=== PATIENT | male | born 1950 | race Caucasian/White ===

== ENCOUNTER → 2020-01-10 12:50 | Outpatient (BNVA) | payer OTHER, SELFPAY | PROVIDERS: PCP Internal Medicine; Referring Provider Internal Medicine; Visit Provider Internal Medicine Cardiovascular Disease | DX: I25.10 Atherosclerotic heart disease of native coronary artery without angina pectoris (principal); I49.3 Ventricular premature depolarization; I10 Essential (primary) hypertension; E78.5 Hyperlipidemia, unspecified; Z79.82 Long term (current) use of aspirin; Z79.899 Other long term (current) drug therapy | CPT/HCPCS: 93005; 99214 ==

== ENCOUNTER 2020-01-24 16:10 | Outpatient (REF) | payer OTHER, SELFPAY | END 2020-01-24 16:11 | disposition home or self-care (01) | LOC: HO.LAB 16:10 | PROVIDERS: Visit Provider Internal Medicine | DX: Z20.828 Contact with and (suspected) exposure to other viral communicable diseases (principal) | CPT/HCPCS: C9803; U0003 ==

== ENCOUNTER 2020-04-18 08:10 | Outpatient (REF) | payer OTHER, SELFPAY ==
[2020-04-18 08:56] LABS: MANUAL DIFF FLAG NO
[2020-04-18 09:07] LABS: Basophils Percent Auto 0.7 % (0-2); Eosinophils Absolute Auto 0.2 X10*3/uL (0.0-0.4); Eosinophils Percent Auto 2.9 % (0-4); Hematocrit 43.5 % (42-52); Hemoglobin 14.9 g/dl (14.0-18.0); Imm Gran Abs Auto 0.01 X10*3/uL (0.00-0.03); Imm Gran Pct Auto 0.2 % (0.0-0.4); Lymphocytes Absolute Auto 1.7 X10*3/uL (1.2-4.9); Lymphocytes Percent Auto 29.7 % (20-40); Mean Corpuscular HGB Conc 34.3 g/dl (31.0-36.0); Mean Corpuscular Hemoglobin 31.2 pg (27.0-33.0); Mean Platelet Volume 11.9 fL (9.4-12.4); Monocytes Absolute Auto 0.5 X10*3/uL (0.1-1.2); Monocytes Percent Auto 8.5 % (2-11); Neutrophils Absolute Auto 3.2 X10*3/uL (2.0-8.3); Platelet Count 153 X10*3/uL (160-400); Red Blood Count 4.78 X10*6/uL (4.60-5.80); Red Cell Distribution Width 12.4 % (11.0-16.0); White Blood Count 5.6 X10*3/uL (4.8-10.8)
[2020-04-18 09:16] LABS: Estimated Average Glucose 117 mg/dL; Hemoglobin A1C 147.2008 umol/L; Hemoglobin A1c % 5.7 %
[2020-04-18 09:27] LABS: Alanine Aminotransferase 26 U/L (0-40); Albumin Level 4.2 g/dL (3.5-5.0); Alkaline Phosphatase 71 U/L (39-117); Anion Gap 14 (12-20); Aspartate Amino Transferase 25 U/L (5-37); Bilirubin Total 0.8 mg/dL (0.0-1.0); Blood Urea Nitrogen 20 mg/dL (9-16); Calcium 9.1 mg/dL (8.4-10.2); Carbon Dioxide 23 mmol/L (22-29); Chloride 109 mmol/L (96-108); Cholesterol 113 mg/dL; Estimated Glomerular Filt Rate > 60; Glucose Fasting 99 mg/dL (60-99); HDL Cholesterol 39 mg/dL; LDL Cholesterol Calculated 53 mg/dl; Potassium 3.9 mmol/L (3.3-5.1); Sodium 142 mmol/L (135-145); Total Protein 6.8 g/dL (6.5-8.0); Triglycerides 108 mg/dL
[2020-04-18 09:50] LABS: Prostate Specific Antigen 2.09 ng/mL (<0.05-4.0); T4 Thyroxine 5.2 ug/dL (4.5-12.0)
[2020-04-18 10:00] LABS: Folate 18.6 ng/mL (> or = 4.0); Vitamin B12 799 pg/mL (200-900)
== END 2020-04-18 08:11 | disposition home or self-care (01) ==
LOC: HO.LAB 08:10
PROVIDERS: PCP Internal Medicine; Visit Provider Internal Medicine
DX: E66.9 Obesity, unspecified (principal); I25.10 Atherosclerotic heart disease of native coronary artery without angina pectoris; I10 Essential (primary) hypertension; F41.9 Anxiety disorder, unspecified; E78.00 Pure hypercholesterolemia, unspecified; N40.0 Benign prostatic hyperplasia without lower urinary tract symptoms; M25.539 Pain in unspecified wrist; Z12.5 Encounter for screening for malignant neoplasm of prostate
CPT/HCPCS: 36415; 80053; 80061; 82607; 82746; 83036; 84153; 84436; 84443; 85025

== ENCOUNTER 2020-11-26 13:28 | Outpatient (REF) | payer OTHER, SELFPAY | END 2020-11-26 13:29 | disposition home or self-care (01) | LOC: HO.HMGCLDS 13:28 | PROVIDERS: PCP Internal Medicine; Visit Provider Urology | DX: Z12.5 Encounter for screening for malignant neoplasm of prostate (principal); N40.1 Benign prostatic hyperplasia with lower urinary tract symptoms | CPT/HCPCS: 36415; 84153 ==

== ENCOUNTER → 2020-12-21 10:05 | Outpatient (BNVA) | payer OTHER, SELFPAY | PROVIDERS: Visit Provider Urology ==

== ENCOUNTER → 2021-01-01 13:43 | Outpatient (BNVA) | payer OTHER, SELFPAY | PROVIDERS: PCP Internal Medicine; Referring Provider Internal Medicine; Visit Provider Surgery | DX: K42.9 Umbilical hernia without obstruction or gangrene (principal) | CPT/HCPCS: 99202 ==

== ENCOUNTER → 2021-01-11 09:43 | Outpatient (BNVA) | payer OTHER, SELFPAY | PROVIDERS: PCP Internal Medicine; Referring Provider Internal Medicine; Visit Provider Internal Medicine Cardiovascular Disease | DX: Z01.810 Encounter for preprocedural cardiovascular examination (principal); I25.10 Atherosclerotic heart disease of native coronary artery without angina pectoris; I49.3 Ventricular premature depolarization; R42 Dizziness and giddiness | CPT/HCPCS: 93005; 99212 ==

== ENCOUNTER 2021-01-23 05:52 | Day surgery (SDC) | payer OTHER, SELFPAY ==
[2021-01-15 15:05] VITALS: BMI 35.1
--- NOTE | 2021-01-22 13:27 | HO.ANESPROP2 ---
Documented by User: Yasmine Law NP 01/22/21 13:29 HPI - Anesthesia Eval Consult details Narrative: 70yo M for Hernia Repair Umbilical with Poss Mesh Cardiac cleared at low to intermed [facility] Active Problems Active Problems: All Active Problems (Updated 01/15/21 @ 15:02 by Priscila Desir RN) Impaired glucose tolerance (Acute) Syncope (Acute) Peripheral neuropathy (Acute) Umbilical hernia (Acute) Erectile dysfunction (Acute) BPH (benign prostatic hyperplasia) (Acute) Anxiety and depression (Acute) GERD (gastroesophageal reflux disease) (Acute) Obesity (BMI 30-39.9) (Acute) CAD (coronary artery disease) (Acute) HTN (hypertension) (Acute) Hyperlipidemia (Acute) Past Medical History Medical History Anxiety and depression Asbestos exposure BPH (benign prostatic hyperplasia) CAD (coronary artery disease) COVID-19 vaccine series completed Diverticular disease GERD (gastroesophageal reflux disease) HTN (hypertension) Hyperlipidemia Impaired glucose tolerance Insomnia Mood swings Obesity (BMI 30-39.9) Peripheral vascular disease Tubular adenoma of colon Family History Family History Father CVD (cardiovascular disease) Melanoma Mother CVD (cardiovascular disease) Pancreatic cancer Hypertension Diabetes Brother No problems noted. Sister No problems noted. Son No problems noted. Daughter No problems noted. Surgical History Surgical History H/O colonoscopy History of right knee surgery History of tumor Hx of blepharoplasty Hx of heart artery stent Hx of thumb surgery Social History Social History Housing: Condominium Are you a primary rental boats caretaker to a significant other at home: No Do you presently have visiting nurse or other home services: No Alcohol intake: current Alcohol intake frequency: a few times a month Patient Tobacco Use Status: Former Tobacco user Quit Date: 1990 Tobacco use type: Cigarette e-Cigarette/Vaping Use: Never Used Second Hand Smoke Exposure: No Use of substances other than those prescribed or required for medical reasons: No Have you been hit, kicked, punched, or otherwise hurt by someone within the past year? If so, by whom?: No Are you DNR?: No Advance Directives Information Provided: Yes (informational brochure mailed) Advance Directives on File: No Recently lost weight without trying: No Eating poorly because of decreased appetite: No Nutrition Risks: No Nutritional Risk Poor oral hygiene: No (upper & lower full dentures-will leave home DOS) Current occupational status: retired Meds Allergies Allergy/AdvReac Type Severity Reaction Status Date / Time propoxyphene [From Darvon] Allergy Severe vomiting/di Verified 01/15/21 14:19 zziness atorvastatin [Lipitor] Allergy Intermediate decreased Verified 01/15/21 15:03 renal function lisinopril [From Zestril] Allergy Intermediate TROUBLE Verified 01/15/21 14:32 BREATHING Home Medications Medication Instructions Recorded Confirmed Last Taken Type aspirin 81 mg tablet,delayed 81 mg PO BID 01/10/20 01/15/21 01/22/21 History release (Adult Low Dose Aspirin) multivitamin 1 tab PO QPM 01/10/20 01/15/21 Unknown History omega-3 fatty acids 1,000 mg 1,000 mg PO QPM 01/10/20 01/15/21 Unknown History capsule (Fish Oil Concentrate) amlodipine 5 mg tablet 5 mg PO QAM 01/15/21 01/15/21 01/23/21 History citalopram 40 mg tablet 40 mg PO QPM 01/15/21 01/15/21 Unknown History metoprolol succinate 25 mg 25 mg PO QAM 01/15/21 01/15/21 01/23/21 History tablet,extended release 24 hr rosuvastatin 10 mg tablet 10 mg PO QAM 01/15/21 01/15/21 Unknown History tamsulosin 0.4 mg capsule 0.4 mg PO QAM 01/15/21 01/15/21 Unknown History Exam Exam Date and Time: January 22, 2021 1327 Height,Weight and Vital Signs: Height 5 ft 8 in Weight 104.78 kg Narrative Narrative: EKG 12/2020 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, unchanged from May EKG at [facility] Assessment and Plan Assessment Anesthesia Assessment: Chart Reviewed Documented by User: Karen Powell MD 01/23/21 08:25 [facility] Active Problems Active Problems: All Active Problems (Updated 01/15/21 @ 15:02 by Priscila Desir RN) Impaired glucose tolerance (Acute) Syncope (Acute) Peripheral neuropathy (Acute) Umbilical hernia (Acute) Erectile dysfunction (Acute) BPH (benign prostatic hyperplasia) (Acute) Anxiety and depression (Acute) GERD (gastroesophageal reflux disease) (Acute) Obesity (BMI 30-39.9) (Acute) CAD (coronary artery disease) (Acute). Denies recent chest pain HTN (hypertension) (Acute) Hyperlipidemia (Acute) Past Medical History Medical History Anxiety and depression Asbestos exposure BPH (benign prostatic hyperplasia) CAD (coronary artery disease) COVID-19 vaccine series completed Diverticular disease GERD (gastroesophageal reflux disease) HTN (hypertension) Hyperlipidemia Impaired glucose tolerance Insomnia Mood swings Obesity (BMI 30-39.9) Peripheral vascular disease Tubular adenoma of colon Family History Family History Father CVD (cardiovascular disease) Melanoma Mother CVD (cardiovascular disease) Pancreatic cancer Hypertension Diabetes Brother No problems noted. Sister No problems noted. Son No problems noted. Daughter No problems noted. Family history of problems with anesthesia: No Surgical History Surgical History H/O colonoscopy History of right knee surgery History of tumor Hx of blepharoplasty Hx of heart artery stent Hx of thumb surgery History of Problems with Anesthesia: No Social History Social History Housing: Condominium Are you a primary rental boats caretaker to a significant other at home: No Do you presently have visiting nurse or other home services: No Alcohol intake: current Alcohol intake frequency: a few times a month Patient Tobacco Use Status: Former Tobacco user Quit Date: 1990 Tobacco use type: Cigarette e-Cigarette/Vaping Use: Never Used Second Hand Smoke Exposure: No Use of substances other than those prescribed or required for medical reasons: No Have you been hit, kicked, punched, or otherwise hurt by someone within the past year? If so, by whom?: No Are you DNR?: No Advance Directives Information Provided: Yes (informational brochure mailed) Advance Directives on File: No Recently lost weight without trying: No Eating poorly because of decreased appetite: No Nutrition Risks: No Nutritional Risk Poor oral hygiene: No (upper & lower full dentures-will leave home DOS) Current occupational status: retired Meds Allergies Allergy/AdvReac Type Severity Reaction Status Date / Time propoxyphene [From Darvon] Allergy Severe vomiting/di Verified 01/15/21 14:19 zziness atorvastatin [Lipitor] Allergy Intermediate decreased Verified 01/15/21 15:03 renal function lisinopril [From Zestril] Allergy Intermediate TROUBLE Verified 01/15/21 14:32 BREATHING Home Medications Medication Instructions Recorded Confirmed Last Taken Type aspirin 81 mg tablet,delayed 81 mg PO BID 01/10/20 01/15/21 01/22/21 History release (Adult Low Dose Aspirin) multivitamin 1 tab PO QPM 01/10/20 01/15/21 Unknown History omega-3 fatty acids 1,000 mg 1,000 mg PO QPM 01/10/20 01/15/21 Unknown History capsule (Fish Oil Concentrate) amlodipine 5 mg tablet 5 mg PO QAM 01/15/21 01/15/21 01/23/21 History citalopram 40 mg tablet 40 mg PO QPM 01/15/21 01/15/21 Unknown History metoprolol succinate 25 mg 25 mg PO QAM 01/15/21 01/15/21 01/23/21 History tablet,extended release 24 hr rosuvastatin 10 mg tablet 10 mg PO QAM 01/15/21 01/15/21 Unknown History tamsulosin 0.4 mg capsule 0.4 mg PO QAM 01/15/21 01/15/21 Unknown History Exam Height,Weight and Vital Signs: Height 5 ft 8 in Weight 104.78 kg Vital Signs Temp Pulse Resp BP Pulse Ox 01/23/21 06:14 98.2 F 70 18 141/93 H 96 Airway Mallampati Class: II TM Dist: >3cm Neck ROM: Full Denture: Upper and Lower Heart: RRR Lungs: CTAB Assessment and Plan Assessment Anesthesia Assessment: Anesthesia Plan Discussed Final Anesthetic Review Family History of Problems with Anesthesia: No History of Problems with Anesthesia: No NPO: Yes ASA Class: III Final Preanesthetic Review: No Changes in Pt Med Stat, Meds/Allgs Chart Reviewed, Consent Obtained/Reviewed and Anes Risks/Benef Reviewed Patient Risk: Intermediate Procedure Risk: Low Assessment/Block/Sedation in SS: Assess/Block/Sedation-SS Anesthetic Plan Anesthetic Plan: GA Disposition: Standard PACU
[2021-01-23] VITALS (7 sets, daily range): BP systolic 121–144; BP diastolic 58–93; PULSE 57–70; RESP 14–18; TEMP 36.2–37.3; O2SAT 94–97
[2021-01-23 06:33] LABS: Hematocrit 45.9 % (42.0-52.0); Hemoglobin 15.4 g/dl (14.0-18.0); Mean Corpuscular HGB Conc 33.6 g/dl (31.0-36.0); Mean Corpuscular Hemoglobin 30.3 pg (27.0-33.0); Mean Corpuscular Volume 90.4 fL (80.0-98.0); Platelet Count 174 X10*3/uL (160-400); Red Blood Count 5.08 X10*6/uL (4.60-5.80); Red Cell Distribution Width 12.4 % (11.0-16.0); White Blood Count 7.2 X10*3/uL (4.8-10.8)
[2021-01-23 06:44] LABS: Anion Gap 10 (12-20); Blood Urea Nitrogen 20 mg/dL (9-16); Calcium 9.3 mg/dL (8.4-10.2); Carbon Dioxide 29 mmol/L (22-29); Chloride 107 mmol/L (96-108); Creatinine Clr Calc Pharmacy 67.5; Estimated Glomerular Filt Rate > 60; Glucose Fasting 105 mg/dL (60-99); Potassium 3.9 mmol/L (3.3-5.1); Sodium 142 mmol/L (135-145)
--- NOTE | 2021-01-23 08:09 | MHC.SHP ---
Pre-Procedural Eval Section A Date of Service: 01/23/21 The patient is an INPATIENT: No Changes since office visit: Yes Patient answered all questions; No Cold of Flu in the past 2 weeks, No New Medical Problems and No Changes in Medication The History & Physical has been completed within 30 days and I have reviewed it.: Yes Section B Chief Complaint: Umbilical Hernia Allergies: Allergies Allergy/AdvReac Type Severity Reaction Status Date / Time propoxyphene [From Darvon] Allergy Severe vomiting/di Verified 01/15/21 14:19 zziness atorvastatin [Lipitor] Allergy Intermediate decreased Verified 01/15/21 15:03 renal function lisinopril [From Zestril] Allergy Intermediate TROUBLE Verified 01/15/21 14:32 BREATHING Plan Diagnosis/Plan: Unchanged I have reviewed the history and physical and performed a pertinent physical examination on my patient. No changes have occurred unless specified.
--- NOTE | 2021-01-23 08:09 | W.PM.OPN ---
Operative Note Operative Note Date of Service: 01/23/21 Narrative: Preoperative diagnosis:Umbilical hernia Postoperative diagnosis:same Procedure: Repair of umbilical hernia with mesh Surgeon: Rigoberto Mercado MD Drafter Automotive Design: Tasha Benoit PA-C Anesthesia: General, LMA Indications for procedure: 70-year-old male patient presenting with a soft tissue mass in the umbilicus which increases in size with lifting and straining and reduces with light pressure. On examination he has an umbilical hernia located at the upper portion of the umbilicus which increases with Valsalva maneuvers. There is no tenderness to palpation. Operative findings: Umbilical hernia containing fat without strangulation or incarceration. Specimen: None Estimated blood loss: 2 mL Complications: None Procedure details: Patient was brought to the OR placed in a supine position. After administering general anesthesia patient's abdomen was prepped with ChloraPrep and draped in a sterile fashion. A surgical time-out was called the consent confirmed. Patient received preoperative antibiotics and Venodyne boots were in place. Local anesthesia consisting of 0.5% Sensorcaine plain was infiltrated around the umbilicus. A curvilinear incision was then made in a transverse fashion above the umbilicus. Incision was carried out through subcutaneous tissue up to the hernia sac. The hernia sac was then dissected circumferentially down to the fascial defect. The hernia sac was then reduced into the abdominal cavity. No bowel was noted within the sac. Fascial edge was then further defined using electrocautery. A preperitoneal space was then created using electrocautery. Hemostasis was assured all times using electrocautery. A medium round Ventralex mesh (6 x 4 cm round) was then obtained placed into the preperitoneal space. This was then secured to the fascia using a 1 Tycron suture in 4 quadrants. Fascia was then closed over the mesh using [id number] 1 Tycron sutures. Wounds were then irrigated with saline solution and suctioned dry. Additional local was infiltrated at this time. Umbilical skin was then reapproximated to the fascia using a 3-0 Polysorb suture. Dermis was then reapproximated using interrupted 3-0 Polysorb sutures. Skin was closed using a running subcuticular 4-0 Polysorb suture. Steri-Strips 2 x 2 gauze and Tegaderm were then applied. The patient tolerated the procedure well. Sponge, instrument, needle counts reported as correct. The patient was transferred to PACU in stable condition.
== END 2021-01-23 09:49 | disposition home or self-care (01) ==
PROVIDERS: Nurse Practitioner; PCP Internal Medicine; Visit Provider Surgery
PROC: (CPT 49585; principal; 2021-01-23 07:30)
DX: K42.9 Umbilical hernia without obstruction or gangrene (principal); F32.9 Major depressive disorder, single episode, unspecified; I25.10 Atherosclerotic heart disease of native coronary artery without angina pectoris; Z98.61 Coronary angioplasty status; I49.3 Ventricular premature depolarization; I10 Essential (primary) hypertension; E78.5 Hyperlipidemia, unspecified; K21.9 Gastro-esophageal reflux disease without esophagitis; G47.00 Insomnia, unspecified; R73.02 Impaired glucose tolerance (oral); Z79.82 Long term (current) use of aspirin; Z79.899 Other long term (current) drug therapy; Z77.090 Contact with and (suspected) exposure to asbestos; Z88.8 Allergy status to other drugs, medicaments and biological substances; Z87.891 Personal history of nicotine dependence
CPT/HCPCS: 49585; 36415; 80048; 85027; C1781; J0690; J2405; J3010

== ENCOUNTER → 2021-01-31 14:32 | Outpatient (BNVA) | payer OTHER, SELFPAY | PROVIDERS: PCP Internal Medicine; Referring Provider Internal Medicine; Visit Provider Surgery | DX: K42.9 Umbilical hernia without obstruction or gangrene (principal); K21.9 Gastro-esophageal reflux disease without esophagitis; D12.6 Benign neoplasm of colon, unspecified; E78.5 Hyperlipidemia, unspecified; R73.02 Impaired glucose tolerance (oral); I73.9 Peripheral vascular disease, unspecified; F41.8 Other specified anxiety disorders; Z87.891 Personal history of nicotine dependence; Z88.6 Allergy status to analgesic agent; Z88.8 Allergy status to other drugs, medicaments and biological substances; Z79.899 Other long term (current) drug therapy | CPT/HCPCS: 99212 ==

== ENCOUNTER 2021-02-19 10:25 | Outpatient (REF) | payer OTHER, SELFPAY ==
[2021-02-19 10:34] LABS: MANUAL DIFF FLAG NO
[2021-02-19 10:51] LABS: Basophils Percent Auto 0.7 % (0-2); Eosinophils Absolute Auto 0.3 X10*3/uL (0.0-0.4); Eosinophils Percent Auto 4.8 % (0-4); Hematocrit 44.5 % (42.0-52.0); Hemoglobin 15.2 g/dl (14.0-18.0); Imm Gran Abs Auto 0.01 X10*3/uL (0.00-0.03); Imm Gran Pct Auto 0.2 % (0.0-0.4); Lymphocytes Absolute Auto 1.6 X10*3/uL (1.2-4.9); Lymphocytes Percent Auto 25.7 % (20-40); Mean Corpuscular HGB Conc 34.2 g/dl (31.0-36.0); Mean Corpuscular Hemoglobin 30.7 pg (27.0-33.0); Mean Corpuscular Volume 89.9 fL (80.0-98.0); Mean Platelet Volume 10.9 fL (9.4-12.4); Monocytes Absolute Auto 0.5 X10*3/uL (0.1-1.2); Monocytes Percent Auto 8.5 % (2-11); Neutrophils Absolute Auto 3.6 x10*3/uL (2.0-8.3); Neutrophils Percent Auto 60.1 % (45-73); Platelet Count 181 X10*3/uL (160-400); Red Blood Count 4.95 X10*6/uL (4.60-5.80)
[2021-02-19 11:08] LABS: Estimated Average Glucose 120 mg/dL; Hemoglobin A1c % 5.8 %
[2021-02-19 11:35] LABS: Alanine Aminotransferase 23 U/L (0-40); Albumin Level 4.1 g/dL (3.5-5.0); Alkaline Phosphatase 70 U/L (39-117); Anion Gap 12 (12-20); Aspartate Amino Transferase 22 U/L (5-37); Bilirubin Total 0.8 mg/dL (0.0-1.0); Blood Urea Nitrogen 19 mg/dL (9-16); Calcium 9.6 mg/dL (8.4-10.2); Carbon Dioxide 23 mmol/L (22-29); Chloride 111 mmol/L (96-108); Estimated Glomerular Filt Rate > 60; Glucose Random 113 mg/dL (60-115); Magnesium 2.1 mg/dL (1.6-2.6); Sodium 142 mmol/L (135-145); Total Protein 6.9 g/dL (6.5-8.0)
[2021-02-19 12:04] LABS: Folate > 20.0 ng/mL (> or = 4.0); Vitamin B12 794 pg/mL (200-900)
== END 2021-02-19 10:26 | disposition home or self-care (01) ==
LOC: HO.LAB 10:25
PROVIDERS: Absent Provider Urology; PCP Internal Medicine; Visit Provider Internal Medicine
DX: G62.9 Polyneuropathy, unspecified (principal)
CPT/HCPCS: 36415; 80053; 82607; 82746; 83036; 83735; 85025

== ENCOUNTER → 2021-03-05 13:43 | Outpatient (BNVA) | payer OTHER, SELFPAY | PROVIDERS: PCP Internal Medicine; Referring Provider Internal Medicine; Visit Provider Surgery | DX: Z48.815 Encounter for surgical aftercare following surgery on the digestive system (principal); Z87.19 Personal history of other diseases of the digestive system | CPT/HCPCS: 99212 ==

== ENCOUNTER 2021-05-13 09:19 | Outpatient (REF) | payer OTHER, SELFPAY ==
[2021-05-13 09:58] LABS: MANUAL DIFF FLAG NO
[2021-05-13 10:26] LABS: Basophils Absolute Auto 0.1 X10*3/uL (0.0-0.2); Basophils Percent Auto 0.9 % (0-2); Eosinophils Absolute Auto 0.2 X10*3/uL (0.0-0.4); Eosinophils Percent Auto 2.8 % (0-4); Hemoglobin 15.3 g/dl (14.0-18.0); Imm Gran Abs Auto 0.02 X10*3/uL (0.00-0.03); Imm Gran Pct Auto 0.4 % (0.0-0.4); Lymphocytes Absolute Auto 1.4 X10*3/uL (1.2-4.9); Lymphocytes Percent Auto 24.8 % (20-40); Mean Corpuscular Hemoglobin 30.4 pg (27.0-33.0); Mean Corpuscular Volume 89.3 fL (80.0-98.0); Mean Platelet Volume 11.8 fL (9.4-12.4); Monocytes Absolute Auto 0.5 X10*3/uL (0.1-1.2); Monocytes Percent Auto 9.3 % (2-11); Neutrophils Absolute Auto 3.5 x10*3/uL (2.0-8.3); Neutrophils Percent Auto 61.8 % (45-73); Platelet Count 132 X10*3/uL (160-400); Red Blood Count 5.04 X10*6/uL (4.60-5.80); Red Cell Distribution Width 12.6 % (11.0-16.0); White Blood Count 5.7 X10*3/uL (4.8-10.8)
[2021-05-13 10:53] LABS: Alanine Aminotransferase 20 U/L (0-40); Albumin Level 4.4 g/dL (3.5-5.0); Alkaline Phosphatase 70 U/L (39-117); Anion Gap 11 (12-20); Aspartate Amino Transferase 24 U/L (5-37); Bilirubin Total 0.9 mg/dL (0.0-1.0); Blood Urea Nitrogen 21 mg/dL (9-16); Calcium 9.7 mg/dL (8.4-10.2); Carbon Dioxide 25 mmol/L (22-29); Chloride 108 mmol/L (96-108); Cholesterol 124 mg/dL; Estimated Glomerular Filt Rate > 60; Glucose Random 109 mg/dL (60-115); HDL Cholesterol 39 mg/dL; LDL Cholesterol Calculated 62 mg/dl; Sodium 140 mmol/L (135-145); Total Protein 7.2 g/dL (6.5-8.0); Triglycerides 119 mg/dL
[2021-05-13 11:12] LABS: Estimated Average Glucose 123 mg/dL; Hemoglobin A1c % 5.9 %
[2021-05-13 11:16] LABS: Free T4 (Free Thyroxine) 0.73 ng/dL (0.71-1.85); Prostate Specific Antigen Scr 2.18 ng/mL (<0.05-4.0); Thyroid Stimulating Hormone 2.18 uIU/mL (0.32-4.0)
[2021-05-13 12:12] LABS: Folate 17.8 ng/mL (> or = 4.0); Vitamin B12 765 pg/mL (200-900)
[2021-05-18 09:12] LABS: Testosterone, Total 288 ng/dL (250-1100)
== END 2021-05-13 09:20 | disposition home or self-care (01) ==
LOC: HO.LAB 09:19
PROVIDERS: PCP Internal Medicine; Visit Provider Internal Medicine
DX: I25.10 Atherosclerotic heart disease of native coronary artery without angina pectoris (principal); R73.02 Impaired glucose tolerance (oral); E78.00 Pure hypercholesterolemia, unspecified; N40.0 Benign prostatic hyperplasia without lower urinary tract symptoms; Z12.5 Encounter for screening for malignant neoplasm of prostate
CPT/HCPCS: 36415; 80053; 80061; 82607; 82746; 83036; 84153; 84403; 84439; 84443; 85025

== ENCOUNTER → 2021-06-11 08:24 | Outpatient (REF) | payer OTHER, SELFPAY ==
--- NOTE | 2021-06-11 08:34 | CA_ITS ---
Transthoracic Echocardiogram Patient (Last, First, Middle): Dani Jenkins R Gender: Male Date of : 1950 Age: 71 Procedure Date: 06/11/2021 Procedure Type: Transthoracic Echocardiogram Location: OP Height: 172.72 cm Weight: 101.61 kg BSA: 2.14 m2 Heart Rate: bpm BP: 132 / 72 mmHg Jewelry Mechanic: JEREMIAH Referring MD: Skip Chen MD Symptoms: I25.10 - Atherosclerotic heart disease of [place] coronary... Study Quality: Fair ECG Rhythm: Sinus Conclusions: - The left ventricular systolic function is normal. The calculated ejection fraction is 62% by biplane method. - There is mildly increased left ventricular wall thickness. - No obvious valvular pathology seen on this study. Findings Left Ventricle Normal left ventricular cavity size. There is mildly increased left ventricular wall thickness. The left ventricular systolic function is normal. The calculated ejection fraction is 62% by biplane method. There is no evidence of regional wall motion abnormalities. Diastolic function is normal for age. Right Ventricle Normal right ventricular cavity size and systolic function. Atria Both atria are normal in size. Aortic Valve There is a normal trileaflet aortic valve. There is no aortic valve stenosis. There is no aortic valve regurgitation. Mitral Valve The mitral valve appears normal. There is no mitral valve regurgitation. There is no mitral valve stenosis. Pulmonic Valve The pulmonic valve was not well visualized. Tricuspid Valve There is trace tricuspid valve regurgitation. The pulmonary artery systolic pressure is normal. Great Vessels The aortic annulus, sinuses of valsalva, and asc aorta are normal in size. Venous The inferior vena cava was not well visualized. Pericardium/Pleural There is no evidence of pericardial effusion. Prior Study Comparison No significant change compared to prior study dated: 08/16/2014. Recommendations, Care & Conclusions No obvious valvular pathology seen on this study. Measurements 2D Linear Measurements IVSd: 1.16 0.6-0.9/0.6-1.0 cm LVIDd: 4.97 3.9-5.3/4.2-5.9 cm LVIDd Index: 2.32 2.4-3.2/2.2-3.1 cm/m2 LVIDs: 3.25 2.0-3.6 cm LVPWd: 1.33 0.7-1.1 cm LA Diam: 4.00 2.7-3.8/3.0-4.0 cm LAIDs Index: 1.87 1.5-2.3 cm/m2 LV Mass: 304.09 67-162/88-224 g LV Mass Index: 142.10 43-95/49-115 g/m2 LVOT Diam: 2.20 3.0+(-)1.3 cm 2D Systolic Function EF 4C: 65.10 >55% EF 2C: 59.20 >55% EF BiP: 61.60 >55% Mitral Valve MV Pk E: 0.90 MV PK A: 0.74 MV Decel Time: 241.00 E/A: 1.20 E'Lateral: 9.25 E'Medial: 8.05 E/E' Med: 11.20 E/E' Lat: 9.80 PHT: 71.00 MVA PHT: 3.10 Decel Tillman: 3.75 Aortic Valve AoV Pk Sawyer: 1.52 AoV Pk Grad: 9.00 LVOT LVOT Pk Sawyer: 1.02 LVOT Mn Sawyer: 0.68 LVOT VTI: 0.24 LVOT Pk Grad: 4.00 LVOT Mn Grad: 2.00 LVOT Diam: 2.20 LVOT Area: 3.80 Diastolic Function MV Pk E: 0.90 MV Pk A: 0.74 E/A: 1.20 E'Medial: 8.05 E/E' Med: 11.20 E' Laterial: 9.25 E/E' Lat: 9.80 Right Ventricle TAPSE (mm): 2.07 TVS' Sawyer: 12.00 Tricuspid Valve TR Pk Sawyer: 2.06 TR Pk Grad: 17.00 RA Press: 3.00 RVSP: 20.00 Great Vessels Aorta Sinus of Valsalva: 3.61 2.0-3.5 cm Ao Asc: 3.60 2.1-3.4 cm Ao Arch: 3.10 Updated in Other Vendor System with Status of Final Yifan Perales MD electronically signed on 06/12/2021 11:56:58 AM with status of Final
== END ==
LOC: HO.CARD 08:24
PROVIDERS: Visit Provider Internal Medicine
DX: I25.10 Atherosclerotic heart disease of native coronary artery without angina pectoris (principal)
CPT/HCPCS: 93306

== ENCOUNTER 2021-12-13 10:55 | Outpatient (REF) | payer OTHER, SELFPAY ==
[2021-12-13 14:53] LABS: Prostate Specific Antigen 1.83 ng/mL (<0.05-4.0)
== END 2021-12-13 10:56 | disposition home or self-care (01) ==
LOC: HO.HMGCLDS 10:55
PROVIDERS: PCP Internal Medicine; Visit Provider Urology
DX: N40.1 Benign prostatic hyperplasia with lower urinary tract symptoms (principal); N13.8 Other obstructive and reflux uropathy; Z12.5 Encounter for screening for malignant neoplasm of prostate
CPT/HCPCS: 36415; 84153

== ENCOUNTER → 2021-12-19 09:14 | Outpatient (BNVA) | payer OTHER, SELFPAY | PROVIDERS: PCP Internal Medicine; Visit Provider Urology | DX: N40.0 Benign prostatic hyperplasia without lower urinary tract symptoms (principal); N52.9 Male erectile dysfunction, unspecified; R73.02 Impaired glucose tolerance (oral) | CPT/HCPCS: 51798; 99212 ==

== ENCOUNTER → 2022-01-17 09:05 | Outpatient (BNVA) | payer OTHER, SELFPAY | PROVIDERS: PCP Internal Medicine; Visit Provider Internal Medicine Cardiovascular Disease | DX: R00.1 Bradycardia, unspecified (principal); R42 Dizziness and giddiness; I44.4 Left anterior fascicular block; I51.7 Cardiomegaly; I25.10 Atherosclerotic heart disease of native coronary artery without angina pectoris; I10 Essential (primary) hypertension; R94.31 Abnormal electrocardiogram [ECG] [EKG] | CPT/HCPCS: 93005; 99212 ==

== ENCOUNTER 2022-03-19 08:50 | Day surgery (SDC) | payer OTHER, SELFPAY ==
--- NOTE | 2022-03-18 14:26 | P.CONAN_ITS ---
Documented by User: Yasmine Law NP 03/18/22 14:33 HPI - Anesthesia Eval Consult details Narrative: 72yo M for Colonoscopy Stable at yearly cardiology appt 01/2022 [facility] Active Problems Active Problems: All Active Problems (Updated 01/17/22 @ 09:31 by Curt Hamlin MD) PVC (premature ventricular contraction) (Acute) Generalized anxiety disorder (Acute) BPPV (benign paroxysmal positional vertigo) (Acute) Night sweats (Acute) Impaired glucose tolerance (Acute) Syncope (Acute) Peripheral neuropathy (Acute) Umbilical hernia (Acute) Erectile dysfunction (Acute) BPH (benign prostatic hyperplasia) (Acute) Anxiety and depression (Acute) GERD (gastroesophageal reflux disease) (Acute) Obesity (BMI 30-39.9) (Acute) CAD (coronary artery disease) (Acute) HTN (hypertension) (Acute) Hyperlipidemia (Acute) Past Medical History Medical History Anxiety and depression Asbestos exposure BPH (benign prostatic hyperplasia) CAD (coronary artery disease) COVID-19 vaccine series completed Diverticular disease GERD (gastroesophageal reflux disease) HTN (hypertension) Hyperlipidemia Impaired glucose tolerance Insomnia Mood swings Obesity (BMI 30-39.9) Peripheral vascular disease Tubular adenoma of colon Family History Family History Father CVD (cardiovascular disease) Melanoma Mother CVD (cardiovascular disease) Pancreatic cancer Hypertension Diabetes Brother No problems noted. Sister No problems noted. Son No problems noted. Daughter No problems noted. Family history of problems with anesthesia: No Surgical History Surgical History H/O colonoscopy H/O umbilical hernia repair History of right knee surgery History of tumor Hx of blepharoplasty Hx of heart artery stent Hx of thumb surgery History of Problems with Anesthesia: No Social History Social History Housing: Condominium Are you a primary home care giver to a significant other at home: No Do you presently have visiting nurse or other home services: No Alcohol intake: current Alcohol intake frequency: a few times a month Patient Tobacco Use Status: Former Tobacco user Quit Date: 40 years ago Tobacco use type: Cigarette e-Cigarette/Vaping Use: Never Used Second Hand Smoke Exposure: No Use of substances other than those prescribed or required for medical reasons: No Are you DNR?: No Advance Directives: No Advance Directives Information Provided: Yes Advance Directives on File: No Current occupational status: retired Cognitive needs: No Hearing needs: No Vision needs: Yes Meds Allergies Allergy/AdvReac Type Severity Reaction Status Date / Time propoxyphene [From Darvon] Allergy Severe vomiting/di Verified 03/03/22 09:14 zziness atorvastatin [Lipitor] Allergy Intermediate decreased Verified 03/03/22 09:14 renal function lisinopril [From Zestril] Allergy Intermediate TROUBLE Verified 03/03/22 09:14 BREATHING Home Medications Medication Instructions Recorded Confirmed Last Taken Type aspirin 81 mg tablet,delayed 81 mg PO BID 01/10/20 03/03/22 03/17/22 History release (Adult Low Dose Aspirin) multivitamin 1 tab PO QPM 01/10/20 03/03/22 Unknown History omega-3 fatty acids 1,000 mg 1,000 mg PO QPM 01/10/20 03/03/22 03/17/22 History capsule (Fish Oil Concentrate) Exam Exam Date and Time: March 18, 2022 1426 Narrative Narrative: EKG 01/2022 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 The ? calculated ejection fraction is 62% by biplane method. ? - There is mildly increased left ventricular wall thickness. ? ? - No obvious valvular pathology seen on this study.? ?? Assessment and Plan Assessment Anesthesia Assessment: Chart Reviewed Final Anesthetic Review Family History of Problems with Anesthesia: No History of Problems with Anesthesia: No Documented by User: Karen Poewll MD 03/19/22 10:36 [facility] Active Problems Active Problems: All Active Problems (Updated 01/17/22 @ 09:31 by Curt Hamlin MD) PVC (premature ventricular contraction) (Acute) Generalized anxiety disorder (Acute) BPPV (benign paroxysmal positional vertigo) (Acute) Night sweats (Acute) Impaired glucose tolerance (Acute) Syncope (Acute)- none recently Peripheral neuropathy (Acute) Umbilical hernia (Acute) Erectile dysfunction (Acute) BPH (benign prostatic hyperplasia) (Acute) Anxiety and depression (Acute) GERD (gastroesophageal reflux disease) (Acute) Obesity (BMI 30-39.9) (Acute) CAD (coronary artery disease) (Acute)- denies recent chest pain HTN (hypertension) (Acute) Hyperlipidemia (Acute) Past Medical History Medical History Anxiety and depression Asbestos exposure BPH (benign prostatic hyperplasia) CAD (coronary artery disease) COVID-19 vaccine series completed Diverticular disease GERD (gastroesophageal reflux disease) HTN (hypertension) Hyperlipidemia Impaired glucose tolerance Insomnia Mood swings Obesity (BMI 30-39.9) Peripheral vascular disease Tubular adenoma of colon Family History Family History Father CVD (cardiovascular disease) Melanoma Mother CVD (cardiovascular disease) Pancreatic cancer Hypertension Diabetes Brother No problems noted. Sister No problems noted. Son No problems noted. Daughter No problems noted. Surgical History Surgical History H/O colonoscopy H/O umbilical hernia repair History of right knee surgery History of tumor Hx of blepharoplasty Hx of heart artery stent Hx of thumb surgery Social History [facility] Are you a primary home care giver to a significant other at home: No Do you presently have visiting nurse or other home services: No Alcohol intake: current Alcohol intake frequency: a few times a month Patient Tobacco Use Status: Former Tobacco user Quit Date: 40 years ago Tobacco use type: Cigarette e-Cigarette/Vaping Use: Never Used Second Hand Smoke Exposure: No Use of substances other than those prescribed or required for medical reasons: No Are you DNR?: No Advance Directives: No Advance Directives Information Provided: Yes Advance Directives on File: No Current occupational status: retired Cognitive needs: No Hearing needs: No Vision needs: Yes Meds Allergies Allergy/AdvReac Type Severity Reaction Status Date / Time propoxyphene [From Darvon] Allergy Severe vomiting/di Verified 03/03/22 09:14 zziness atorvastatin [Lipitor] Allergy Intermediate decreased Verified 03/03/22 09:14 renal function lisinopril [From Zestril] Allergy Intermediate TROUBLE Verified 03/03/22 09:14 BREATHING Home Medications Medication Instructions Recorded Confirmed Last Taken Type aspirin 81 mg tablet,delayed 81 mg PO BID 01/10/20 03/03/22 03/17/22 History release (Adult Low Dose Aspirin) multivitamin 1 tab PO QPM 01/10/20 03/03/22 Unknown History omega-3 fatty acids 1,000 mg 1,000 mg PO QPM 01/10/20 03/03/22 03/17/22 History capsule (Fish Oil Concentrate) Exam Height,Weight and Vital Signs: Height 5 ft 8 in Weight 102.512 kg Vital Signs Temp Pulse Resp BP Pulse Ox O2 Del Method 03/19/22 09:07 98.2 F 76 18 158/85 H 95 Room Air Airway Mallampati Class: II TM Dist: >3cm Neck ROM: Full Denture: Upper and Lower Loose/Missing/Broken Teeth: Yes (Edentulous. Dentures at home) Heart: RRR Lungs: CTAB Assessment and Plan Assessment Anesthesia Assessment: Anesthesia Plan Discussed Final Anesthetic Review NPO: Yes ASA Class: III Final Preanesthetic Review: No Changes in Pt Med Stat, Meds/Allgs Chart Reviewed, Consent Obtained/Reviewed and Anes Risks/Benef Reviewed Patient Risk: Intermediate Procedure Risk: Low Assessment/Block/Sedation in SS: Assess/Block/Sedation-SS Anesthetic Plan Anesthetic Plan: MAC: Disposition: Standard PACU
[2022-03-19 09:07] VITALS: BP 158/85; PULSE 76; RESP 18; TEMP 36.8; O2SAT 95; BMI 34.3
[2022-03-19] MEDS: Lactated Ringers 1,000 ML 100 ML IVCONT (09:31)
[2022-03-19 11:01] VITALS: BP 122/64; PULSE 62; RESP 16; TEMP 36.4; O2SAT 95
--- NOTE | 2022-03-19 11:03 | PM.OP ---
Brief Operative Note Date of Service: 03/19/22 Pre-op diagnosis: Screening Post-op diagnosis: other (Colon polyps) Procedure: Colonoscopy to the cecum and TI with bx/removal of polyp, and hot snare polypcetomy x 1 with placement of 1 Resolution clip Surgeon: Dani Hernandez Anesthesia: MAC Was an Maintenance And Engineering Manager used for this Procedure?: No Estimated blood loss (mL): 2.0 Pathology: other (A. Ascending colon polyps) Condition: stable Disposition: PACU
[2022-03-19 11:16] VITALS: BP 107/68; PULSE 60; RESP 16; O2SAT 93
[2022-03-19 11:30] VITALS: BP 114/65; PULSE 58; RESP 16; TEMP 36.8; O2SAT 95
--- NOTE | 2022-03-19 11:43 | OP_ITS ---
SURGEON: Dani Hernandez MD INDICATIONS: The patient presents for evaluation of colorectal cancer screening and personal history of colon polyps. Full consent has been obtained from him for this, including risks of bleeding and perforation. PREOPERATIVE DIAGNOSIS: Colorectal cancer screening and personal history of colon polyps. POSTOPERATIVE DIAGNOSIS: PROCEDURE PERFORMED: Colonoscopy to the cecum and terminal ileum with hot snare polypectomy, biopsy removal of polyp, and placement of one resolution clip on the hot snare polypectomy site. ESTIMATED BLOOD LOSS: COMPLICATIONS: ANESTHESIA: ASSISTANTS: SPECIMENS: POSTOPERATIVE DIAGNOSES: Colorectal cancer screening and personal history of colon polyps, colon polyps, diverticulosis, and internal hemorrhoids. DESCRIPTION OF PROCEDURE: The patient was placed in the left lateral decubitus position. The digital rectal exam revealed no abnormalities. The Olympus video pediatric colonoscope was entered into the rectum and advanced easily to the cecum. Once in the cecum, I did identify normal-appearing cecal pouch with appendiceal orifice and a normal-appearing ileocecal valve. The terminal ileum was cannulated and appeared normal. Scope was withdrawn back in the colon. The entire cecum and ileocecal valve appeared normal. The scope was slowly withdrawn assessing all mucosal surfaces carefully. Preparation was excellent after his 2 day prep. In the ascending colon was a 2 or 3 mm polyp, which was biopsied and completely removed with a cold biopsy forceps. Also, in the ascending colon was an approximately 10 mm polyp, which was removed by hot snare polypectomy and recovered by suction. The polypectomy site appeared clean, without any sign of residual polyp nor bleeding. A single resolution clip was applied to the polypectomy site with good deployment and good hemostasis. I did not visualize any other polyps, colitis, nor angiodysplasia. There was a moderate amount of sigmoid diverticulosis. In the rectum, scope was retroflexed visualizing internal hemorrhoids, but no other pathology. The rectal mucosa appeared normal. The scope was straightened and withdrawn from the patient. He tolerated the procedure well and was returned to the recovery area in stable condition. IMPRESSION: 1. Colon polyps. 2. Diverticulosis. 3. Internal hemorrhoids. PLAN: The results of the pathology will be checked. Given these findings and his age, I do not think he would need any further screening colonoscopies. He was advised to resume his aspirin in 48 hours. He will otherwise see me on a p.r.n. basis. This has been discussed with his . He was advised not to use any NSAIDs for 1 week. MD JOSE A Crockett/KOKI / [id number]
== END 2022-03-19 12:38 | disposition home or self-care (01) ==
PROVIDERS: PCP Internal Medicine; Visit Provider Internal Medicine
PROC: 0DJD8ZZ Inspection of Lower Intestinal Tract, Via Natural or Artificial Opening Endoscopic (ICD-10-PCS; CPT 45378; principal; 2022-03-19 10:30)
DX: Z12.11 Encounter for screening for malignant neoplasm of colon (principal); Z86.010 Personal history of colon polyps; D12.2 Benign neoplasm of ascending colon; K57.30 Diverticulosis of large intestine without perforation or abscess without bleeding; K64.8 Other hemorrhoids; N40.0 Benign prostatic hyperplasia without lower urinary tract symptoms; I10 Essential (primary) hypertension; E78.5 Hyperlipidemia, unspecified; I25.10 Atherosclerotic heart disease of native coronary artery without angina pectoris; Z98.61 Coronary angioplasty status; Z79.82 Long term (current) use of aspirin; Z79.899 Other long term (current) drug therapy; Z88.8 Allergy status to other drugs, medicaments and biological substances; Z87.891 Personal history of nicotine dependence
CPT/HCPCS: 45385; 45380; 88305

== ENCOUNTER 2022-06-03 09:44 | Outpatient (REF) | payer OTHER, SELFPAY ==
--- NOTE | ~2022-06-03 | XR_ITS ---
EXAMINATION: XR CHEST CLINICAL INFORMATION: Asthma. COMPARISON: May 07, 2018. TECHNIQUE: 2 views of the chest were obtained. FINDINGS: An approximately 1.6 cm nodular density projects over the heart on lateral view, and appears similar compared with 2016. It is not appreciated on frontal view. No infiltrate, effusion, or pneumothorax is appreciated. No significant abnormality is noted involving the heart, mediastinum, bony thorax or soft tissues. XR/XR chest 2V IMPRESSION: No acute finding.
[2022-06-03 10:41] LABS: MANUAL DIFF FLAG NO
[2022-06-03 11:12] LABS: Eosinophils Absolute Auto 0.2 X10*3/uL (0.0-0.4); Eosinophils Percent Auto 4.1 % (0-4); Hematocrit 42.6 % (42.0-52.0); Hemoglobin 14.2 g/dl (14.0-18.0); Imm Gran Abs Auto 0.01 X10*3/uL (0.00-0.03); Imm Gran Pct Auto 0.2 % (0.0-0.4); Lymphocytes Absolute Auto 1.3 X10*3/uL (1.2-4.9); Mean Corpuscular HGB Conc 33.3 g/dl (31.0-36.0); Mean Corpuscular Hemoglobin 30.2 pg (27.0-33.0); Mean Corpuscular Volume 90.6 fL (80.0-98.0); Mean Platelet Volume 11.3 fL (9.4-12.4); Monocytes Absolute Auto 0.5 X10*3/uL (0.1-1.2); Monocytes Percent Auto 10.8 % (2-11); Neutrophils Absolute Auto 2.2 x10*3/uL (2.0-8.3); Neutrophils Percent Auto 53.9 % (45-73); Platelet Count 133 X10*3/uL (160-400); Red Cell Distribution Width 12.7 % (11.0-16.0); White Blood Count 4.2 X10*3/uL (4.8-10.8)
[2022-06-03 11:24] LABS: Estimated Average Glucose 126 mg/dL; Hemoglobin A1C 152.1611 umol/L
[2022-06-03 11:59] LABS: Alanine Aminotransferase 27 U/L (0-40); Alkaline Phosphatase 71 U/L (39-117); Anion Gap 12 (12-20); Aspartate Amino Transferase 26 U/L (5-37); Bilirubin Total 0.6 mg/dL (0.0-1.0); Blood Urea Nitrogen 21 mg/dL (9-16); Calcium 8.6 mg/dL (8.4-10.2); Carbon Dioxide 22 mmol/L (22-29); Chloride 112 mmol/L (96-108); Cholesterol 113 mg/dL; Estimated Glomerular Filt Rate > 60; Glucose Random 107 mg/dL (60-115); HDL Cholesterol 35 mg/dL; LDL Cholesterol Calculated 62 mg/dl; Potassium 4.2 mmol/L (3.3-5.1); Sodium 142 mmol/L (135-145); Total Protein 6.5 g/dL (6.5-8.0); Triglycerides 81 mg/dL
[2022-06-03 12:10] LABS: Folate 14.5 ng/mL (> or = 4.0); Free T4 (Free Thyroxine) 0.77 ng/dL (0.71-1.85); Thyroid Stimulating Hormone 1.39 uIU/mL (0.32-4.0); Vitamin B12 864 pg/mL (200-900)
[2022-06-08 18:28] LABS: Testosterone, Total 228 ng/dL (250-1100)
== END 2022-06-03 09:45 | disposition home or self-care (01) ==
LOC: HO.LAB 09:44
PROVIDERS: PCP Internal Medicine; Visit Provider Internal Medicine
DX: J45.909 Unspecified asthma, uncomplicated (principal); R73.02 Impaired glucose tolerance (oral); I25.10 Atherosclerotic heart disease of native coronary artery without angina pectoris; N52.9 Male erectile dysfunction, unspecified; E78.00 Pure hypercholesterolemia, unspecified
CPT/HCPCS: 36415; 71046; 80053; 80061; 82607; 82746; 83036; 83735; 84403; 84439; 84443; 85025

== ENCOUNTER 2022-12-17 09:37 | Outpatient (AMB) | payer OTHER, SELFPAY ==
--- NOTE | 2022-12-17 09:51 | MHC.PC.OV ---
Vital Signs 12/17/22 09:52 Height 5 ft 8 in Weight 223 lb BMI 33.9 BP 110/64 Blood Pressure Location Lt brachial Position Sitting Pulse 63 Pulse Source Pulse Oximeter Pulse Oximetry (%) 97 Oxygen Delivery Method Room Air Intake Visit Reasons: IGT, CAD, SERVANDO Intake Note: Patient is here to follow up on IGT, CAD, SERVANDO. Golf Course Patroller Required: No Director Broadcast: Not Required per policy Accompanied by: Self / Same As Patient Allergies propoxyphene [From Darvon] Allergy (Severe, Verified 12/17/22 09:51) vomiting/dizziness atorvastatin [Lipitor] Allergy (Intermediate, Verified 12/17/22 09:51) decreased renal function lisinopril [From Zestril] Allergy (Intermediate, Verified 12/17/22 09:51) TROUBLE BREATHING Medication List - Last Reconciled 12/17/22 by Skip Chen MD albuterol sulfate 90 mcg/actuation 2 puffs inhalation Q6H PRN alprazolam 0.25 mg PO DAILY PRN amlodipine 5 mg PO QAM 90 days aspirin (Adult Low Dose Aspirin) 81 mg PO BID citalopram 40 mg PO QPM epinephrine (EpiPen 2-James) 0.3 mg (0.3 mL) IM Q4H PRN famotidine 20 mg PO BID 90 days levetiracetam (Keppra) 500 mg PO BID metoprolol succinate ER 25 mg PO QAM multivitamin 1 tab PO QPM omega-3 fatty acids (Fish Oil Concentrate) 1,000 mg PO QPM rosuvastatin 10 mg PO QAM tamsulosin 0.4 mg PO QAM Tobacco use date assessed: 12/17/22 Fall risk assessment: No Falls in past year Last assessed Fall Risk: 12/17/22 HPI IGT, CAD, SERVANDO HPI Details 72-year-old obese male with coronary artery disease hypertension hypercholesterolemia BPH impaired glucose tolerance and generalized anxiety disorder last seen in August 2022. Patient's colonoscopy is up-to-date March 2022. 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 ER visit for witnessed seizure right facial droop with postictal versus left MCA resolves stroke. Patient has been going back and forth in [place] moving boxes and complained of muscle pains chest trapezius. Review of the notes patient had September 2019 CT angiogram of the chest showing no aortic aneurysm a right middle lobe lung nodule 1.3 cm hamartoma is favored patient was advised to follow-up with PET-CT or CT chest in 3-6 months. - states waking him up in am was seen having tremors. will be seeing [facility] Medical History Anxiety and depression Asbestos exposure BPH (benign prostatic hyperplasia) CAD (coronary artery disease) COVID-19 vaccine series completed Diverticular disease GERD (gastroesophageal reflux disease) HTN (hypertension) Hyperlipidemia Impaired glucose tolerance Insomnia Mood swings Obesity (BMI 30-39.9) Peripheral vascular disease Tubular adenoma of colon Surgical History H/O umbilical hernia repair Hx of blepharoplasty H/O colonoscopy Hx of heart artery stent History of tumor History of right knee surgery Hx of thumb surgery Family History Father CVD (cardiovascular disease) Melanoma Mother CVD (cardiovascular disease) Pancreatic cancer Hypertension Diabetes Brother No problems noted. Sister No problems noted. Son No problems noted. Daughter No problems noted. Social History Housing: Condominium Are you a primary personal care aide to a significant other at home: No Do you presently have visiting nurse or other home services: No Alcohol intake: current Alcohol intake frequency: a few times a month Patient Tobacco Use Status: Former Tobacco user Quit Date: 40 years ago Tobacco use type: Cigarette e-Cigarette/Vaping Use: Never Used Second Hand Smoke Exposure: No service: No Current occupational status: retired Cognitive needs: No Hearing needs: No Vision needs: Yes Questionnaire Thrive Questionnaire Date Thrive assessed: 09/01/22 SERVANDO-7 AMB Questionnaire SERVANDO-7 Date SERVANDO - 7 assessed: 09/01/22 Source: Developed by Drs. Dani Rebolledo, Carol Lainez, Roberto Carlos Alejo and colleagues, with an educational donnell from [employer]. Physical exam (Primary Care) Vital Signs: Last Vital Signs Pulse 63 12/17/22 09:52 BP 110/64 12/17/22 09:52 Pulse Ox 97 12/17/22 09:52 Oxygen Delivery Method Room Air 12/17/22 09:52 BMI result Body Mass Index 33.9 Tobacco/Smoking Status: Tobacco use Status Tobacco use date assessed 12/17/22 12/17/22 10:02 Patient Tobacco Use Status Former Tobacco user 12/17/22 10:02 Tobacco use type Cigarette 12/17/22 10:02 e-Cigarette/Vaping Use Never Used 12/17/22 10:02 Thrive Assessment: Date of Thrive Assessment Date Thrive assessed 09/01/22 12/17/22 10:02 Const General: alert; No acute distress Eyes Conjunctivae: conjunctivae normal Resp Auscultation: clear to auscultation bilaterally Cardio Rate: regular rate Rhythm: regular rhythm GI Inspection: Yes normal to inspection Extrem General: Yes normal to inspection and No edema Office Procedures Flu Questionnaire Does the patient have a severe egg allergy?: No Does the patient have severe life threatening allergies?: No Does the patient have a fever or illness today?: No Has the patient ever had Guillain-[place] Syndrome?: No Has the patient ever had any past reaction to a flu shot?: No Results AMB Hemoglobin A1c AMB Hemoglobin A1c 5.9 % Last Edit by EMELY Hernandez on 12/17/22 10:03 Immunizations flu vacc [id number] 6mos up(PF) 60 mcg(15 mcgx4)/0.5 mL IM syringe Performing Provider: Skip Chen MD [facility] Documented (not given) by: EMELY Hernandez on 12/17/22 10:02 Dose Route Admin Location Dispensed Lot Number Expiration Date NDC Library Media Technician 0.5 mL IM mL VIS Given Date VIS Provided VIS Publication Date Single Vaccine 20 Eligibility Eligibility Date Funding Source Results Reviewed Results Reviewed: Laboratory Last Values Hgb A1c (Clinic) 5.9 % (4.0-6.0) 12/17/22 09:50 Assessment and Plan Assessment & Plan (1) CAD (coronary artery disease): Comment: drug-eluting stent to proximal -mid LAD in January 2011 for ACS, 3 by 15 mm Code(s): I25.10 - Atherosclerotic heart disease of [place] coronary artery without angina pectoris Qualifiers: Coronary Disease-Associated Artery/Lesion type: [place] artery [place] vs. transplanted heart: [place] heart Associated angina: without angina Qualified Code(s): I25.10 - Atherosclerotic heart disease of [place] coronary artery without angina pectoris Plan: Control the cholesterol, weight, blood pressure continue with aspirin 81 mg (2) HTN (hypertension): Code(s): I10 - Essential (primary) hypertension Qualifiers: Hypertension type: essential hypertension Qualified Code(s): I10 - Essential (primary) hypertension Plan: Continue with blood pressure medication. Decrease salt intake and exercise patient on metoprolol 25 mg once a day and amlodipine 5 mg once a day (3) Hyperlipidemia: Code(s): E78.5 - Hyperlipidemia, unspecified Qualifiers: Hyperlipidemia type: pure hypercholesterolemia Qualified Code(s): E78.00 - Pure hypercholesterolemia, unspecified Plan: Avoid fried foods, chicken skin, eggs, butter margarine, pastries and meat. Be it pork or beef they have a lot of cholesterol LDL goal of less than 70 and triglyceride of less than 150 patient is taking rosuvastatin 10 mg once a day (4) Obesity (BMI 30-39.9): Code(s): E66.9 - Obesity, unspecified Plan: Diet and exercise (5) GERD (gastroesophageal reflux disease): Code(s): K21.9 - Gastro-esophageal reflux disease without esophagitis Qualifiers: Esophagitis presence: without esophagitis Qualified Code(s): K21.9 - Gastro-esophageal reflux disease without esophagitis Plan: Avoid the foods that causes that usually spicy foods, tomato products, juices, coffee, soda and foods that your sensitive to. After eating do not lie down, allow 3-4 hours before in lie down. And keep the head of bed above 30 degrees to avoid the acid from going up. (6) BPH (benign prostatic hyperplasia): Code(s): N40.0 - Benign prostatic hyperplasia without lower urinary tract symptoms Plan: Continue with tamsulosin (7) Impaired glucose tolerance: Code(s): R73.02 - Impaired glucose tolerance (oral) Plan: Decrease the amount of carbohydrate intake, pasta, bread, rice and potatoes are all sugar and that is aside from all the sweet stuff, remember that fruits are good but they are Sweet also. (8) Seizures: Code(s): R56.9 - Unspecified convulsions Plan: Patient presently on Keppra, will follow-up on neurology notes (9) Lung nodule: Comment: 09/2022 CT scan RUL Code(s): R91.1 - Solitary pulmonary nodule Plan: Incidental finding of right upper lobe pulmonary nodule ordered for CT scan of the chest Orders: Orders Influenza [id number] Immunization Today Z23 - Encounter for immunization CT chest w IV con Today R91.1 - Solitary pulmonary nodule Creatinine Today R91.1 - Solitary pulmonary nodule AMB Hemoglobin A1c Today R73.02 - Impaired glucose tolerance (oral) Blood Urea Nitrogen Today R91.1 - Solitary pulmonary nodule Medications: New levetiracetam (Keppra) 500 mg PO BID 60 tabs 0RF R56.9 - Unspecified convulsions flu vacc [id number] 6mos up(PF) 0.5 mL IM ONCE 0.5 mL 0RF Z23 - Encounter for immunization Coding Level of Care Code Est Pt Level 4 (41984) Diagnoses Coronary artery disease involving [place] coronary artery of [place] heart without angina pectoris I25.10 Coronary Disease-Associated Artery/Lesion type: [place] artery [place] vs. transplanted heart: [place] heart Associated angina: without angina Essential hypertension I10 Hypertension type: essential hypertension Pure hypercholesterolemia E78.00 Hyperlipidemia type: pure hypercholesterolemia Obesity (BMI 30-39.9) E66.9 Gastroesophageal reflux disease without esophagitis K21.9 Esophagitis presence: without esophagitis BPH (benign prostatic hyperplasia) N40.0 Impaired glucose tolerance R73.02 Seizures R56.9 Lung nodule R91.1
[2022-12-17 09:52] VITALS: BP 110/64; PULSE 63; O2SAT 97; BMI 33.9
== END 2022-12-17 10:35 | disposition home or self-care (01) ==
PROVIDERS: PCP Internal Medicine; Visit Provider Internal Medicine
DX: Z23 Encounter for immunization (principal); I25.10 Atherosclerotic heart disease of native coronary artery without angina pectoris; I10 Essential (primary) hypertension; E78.00 Pure hypercholesterolemia, unspecified; R73.02 Impaired glucose tolerance (oral)
CPT/HCPCS: 83036; 90471; 90686; 99214

== ENCOUNTER 2023-01-29 09:15 | Outpatient (AMB) | payer OTHER, SELFPAY ==
--- NOTE | 2023-01-29 09:17 | A.OFFVIS_ITS ---
Intake Vital Signs 01/29/23 09:18 Height 5 ft 8 in Weight 222 lb 10.67 oz BMI 33.9 BP 126/80 Blood Pressure Location Lt brachial Position Sitting Pulse 57 Intake Visit Reasons: 1 year follow up Intake Note: 1 year follow-up with ekg feeling good Project Manager Process Development Required: No Allergies propoxyphene [From Darvon] Allergy (Severe, Verified 12/17/22 09:51) vomiting/dizziness atorvastatin [Lipitor] Allergy (Intermediate, Verified 12/17/22 09:51) decreased renal function lisinopril [From Zestril] Allergy (Intermediate, Verified 12/17/22 09:51) TROUBLE BREATHING Medication List - Last Reconciled 01/29/23 by Curt Hamlin MD albuterol sulfate 90 mcg/actuation 2 puffs inhalation Q6H PRN alprazolam 0.25 mg PO DAILY PRN amlodipine 5 mg PO QAM 90 days aspirin (Adult Low Dose Aspirin) 81 mg PO BID citalopram 40 mg PO QPM epinephrine (EpiPen 2-James) 0.3 mg (0.3 mL) IM Q4H PRN famotidine 20 mg PO BID 90 days levetiracetam (Keppra) 500 mg PO BID metoprolol succinate ER 25 mg PO QAM multivitamin 1 tab PO QPM omega-3 fatty acids (Fish Oil Concentrate) 1,000 mg PO QPM rosuvastatin 10 mg PO QAM tamsulosin 0.4 mg PO QAM HPI HPI Comments History of Present Illness Details Neil comes for follow-up. Since I last saw him he said he had to hospitalization. While playing golf. A near syncopal episode and was admitted [facility]. Workup done at that time and seems like had an echocardiogram. Do not have a copy of the same. Will obtain the same. And subsequently a month later he had a transient neurologic event very had garbled speech and facial deviation noticed by his and he was brought to [facility]. Workup done at that point time and was diagnosed with seizure disorder and was started on Keppra. Patient has not had any new neurologic symptoms since then. Not on dual antiplatelet therapy. Do not have the copy of workup done at [facility]. Will review the same. Patient denies any exertional chest pain. Denies any progressive shortness of breath, orthopnea, PND. [facility] Medical History Mood swings COVID-19 vaccine series completed Impaired glucose tolerance Diverticular disease GERD (gastroesophageal reflux disease) BPH (benign prostatic hyperplasia) Insomnia Anxiety and depression Asbestos exposure Peripheral vascular disease Obesity (BMI 30-39.9) Tubular adenoma of colon Hyperlipidemia HTN (hypertension) CAD (coronary artery disease) Surgical History H/O umbilical hernia repair Hx of blepharoplasty H/O colonoscopy Hx of heart artery stent History of tumor History of right knee surgery Hx of thumb surgery Family History Father CVD (cardiovascular disease) Melanoma Mother CVD (cardiovascular disease) Pancreatic cancer Hypertension Diabetes Brother No problems noted. Sister No problems noted. Son No problems noted. Daughter No problems noted. Social History Housing: [facility] Are you a primary career counselor to a significant other at home: No Do you presently have visiting nurse or other home services: No Alcohol intake: current Alcohol intake frequency: a few times a month Patient Tobacco Use Status: Former Tobacco user Quit Date: 40 years ago Tobacco use type: Cigarette e-Cigarette/Vaping Use: Never Used Second Hand Smoke Exposure: No service: No Current occupational status: retired Cognitive needs: No Hearing needs: No Vision needs: Yes Review of Systems Const Denies chills, Denies fatigue, Denies fever(s), Denies frequent falls, Denies weakness, Denies weight gain and Denies weight loss ENT Denies dizziness Card Denies chest pain, Denies leg edema, Denies lightheadedness, Denies palpitations, Denies dyspnea, Denies dyspnea on exertion, Denies orthopnea and Denies other (loss of consciousness) Resp Denies cough, Denies dyspnea and Denies dyspnea on exertion GI Denies hematochezia and Denies change in stool character Musc Denies abnormal gait, Denies muscle weakness, Denies numbness, Denies radiating pain into limb and Denies tingling Neuro Denies abnormal gait, Denies dizziness, Denies frequent falls, Denies numbness, Denies tingling and Denies weakness Endo Denies fatigue and Denies palpitations Physical Exam Vital Signs: Last Vital Signs Pulse 57 01/29/23 09:18 BP 126/80 01/29/23 09:18 BMI result Body Mass Index 33.9 Const General: cooperative, healthy appearing, comfortable, no acute distress, well developed, alert and awake Nutritional Appearance: obese Orientation/consciousness: patient oriented x3 HEENT Head: Yes normal to inspection, Yes normocephalic and Yes atraumatic Eyes General: appearance normal, both eyes and all related structures Neck Neck: Yes full ROM, Yes trachea midline, Yes supple and Yes no JVD Carotids: other ( No carotid bruit) Chest Chest palpation & inspection: normal inspection of the chest Resp Effort & Inspection: normal respiratory effort Auscultation: clear to auscultation bilaterally Cardio Jugular venous distension: no JVD Palpation: normal PMI Rate: regular rate Rhythm: regular rhythm Heart sounds: S1 normal heart sound present, S2 normal heart sound present and Other heart sounds present ( soft S4) Peripheral pulses: Peripheral pulses 2+ throughout GI Inspection: Yes normal to inspection Auscultation: normal bowel sounds Skin General skin exam: elasticity normal and turgor normal Neuro General: patient oriented x3 and no focal motor deficits Extrem General: Yes no clubbing, cyanosis or edema Psych Appearance: grossly normal Office Procedures EKG Details: EKG shows normal sinus rhythm with left anterior fascicular block with LVH, unchanged from before [id number], Complete Assessment & Plan Assessment & Plan (1) Syncope: Code(s): R55 - Syncope and collapse Plan: Patient episode of near-syncope while playing golf and hot weather. Most likely dehydration orthostatic hypertension. Advised to maintain adequate hydration. Although structural heart disease given his prior history needs to be ruled out will suggest exercise myocardial perfusion imaging to complete workup. Echocardiogram will be reviewed from [facility]. Otherwise maintain current medical therapy. (2) CAD (coronary artery disease): Comment: drug-eluting stent to proximal -mid LAD in January 2011 for ACS, 3 by 15 mm Code(s): I25.10 - Atherosclerotic heart disease of [place] coronary artery without angina pectoris Qualifiers: Coronary Disease-Associated Artery/Lesion type: [place] artery [place] vs. transplanted heart: [place] heart Associated angina: without angina Qualified Code(s): I25.10 - Atherosclerotic heart disease of [place] coronary artery without angina pectoris Plan: CAD status post drug-eluting stent to LAD. No current obvious symptoms suggestive angina. Maintain good functional capacity. Myocardial perfusion imaging due to remote nature of stenting and recent near-syncope. Continue low- dose aspirin therapy for now. Review [facility] records about possible neurologic event. If he in fact had a new CVA/TIA would require further workup and should consider dual antiplatelet therapy for at least a year. If no obvious cause found should consider implantable loop recorder to evaluate for atrial fibrillation as he has risk factors for the same. Blood pressure is currently w ell optimized advised to monitor blood pressure at home maintain a log. (3) PVC (premature ventricular contraction): Code(s): I49.3 - Ventricular premature depolarization Plan: PVCs which are currently suppressed on current medical therapy. Doing well from that. Continue to use metoprolol therapy. Avoidance of stimulants was discussed Follow up in the clinic in 6 weeks time, sooner p.r.n.. Thank you for allowing me to partake in his care Coding Level of Care Code Est Pt Level 4 (11903) Diagnoses Syncope R55 Coronary artery disease involving [place] coronary artery of [place] heart without angina pectoris I25.10 Coronary Disease-Associated Artery/Lesion type: [place] artery [place] vs. transplanted heart: [place] heart Associated angina: without angina PVC (premature ventricular contraction) I49.3 CPT Codes EKG - CPT: 94675-[id number], Complete ([id number])
[2023-01-29 09:18] VITALS: BP 126/80; PULSE 57; BMI 33.9
== END 2023-01-29 09:42 | disposition home or self-care (01) ==
PROVIDERS: Visit Provider Internal Medicine Cardiovascular Disease
DX: R55 Syncope and collapse (principal); I25.10 Atherosclerotic heart disease of native coronary artery without angina pectoris; I49.3 Ventricular premature depolarization
CPT/HCPCS: 93010; 99214

== ENCOUNTER → 2023-01-29 09:15 | Outpatient (BNVA) | payer OTHER, SELFPAY | PROVIDERS: Visit Provider Internal Medicine Cardiovascular Disease | DX: I25.10 Atherosclerotic heart disease of native coronary artery without angina pectoris (principal); I49.3 Ventricular premature depolarization; R55 Syncope and collapse | CPT/HCPCS: 93005; 99212 ==

== ENCOUNTER 2023-02-18 12:25 | Outpatient (REF) | payer OTHER, SELFPAY ==
[2023-02-18 12:35] VITALS: BMI 34.1
[2023-02-18 12:36] VITALS: BP 141/67; PULSE 54; RESP 16; TEMP 36.1; O2SAT 97
[2023-02-18 13:15] VITALS: BP 129/68; PULSE 55; RESP 16; O2SAT 96
--- NOTE | 2023-02-18 13:47 | P.BOP_ITS ---
Brief Operative Note Date of Service: 02/18/23 Pre-op diagnosis: Syncope Post-op diagnosis: same Procedure: Placement of implantable loop recorder Implants: After obtaining informed consent patient was laid on the supine table in minor surgery suite. Patient is precordial area was then prepped and draped in a sterile fashion. Patient was then given 2% lidocaine with epinephrine intraderm ally and subcutaneously in the 4th intercostal space. A [employer] implantable loop recorder with serial number [id number] was implanted using modified Seldinger technique in the subcutaneous place. Measured R-waves were 0.3 mV. The wound was then closed with a Steri-Strip. Pressure dressing was then applied Surgeon: Curt Hamlin MD Anesthesia: local Was an Transport Company Manager used for this Procedure?: No Estimated blood loss (mL): 2 Pathology: none sent Condition: stable Disposition: same day
== END 2023-02-18 12:26 | disposition home or self-care (01) ==
LOC: HO.MS 12:25
PROVIDERS: PCP Internal Medicine; Visit Provider Internal Medicine Cardiovascular Disease
PROC: (CPT 33285; principal; 2023-02-18 13:00)
DX: R55 Syncope and collapse (principal)
CPT/HCPCS: 33285; C1764

== ENCOUNTER → 2023-02-18 12:25 | Outpatient (BNV) | payer OTHER, SELFPAY | PROVIDERS: PCP Internal Medicine; Visit Provider Internal Medicine Cardiovascular Disease | DX: R55 Syncope and collapse (principal) | CPT/HCPCS: 33285 ==

== ENCOUNTER 2023-02-26 13:43 | Outpatient (AMB) | payer OTHER, SELFPAY ==
--- NOTE | 2023-02-26 13:58 | A.OFFVIS_ITS ---
Intake Vital Signs 02/26/23 14:00 Height 5 ft 8 in Weight 227 lb 1.218 oz BMI 34.5 BP 110/60 Blood Pressure Location Lt brachial Position Sitting Pulse 60 Pulse Source Pulse Oximeter Intake Visit Reasons: f/u wound check after ILR Intake Note: f/up wound check after ILR pt its feeling good Converting Supervisor Required: No Accompanied by: Self / Same As Patient Allergies propoxyphene [From Darvon] Allergy (Severe, Verified 12/17/22 09:51) vomiting/dizziness atorvastatin [Lipitor] Allergy (Intermediate, Verified 12/17/22 09:51) decreased renal function lisinopril [From Zestril] Allergy (Intermediate, Verified 12/17/22 09:51) TROUBLE BREATHING HPI HPI Comments History of Present Illness Details 72-year-old male presents today for a wo und check. He had a Medtronic ILR placed by Dr. Hamlin on 02/18 due to syncope. He was also diagnosed with seizures at this time. He reports he has been doing well with no issues or concerns. He removed the bandage for his ILR yesterday due to it becoming wet. Denies any fever, chills, odor, or drainage. Site is intact, with no erythema, odor. or drainage. He has not had any near syncope or syncopal episodes. [facility] Medical History Mood swings COVID-19 vaccine series completed Impaired glucose tolerance Diverticular disease GERD (gastroesophageal reflux disease) BPH (benign prostatic hyperplasia) Insomnia Anxiety and depression Asbestos exposure Peripheral vascular disease Obesity (BMI 30-39.9) Tubular adenoma of colon Hyperlipidemia HTN (hypertension) CAD (coronary artery disease) Surgical History H/O umbilical hernia repair Hx of blepharoplasty H/O colonoscopy Hx of heart artery stent History of tumor History of right knee surgery Hx of thumb surgery Family History Father CVD (cardiovascular disease) Melanoma Mother CVD (cardiovascular disease) Pancreatic cancer Hypertension Diabetes Brother No problems noted. Sister No problems noted. Son No problems noted. Daughter No problems noted. Social History Housing: [facility] Are you a primary healthcare architect to a significant other at home: No Do you presently have visiting nurse or other home services: No Alcohol intake: current Alcohol intake frequency: a few times a month Patient Tobacco Use Status: Former Tobacco user Quit Date: 40 years ago Tobacco use type: Cigarette e-Cigarette/Vaping Use: Never Used Second Hand Smoke Exposure: No service: No Current occupational status: retired Cognitive needs: No Hearing needs: No Vision needs: Yes Review of Systems Const Denies chills, Denies fatigue, Denies fever(s), Denies frequent falls, Denies weakness, Denies weight gain and Denies weight loss ENT Denies dizziness Card Denies chest pain, Denies leg edema, Denies lightheadedness, Denies palpitations, Denies dyspnea and Denies dyspnea on exertion Resp Denies cough, Denies dyspnea and Denies dyspnea on exertion GI Denies hematochezia Musc Denies abnormal gait, Denies muscle weakness, Denies numbness, Denies radiating pain into limb and Denies tingling Neuro Denies abnormal gait, Denies dizziness, Denies frequent falls, Denies numbness, Denies tingling and Denies weakness Endo Denies fatigue and Denies palpitations Physical Exam Vital Signs: Last Vital Signs Pulse 60 02/26/23 14:00 BP 110/60 02/26/23 14:00 BMI result Body Mass Index 34.5 Const General: healthy appearing and no acute distress Orientation/consciousness: patient oriented x3 HEENT Head: Yes normal to inspection Eyes General: appearance normal, both eyes and all related structures Neck Neck: Yes normal visual inspection Chest Chest palpation & inspection: normal inspection of the chest Resp Effort & Inspection: normal respiratory effort Auscultation: clear to auscultation bilaterally Cardio Other: ILR placed to the left of sternal border. Jugular venous distension: no JVD Palpation: normal PMI Rate: regular rate Rhythm: regular rhythm Heart sounds: S1 normal heart sound present, S2 normal heart sound present, no click, no gallops, no murmurs and no rubs GI Inspection: Yes normal to inspection Palpation (GI): Soft to palpation Skin Other: ILR placed to the left of sternal border. Well approximated without any odor, redness, swelling, tenderness, or drainage. General skin exam: other (Well approximated surgical site left sternal border) Neuro General: patient oriented x3 Extrem General: Yes normal to inspection Psych Appearance: grossly normal Assessment & Plan Assessment & Plan (1) Implantable loop recorder present: Comment: 02/18/[address] Hamlin due to syncope Code(s): Z95.818 - Presence of other cardiac implants and grafts Plan Keep site clean and dry. Report any opening of the wound, redness, drainage, or odor. Follow-up as planned after finishing up testing. If bedside monitor doesn't come in to please call us or Track at . Coding Level of Care Code Est Pt Level 3 (72572) Diagnoses Implantable loop recorder present Z95.818
[2023-02-26 14:00] VITALS: BP 110/60; PULSE 60; BMI 34.5
== END 2023-02-26 14:22 | disposition home or self-care (01) ==
PROVIDERS: PCP Internal Medicine; Visit Provider Nurse Practitioner
DX: Z95.818 Presence of other cardiac implants and grafts (principal)
CPT/HCPCS: 99213

== ENCOUNTER → 2023-02-26 13:43 | Outpatient (BNVA) | payer OTHER, SELFPAY | PROVIDERS: PCP Internal Medicine; Visit Provider Nurse Practitioner | DX: Z95.818 Presence of other cardiac implants and grafts (principal) | CPT/HCPCS: 99212 ==

== ENCOUNTER → 2023-03-03 07:37 | Outpatient (REF) | payer OTHER, SELFPAY ==
--- NOTE | ~2023-03-03 | NM_ITS ---
Myocardial perfusion study Indication: Chest pain to evaluate for myocardial ischemia Technique: The patient was brought in for a Lexiscan perfusion study on 03/03/2023. Patient performed low-level exercise and was injected 0.4 mg of Lexiscan intravenously. Within a minute of injection, 35 mCi of sestamibi was given intravenously. Images were obtained using the SPECT gamma camera interlaced with the gating device. Images were obtained in supine position. Resting perfusion study was performed on 03/05/2023. Patient was administered 35 mCi of sestamibi intravenously at rest. Images were then obtained in supine position. Images obtained with and without CT attenuation. Total DLP 138 mGy-cm. Images were processed with the software and compared side to side in short axis, horizontal long axis and vertical long axis views. Findings: The stress perfusion study showed non attenuated images show mildly reduced uptake in the inferior and inferolateral wall of the LV myocardium. Remainder of the LV myocardium is normally perfused. Attenuation corrected images show mildly reduced uptake in the apex of the LV myocardium.. The gated study shows normal LV systolic function with calculated LVEF of 65%. LV cavity is normal in size. The gated study shows normal systolic wall thickening and contraction of segments. Resting study shows no change in uptake compared to stress perfusion study. Gating at rest reveals normal systolic wall motion with ejection fraction at 70%. The findings are consistent with no reversible defect suggestive of ischemia likely normal myocardial perfusion. NM/NM cardiolite stress test Impression: 1. Myocardial perfusion imaging study shows likely normal myocardial perfusion 2. Gated LVEF is 65% 3. Transient ischemic dilatation not present EKG is nondiagnostic for ischemia
--- NOTE | 2023-03-03 07:51 | CA_ITS ---
Acquisition Time: 2023-03-03 08:09:03 Total Exercise Time: 00:07:23 Test Indications: PVC'S Medications: SEE H Protocol: OBIE Max HR: 114 BPM 78% of Pred: 146 BPM Max BP: 164/056 mmHG Max Work Load: 9.1 METS Exercise stress test exercise 7 min 23 sec of Obie protocol achieving 74% MPHR, with mild to moderate SOB, no chest discomfort, with isolated PVCs, with normotensive response to exercise, stopped due to increase in fatigued and unable to continue. Test changed to pharmacological stress test with Lexiscan once breathing returned to normal. Lexiscan injection while sitting and marching in place, without anginal symptoms, without arrhythmias, with normotensive response to injeciton, with nondiagnoisitic EKGs. Nuclear images pending. Test reviewed with Dr. Hamlin Referred By: Curt Hamlin Overread By: Paola Gar
== END ==
LOC: HO.CARD 07:37
PROVIDERS: PCP Internal Medicine; Visit Provider Internal Medicine Cardiovascular Disease
DX: R07.9 Chest pain, unspecified (principal); R55 Syncope and collapse
CPT/HCPCS: 78452; 93017; A9500; J0280; J2785

== ENCOUNTER → 2023-03-03 07:51 | Outpatient (BNV) | payer OTHER, SELFPAY | PROVIDERS: PCP Internal Medicine; Visit Provider Nurse Practitioner | DX: R07.9 Chest pain, unspecified (principal); R06.02 Shortness of breath | CPT/HCPCS: 78452; 93016; 93018 ==

== ENCOUNTER 2023-03-19 11:04 | Outpatient (AMB) | payer OTHER, SELFPAY ==
--- NOTE | 2023-03-19 11:34 | MHC.OFFVIS ---
Intake Vital Signs 03/19/23 11:35 Height 5 ft 8 in Weight 227 lb 1.218 oz BMI 34.5 BP 118/76 Blood Pressure Location Lt brachial Position Sitting Pulse 60 Intake Visit Reasons: 6 wk fu after stress test Allergies propoxyphene [From Darvon] Allergy (Severe, Verified 12/17/22 09:51) vomiting/dizziness atorvastatin [Lipitor] Allergy (Intermediate, Verified 12/17/22 09:51) decreased renal function lisinopril [From Zestril] Allergy (Intermediate, Verified 12/17/22 09:51) TROUBLE BREATHING Medication List - Last Reconciled 03/19/23 by Curt Hamlin MD albuterol sulfate 90 mcg/actuation 2 puffs inhalation Q6H PRN amlodipine 5 mg PO QAM 90 days aspirin (Adult Low Dose Aspirin) 81 mg PO BID citalopram 40 mg PO QPM epinephrine (EpiPen 2-James) 0.3 mg (0.3 mL) IM Q4H PRN famotidine 20 mg PO BID 90 days levetiracetam (Keppra) 500 mg PO BID metoprolol succinate ER 25 mg PO QAM multivitamin 1 tab PO QPM omega-3 fatty acids (Fish Oil Concentrate) 1,000 mg PO QPM rosuvastatin 10 mg PO QAM tamsulosin 0.4 mg PO QAM HPI HPI Comments History of Present Illness Details Dani comes for follow-up. No recurrent syncopal episodes he underwent implantable loop recorder placement without any issues. Patient denies any recurrent chest pain. Underwent a myocardial perfusion imaging which was within normal limits. Takes all his medications. [facility], [facility] Medical History Mood swings COVID-19 vaccine series completed Impaired glucose tolerance Diverticular disease GERD (gastroesophageal reflux disease) BPH (benign prostatic hyperplasia) Insomnia Anxiety and depression Asbestos exposure Peripheral vascular disease Obesity (BMI 30-39.9) Tubular adenoma of colon Hyperlipidemia HTN (hypertension) CAD (coronary artery disease) Surgical History H/O umbilical hernia repair Hx of blepharoplasty H/O colonoscopy Hx of heart artery stent History of tumor History of right knee surgery Hx of thumb surgery Family History Father CVD (cardiovascular disease) Melanoma Mother CVD (cardiovascular disease) Pancreatic cancer Hypertension Diabetes Brother No problems noted. Sister No problems noted. Son No problems noted. Daughter No problems noted. Social History [facility] Are you a primary care center manager to a significant other at home: No Do you presently have visiting nurse or other home services: No Alcohol intake: current Alcohol intake frequency: a few times a month Patient Tobacco Use Status: Former Tobacco user Quit Date: 40 years ago Tobacco use type: Cigarette e-Cigarette/Vaping Use: Never Used Second Hand Smoke Exposure: No service: No Current occupational status: retired Cognitive needs: No Hearing needs: No Vision needs: Yes Review of Systems Const Denies chills, Denies fatigue, Denies fever(s), Denies frequent falls, Denies weakness, Denies weight gain and Denies weight loss ENT Denies dizziness Card Denies chest pain, Denies leg edema, Denies lightheadedness, Denies palpitations, Denies dyspnea, Denies dyspnea on exertion, Denies orthopnea and Denies other (loss of consciousness) Resp Denies cough, Denies dyspnea and Denies dyspnea on exertion GI Denies hematochezia and Denies change in stool character Musc Denies abnormal gait, Denies muscle weakness, Denies numbness, Denies radiating pain into limb and Denies tingling Neuro Denies abnormal gait, Denies dizziness, Denies frequent falls, Denies numbness, Denies tingling and Denies weakness Endo Denies fatigue and Denies palpitations Physical Exam Vital Signs: Last Vital Signs Pulse 60 03/19/23 11:35 BP 118/76 03/19/23 11:35 BMI result Body Mass Index 34.5 Const General: cooperative, healthy appearing, comfortable, no acute distress, well developed, alert and awake Nutritional Appearance: obese Orientation/consciousness: patient oriented x3 HEENT Head: Yes normal to inspection, Yes normocephalic and Yes atraumatic Eyes General: appearance normal, both eyes and all related structures Neck Neck: Yes full ROM, Yes trachea midline, Yes supple and Yes no JVD Carotids: other ( No carotid bruit) Chest Chest palpation & inspection: normal inspection of the chest Resp Effort & Inspection: normal respiratory effort Auscultation: clear to auscultation bilaterally Cardio Jugular venous distension: no JVD Palpation: normal PMI Rate: regular rate Rhythm: regular rhythm Heart sounds: S1 normal heart sound present, S2 normal heart sound present and Other heart sounds present ( soft S4) Peripheral pulses: Peripheral pulses 2+ throughout GI Inspection: Yes normal to inspection Auscultation: normal bowel sounds Skin General skin exam: elasticity normal and turgor normal Neuro General: patient oriented x3 and no focal motor deficits Extrem General: Yes no clubbing, cyanosis or edema Psych Appearance: grossly normal Assessment & Plan Assessment & Plan (1) CAD (coronary artery disease): Comment: drug-eluting stent to proximal -mid LAD in January 2011 for ACS, 3 by 15 mm Code(s): I25.10 - Atherosclerotic heart disease of [place] coronary artery without angina pectoris Qualifiers: Coronary Disease-Associated Artery/Lesion type: [place] artery [place] vs. transplanted heart: [place] heart Associated angina: without angina Qualified Code(s): I25.10 - Atherosclerotic heart disease of [place] coronary artery without angina pectoris Plan: CAD without any obvious new symptoms with normal myocardial perfusion imaging. Continue aggressive medical therapy. Good prognosis with was discussed. Continue low-dose aspirin therapy for life. Continue high-intensity statin therapy with target goal LDL less than 70 mg/dL. Blood pressure is currently well optimized. (2) Syncope: Code(s): R55 - Syncope and collapse Plan: Syncope of unclear etiology, status post implantable loop recorder placement. Will continue monitor remotely as well as in the clinic. Was not able to study the device due to technical issues with the computer. Will follow up in 6 months time, sooner p.r.n. Coding Level of Care Code Est Pt Level 3 (15794) Diagnoses Coronary artery disease involving [place] coronary artery of [place] heart without angina pectoris I25.10 Coronary Disease-Associated Artery/Lesion type: [place] artery [place] vs. transplanted heart: [place] heart Associated angina: without angina Syncope R55
[2023-03-19 11:35] VITALS: BP 118/76; PULSE 60; BMI 34.5
== END 2023-03-19 13:53 | disposition home or self-care (01) ==
PROVIDERS: PCP Internal Medicine; Referring Provider Internal Medicine; Visit Provider Internal Medicine Cardiovascular Disease
DX: I25.10 Atherosclerotic heart disease of native coronary artery without angina pectoris (principal); R55 Syncope and collapse
CPT/HCPCS: 99213

== ENCOUNTER → 2023-03-19 11:04 | Outpatient (BNVA) | payer OTHER, SELFPAY | PROVIDERS: PCP Internal Medicine; Visit Provider Internal Medicine Cardiovascular Disease | DX: I25.10 Atherosclerotic heart disease of native coronary artery without angina pectoris (principal); R55 Syncope and collapse | CPT/HCPCS: 99212 ==

== ENCOUNTER → 2023-03-29 23:59 | Outpatient (BNV) | payer OTHER, SELFPAY ==
--- NOTE | 2023-03-30 12:11 | A.OFFVIS_ITS ---
Intake Intake Visit Reasons: Remote ILR Check- Medtronic Allergies propoxyphene [From Darvon] Allergy (Severe, Verified 12/17/22 09:51) vomiting/dizziness atorvastatin [Lipitor] Allergy (Intermediate, Verified 12/17/22 09:51) decreased renal function lisinopril [From Zestril] Allergy (Intermediate, Verified 12/17/22 09:51) TROUBLE BREATHING PFSH Medical History Mood swings COVID-19 vaccine series completed Impaired glucose tolerance Diverticular disease GERD (gastroesophageal reflux disease) BPH (benign prostatic hyperplasia) Insomnia Anxiety and depression Asbestos exposure Peripheral vascular disease Obesity (BMI 30-39.9) Tubular adenoma of colon Hyperlipidemia HTN (hypertension) CAD (coronary artery disease) Surgical History H/O umbilical hernia repair Hx of blepharoplasty H/O colonoscopy Hx of heart artery stent History of tumor History of right knee surgery Hx of thumb surgery Family History Father CVD (cardiovascular disease) Melanoma Mother CVD (cardiovascular disease) Pancreatic cancer Hypertension Diabetes Brother No problems noted. Sister No problems noted. Son No problems noted. Daughter No problems noted. [facility] Are you a primary healthcare sales representative to a significant other at home: No Do you presently have visiting nurse or other home services: No Alcohol intake: current Alcohol intake frequency: a few times a month Patient Tobacco Use Status: Former Tobacco user Quit Date: 40 years ago Tobacco use type: Cigarette e-Cigarette/Vaping Use: Never Used Second Hand Smoke Exposure: No service: No Current occupational status: retired Cognitive needs: No Hearing needs: No Vision needs: Yes Office Procedures Cardiac Device Check Cardiac Device Check Details: Remote implantable loop recorder report generated 03/29/2023. Multiple pauses noted, longest lasting for seconds, all of these appearing during sleeping hours. Sleep study being requested [id number] Cardiac Interrogation, subcut cardiac rhythm monitor Procedure code (CPT) selection complete Assessment & Plan Assessment & Plan (1) Implantable loop recorder present: Comment: 02/18/[address] Hamlin due to syncope Code(s): Z95.818 - Presence of other cardiac implants and grafts Plan: See above Coding Level of Care Code Procedure Only Diagnoses Implantable loop recorder present Z95.818 CPT Codes Cardiac Device Check - Cardiac Device 16: [id number] Cardiac Interrogation, subcut cardiac rhythm monitor ([id number])
== END ==
PROVIDERS: PCP Internal Medicine; Visit Provider Internal Medicine Cardiovascular Disease
DX: R55 Syncope and collapse (principal); Z95.818 Presence of other cardiac implants and grafts
CPT/HCPCS: 93298

== ENCOUNTER → 2023-04-28 23:59 | Outpatient (BNV) | payer OTHER, SELFPAY ==
--- NOTE | 2023-04-28 14:27 | MHC.OFFVIS ---
Intake Intake Visit Reasons: Remote ILR Check- Medtronic Allergies propoxyphene [From Darvon] Allergy (Severe, Verified 12/17/22 09:51) vomiting/dizziness atorvastatin [Lipitor] Allergy (Intermediate, Verified 12/17/22 09:51) decreased renal function lisinopril [From Zestril] Allergy (Intermediate, Verified 12/17/22 09:51) TROUBLE BREATHING PFSH Medical History Mood swings COVID-19 vaccine series completed Impaired glucose tolerance Diverticular disease GERD (gastroesophageal reflux disease) BPH (benign prostatic hyperplasia) Insomnia Anxiety and depression Asbestos exposure Peripheral vascular disease Obesity (BMI 30-39.9) Tubular adenoma of colon Hyperlipidemia HTN (hypertension) CAD (coronary artery disease) Surgical History H/O umbilical hernia repair Hx of blepharoplasty H/O colonoscopy Hx of heart artery stent History of tumor History of right knee surgery Hx of thumb surgery Family History Father CVD (cardiovascular disease) Melanoma Mother CVD (cardiovascular disease) Pancreatic cancer Hypertension Diabetes Brother No problems noted. Sister No problems noted. Son No problems noted. Daughter No problems noted. [facility] Are you a primary career development consultant to a significant other at home: No Do you presently have visiting nurse or other home services: No Alcohol intake: current Alcohol intake frequency: a few times a month Patient Tobacco Use Status: Former Tobacco user Quit Date: 40 years ago Tobacco use type: Cigarette e-Cigarette/Vaping Use: Never Used Second Hand Smoke Exposure: No service: No Current occupational status: retired Cognitive needs: No Hearing needs: No Vision needs: Yes Office Procedures Cardiac Device Check Cardiac Device Check Details: Remote implantable loop recorder report generated 04/28/2023. No pauses noted in the last 30 days [id number] Cardiac Interrogation, subcut cardiac rhythm monitor Procedure code (CPT) selection complete Assessment & Plan Assessment & Plan (1) Implantable loop recorder present: Comment: 02/18/[address] Hamlin due to syncope Code(s): Z95.818 - Presence of other cardiac implants and grafts Plan: See above Coding Level of Care Code Procedure Only Diagnoses Implantable loop recorder present Z95.818 CPT Codes Cardiac Device Check - Cardiac Device 16: [id number] Cardiac Interrogation, subcut cardiac rhythm monitor ([id number])
== END ==
PROVIDERS: PCP Internal Medicine; Visit Provider Internal Medicine Cardiovascular Disease
DX: R55 Syncope and collapse (principal); Z95.818 Presence of other cardiac implants and grafts
CPT/HCPCS: 93298

== ENCOUNTER 2023-05-07 08:03 | Outpatient (AMB) | payer OTHER, SELFPAY ==
[2023-05-07 08:33] VITALS: BP 126/80; PULSE 63; O2SAT 97; BMI 34.2
--- NOTE | 2023-05-07 08:33 | A.OFFPC_ITS ---
Vital Signs 05/07/23 08:33 Height 5 ft 8 in Weight 225 lb BMI 34.2 BP 126/80 Blood Pressure Location Lt brachial Position Sitting Pulse 63 Pulse Source Pulse Oximeter Pulse Oximetry (%) 97 Oxygen Delivery Method Room Air Intake Visit Reasons: [facility] ED 04/29 vertigo and possible stroke Intake Note: Patient is here for hospital discharge follow up. Patient was discharged from [facility] was Discharged On 04/29/23. Allergies propoxyphene [From Darvon] Allergy (Severe, Verified 05/07/23 08:35) vomiting/dizziness atorvastatin [Lipitor] Allergy (Intermediate, Verified 05/07/23 08:35) decreased renal function lisinopril [From Zestril] Allergy (Intermediate, Verified 05/07/23 08:35) TROUBLE BREATHING Tobacco use date assessed: 05/07/23 Fall risk assessment: No Falls in past year Last assessed Fall Risk: 05/07/23 HPI [facility] ED 04/29 vertigo and possible stroke HPI Details 73-year-old obese male with coronary art wander disease hypertension hypercholesterolemia GERD BPH impaired glucose tolerance and history of seizures coming in for follow-up last seen in December 2022 had an incidental right upper lobe pulmonary nodule and CT scan was ordered. Patient is here for follow-up. Patient's colonoscopy is up-to-date March 2022. Review of the notes ER visit 04/28/2023 unsteady gait and dizziness with vomiting. Patient has just recently followed up with Cardiology underwent implantable loop recorder without any issues myocardial perfusion imaging within normal limits 03/19/2022. Patient comes her continues to feel pulses on the ear, and feels dizzy - [facility] Medical History Mood swings COVID-19 vaccine series completed Impaired glucose tolerance Diverticular disease GERD (gastroesophageal reflux disease) BPH (benign prostatic hyperplasia) Insomnia Anxiety and depression Asbestos exposure Peripheral vascular disease Obesity (BMI 30-39.9) Tubular adenoma of colon Hyperlipidemia HTN (hypertension) CAD (coronary artery disease) Surgical History H/O umbilical hernia repair Hx of blepharoplasty H/O colonoscopy Hx of heart artery stent History of tumor History of right knee surgery Hx of thumb surgery Family History Father CVD (cardiovascular disease) Melanoma Mother CVD (cardiovascular disease) Pancreatic cancer Hypertension Diabetes Brother No problems noted. Sister No problems noted. Son No problems noted. Daughter No problems noted. Social History Housing: Condominium Are you a primary child care sitter to a significant other at home: No Do you presently have visiting nurse or other home services: No Alcohol intake: current Alcohol intake frequency: a few times a month Patient Tobacco Use Status: Former Tobacco user Quit Date: 40 years ago Tobacco use type: Cigarette e-Cigarette/Vaping Use: Never Used Second Hand Smoke Exposure: No service: No Current occupational status: retired Cognitive needs: No Hearing needs: No Vision needs: Yes Questionnaire Thrive Questionnaire Date Thrive assessed: 09/01/22 AUDIT C Alcohol Use Questionnaire (AUDIT-C) 1. How often do you have a drink containing alcohol?: 2-4 times a month 2. How many drinks containing alcohol do you have on a typical day when you are drinking?: 1 or 2 3. How often do you have six or more drinks on one occasion?: Never Total Score: 2 SERVANDO-7 AMB Questionnaire SERVANDO-7 Date SERVANDO - 7 assessed: 09/01/22 Source: Developed by Drs. Dani Rebolledo, Carol Lainez, Roberto Carlos Alejo and colleagues, with an educational donnell from [employer]. Physical exam (Primary Care) Vital Signs: Last Vital Signs Pulse 63 05/07/23 08:33 BP 126/80 05/07/23 08:33 Pulse Ox 97 05/07/23 08:33 Oxygen Delivery Method Room Air 05/07/23 08:33 BMI result Body Mass Index 34.2 Tobacco/Smoking Status: Tobacco use Status Tobacco use date assessed 05/07/23 05/07/23 08:39 Patient Tobacco Use Status Former Tobacco user 05/07/23 08:39 Tobacco use type Cigarette 05/07/23 08:39 e-Cigarette/Vaping Use Never Used 05/07/23 08:39 Thrive Assessment: Date of Thrive Assessment Date Thrive assessed 09/01/22 05/07/23 08:39 Const General: alert; No acute distress Eyes Conjunctivae: conjunctivae normal Resp Auscultation: clear to auscultation bilaterally Cardio Rate: regular rate Rhythm: regular rhythm GI Inspection: Yes normal to inspection Extrem General: Yes normal to inspection and No edema Assessment and Plan Assessment & Plan (1) Syncope: Code(s): R55 - Syncope and collapse Plan: Patient has had an extensive workup on the heart and presently having the loop recorder which so far has not showed any problem. (2) CAD (coronary artery disease): Comment: drug-eluting stent to proximal -mid LAD in January 2011 for ACS, 3 by 15 mm Code(s): I25.10 - Atherosclerotic heart disease of [place] coronary artery without angina pectoris Qualifiers: Coronary Disease-Associated Artery/Lesion type: [place] artery [place] vs. transplanted heart: [place] heart Associated angina: without angina Qualified Code(s): I25.10 - Atherosclerotic heart disease of [place] coronary artery without angina pectoris Plan: Control the cholesterol, weight, blood pressure continue with present aspirin does (3) HTN (hypertension): Code(s): I10 - Essential (primary) hypertension Qualifiers: Hypertension type: essential hypertension Qualified Code(s): I10 - Essential (primary) hypertension Plan: Continue with blood pressure medication. Decrease salt intake and exercise on amlodipine 5 mg once a day metoprolol 25 mg once a day (4) Hyperlipidemia: Code(s): E78.5 - Hyperlipidemia, unspecified Qualifiers: Hyperlipidemia type: pure hypercholesterolemia Qualified Code(s): E78.00 - Pure hypercholesterolemia, unspecified Plan: Avoid fried foods, chicken skin, eggs, butter margarine, pastries and meat. Be it pork or beef they have a lot of cholesterol LDL goal of less than 70 and triglyceride of less than 150 May 2022 showing 63 (5) Obesity (BMI 30-39.9): Code(s): E66.9 - Obesity, unspecified Plan: Diet and exercise (6) GERD (gastroesophageal reflux disease): Code(s): K21.9 - Gastro-esophageal reflux disease without esophagitis Qualifiers: Esophagitis presence: without esophagitis Qualified Code(s): K21.9 - Gastro-esophageal reflux disease without esophagitis Plan: Avoid the foods that causes that usually spicy foods, tomato products, juices, coffee, soda and foods that your sensitive to. After eating do not lie down, allow 3-4 hours before in lie down. And keep the head of bed above 30 degrees to avoid the acid from going up. (7) BPH (benign prostatic hyperplasia): Code(s): N40.0 - Benign prostatic hyperplasia without lower urinary tract symptoms Plan: Continue with tamsulosin 0.4 mg once a day (8) Generalized anxiety disorder: Code(s): F41.1 - Generalized anxiety disorder Plan: Continue with present medication (9) Vertigo: Code(s): R42 - Dizziness and giddiness Orders: Orders PT Evaluation and Treatment Today R42 - Dizziness and giddiness Medications: New meclizine 25 mg PO TID 30 tabs 0RF R42 - Dizziness and giddiness Coding Level of Care Code Est Pt Level 4 (92103) Diagnoses Syncope R55 Coronary artery disease involving [place] coronary artery of [place] heart without angina pectoris I25.10 Coronary Disease-Associated Artery/Lesion type: [place] artery [place] vs. transplanted heart: [place] heart Associated angina: without angina Essential hypertension I10 Hypertension type: essential hypertension Pure hypercholesterolemia E78.00 Hyperlipidemia type: pure hypercholesterolemia Obesity (BMI 30-39.9) E66.9 Gastroesophageal reflux disease without esophagitis K21.9 Esophagitis presence: without esophagitis BPH (benign prostatic hyperplasia) N40.0 Generalized anxiety disorder F41.1 Vertigo R42
== END 2023-05-07 09:10 | disposition home or self-care (01) ==
PROVIDERS: PCP Internal Medicine; Visit Provider Internal Medicine
DX: R55 Syncope and collapse (principal); I25.10 Atherosclerotic heart disease of native coronary artery without angina pectoris; E66.9 Obesity, unspecified; Z68.34 Body mass index [BMI] 34.0-34.9, adult; I10 Essential (primary) hypertension; E78.00 Pure hypercholesterolemia, unspecified; K21.9 Gastro-esophageal reflux disease without esophagitis; N40.0 Benign prostatic hyperplasia without lower urinary tract symptoms; F41.1 Generalized anxiety disorder; R42 Dizziness and giddiness
CPT/HCPCS: 99214

== ENCOUNTER → 2023-05-28 23:59 | Outpatient (BNV) | payer OTHER, SELFPAY ==
--- NOTE | 2023-05-28 18:29 | A.OFFVIS_ITS ---
Intake Intake Visit Reasons: Remote ILR Check- [employer] Allergies propoxyphene [From Darvon] Allergy (Severe, Verified 05/07/23 08:35) vomiting/dizziness atorvastatin [Lipitor] Allergy (Intermediate, Verified 05/07/23 08:35) decreased renal function lisinopril [From Zestril] Allergy (Intermediate, Verified 05/07/23 08:35) TROUBLE BREATHING PFSH Medical History Mood swings COVID-19 vaccine series completed Impaired glucose tolerance Diverticular disease GERD (gastroesophageal reflux disease) BPH (benign prostatic hyperplasia) Insomnia Anxiety and depression Asbestos exposure Peripheral vascular disease Obesity (BMI 30-39.9) Tubular adenoma of colon Hyperlipidemia HTN (hypertension) CAD (coronary artery disease) Surgical History H/O umbilical hernia repair Hx of blepharoplasty H/O colonoscopy Hx of heart artery stent History of tumor History of right knee surgery Hx of thumb surgery Family History Father CVD (cardiovascular disease) Melanoma Mother CVD (cardiovascular disease) Pancreatic cancer Hypertension Diabetes Brother No problems noted. Sister No problems noted. Son No problems noted. Daughter No problems noted. Social History Housing: [facility] Are you a primary career representative to a significant other at home: No Do you presently have visiting nurse or other home services: No Alcohol intake: current Alcohol intake frequency: a few times a month Patient Tobacco Use Status: Former Tobacco user Quit Date: 40 years ago Tobacco use type: Cigarette e-Cigarette/Vaping Use: Never Used Second Hand Smoke Exposure: No service: No Current occupational status: retired Cognitive needs: No Hearing needs: No Vision needs: Yes Office Procedures Cardiac Device Check Cardiac Device Check Details: Remote implantable loop recorder report generated 05/28/2023. Since last monitored 2 more episodes of pauses noted 1 during sleep hours 1 at 08:00 in the morning. Patient has been seeing clinically after that [id number] Cardiac Interrogation, subcut cardiac rhythm monitor Procedure code (CPT) selection complete Assessment & Plan Assessment & Plan (1) Implantable loop recorder present: Comment: 02/18/[address] Hamlin due to syncope Code(s): Z95.818 - Presence of other cardiac implants and grafts Plan: See above Coding Level of Care Code Procedure Only Diagnoses Implantable loop recorder present Z95.818 CPT Codes Cardiac Device Check - Cardiac Device 16: [id number] Cardiac Interrogation, subcut cardiac rhythm monitor ([id number])
== END ==
PROVIDERS: PCP Internal Medicine; Visit Provider Internal Medicine Cardiovascular Disease
DX: I45.5 Other specified heart block (principal); Z95.818 Presence of other cardiac implants and grafts
CPT/HCPCS: 93298

== ENCOUNTER → 2023-06-27 23:59 | Outpatient (BNV) | payer OTHER, SELFPAY ==
--- NOTE | 2023-07-02 15:54 | MHC.OFFVIS ---
Intake Visit Reasons: Remote ILR check- [employer]tr[employer] Allergies propoxyphene [From Darvon] Allergy (Severe, Verified 06/30/23 09:13) vomiting/dizziness atorvastatin [Lipitor] Allergy (Intermediate, Verified 06/30/23 09:13) decreased renal function lisinopril [From Zestril] Allergy (Intermediate, Verified 06/30/23 09:13) TROUBLE BREATHING PFSH Medical History (Updated 06/30/23 @ 18:39 by Skip Chen MD) CAD (coronary artery disease) Mood swings COVID-19 vaccine series completed Impaired glucose tolerance Diverticular disease GERD (gastroesophageal reflux disease) BPH (benign prostatic hyperplasia) Insomnia Anxiety and depression Asbestos exposure Peripheral vascular disease Obesity (BMI 30-39.9) Tubular adenoma of colon Hyperlipidemia HTN (hypertension) Surgical History H/O umbilical hernia repair Hx of blepharoplasty H/O colonoscopy Hx of heart artery stent History of tumor History of right knee surgery Hx of thumb surgery Family History Father CVD (cardiovascular disease) Melanoma Mother CVD (cardiovascular disease) Pancreatic cancer Hypertension Diabetes Brother No problems noted. Sister No problems noted. Son No problems noted. Daughter No problems noted. [facility] Are you a primary continuum of care manager to a significant other at home: No Do you presently have visiting nurse or other home services: No Alcohol intake: current Alcohol intake frequency: a few times a month Patient Tobacco Use Status: Former Tobacco user Quit Date: 40 years ago Tobacco use type: Cigarette e-Cigarette/Vaping Use: Never Used Second Hand Smoke Exposure: No service: No Current occupational status: retired Cognitive needs: No Hearing needs: No Vision needs: Yes Office Procedures Cardiac Device Check Cardiac Device Check Details: Remote implantable loop recorder report generated 06/29/2023. Five pauses of greater than 3 seconds noted all of them during sleep hours [id number] Cardiac Interrogation, subcut cardiac rhythm monitor Procedure code (CPT) selection complete Assessment & Plan Assessment & Plan (1) Implantable loop recorder present: Comment: 02/18/[address] Hamlin due to syncope Code(s): Z95.818 - Presence of other cardiac implants and grafts Category: Medical Plan: See above
== END ==
PROVIDERS: PCP Internal Medicine; Visit Provider Internal Medicine Cardiovascular Disease
DX: Z45.09 Encounter for adjustment and management of other cardiac device (principal)
CPT/HCPCS: 93298

== ENCOUNTER 2023-06-30 09:07 | Outpatient (AMB) | payer OTHER, SELFPAY ==
--- NOTE | 2023-06-30 09:12 | A.OFFPC_ITS ---
Vital Signs 06/30/23 09:13 Height 5 ft 8 in Weight 221 lb BMI 33.6 BP 124/72 Blood Pressure Location Lt brachial Position Sitting Pulse 59 Pulse Source Pulse Oximeter Pulse Oximetry (%) 97 Oxygen Delivery Method Room Air Intake Visit Reasons: 6 month f/u Allergies propoxyphene [From Darvon] Allergy (Severe, Verified 06/30/23 09:13) vomiting/dizziness atorvastatin [Lipitor] Allergy (Intermediate, Verified 06/30/23 09:13) decreased renal function lisinopril [From Zestril] Allergy (Intermediate, Verified 06/30/23 09:13) TROUBLE BREATHING Tobacco use date assessed: 06/30/23 Fall risk assessment: No Falls in past year Last assessed Fall Risk: 06/30/23 Dental Screening Dental Screen Date: 06/30/23 Did you have a dental visit in the last 12 months?: No Did you have a dental problem in the last 6 months where you did not have access to dental care?: No Was dental information given to patient?: No HPI 6 month f/u HPI Details 73-year-old obese male with coronary art wander disease hypertension hypercholesterolemia GERD BPH generalized anxiety disorder last seen in April 2023. Patient is here for follow-up . Patient's colonoscopy is up-to-date March 2022 having tubular adenoma review of the notes was in the Urgent Center and had blood work done in April no anemia low platelet mildly elevated blood sugar creatinine normal liver function normal A1c 6.1 LDL of 56 HDL of 41 triglyceride 116 total cholesterol of 120 patient has seen Cardiology for just the implantable loop recorder check 2 episodes of pauses 1 during sleep hours. patient has been referred to another place for work up, has been golfing with no problem [facility] Medical History Mood swings COVID-19 vaccine series completed Impaired glucose tolerance Diverticular disease GERD (gastroesophageal reflux disease) BPH (benign prostatic hyperplasia) Insomnia Anxiety and depression Asbestos exposure Peripheral vascular disease Obesity (BMI 30-39.9) Tubular adenoma of colon Hyperlipidemia HTN (hypertension) CAD (coronary artery disease) Surgical History H/O umbilical hernia repair Hx of blepharoplasty H/O colonoscopy Hx of heart artery stent History of tumor History of right knee surgery Hx of thumb surgery Family History Father CVD (cardiovascular disease) Melanoma Mother CVD (cardiovascular disease) Pancreatic cancer Hypertension Diabetes Brother No problems noted. Sister No problems noted. Son No problems noted. Daughter No problems noted. Social History Housing: Condominium Are you a primary intensive care nurse to a significant other at home: No Do you presently have visiting nurse or other home services: No Alcohol intake: current Alcohol intake frequency: a few times a month Patient Tobacco Use Status: Former Tobacco user Quit Date: 40 years ago Tobacco use type: Cigarette e-Cigarette/Vaping Use: Never Used Second Hand Smoke Exposure: No service: No Current occupational status: retired Cognitive needs: No Hearing needs: No Vision needs: Yes Questionnaire PHQ-9 Over the last 2 weeks, how often have you been bothered by any of the following problems? 1. Little interest or pleasure in doing things: not at all 2. Feeling down, depressed, or hopeless: more than half the days 3. Trouble falling or staying asleep, or sleeping too much: not at all 4. Feeling tired or having little energy: not at all 5. Poor appetite or overeating: not at all 6. Feeling bad about yourself - or that you are a failure or have let yourself or your family down: not at all 7. Trouble concentrating on things, such as reading the newspaper or watching television: not at all 8. Moving or speaking so slowly that other people could have noticed. Or the opposite - being so fidgety or restless that you have been moving around a lot more than usual: not at all 9. Thoughts that you would be better off or of hurting yourself in some way: not at all Total score: 2 Depression Screening Interpretation: Negative Depression Screening Done: Yes Source: Developed by Drs. Dani Rebolledo, Carol Lainez, Roberto Carlos Alejo and colleagues, with an educational donnell from [employer]. Thrive Questionnaire Date Thrive assessed: 06/30/23 I am a: Patient What is your living situation today?: I have a steady place to live Within the past 12 months, did the food you bought not last and you didn't have the money to get more?: Never true Within the past 12 months, did you worry whether your food would run out before you got money to buy more?: Never true Do you have trouble paying for medicines?: No Do you have trouble getting transportation to medical appointments?: No Do you have trouble paying your heating and electricity bill?: No Do you have trouble taking care of your child, family member or friend?: No Do you have trouble with day-to-day activities such as bathing, preparing meals, shopping, managing finances, etc.?: No Are you currently unemployed and looking for a job?: No Are you interested in more education?: No Currently or been in a relationship where the following occur: no concerns reported THRIVE Score: 0 AUDIT C Alcohol Use Questionnaire (AUDIT-C) 1. How often do you have a drink containing alcohol?: 2-4 times a month 2. How many drinks containing alcohol do you have on a typical day when you are drinking?: 1 or 2 3. How often do you have six or more drinks on one occasion?: Never Total Score: 2 SERVANDO-7 AMB Questionnaire SERVANDO-7 Date SERVANDO - 7 assessed: 06/30/23 Feeling nervous, anxious, or on edge: 0 = Not at all Not being able to stop or control worryin = Not at all Worrying too much about different things: 0 = Not at all Trouble relaxin = Not at all Being so restless that it is hard to sit still: 0 = Not at all Becoming easily annoyed or irritable: 0 = Not at all Feeling afraid as if something awful might happen: 0 = Not at all Total SERVANDO-7 score (0-4 normal; 5-9 mild; 10-14 moderate; 15-21 severe): 0 Source: Developed by Drs. Dani Rebolledo, Carol Lainez, Roberto Carlos Alejo and colleagues, with an educational donnell from [employer]. Physical exam (Primary Care) Vital Signs: Last Vital Signs Pulse 59 06/30/23 09:13 BP 124/72 06/30/23 09:13 Pulse Ox 97 06/30/23 09:13 Oxygen Delivery Method Room Air 06/30/23 09:13 BMI result Body Mass Index 33.6 Tobacco/Smoking Status: Tobacco use Status Tobacco use date assessed 06/30/23 06/30/23 09:18 Patient Tobacco Use Status Former Tobacco user 06/30/23 09:18 Tobacco use type Cigarette 06/30/23 09:18 e-Cigarette/Vaping Use Never Used 06/30/23 09:18 PHQ-9: PHQ-9 Score PHQ-9: Total score 2 06/30/23 09:18 Depression Screening Interpretation: Negative Thrive Assessment: Date of Thrive Assessment Date Thrive assessed 06/30/23 06/30/23 09:18 Currently or been in a relationship where the following occur: no concerns reported Const General: alert; No acute distress Eyes Conjunctivae: conjunctivae normal Resp Auscultation: clear to auscultation bilaterally Cardio Rate: regular rate Rhythm: regular rhythm GI Inspection: Yes normal to inspection Extrem General: Yes normal to inspection and No edema Assessment and Plan Assessment & Plan (1) HTN (hypertension): Code(s): I10 - Essential (primary) hypertension Qualifiers: Hypertension type: essential hypertension Qualified Code(s): I10 - Essential (primary) hypertension Plan: Continue with blood pressure medication. Decrease salt intake and exercise on amlodipine 5 mg once a day metoprolol 25 mg once a day (2) Hyperlipidemia: Code(s): E78.5 - Hyperlipidemia, unspecified Qualifiers: Hyperlipidemia type: pure hypercholesterolemia Qualified Code(s): E78.00 - Pure hypercholesterolemia, unspecified Plan: Avoid fried foods, chicken skin, eggs, butter margarine, pastries and meat. Be it pork or beef they have a lot of cholesterol on rosuvastatin 10 mg once a day (3) CAD (coronary artery disease): Comment: drug-eluting stent to proximal -mid LAD in January 2011 for ACS, 3 by 15 mm Code(s): I25.10 - Atherosclerotic heart disease of [place] coronary artery without angina pectoris Qualifiers: Coronary Disease-Associated Artery/Lesion type: [place] artery [place] vs. transplanted heart: [place] heart Associated angina: without angina Qualified Code(s): I25.10 - Atherosclerotic heart disease of [place] coronary artery without angina pectoris Plan: Control the cholesterol, weight, blood pressure, continue with aspirin 81 mg once a day (4) Obesity (BMI 30-39.9): Code(s): E66.9 - Obesity, unspecified Plan: Diet and exercise (5) GERD (gastroesophageal reflux disease): Code(s): K21.9 - Gastro-esophageal reflux disease without esophagitis Qualifiers: Esophagitis presence: without esophagitis Qualified Code(s): K21.9 - Gastro-esophageal reflux disease without esophagitis Plan: Avoid the foods that causes that usually spicy foods, tomato products, juices, coffee, soda and foods that your sensitive to. After eating do not lie down, allow 3-4 hours before in lie down. And keep the head of bed above 30 degrees to avoid the acid from going up. (6) BPH (benign prostatic hyperplasia): Code(s): N40.0 - Benign prostatic hyperplasia without lower urinary tract symptoms Plan: stable (7) Impaired glucose tolerance: Code(s): R73.02 - Impaired glucose tolerance (oral) Plan: Decrease the amount of carbohydrate intake, pasta, bread, rice and potatoes are all sugar and that is aside from all the sweet stuff, remember that fruits are g ood but they are Sweet also. (8) Generalized anxiety disorder: Code(s): F41.1 - Generalized anxiety disorder Plan: Continue with present medication (9) Sinus pause: Code(s): I45.5 - Other specified heart block Plan: Has the implantable loop recorder. Orders: Orders Free T4 (Free Thyroxine) 6 Months I25.10 - Atherosclerotic heart disease of [place] coronary artery without angina pectoris Thyroid Stimulating Hormone 6 Months I25.10 - Atherosclerotic heart disease of [place] coronary artery without angina pectoris Vitamin B12 and Folate 6 Months I25.10 - Atherosclerotic heart disease of [place] coronary artery without angina pectoris Complete Blood Count Auto Diff 6 Months I25.10 - Atherosclerotic heart disease of [place] coronary artery without angina pectoris Comprehensive Met. Panel 6 Months I25.10 - Atherosclerotic heart disease of [place] coronary artery without angina pectoris Hemoglobin A1c 6 Months I25.10 - Atherosclerotic heart disease of [place] coronary artery without angina pectoris Lipid Panel 6 Months E78.00 - Pure hypercholesterolemia, unspecified, I25.10 - Atherosclerotic heart disease of [place] coronary artery without angina pectoris Coding Level of Care Code Est Pt Level 4 (02037) Diagnoses Essential hypertension I10 Hypertension type: essential hypertension Pure hypercholesterolemia E78.00 Hyperlipidemia type: pure hypercholesterolemia Coronary artery disease involving [place] coronary artery of [place] heart without angina pectoris I25.10 Coronary Disease-Associated Artery/Lesion type: [place] artery [place] vs. transplanted heart: [place] heart Associated angina: without angina Obesity (BMI 30-39.9) E66.9 Gastroesophageal reflux disease without esophagitis K21.9 Esophagitis presence: without esophagitis BPH (benign prostatic hyperplasia) N40.0 Impaired glucose tolerance R73.02 Generalized anxiety disorder F41.1 Sinus pause I45.5
[2023-06-30 09:13] VITALS: BP 124/72; PULSE 59; O2SAT 97; BMI 33.6
== END 2023-06-30 10:02 | disposition home or self-care (01) ==
PROVIDERS: PCP Internal Medicine; Visit Provider Internal Medicine
DX: I10 Essential (primary) hypertension (principal); E78.00 Pure hypercholesterolemia, unspecified; I25.10 Atherosclerotic heart disease of native coronary artery without angina pectoris; K21.9 Gastro-esophageal reflux disease without esophagitis; N40.0 Benign prostatic hyperplasia without lower urinary tract symptoms; R73.02 Impaired glucose tolerance (oral); F41.1 Generalized anxiety disorder; I45.5 Other specified heart block
CPT/HCPCS: 99214

== ENCOUNTER → 2023-07-30 16:39 | Outpatient (BNV) | payer OTHER, SELFPAY | PROVIDERS: Admitting Provider Internal Medicine; PCP Internal Medicine; Visit Provider Internal Medicine Cardiovascular Disease | DX: I44.4 Left anterior fascicular block (principal) | CPT/HCPCS: 93010 ==

== ENCOUNTER 2023-07-30 16:58 | Inpatient (IN) | payer OTHER, SELFPAY ==
--- NOTE | 2023-07-24 10:12 | HO.ANESPROP2 ---
Documented by User: Yasmine Law NP 07/29/23 10:26 HPI - Anesthesia Eval Consult details Narrative: 73yo M for Pacemaker Insertion, Dual PMFSH Active Problems Active Problems: All Active Problems Chest pain, unspecified (Acute) Sinus pause (Acute) Vertigo (Acute) Implantable loop recorder present (Acute) Lung nodule (Acute) Seizures (Acute) Bilateral knee pain (Acute) Asthmatic bronchitis (Acute) PVC (premature ventricular contraction) (Acute) Generalized anxiety disorder (Acute) BPPV (benign paroxysmal positional vertigo) (Acute) Night sweats (Acute) Impaired glucose tolerance (Acute) Syncope (Acute) Peripheral neuropathy (Acute) Umbilical hernia (Acute) Erectile dysfunction (Acute) BPH (benign prostatic hyperplasia) (Acute) Anxiety and depression (Acute) GERD (gastroesophageal reflux disease) (Acute) Obesity (BMI 30-39.9) (Acute) HTN (hypertension) (Acute) Hyperlipidemia (Acute) Past Medical History Medical History Seizures Mood swings COVID-19 vaccine series completed Impaired glucose tolerance Diverticular disease GERD (gastroesophageal reflux disease) BPH (benign prostatic hyperplasia) Insomnia Anxiety and depression Asbestos exposure Peripheral vascular disease Obesity (BMI 30-39.9) Tubular adenoma of colon Hyperlipidemia HTN (hypertension) CAD (coronary artery disease) Family History Family History Father CVD (cardiovascular disease) Melanoma Mother CVD (cardiovascular disease) Pancreatic cancer Hypertension Diabetes Brother No problems noted. Sister No problems noted. Son No problems noted. Daughter No problems noted. Family history of problems with anesthesia: No Surgical History Surgical History H/O umbilical hernia repair Hx of blepharoplasty H/O colonoscopy Hx of heart artery stent History of tumor History of right knee surgery Hx of thumb surgery History of Problems with Anesthesia: No Social History [facility] Are you a primary summer child caregiver to a significant other at home: No Do you presently have visiting nurse or other home services: No Alcohol intake: current Alcohol intake frequency: holidays/special occasions only Patient Tobacco Use Status: Former Tobacco user Quit Date: 40 years ago Tobacco use type: Cigarette e-Cigarette/Vaping Use: Never Used Second Hand Smoke Exposure: No service: No Current occupational status: retired Cognitive needs: No Hearing needs: No Vision needs: Yes Meds Allergies Allergy/AdvReac Type Severity Reaction Status Date / Time propoxyphene [From Darvon] Allergy Severe vomiting/di Verified 06/30/23 09:13 zziness atorvastatin [Lipitor] Allergy Intermediate decreased Verified 06/30/23 09:13 renal function lisinopril [From Zestril] Allergy Intermediate TROUBLE Verified 06/30/23 09:13 BREATHING Home Medications ?Medication ?Instructions ?Recorded ?Confirmed ?Last Taken ?Type aspirin 81 mg tablet,delayed 81 mg PO BID 01/10/20 03/19/23 07/29/23 History release (Adult Low Dose Aspirin) multivitamin 1 tab PO QPM 01/10/20 03/19/23 07/29/23 History omega-3 fatty acids 1,000 mg 1,000 mg PO QPM 01/10/20 03/19/23 07/29/23 History capsule (Fish Oil Concentrate) Exam Narrative Narrative: Cardiac Device Check 06/2023 Details: Remote implantable loop recorder report generated 06/29/2023. Five pauses of greater than 3 seconds noted all of them during sleep hours ECHO 2021 Conclusions: - The left ventricular systolic function is normal. The calculated ejection fraction is 62% by biplane method. - There is mildly increased left ventricular wall thickness. - No obvious valvular pathology seen on this study. NM cardiolite stress test 02/2023 Impression: 1. Myocardial perfusion imaging study shows likely normal myocardial perfusion 2. Gated LVEF is 65% 3. Transient ischemic dilatation not present EKG is nondiagnostic for ischemia Assessment and Plan Assessment Anesthesia Assessment: Chart Reviewed Final Anesthetic Review Family History of Problems with Anesthesia: No History of Problems with Anesthesia: No Documented by User: Karen Powell MD 07/30/23 14:06 HPI - Anesthesia Eval Consult details Narrative: 73yo M for Dual Pacemaker Insertion Patient was on Keppra for a few months from late last year for ?seizures but patient states had EEG and was told that sulema have seizures and keppra was stopped by his Neurologist [facility] Active Problems Active Problems: All Active Problems Chest pain, unspecified (Acute) Sinus pause (Acute) Vertigo (Acute) Implantable loop recorder present (Acute) Lung nodule (Acute) Seizures (Acute) Bilateral knee pain (Acute) Asthmatic bronchitis (Acute) PVC (premature ventricular contraction) (Acute) Generalized anxiety disorder (Acute) BPPV (benign paroxysmal positional vertigo) (Acute) Night sweats (Acute) Impaired glucose tolerance (Acute) Syncope (Acute) Peripheral neuropathy (Acute) Umbilical hernia (Acute) Erectile dysfunction (Acute) BPH (benign prostatic hyperplasia) (Acute) Anxiety and depression (Acute) GERD (gastroesophageal reflux disease) (Acute) Obesity BMI 42.2 HTN (hypertension) (Acute) Hyperlipidemia (Acute) Denies SHANNA Past Medical History Medical History Seizures Mood swings COVID-19 vaccine series completed Impaired glucose tolerance Diverticular disease GERD (gastroesophageal reflux disease) BPH (benign prostatic hyperplasia) Insomnia Anxiety and depression Asbestos exposure Peripheral vascular disease Obesity (BMI 30-39.9) Tubular adenoma of colon Hyperlipidemia HTN (hypertension) CAD (coronary artery disease) Family History Family History Father CVD (cardiovascular disease) Melanoma Mother CVD (cardiovascular disease) Pancreatic cancer Hypertension Diabetes Brother No problems noted. Sister No problems noted. Son No problems noted. Daughter No problems noted. Family history of problems with anesthesia: No Surgical History Surgical History H/O umbilical hernia repair Hx of blepharoplasty H/O colonoscopy Hx of heart artery stent History of tumor History of right knee surgery Hx of thumb surgery History of Problems with Anesthesia: No Social History Social History Housing: Condominium Are you a primary summer child caregiver to a significant other at home: No Do you presently have visiting nurse or other home services: No Alcohol intake: current Alcohol intake frequency: holidays/special occasions only Patient Tobacco Use Status: Former Tobacco user Quit Date: 40 years ago Tobacco use type: Cigarette e-Cigarette/Vaping Use: Never Used Second Hand Smoke Exposure: No service: No Current occupational status: retired Cognitive needs: No Hearing needs: No Vision needs: Yes Meds Allergies Allergy/AdvReac Type Severity Reaction Status Date / Time propoxyphene [From Darvon] Allergy Severe vomiting/di Verified 06/30/23 09:13 zziness atorvastatin [Lipitor] Allergy Intermediate decreased Verified 06/30/23 09:13 renal function lisinopril [From Zestril] Allergy Intermediate TROUBLE Verified 06/30/23 09:13 BREATHING Home Medications ?Medication ?Instructions ?Recorded ?Confirmed ?Last Taken ?Type aspirin 81 mg tablet,delayed 81 mg PO BID 01/10/20 03/19/23 07/29/23 History release (Adult Low Dose Aspirin) multivitamin 1 tab PO QPM 01/10/20 03/19/23 07/29/23 History omega-3 fatty acids 1,000 mg 1,000 mg PO QPM 01/10/20 03/19/23 07/29/23 History capsule (Fish Oil Concentrate) Exam Height,Weight and Vital Signs: Height 5 ft 8 in Weight 126.008 kg Vital Signs Temp Pulse Resp BP Pulse Ox O2 Del Method 07/30/23 12:01 168/91 H 07/30/23 11:45 98.5 F 53 19 142/113 H 96 Room Air Pertinent Lab Results Pertinent Lab Results: Lab Results 07/30/23 Range/Units 12:01 WBC 5.6 (4.8-10.8) X10*3/uL RBC 5.04 (4.60-5.80) X10*6/uL Hgb 15.9 (14.0-18.0) g/dl Hct 45.3 (42.0-52.0) % MCV 89.9 (80.0-98.0) fL MCH 31.5 (27.0-33.0) pg MCHC 35.1 (31.0-36.0) g/dl RDW 12.4 (11.0-16.0) % Plt Count 154 L (160-400) X10*3/uL MPV 11.1 (9.4-12.4) fL Absolute Nucleated RBC 0.000 (0.0-0.012) X10*3/uL Nucleated RBC % (auto) 0.0 (0.0-0.2) /100WBC Sodium 140 (135-145) mmol/L Potassium 4.0 (3.3-5.1) mmol/L Chloride 110 H (96-108) mmol/L Carbon Dioxide 22 (22-29) mmol/L Anion Gap 12 (12-20) BUN 21 H (9-16) mg/dL Creatinine 0.95 (0.5-1.4) mg/dL Estim Creat Clear Calc 86.8 Estimated GFR > 60 Fasting Glucose 111 H (60-99) mg/dL Calcium 9.3 D (8.4-10.2) mg/dL Airway Mallampati Class: II TM Dist: >3cm Neck ROM: Full Loose/Missing/Broken Teeth: Yes (Edentulous) Heart: RRR Lungs: CTAB Assessment and Plan Assessment Anesthesia Assessment: Anesthesia Plan Discussed and Chart Reviewed Final Anesthetic Review Family History of Problems with Anesthesia: No History of Problems with Anesthesia: No NPO: Yes ASA Class: III Final Preanesthetic Review: No Changes in Pt Med Stat, Meds/Allgs Chart Reviewed, Consent Obtained/Reviewed and Anes Risks/Benef Reviewed Patient Risk: Intermediate Procedure Risk: Intermediate Assessment/Block/Sedation in : Assess/Block/Sedation- Anesthetic Plan Anesthetic Plan: GA and MAC: Disposition: Standard PACU
[2023-07-30] VITALS (9 sets, daily range): BP systolic 142–168; BP diastolic 67–113; PULSE 53–68; RESP 13–20; TEMP 36.6–37; O2SAT 93–97; BMI 42.2
--- NOTE | ~2023-07-30 | XR_ITS ---
EXAMINATION: XR CHEST CLINICAL INFORMATION: Pacemaker COMPARISON: 06/03/2022 TECHNIQUE: 2 views of the chest were obtained. FINDINGS: Lungs are adequately expanded and clear. No pulmonary edema, pleural effusion or pneumothorax. Cardiac silhouette has normal size and contour. Left pectoral region cardiac pacemaker with intact transvenous leads extending to the right atrium and right ventricle. EKG wires overlie the chest. Mild spondylosis of the thoracic spine. No acute osseous abnormality. XR/XR chest 2V IMPRESSION: * Status post placement of dual chamber cardiac pacemaker. * No acute cardiopulmonary disease.
--- NOTE | ~2023-07-30 | FL_ITS ---
EXAMINATION: XR FLUOROSCOPY WITH IMAGES CLINICAL INFORMATION: Pacemaker insertion. COMPARISON: None available. TECHNIQUE: Fluoroscopy Supervised By: Dr. Dez Dale. Fluoroscopy Time: 8.5 minutes. Cumulative Dose: 199 mGy. DAP: 54.3 Gycm2. Images: 3. FINDINGS: Intraoperative fluoroscopy and spot films were performed during a procedure in the OR. Imaging shows the distal ends of the dual lead pacemaker. An additional device, likely a loop recorder, overlies the heart. Please see Dr. Dez Dale's report for complete details. FL/FL guidance in OR IMPRESSION: Intraoperative fluoroscopy and spot films were obtained. Please see Dr. Dez Dale's report for complete details.
--- NOTE | 2023-07-30 12:14 | PC.NURSE ---
pt saying he recalled wrong his last seizure was in january 2023 and stop his medication in march
[2023-07-30 12:22] LABS: Hematocrit 45.3 % (42.0-52.0); Hemoglobin 15.9 g/dl (14.0-18.0); Mean Corpuscular HGB Conc 35.1 g/dl (31.0-36.0); Mean Corpuscular Hemoglobin 31.5 pg (27.0-33.0); Mean Corpuscular Volume 89.9 fL (80.0-98.0); Mean Platelet Volume 11.1 fL (9.4-12.4); Platelet Count 154 X10*3/uL (160-400); Red Blood Count 5.04 X10*6/uL (4.60-5.80); Red Cell Distribution Width 12.4 % (11.0-16.0); White Blood Count 5.6 X10*3/uL (4.8-10.8)
[2023-07-30 12:37] LABS: Anion Gap 12 (12-20); Blood Urea Nitrogen 21 mg/dL (9-16); Calcium 9.3 mg/dL (8.4-10.2); Carbon Dioxide 22 mmol/L (22-29); Chloride 110 mmol/L (96-108); Creatinine Clr Calc Pharmacy 86.8; Estimated Glomerular Filt Rate > 60; Glucose Fasting 111 mg/dL (60-99); Sodium 140 mmol/L (135-145)
--- NOTE | 2023-07-30 13:16 | PC.NURSE ---
pt stated to anesthesia he had a eeg for his seizure like activity with no seizure activity seizure med d/josé manuel by neurologist okay to proceed
--- NOTE | 2023-07-30 16:39 | ECG_ITS ---
Test Reason : syncope Blood Pressure : / mmHG Vent. Rate : 060 BPM Atrial Rate : 060 BPM P-R Int : 228 ms QRS Dur : 120 ms QT Int : 440 ms P-R-T Axes : 010 -55 001 degrees QTc Int : 440 ms Atrial-paced rhythm with prolonged AV conduction Left anterior fascicular block Left ventricular hypertrophy with QRS widening ( R in aVL , Jose Guadalupe product ) Abnormal ECG When compared with ECG of 07-MAY-2018 19:09, Electronic atrial pacemaker has replaced Sinus rhythm Inverted T waves have replaced nonspecific T wave abnormality in Inferior leads Referred By: Dez Dale Electronically Signed By:RICKIE MCGUIRE MD
--- NOTE | 2023-07-30 16:44 | W.PM.OPN ---
Operative Note Operative Note Date of Service: 07/30/23 Narrative: NAME OF PROCEDURE: ? Dual chamber?pacemaker?with [employer] Removal of ILR INDICATION FOR PROCEDURE:??Pauses, Syncope Description of Procedure:?Patient was identified brought to the electrophysiology laboratory in a postabsorptive state.??The left pectoral region was prepped and draped in usual sterile fashion. Incision was made over the left pectoral region and pectoral subcutaneous pocket was made. Afterwards left axillary venous access was obtained using micropuncture needle and fluoroscopic guidance, a 7-[place] sheath was placed.??Right ventricular lead was placed in the right ventricular septum ?with good sensing and pacing thresholds.??The sheath was split and the lead was then anchored to the pectoral fascia with Ethibond suture.?? ? Afterwards left axillary venous access was obtained using micropuncture needle and fluoroscopic guidance, a 7-[place] sheath was placed.??Right atrial pacing lead was advanced and placed in the base of the right atrial appendage with good sensing and pacing thresholds.??The sheath was split and the lead was then anchored to the pectoral fascia with Ethibond suture.?? ? The subcutaneous pocket was made and the wound was irrigated with antibiotic solution.??The??leads were then connected to a?pacemaker?generator and placed in the pocket.??The wound was closed with 3 layers of absorbable sutures.?? Chest area was cleaned and ILR was removed after adequate local anesthetic. It was closed with suture, glue and steristrips Patient tolerated procedure well.??There were no complications. ? IMPRESSION:?? Successful?implantation?of Dual chamber?pacemaker? Removal of ILR ? PLAN: ? 1.?Routine postprocedure monitoring. 2.?CXR today? 3.?Post operative Abx? 4. ???EKG today? 5. ???Interrogation of device Post-op instructions. Do not shower 3 days Keep bandage on 5 days Please do not remove steristrips. Let them fall by themselves. Restriction of left arm for 6 weeks.?
--- NOTE | 2023-07-30 17:07 | PM.IMHP ---
History of Present Illness Date of Service: 07/30/23 Attending physician on admission: Abbie Chan Chief Complaint: bradycardia with pauses 73-year-old male with past medical history CAD, hypertension, hypercholesteremia, GERD, BPH , generalized anxiety disorder came to the hospital because outpatient having symptomatic bradycardia, was seen by train system operator outpatient and found to have pauses on the loop recorder specially during the sleep hours, patient also has dizziness for few months-subsequently patient was scheduled for elective pacemaker placement. Patient had pacemaker placement done this afternoon-and being admitted for overnight tele monitoring and clinical monitoring. Denies any new complaint of chest pain or shortness of breath or abdominal pain or fever or chills or nausea or vomiting Denies any cough Denies any weakness or numbness. Review of Systems Review of Systems: As above. Yes all other systems are reviewed and are negative [facility] Medical History Seizures Mood swings COVID-19 vaccine series completed Impaired glucose tolerance Diverticular disease GERD (gastroesophageal reflux disease) BPH (benign prostatic hyperplasia) Insomnia Anxiety and depression Asbestos exposure Peripheral vascular disease Obesity (BMI 30-39.9) Tubular adenoma of colon Hyperlipidemia HTN (hypertension) CAD (coronary artery disease) Family History Father CVD (cardiovascular disease) Melanoma Mother CVD (cardiovascular disease) Pancreatic cancer Hypertension Diabetes Brother No problems noted. Sister No problems noted. Son No problems noted. Daughter No problems noted. Surgical History H/O umbilical hernia repair Hx of blepharoplasty H/O colonoscopy Hx of heart artery stent History of tumor History of right knee surgery Hx of thumb surgery Social History Household Members: Spouse and Family Housing: Condominium Are you a primary child care worker to a significant other at home: No Do you presently have visiting nurse or other home services: No Alcohol intake: current Alcohol intake frequency: holidays/special occasions only Patient Tobacco Use Status: Former Tobacco user Quit Date: 40 years ago Tobacco use type: Cigarette e-Cigarette/Vaping Use: Never Used Second Hand Smoke Exposure: No Use of substances other than those prescribed or required for medical reasons: No Currently Displaying Signs/Symptoms of Drug Intoxication Withdrawal: No Have you been hit, kicked, punched, or otherwise hurt by someone within the past year? If so, by whom?: No Do you feel safe in your current relationship?: Yes Is there a partner from a previous relationship who is making you feel unsafe now?: No Are you made to feel afraid or neglected: No Are you DNR?: No Advance Directives: No Advance Directives Information Provided: Yes Recently lost weight without trying: No Nutrition Risks: No Nutritional Risk Poor oral hygiene: No service: No Current occupational status: retired Cognitive needs: No Hearing needs: No Vision needs: Yes Meds Allergies Allergy/AdvReac Type Severity Reaction Status Date / Time propoxyphene [From Darvon] Allergy Severe vomiting/di Verified 06/30/23 09:13 zziness atorvastatin [Lipitor] Allergy Intermediate decreased Verified 06/30/23 09:13 renal function lisinopril [From Zestril] Allergy Intermediate TROUBLE Verified 06/30/23 09:13 BREATHING Active Medications: Current Medications Acetaminophen (Acetaminophen 325 Mg Tablet) 650 mg PO ONCE PRN PRN Reason: Pain, Mild (Pain Scale 1-3) Stop: 07/30/23 20:11 Albuterol Sulfate (Albuterol Sulfate (0.083%) 2.5 Mg/3 Ml Vial.Neb) 2.5 mg INHALE ONCE PRN PRN Reason: Shortness of Breath/Wheezing Lactated Ringer's (Lr) 1,000 mls @ 100 mls/hr IVCONT .Q10H [facility] Cefazolin Sodium/Dextrose (Ancef) 2 gm in 50 mls @ 100 mls/hr IV Q8H [facility] Stop: 07/31/23 11:00 Ondansetron HCl (Ondansetron Hcl 4 Mg/2 Ml Vial) 4 mg IVPUSH ONCE PRN PRN Reason: Nausea and Vomiting Stop: 07/30/23 20:09 Sodium Chloride (0.9 % Sodium Chloride Flush 3 Ml Syringe) 3 ml IVFLUSH QSHIFT [facility] Home Medications ?Medication ?Instructions ?Recorded ?Confirmed ?Last Taken ?Type aspirin 81 mg tablet,delayed 81 mg PO BID 01/10/20 07/30/23 07/29/23 History release (Adult Low Dose Aspirin) multivitamin 1 tab PO BEDTIME 01/10/20 07/30/23 07/29/23 History omega-3 fatty acids 1,000 mg 1,000 mg PO BEDTIME 01/10/20 07/30/23 07/29/23 History capsule (Fish Oil Concentrate) amlodipine 5 mg tablet 5 mg PO DAILY 07/30/23 07/30/23 07/30/23 History citalopram 40 mg tablet 40 mg PO DAILY 07/30/23 07/30/23 07/30/23 History ibuprofen 200 mg tablet (Advil) 400 mg PO Q6H PRN Pain 07/30/23 07/30/23 Unknown History metoprolol succinate 25 mg 25 mg PO DAILY 07/30/23 07/30/23 07/30/23 History tablet,extended release 24 hr rosuvastatin 10 mg tablet 10 mg PO DAILY 07/30/23 07/30/23 07/30/23 History tamsulosin 0.4 mg capsule 0.4 mg PO BEDTIME 07/30/23 07/30/23 07/29/23 History Physical Exam Vital Signs and Narrative: Vital Signs: Last Vital Signs Temp 98 F 07/30/23 16:30 Pulse 60 07/30/23 17:00 Resp 13 07/30/23 17:00 BP 165/69 H 07/30/23 17:00 Pulse Ox 95 07/30/23 17:00 O2 Del Method Room Air 07/30/23 17:00 O2 Flow Rate 2 07/30/23 16:30 BMI result Body Mass Index 42.2 Appearance: Alert.? Oriented X3.? Eyes: Pupils equal, round and reactive to light.? Sclera nonicteric.? ENT: Pharynx normal.? Moist mucous membranes. cvs: rrr, [id number] . res: clear to auscultation ,no rhonchii or wheezing abd: no rebound or guarding ,nt, bs present. ext pulses present , no cyanosis . skin : left upper pectoral area mild swelling , soaraness. neuro: axo3 , nonfocal. Results Labs 07/30/23 12:01 07/30/23 12:01 Labs: Laboratory Results - last 24 hr 07/30/23 12:01 MCV 89.9 MCH 31.5 MCHC 35.1 RDW 12.4 Plt Count 154 L MPV 11.1 Absolute Nucleated RBC 0.000 Nucleated RBC % (auto) 0.0 Anion Gap 12 Estim Creat Clear Calc 86.8 Estimated GFR > 60 Fasting Glucose 111 H Calcium 9.3 D Assessment and Plan (1) Sinus pause: Status: Acute Plan 73-year-old male with past medical history CAD, hypertension, hypercholesteremia, GERD, BPH , generalized anxiety disorder came to the hospital because outpatient having symptomatic bradycardia, was seen by train system operator outpatient and found to have pauses on the loop recorder specially during the sleep hours, patient also has dizziness for few months-subsequently patient was scheduled for elective pacemaker placement. Symptomatic bradycardia: Status post pacemaker Monitor on tele We need pacemaker interrogation in the morning, chest x-ray in am. d/w cardiology. med reconcilliation pending. htn : continue home meds once reconcilliation done. cad: continue asa ,statin,bb once medication reconcilliation done. Anxiety and depression:once medication reconcilliation done. hlp: continue statin -once medication reconcilliation done. gerd:continue home meds-once medication reconcilliation done. morbid obesity: encouarged to lose weight /cut down calories. dvt prophylax: scd patient. Patient will benefit from overnight stay for symptomatic bradycardia status post pink pacemaker-need pacemaker interrogation as well as tele monitoring and clinical monitoring, chest imaging in the morning. Quality Stroke Does the patient have a stroke diagnosis?: No VTE Prior VTE?: No VTE Risk Level:: Medical - moderate - high VTE Device Contraindication: N/A - Device Ordered VTE Drug Contraindication: N/A - Med Ordered
[2023-07-30] MEDS: Lactated Ringers 1,000 ML 100 ML IVCONT ×2 (18:24→23:58)
--- NOTE | 2023-07-30 19:14 | PHA.MEDREC ---
Pharmacy Consult ? Medication Reconciliation Pharmacy has completed the medication reconciliation. Spoke with patient and confirmed medications.
[2023-07-30] MEDS: ceFAZolin Sodium/Dextrose,Iso 2 GM/50 ML PIGGYBACK IV (22:00)
[2023-07-30] MEDS: 0.9 % Sodium Chloride Flush 3 ML SYRINGE IVFLUSH (23:58)
[2023-07-31] VITALS: BP 147/75; PULSE 67; RESP 17; TEMP 36.6; O2SAT 96
[2023-07-31 04:00] VITALS: BP 159/81; PULSE 68; RESP 17; TEMP 36.4; O2SAT 95
[2023-07-31] MEDS: ceFAZolin Sodium/Dextrose,Iso 2 GM/50 ML PIGGYBACK IV (05:24)
[2023-07-31] MEDS: Lactated Ringers 1,000 ML 100 ML IVCONT (07:46)
[2023-07-31] MEDS: 0.9 % Sodium Chloride Flush 3 ML SYRINGE IVFLUSH (07:47)
[2023-07-31 08:00] VITALS: BP 160/81; PULSE 63; RESP 20; TEMP 37.1; O2SAT 93
--- NOTE | 2023-07-31 11:34 | P.DS_ITS ---
DS: Providers Provider Date of Service: 07/31/23 Date of admission: 07/30/23 16:58 Date of discharge: 07/31/23 Primary care physician: Skip Chen MD Attending physician on discharge: Abbie Chan Discharging clinician: Abbie Chan DS: Diagnosis Discharge Diagnosis (1) Sinus pause: Status: Acute DS: Summary Hospital Course Hospital Course: 73-year-old male with past medical history CAD, hypertension, hypercholesteremia, GERD, BPH , generalized anxiety disorder came to the hospital because outpatient having symptomatic bradycardia, was seen by gas line servicer outpatient and found to have pauses on the loop recorder specially during the sleep hours, patient also has dizziness for few months-subsequently patient was scheduled for elective pacemaker placement. Patient had pacemaker placement done this afternoon-and being admitted for overnight tele monitoring and clinical monitoring. Denies any new complaint of chest pain or shortness of breath or abdominal pain or fever or chills or nausea or vomiting Denies any cough Denies any weakness or numbness. Hospital course: Patient was admitted for symptomatic bradycardia with pauses- patient was referred out patiently for pacemaker placement-status post pacemaker yesterday, telemetry seems fine, device interrogation was done this morning seems fine as per cardiology. Chest x-ray this morning also seems status post pacemaker placement. , patient feeling much better and asymptomatic. Patient will go home with his home medications, please see pacer instructions below: Post-op instructions. Do not shower 3 days Keep bandage on 5 days Please do not remove steristrips. Let them fall by themselves. Restriction of left arm for 6 weeks.? Please see additional instructions for pacemaker in the discharge instructions section below. Above management discussed with the patient in detail length she understand and in agreement with the above plan, time spent 40 minutes and 50% time spent on counseling. Time Attestation Total time managing care of this patient today: 40 mintues. Discharge Coordination Time (in mins): 40 min Quality: Safe Use of Opioids Does Pt have an Active Cancer Diagnosis on the Problem List?: No Quality: Stroke Does the patient have a stroke diagnosis?: No Physical Exam Vital Signs: Vital Signs: Last Vital Signs Temp 98.8 F 07/31/23 08:00 Pulse 63 07/31/23 08:00 Resp 20 07/31/23 08:00 BP 160/81 H 07/31/23 08:00 Pulse Ox 93 07/31/23 08:00 O2 Del Method Room Air 07/31/23 08:00 O2 Flow Rate 2 07/30/23 16:30 BMI result Body Mass Index 42.2 Appearance: Alert.? Oriented X3.? Eyes: Pupils equal, round and reactive to light.? Sclera nonicteric.? ENT: Pharynx normal.? Moist mucous membranes. cvs: rrr, [id number] . res: clear to auscultation ,no rhonchii or wheezing abd: no rebound or guarding ,nt, bs present. ext pulses present , no cyanosis . skin : left upper pectoral area swelling improving ,clean, no erythema neuro: axo3 , nonfocal. DS: Data Data Completed and Pending Labs on day of discharge: Laboratory Results - last 24 hr 07/30/23 12:01 WBC 5.6 RBC 5.04 Hgb 15.9 Hct 45.3 MCV 89.9 MCH 31.5 MCHC 35.1 RDW 12.4 Plt Count 154 L MPV 11.1 Absolute Nucleated RBC 0.000 Nucleated RBC % (auto) 0.0 Sodium 140 Potassium 4.0 Chloride 110 H Carbon Dioxide 22 Anion Gap 12 BUN 21 H Creatinine 0.95 Estim Creat Clear Calc 86.8 Estimated GFR > 60 Fasting Glucose 111 H Calcium 9.3 D Imaging Chest x-ray: Radiologist's impression: ITS Impressions Chest X-Ray 07/31/23 07:25 IMPRESSION: * Status post placement of dual chamber cardiac pacemaker. * No acute cardiopulmonary disease. Discharge Plan Discharge Anticipated Discharge Date/Time: 07/31/23 11:25 Patient Disposition: Home, Self-Care Discharge Diagnosis: Symptomatic bradycardia with pauses, status post jim pacemaker yesterday Referrals: Po,Skip Altman MD [Primary Care Provider] - 1 Week Discharge Medications: Continued famotidine 20 mg tablet 20 mg PO BID 90 Days Qty: 180 3RF citalopram 40 mg tablet 40 mg PO DAILY amlodipine 5 mg tablet 5 mg PO DAILY tamsulosin 0.4 mg capsule 0.4 mg PO BEDTIME metoprolol succinate 25 mg tablet extended release 24 hr 25 mg PO DAILY rosuvastatin 10 mg tablet 10 mg PO DAILY ibuprofen [Advil] 200 mg Tablet 400 mg PO Q6H PRN (Reason: Pain) epinephrine [EpiPen 2-James] 0.3 mg/0.3 mL auto-injector 0.3 mg IM Q4H PRN (Reason: anaphylaxis) Qty: 2 0RF albuterol sulfate 90 mcg/actuation HFA aerosol inhaler 2 puff inhalation Q6H PRN (Reason: shortness of breath or wheezing) Qty: 6.7 0RF aspirin [Adult Low Dose Aspirin] 81 mg tablet,delayed release (DR/EC) 81 mg PO BID omega-3 fatty acids [Fish Oil Concentrate] 1,000 mg capsule 1,000 mg PO BEDTIME multivitamin Tablet 1 tab PO BEDTIME Discharge Orders: Discharge Order (Routine); Ordered 07/31/23 Ordered By: Abbie Chan Diet: Advance to usual diet Activity on Discharge: As tolerated Print Language: Urugu[place] Care Plan Goals: Patient was admitted for symptomatic bradycardia with pauses- patient was referred out patiently for pacemaker placement-status post pacemaker yesterday, telemetry seems fine, device interrogation was done this morning seems fine as per cardiology. Patient will go home with his home medications, please see pacer instructions below: Post-op instructions. Do not shower 3 days Keep bandage on 5 days Please do not remove steristrips. Let them fall by themselves. Restriction of left arm for 6 weeks.? Follow up with Dr Dale in 1 week. in addition regular instructions: ARM MOVEMENT RESTRICTIONS: No lifting your left arm over your head or behind your back, no pushing/pulling/lifting anything >10lb with your left arm for 6-8 weeks. This ensures the pacemaker wires stay in place and do not get pulled out accidentally. Make sure you are doing gentle range of motion exercises with the left arm (such as pendulum exercise) to make sure your elbow and shoulder do not get frozen up. ARM SLING: You may take the sling off and leave it off. HOWEVER, if you are noticing a difficulty limiting your left arm movement (as outlined above) then wear your sling during the day to make sure you are adhering to the restrictions above. Ask your doctor when you can expect to return to work. You can still exercise. It is good for your body and your heart. Talk with your doctor about an exercise plan. INCISION CARE: You may shower. Do not submerge yourself in water (baths, pools, etc.) for 2 weeks. Monitor the incision for increased redness, swelling, bruising, pain, open area, or drainage. OTHER PRECAUTIONS: Before you receive any treatment, tell all healthcare providers (including your dentist) that you have a pacemaker. You will be given an ID card that contains information about your pacemaker. Always carry this card with you. You can show this card if your pacemaker sets off a metal detector. You should also show it to avoid screening with a hand- held security wand. Keep your cell phone away from your pacemaker. Do not carry the phone in your shirt pocket, even it if is turned off. Avoid strong magnets. Examples are those used in MRI's or in hand-held security wands. Avoid strong electrical ralph. Examples are those made by radio transmitting towers, ham radios, and heavy-duty electrical equipment. Avoid leaning over the open lang of a running car. A running engine creates an electrical field. Most household and yard appliances will not cause any problems. If you use any large power tools, such as an industrial starch mangle tender, talk with your doctor. WHEN TO CALL YOUR DOCTOR: Call your doctor immediately if you have any of the following: Dizziness Chest pain Lack of energy Fainting spells Twitching chest muscles Rapid pule or pounding heartbeat Shortness of breath Pain around your pacemaker Fever above 100.4 F (38 C) or other signs of infection (redness, swelling, drainage, or warmth at the incision site). Hiccups that will not stop FOLLOWUP APPOINTMENTS: Call Dr. Dale's office as soon as you get home to schedule a followup appointment for 2-3 weeks from now. Call your gas line servicer to make an appointment for the next couple weeks. Make regular follow-up appointments with your doctor. He or she will check the pacemaker to make sure it is working properly Health Concerns: As above. Plan of Treatment: As above. Assessment: As above. Patient Instructions: Pacemaker (DC)
--- NOTE | 2023-07-31 11:54 | HO.POSTANES ---
Post Anesthesia Evaluation Post Anesthesia Evaluation Date of Service: 07/31/23 Vital Signs: Vital Signs Temp Pulse Resp BP Pulse Ox O2 Del Method 07/31/23 08:00 98.8 F 63 20 160/81 H 93 Room Air 07/31/23 04:00 97.6 F 68 17 159/81 H 95 Room Air 07/31/23 00:00 97.8 F 67 17 147/75 H 96 Room Air Anesthesia: TIVA Mental Status: Awake Pain Control: Satisfactory Nausea/Vomiting: None Hydration: Adequate Anesthesia-Related Issues: No Anes. Related Issues
--- NOTE | 2023-07-31 11:57 | MHC.CM.PN ---
PT REPORTS HE LIVES AT HOME WITH HIS AND IS INDEPENDENT WITH CARE HE HAS NO DME AND NO SERVICES COPY OF HCP REQUESTED PCP: [facility] DEL[facility] PT WILL DC HOME TODAY WITH NO SERVICES
--- NOTE | 2023-08-13 23:48 | W.PM.OPN ---
Operative Note Operative Note Date of Service: 07/30/23 Narrative: NAME OF PROCEDURE: ? 1.???Dual chamber?pacemaker?with Medtronic 2.???ILR extraction ? Description of Procedure:?Patient was identified brought to the electrophysiology laboratory in a postabsorptive state.??The left pectoral region was prepped and draped in usual sterile fashion. Incision was made over the left pectoral region and pectoral subcutaneous pocket was made. Afterwards left axillary venous access was obtained using micropuncture needle and fluoroscopic guidance, a 7-[place] sheath was placed.??Right ventricular lead was placed in the right ventricular septum ?with good sensing and pacing thresholds.??The sheath was split and the lead was then anchored to the pectoral fascia with Ethibond suture.?? ? Afterwards left axillary venous access was obtained using micropuncture needle and fluoroscopic guidance, a 7-[place] sheath was placed.??Right atrial pacing lead was advanced and placed in the base of the right atrial appendage with good sensing and pacing thresholds.??The sheath was split and the lead was then anchored to the pectoral fascia with Ethibond suture.?? ? The subcutaneous pocket was made and the wound was irrigated with antibiotic solution.??The??leads were then connected to a?pacemaker?generator and placed in the pocket.??The wound was closed with 3 layers of absorbable sutures.?? Prepectoral region was prepped and draped in sterile fashion and ILR was explanted after adequate local anesthetic. Patient tolerated procedure well.??There were no complications. ? ? IMPRESSION:?? Successful?implantation?of Dual chamber?pacemaker? Successful explant of ILR ? ? PLAN: ? 1.?Routine postprocedure monitoring. 2.?CXR today? 3.?Post operative Abx? 4. ???EKG today? 5. ???Interrogation of device Post-op instructions. Do not shower 3 days Keep bandage on 5 days Please do not remove steristrips. Let them fall by themselves. Restriction of left arm for 4-6 weeks.?
== END 2023-07-31 12:05 | disposition home or self-care (01) | DRG 244 ==
LOC: HO.SSS 17:02 → HO.IMC 17:34
PROVIDERS: Internal Medicine Cardiovascular Disease; Nurse Practitioner; Admitting Provider Internal Medicine; PCP Internal Medicine; Visit Provider Internal Medicine
PROC: 0JH606Z Insertion of Pacemaker, Dual Chamber into Chest Subcutaneous Tissue and Fascia, Open Approach (ICD-10-PCS; CPT 33208; principal; 2023-07-30 13:00)
DX: I49.5 Sick sinus syndrome (principal); I25.10 Atherosclerotic heart disease of native coronary artery without angina pectoris; I10 Essential (primary) hypertension; E78.00 Pure hypercholesterolemia, unspecified; F41.1 Generalized anxiety disorder; K21.9 Gastro-esophageal reflux disease without esophagitis; N40.0 Benign prostatic hyperplasia without lower urinary tract symptoms; Z79.82 Long term (current) use of aspirin; Z79.899 Other long term (current) drug therapy
CPT/HCPCS: 33208; 33286; 36415; 71046; 80048; 85027; 93005; A4364; C1785; C1892; C1898; J0690; J2250; J2704; J3010; J3370; J7120

== ENCOUNTER → 2023-07-30 16:58 | Outpatient (BNV) | payer OTHER, SELFPAY | PROVIDERS: Admitting Provider Internal Medicine; PCP Internal Medicine; Visit Provider Internal Medicine | DX: I45.5 Other specified heart block (principal); Z95.0 Presence of cardiac pacemaker | CPT/HCPCS: 99222; 99239 ==

== ENCOUNTER 2023-07-31 19:35 | Emergency (ER) | payer OTHER, SELFPAY ==
--- NOTE | 2023-07-31 | ECG_ITS ---
Test Reason : seizure Blood Pressure : / mmHG Vent. Rate : 073 BPM Atrial Rate : 073 BPM P-R Int : 204 ms QRS Dur : 126 ms QT Int : 402 ms P-R-T Axes : 035 -56 052 degrees QTc Int : 442 ms Normal sinus rhythm Left axis deviation Left ventricular hypertrophy with QRS widening and repolarization abnormality ( R in aVL , Jose Guadalupe product ) Abnormal ECG When compared with ECG of 30-JUL-2023 16:40, Sinus rhythm has replaced Electronic atrial pacemaker T wave inversion no longer evident in Inferior leads Referred By: Juan Spencer Electronically Signed By:RICKIE MCGUIRE MD
[2023-07-31 19:40] VITALS: BP 126/75; PULSE 84; O2SAT 99; BMI 34.1
--- NOTE | 2023-07-31 19:48 | ED_ITS ---
HPI - Seizure General Chief Complaint: Seizure Stated Complaint: witnessed seizure, shaking and eyes rolling back Time Seen by Provider: 07/31/23 19:46 Source: patient Mode of arrival: EMS Limitations: no limitations History of Present Illness HPI Narrative: Patient's history of seizures last year took medication Keppra for only 6 months which was stopped by neurologist had EEG done in 04/08 which was normal yesterday patient is admitted for pacemaker discharge today afternoon was in the recliner relaxing suddenly noticed patient shaking with eyes rolled lasted only for 2 minutes patient felt funny before the episode no tongue bite no injury patient does not remember the whole episode , lethargic with mild confusion post seizure Related Data Home Medications ?Medication ?Instructions ?Recorded ?Confirmed aspirin 81 mg tablet,delayed 81 mg PO BID 01/10/20 07/30/23 release (Adult Low Dose Aspirin) multivitamin 1 tab PO BEDTIME 01/10/20 07/30/23 omega-3 fatty acids 1,000 mg 1,000 mg PO BEDTIME 01/10/20 07/30/23 capsule (Fish Oil Concentrate) amlodipine 5 mg tablet 5 mg PO DAILY 07/30/23 07/30/23 citalopram 40 mg tablet 40 mg PO DAILY 07/30/23 07/30/23 ibuprofen 200 mg tablet (Advil) 400 mg PO Q6H PRN Pain 07/30/23 07/30/23 metoprolol succinate 25 mg 25 mg PO DAILY 07/30/23 07/30/23 tablet,extended release 24 hr rosuvastatin 10 mg tablet 10 mg PO DAILY 07/30/23 07/30/23 tamsulosin 0.4 mg capsule 0.4 mg PO BEDTIME 07/30/23 07/30/23 Previous Rx's ?Medication ?Instructions ?Recorded epinephrine 0.3 mg/0.3 mL 0.3 mg (0.3 mL) IM Q4H PRN 08/26/21 injection, auto-injector (EpiPen anaphylaxis #2 ea 2-James) albuterol sulfate 90 mcg/actuation 2 puff inhalation Q6H PRN 05/05/22 aerosol inhaler shortness of breath or wheezing #6.7 grams famotidine 20 mg tablet 20 mg PO BID 90 days #180 tabs 09/07/22 levetiracetam 500 mg tablet 500 mg PO BID #60 tabs 07/31/23 (Keppra) Allergies Allergy/AdvReac Type Severity Reaction Status Date / Time propoxyphene [From Darvon] Allergy Severe vomiting/di Verified 07/31/23 19:44 zziness atorvastatin [Lipitor] Allergy Intermediate decreased Verified 07/31/23 19:44 renal function lisinopril [From Zestril] Allergy Intermediate TROUBLE Verified 07/31/23 19:44 BREATHING Review of Systems 2 Review of Systems: Yes all other systems are reviewed and are negative [facility] Past Medical History Medical History Seizures Mood swings COVID-19 vaccine series completed Impaired glucose tolerance Diverticular disease GERD (gastroesophageal reflux disease) BPH (benign prostatic hyperplasia) Insomnia Anxiety and depression Asbestos exposure Peripheral vascular disease Obesity (BMI 30-39.9) Tubular adenoma of colon Hyperlipidemia HTN (hypertension) CAD (coronary artery disease) Surgical History H/O umbilical hernia repair Hx of blepharoplasty H/O colonoscopy Hx of heart artery stent History of tumor History of right knee surgery Hx of thumb surgery Family History Family History Father CVD (cardiovascular disease) Melanoma Mother CVD (cardiovascular disease) Pancreatic cancer Hypertension Diabetes Brother No problems noted. Sister No problems noted. Son No problems noted. Daughter No problems noted. Social History Social History Household Members: Spouse and Family [facility] Are you a primary daytime caregiver to a significant other at home: No Do you presently have visiting nurse or other home services: No Alcohol intake: current Alcohol intake frequency: holidays/special occasions only Patient Tobacco Use Status: Former Tobacco user Quit Date: 40 years ago Tobacco use type: Cigarette Smoked in Last 30 Days: No e-Cigarette/Vaping Use: Never Used Second Hand Smoke Exposure: No Advance Directives: No Advance Directives Information Provided: No Do you have a plan to hurt others: No Plan service: Yes Current occupational status: retired Cognitive needs: No Hearing needs: No Vision needs: Yes Physical Exam 2 Vital Signs: Vital Signs: Last Vital Signs Temp 98 F 07/31/23 21:51 Pulse 68 07/31/23 21:51 Resp 18 07/31/23 21:51 BP 132/71 07/31/23 21:51 Pulse Ox 95 07/31/23 21:51 O2 Del Method Room Air 07/31/23 21:51 BMI result Body Mass Index 34.1 Appearance: Alert. Oriented X3. No acute distress. Eyes: PERRLA, No Nystagmus ENT: Pharynx normal. Oral Mucosa moist no tongue Neck: Normal inspection. Neck supple. CVS: Normal heart rate and rhythm. Pulses normal. Respiratory: No respiratory distress. Equal air entry bilateral, no wheezing/rales/rhonchi Abdomen: Soft and nontender. Bowel sounds are present, no mass palpable, no CVA tenderness Skin: Skin warm and dry. Normal skin color. Normal skin turgor. Extremities: No lower extremity edema. No calf tenderness Neuro: Oriented X 3. No motor deficit. No sensory deficit.No cerebellar signs , cranial nerves II-XII intact Medications Administered Discontinued Medications Generic Name Dose Route Start Last Admin Trade Name Freq PRN Reason Stop Dose Admin Levetiracetam 1,000 mg in 100 mls @ 400 mls/hr 07/31/23 20:02 07/31/23 20:51 Keppra IV 07/31/23 20:16 Infused ONCE ONE Infusion Medical Decision Making Medical Decision Making [facility] Narrative: Patient with breakthrough seizure with history of seizure about 6 months ago not taking any medication been followed by neurologist workup is negative for metabolic etiology patient did not sleep last night because he was in-house in the hospital for pacemaker patient was given Keppra 1 g IV advised to continue Keppra 500 mg twice a day and follow with neurologist for further management Lab Data [facility] Lab Attestation statement: I reviewed the patient's lab results. 07/31/23 19:58 07/31/23 20:50 Labs: Lab Results 07/31/23 07/31/23 Range/Units 19:58 20:50 WBC 7.4 (4.8-10.8) X10*3/uL RBC 4.57 L (4.60-5.80) X10*6/uL Hgb 14.5 (14.0-18.0) g/dl Hct 41.3 L (42.0-52.0) % MCV 90.4 (80.0-98.0) fL MCH 31.7 (27.0-33.0) pg MCHC 35.1 (31.0-36.0) g/dl RDW 12.5 (11.0-16.0) % Plt Count 125 L (160-400) X10*3/uL MPV 11.0 (9.4-12.4) fL Immature Gran % (Auto) 0.3 (0.0-0.4) % Neut % (Auto) 70.0 (45-73) % Lymph % (Auto) 17.3 L (20-40) % [place] % (Auto) 10.4 (2-11) % Eos % (Auto) 1.6 (0-4) % Baso % (Auto) 0.4 (0-2) % Lymph # (Auto) 1.3 (1.2-4.9) X10*3/uL [place] # (Auto) 0.8 (0.1-1.2) X10*3/uL Eos # (Auto) 0.1 (0.0-0.4) X10*3/uL Baso # (Auto) 0.0 (0.0-0.2) X10*3/uL Abs Immat Gran (auto) 0.02 (0.00-0.03) X10*3/uL Absolute Neuts (auto) 5.2 (2.0-8.3) x10*3/uL Absolute Nucleated RBC 0.000 (0.0-0.012) X10*3/uL Nucleated RBC % (auto) 0.0 (0.0-0.2) /100WBC PT 12.9 (11.1-13.3) SEC INR 1.1 (0.9-1.1) APTT 30.2 (26.0-36.8) SEC Sodium 143 (135-145) mmol/L Potassium 3.7 (3.3-5.1) mmol/L Chloride 109 H (96-108) mmol/L Carbon Dioxide 22 (22-29) mmol/L Anion Gap 16 (12-20) BUN 19 H (9-16) mg/dL Creatinine 0.96 (0.5-1.4) mg/dL Estim Creat Clear Calc 76.8 Estimated GFR > 60 Random Glucose 120 H (60-115) mg/dL Lactic Acid 1.2 (0.5-2.0) mmol/L Calcium 8.9 (8.4-10.2) mg/dL Total Bilirubin 0.7 (0.0-1.0) mg/dL AST 24 (5-37) U/L ALT 18 (0-40) U/L Alkaline Phosphatase 52 (39-117) U/L Troponin I High Sens 9.3 (<3.5-35.0) ng/L Total Protein 6.6 (6.5-8.0) g/dL Albumin 3.8 (3.5-5.0) g/dL Discharge Plan Discharge Clinical Impression: Epileptic seizure Patient Disposition: Home, Self-Care Instructions: Recurrent Seizures in Adults (ED) Additional Instructions: Start taking Keppra 500 mg twice and follow-up with neurologist Prescriptions: New levetiracetam [Keppra] 500 mg tablet 500 mg PO BID Qty: 60 0RF No Action famotidine 20 mg tablet 20 mg PO BID 90 Days Qty: 180 3RF citalopram 40 mg tablet 40 mg PO DAILY amlodipine 5 mg tablet 5 mg PO DAILY tamsulosin 0.4 mg capsule 0.4 mg PO BEDTIME metoprolol succinate 25 mg tablet extended release 24 hr 25 mg PO DAILY rosuvastatin 10 mg tablet 10 mg PO DAILY ibuprofen [Advil] 200 mg Tablet 400 mg PO Q6H PRN (Reason: Pain) epinephrine [EpiPen 2-James] 0.3 mg/0.3 mL auto-injector 0.3 mg IM Q4H PRN (Reason: anaphylaxis) Qty: 2 0RF albuterol sulfate 90 mcg/actuation HFA aerosol inhaler 2 puff inhalation Q6H PRN (Reason: shortness of breath or wheezing) Qty: 6.7 0RF aspirin [Adult Low Dose Aspirin] 81 mg tablet,delayed release (DR/EC) 81 mg PO BID omega-3 fatty acids [Fish Oil Concentrate] 1,000 mg capsule 1,000 mg PO BEDTIME multivitamin Tablet 1 tab PO BEDTIME Interventions: ED Discharge Assessment Last Done: 07/31/23 21:51 Discharge Date/Time: 07/31/23 21:56 Print Language: Hungarian
[2023-07-31 19:50] VITALS: BP 137/71; PULSE 80; RESP 17; TEMP 36.8; O2SAT 95
[2023-07-31 20:02] LABS: MANUAL DIFF FLAG NO
[2023-07-31 20:08] LABS: Basophils Percent Auto 0.4 % (0-2); Eosinophils Absolute Auto 0.1 X10*3/uL (0.0-0.4); Eosinophils Percent Auto 1.6 % (0-4); Hematocrit 41.3 % (42.0-52.0); Hemoglobin 14.5 g/dl (14.0-18.0); Imm Gran Abs Auto 0.02 X10*3/uL (0.00-0.03); Imm Gran Pct Auto 0.3 % (0.0-0.4); Lymphocytes Absolute Auto 1.3 X10*3/uL (1.2-4.9); Lymphocytes Percent Auto 17.3 % (20-40); Mean Corpuscular HGB Conc 35.1 g/dl (31.0-36.0); Mean Corpuscular Hemoglobin 31.7 pg (27.0-33.0); Mean Corpuscular Volume 90.4 fL (80.0-98.0); Monocytes Absolute Auto 0.8 X10*3/uL (0.1-1.2); Monocytes Percent Auto 10.4 % (2-11); Neutrophils Absolute Auto 5.2 x10*3/uL (2.0-8.3); Platelet Count 125 X10*3/uL (160-400); Red Blood Count 4.57 X10*6/uL (4.60-5.80); Red Cell Distribution Width 12.5 % (11.0-16.0); White Blood Count 7.4 X10*3/uL (4.8-10.8)
[2023-07-31] MEDS: levETIRAcetam in NaCl (iso-os) 1,000 MG/100 ML PIGGYBACK 400 MG IV (20:08)
[2023-07-31 20:15] LABS: INTERNATIONAL NORM RATIO 1.1 (0.9-1.1); Lactic Acid 1.2 mmol/L (0.5-2.0); Prothrombin Time 12.9 SEC (11.1-13.3)
[2023-07-31 20:18] LABS: Partial Thromboplastin Time 30.2 SEC (26.0-36.8)
[2023-07-31 20:27] LABS: Troponin-I High Sensitivity 9.3 ng/L (<3.5-35.0)
[2023-07-31 21:19] LABS: Alanine Aminotransferase 18 U/L (0-40); Albumin Level 3.8 g/dL (3.5-5.0); Alkaline Phosphatase 52 U/L (39-117); Anion Gap 16 (12-20); Aspartate Amino Transferase 24 U/L (5-37); Bilirubin Total 0.7 mg/dL (0.0-1.0); Blood Urea Nitrogen 19 mg/dL (9-16); Calcium 8.9 mg/dL (8.4-10.2); Carbon Dioxide 22 mmol/L (22-29); Chloride 109 mmol/L (96-108); Creatinine Clr Calc Pharmacy 76.8; Estimated Glomerular Filt Rate > 60; Glucose Random 120 mg/dL (60-115); Potassium 3.7 mmol/L (3.3-5.1); Sodium 143 mmol/L (135-145); Total Protein 6.6 g/dL (6.5-8.0)
[2023-07-31 21:38] VITALS: BP 132/71; PULSE 68; RESP 16; TEMP 36.7; O2SAT 94
[2023-07-31 21:51] VITALS: BP 132/71; PULSE 68; RESP 18; TEMP 36.6; O2SAT 95
== END 2023-07-31 21:56 | disposition home or self-care (01) ==
PROVIDERS: Emergency Provider Internal Medicine; PCP Internal Medicine
DX: G40.909 Epilepsy, unspecified, not intractable, without status epilepticus (principal); I10 Essential (primary) hypertension; I25.10 Atherosclerotic heart disease of native coronary artery without angina pectoris; I73.9 Peripheral vascular disease, unspecified; E78.5 Hyperlipidemia, unspecified; Z79.899 Other long term (current) drug therapy; Z95.0 Presence of cardiac pacemaker
CPT/HCPCS: 36415; 80053; 83605; 84484; 85025; 85610; 85730; 93005; 96365; 99284; J1953

== ENCOUNTER → 2023-07-31 19:49 | Outpatient (BNV) | payer OTHER, SELFPAY | PROVIDERS: Emergency Provider Internal Medicine; PCP Internal Medicine; Visit Provider Internal Medicine Cardiovascular Disease | DX: G40.89 Other seizures (principal); R94.31 Abnormal electrocardiogram [ECG] [EKG] | CPT/HCPCS: 93010 ==

== ENCOUNTER 2023-08-05 09:08 | Outpatient (AMB) | payer OTHER, SELFPAY ==
[2023-08-05 09:33] VITALS: BP 120/76; PULSE 74; BMI 33.5
--- NOTE | 2023-08-05 09:33 | A.OFFVIS_ITS ---
Vital Signs 08/05/23 09:33 Height 5 ft 8 in Weight 220 lb 7.396 oz BMI 33.5 BP 120/76 Blood Pressure Location Lt brachial Position Sitting Pulse 74 Intake Visit Reasons: [facility]/ 5-16/Syncope, bradycardia with pauses Intake Note: Follow-up with Medtronic feeling good Home Health Care Respiratory Therapist Required: No Allergies propoxyphene [From Darvon] Allergy (Severe, Verified 07/31/23 19:44) vomiting/dizziness atorvastatin [Lipitor] Allergy (Intermediate, Verified 07/31/23 19:44) decreased renal function lisinopril [From Zestril] Allergy (Intermediate, Verified 07/31/23 19:44) TROUBLE BREATHING HPI Comments Details: Hugh comes for follow-up. He underwent dual-chamber Medtronic pacemaker placed for prior syncope and then noted sinus pauses. Since then he says he feels well. A day following the procedure seizure-like activity at home came to the ED and was then discharged. He says overall he feels well. He has had no lightheaded spells. Comes for pacer pocket evaluation. [facility] Medical History (Updated 08/05/23 @ 10:00 by Curt Hamlin MD) CAD (coronary artery disease) Implantable loop recorder present Cardiac pacemaker in situ Seizures Mood swings COVID-19 vaccine series completed Impaired glucose tolerance Diverticular disease GERD (gastroesophageal reflux disease) BPH (benign prostatic hyperplasia) Insomnia Anxiety and depression Asbestos exposure Peripheral vascular disease Obesity (BMI 30-39.9) Tubular adenoma of colon Hyperlipidemia HTN (hypertension) Surgical History H/O umbilical hernia repair Hx of blepharoplasty H/O colonoscopy Hx of heart artery stent History of tumor History of right knee surgery Hx of thumb surgery Family History Father CVD (cardiovascular disease) Melanoma Mother CVD (cardiovascular disease) Pancreatic cancer Hypertension Diabetes Brother No problems noted. Sister No problems noted. Son No problems noted. Daughter No problems noted. Social History Household Members: Spouse and Family Housing: Condominium Are you a primary care mgr to a significant other at home: No Do you presently have visiting nurse or other home services: No Alcohol intake: current Alcohol intake frequency: holidays/special occasions only Patient Tobacco Use Status: Former Tobacco user Quit Date: 40 years ago Tobacco use type: Cigarette e-Cigarette/Vaping Use: Never Used Second Hand Smoke Exposure: No service: Yes Current occupational status: retired Cognitive needs: No Hearing needs: No Vision needs: Yes Review of Systems Const Denies chills, Denies fatigue, Denies fever(s), Denies frequent falls, Denies weakness, Denies weight gain and Denies weight loss ENT Denies dizziness Card Denies chest pain, Denies leg edema, Denies lightheadedness, Denies palpitations, Denies dyspnea, Denies dyspnea on exertion, Denies orthopnea and Denies other (loss of consciousness) Resp Denies cough, Denies dyspnea and Denies dyspnea on exertion GI Denies hematochezia and Denies change in stool character Musc Denies abnormal gait, Denies muscle weakness, Denies numbness, Denies radiating pain into limb and Denies tingling Neuro Denies abnormal gait, Denies dizziness, Denies frequent falls, Denies numbness, Denies tingling and Denies weakness Endo Denies fatigue and Denies palpitations Physical Exam Vital Signs: Last Vital Signs Pulse 74 08/05/23 09:33 BP 120/76 08/05/23 09:33 BMI result Body Mass Index 33.5 Const General: cooperative, healthy appearing, comfortable, no acute distress, well developed, alert and awake Nutritional Appearance: obese Orientation/consciousness: patient oriented x3 HEENT Head: Yes normal to inspection, Yes normocephalic and Yes atraumatic Eyes General: appearance normal, both eyes and all related structures Neck Neck: Yes full ROM, Yes trachea midline, Yes supple and Yes no JVD Carotids: other ( No carotid bruit) Chest Chest palpation & inspection: other (Pacer pocket is benign with well healing wound with no fluctuation or redne) Resp Effort & Inspection: normal respiratory effort Auscultation: clear to auscultation bilaterally Cardio Jugular venous distension: no JVD Palpation: normal PMI Rate: regular rate Rhythm: regular rhythm Heart sounds: S1 normal heart sound present, S2 normal heart sound present and Other heart sounds present ( soft S4) Peripheral pulses: Peripheral pulses 2+ throughout GI Inspection: Yes normal to inspection Auscultation: normal bowel sounds Skin General skin exam: elasticity normal and turgor normal Neuro General: patient oriented x3 and no focal motor deficits Extrem General: Yes no clubbing, cyanosis or edema Psych Appearance: grossly normal Office Procedures Cardiac Device Check Cardiac Device Check Details: Dual-chamber Medtronic pacemaker in place. Rate response was turned on. Atrial sensing was excellent. Ventricular sensing was on the lower side but better than at implant. Atrial ventricular pacing thresholds excellent. Pacing lead impedance is stable. Battery life is excellent [id number] Cardiac Device Check, pacemaker dual lead Procedure code (CPT) selection complete Assessment & Plan Assessment & Plan (1) Cardiac pacemaker in situ: Comment: Medtronic dual-chamber pacemaker placed, 07/30/2023 for syncope and sinus pauses Code(s): Z95.0 - Presence of cardiac pacemaker Category: Medical Plan: Dual-chamber cardiac pacemaker in-situ with healing wound for syncope and sinus pauses. Doing well since then. Will follow up in the clinic in 5-6 weeks time for chronic thresholds and reprogramming his pacemaker. This was discussed with him. Advised to avoid overhead left arm extension to reduce risk of lead dislodgement (2) CAD (coronary artery disease): Comment: drug-eluting stent to proximal -mid LAD in January 2011 for ACS, 3 by 15 mm Code(s): I25.10 - Atherosclerotic heart disease of [place] coronary artery without angina pectoris Category: Medical Qualifiers: Associated angina: without angina Coronary Disease-Associated Artery/Lesion type: [place] artery [place] vs. transplanted heart: [place] heart Qualified Code(s): I25.10 - Atherosclerotic heart disease of [place] coronary artery without angina pectoris Plan: CAD with prior drug-eluting stent to LAD. No symptoms of angina. Continue aggressive risk factor modification medical therapy. Continue low-dose aspirin therapy for life. Continue amlodipine therapy. Continue high-intensity statin therapy. Target goal LDL less than 70 mg/dL. Advised to monitor blood pressure at home maintain a log. No further workup is indicated at this point time. Will follow up in the clinic in 5 weeks time, sooner p.r.n.. Thank you for allowing me to partake in his care Coding Level of Care Code Est Pt Level 4 (50419) Diagnoses Cardiac pacemaker in situ Z95.0 Coronary artery disease involving [place] coronary artery of [place] heart without angina pectoris I25.10 Associated angina: without angina Coronary Disease-Associated Artery/Lesion type: [place] artery [place] vs. transplanted heart: [place] heart CPT Codes Cardiac Device Check - Cardiac Device 2: [id number] Cardiac Device Check, pacemaker dual lead ([id number])
== END 2023-08-05 09:59 | disposition home or self-care (01) ==
PROVIDERS: PCP Internal Medicine; Visit Provider Internal Medicine Cardiovascular Disease
DX: I25.10 Atherosclerotic heart disease of native coronary artery without angina pectoris (principal); Z95.0 Presence of cardiac pacemaker; Z95.5 Presence of coronary angioplasty implant and graft
CPT/HCPCS: 93280; 99214

== ENCOUNTER → 2023-08-05 09:08 | Outpatient (BNVA) | payer OTHER, SELFPAY | PROVIDERS: PCP Internal Medicine; Visit Provider Internal Medicine Cardiovascular Disease | DX: I25.10 Atherosclerotic heart disease of native coronary artery without angina pectoris (principal); Z95.0 Presence of cardiac pacemaker; Z95.5 Presence of coronary angioplasty implant and graft | CPT/HCPCS: 93280; 99212 ==

== ENCOUNTER → 2023-08-24 23:59 | Outpatient (BNV) | payer OTHER, SELFPAY ==
--- NOTE | 2023-08-25 12:29 | A.OFFVIS_ITS ---
Intake Visit Reasons: Remote device check- Medtronic Allergies propoxyphene [From Darvon] Allergy (Severe, Verified 07/31/23 19:44) vomiting/dizziness atorvastatin [Lipitor] Allergy (Intermediate, Verified 07/31/23 19:44) decreased renal function lisinopril [From Zestril] Allergy (Intermediate, Verified 07/31/23 19:44) TROUBLE BREATHING PFSH Medical History (Updated 08/08/23 @ 00:02 by Cornelio Godwin) CAD (coronary artery disease) Implantable loop recorder present Cardiac pacemaker in situ Seizures Mood swings COVID-19 vaccine series completed Impaired glucose tolerance Diverticular disease GERD (gastroesophageal reflux disease) BPH (benign prostatic hyperplasia) Insomnia Anxiety and depression Asbestos exposure Peripheral vascular disease Obesity (BMI 30-39.9) Tubular adenoma of colon Hyperlipidemia HTN (hypertension) Surgical History H/O umbilical hernia repair Hx of blepharoplasty H/O colonoscopy Hx of heart artery stent History of tumor History of right knee surgery Hx of thumb surgery Family History Father CVD (cardiovascular disease) Melanoma Mother CVD (cardiovascular disease) Pancreatic cancer Hypertension Diabetes Brother No problems noted. Sister No problems noted. Son No problems noted. Daughter No problems noted. Social History Household Members: Sp[facility] and Family [facility] Are you a primary foster care social worker to a significant other at home: No Do you presently have visiting nurse or other home services: No Alcohol intake: current Alcohol intake frequency: holidays/special occasions only Patient Tobacco Use Status: Former Tobacco user Tobacco use type: Cigarette e-Cigarette/Vaping Use: Never Used Second Hand Smoke Exposure: No service: Yes Current occupational status: retired Cognitive needs: No Hearing needs: No Vision needs: Yes Office Procedures Cardiac Device Check Cardiac Device Check Details: Remote pacemaker report generated 08/24/2023. Pacemaker function is adequate. Atrial pacing 53% of time. [id number] Cardiac Device Interrogation, pacemaker Procedure code (CPT) selection complete Assessment & Plan Assessment & Plan (1) Cardiac pacemaker in situ: Comment: Medtronic dual-chamber pacemaker placed, 07/30/2023 for syncope and sinus pauses Code(s): Z95.0 - Presence of cardiac pacemaker Category: Medical Plan: Remote pacemaker report generated 08/24/2023. Pacemaker function is adequate. Atrial pacing 53% of time. Coding Level of Care Code Procedure Only Diagnoses Cardiac pacemaker in situ Z95.0 CPT Codes Cardiac Device Check - Cardiac Device 12: [id number] Cardiac Device Interrogation, pacemaker ([id number])
== END ==
PROVIDERS: PCP Internal Medicine; Visit Provider Internal Medicine Cardiovascular Disease
DX: Z45.018 Encounter for adjustment and management of other part of cardiac pacemaker (principal)
CPT/HCPCS: 93294

== ENCOUNTER → 2023-09-02 13:43 | Outpatient (REF) | payer OTHER, SELFPAY | LOC: HO.SL 13:43 | PROVIDERS: PCP Internal Medicine; Visit Provider Internal Medicine Cardiovascular Disease | DX: R06.83 Snoring (principal); E66.9 Obesity, unspecified | CPT/HCPCS: 95806 ==

== ENCOUNTER 2023-09-16 09:08 | Outpatient (AMB) | payer OTHER, SELFPAY ==
[2023-09-16 09:23] VITALS: BP 130/80; PULSE 80; BMI 34.3
--- NOTE | 2023-09-16 09:23 | MHC.OFFVIS ---
Vital Signs 09/16/23 09:23 Height 5 ft 8 in Weight 225 lb 12.054 oz BMI 34.3 BP 130/80 Blood Pressure Location Lt brachial Position Sitting Pulse 80 Intake Visit Reasons: 6 wk medtronic ck Intake Note: 6 wk f/u. Pt feeling good. Device check Design Studio Consultant Required: No Accompanied by: Self / Same As Patient Allergies propoxyphene [From Darvon] Allergy (Severe, Verified 07/31/23 19:44) vomiting/dizziness atorvastatin [Lipitor] Allergy (Intermediate, Verified 07/31/23 19:44) decreased renal function lisinopril [From Zestril] Allergy (Intermediate, Verified 07/31/23 19:44) TROUBLE BREATHING Medication List - Last Reconciled 09/16/23 by Curt Hamlin MD albuterol sulfate 90 mcg/actuation 2 puffs inhalation Q6H PRN amlodipine 5 mg PO DAILY aspirin (Adult Low Dose Aspirin) 81 mg PO BID citalopram 40 mg PO DAILY epinephrine (EpiPen 2-James) 0.3 mg (0.3 mL) IM Q4H PRN famotidine 20 mg PO BID 90 days ibuprofen (Advil) 400 mg PO Q6H PRN levetiracetam (Keppra) 500 mg PO BID 90 days multivitamin 1 tab PO BEDTIME omega-3 fatty acids (Fish Oil Concentrate) 1,000 mg PO BEDTIME rosuvastatin 10 mg PO DAILY tamsulosin 0.4 mg PO BEDTIME HPI Comments Details: Neil comes for follow-up. He has been doing well. He has had no recurrent syncopal episodes since the pacemaker implantation. Feels energetic. Denies any lightheadedness, syncope. No clear anginal symptoms. No clear palpitations. His metoprolol was withheld prior to the pacemaker placement. Takes all his medications. [facility] Medical History CAD (coronary artery disease) Implantable loop recorder present Cardiac pacemaker in situ Seizures Mood swings COVID-19 vaccine series completed Impaired glucose tolerance Diverticular disease GERD (gastroesophageal reflux disease) BPH (benign prostatic hyperplasia) Insomnia Anxiety and depression Asbestos exposure Peripheral vascular disease Obesity (BMI 30-39.9) Tubular adenoma of colon Hyperlipidemia HTN (hypertension) Surgical History H/O umbilical hernia repair Hx of blepharoplasty H/O colonoscopy Hx of heart artery stent History of tumor History of right knee surgery Hx of thumb surgery Family History Father CVD (cardiovascular disease) Melanoma Mother CVD (cardiovascular disease) Pancreatic cancer Hypertension Diabetes Brother No problems noted. Sister No problems noted. Son No problems noted. Daughter No problems noted. Social History Household Members: Sp[facility] and Family [facility] Are you a primary animal care taker to a significant other at home: No Do you presently have visiting nurse or other home services: No Alcohol intake: current Alcohol intake frequency: holidays/special occasions only Patient Tobacco Use Status: Former Tobacco user Tobacco use type: Cigarette e-Cigarette/Vaping Use: Never Used Second Hand Smoke Exposure: No service: Yes Current occupational status: retired Cognitive needs: No Hearing needs: No Vision needs: Yes Review of Systems Const Denies chills, Denies fatigue, Denies fever(s), Denies weight gain and Denies weight loss Card Denies chest pain, Denies leg edema, Denies lightheadedness, Denies palpitations, Denies dyspnea on exertion and Denies orthopnea Resp Denies cough and Denies dyspnea on exertion GI Reports melena, Denies hematochezia and Denies change in stool character Musc Denies muscle weakness and Denies radiating pain into limb Endo Denies fatigue and Denies palpitations Physical Exam Vital Signs: Last Vital Signs Pulse 80 09/16/23 09:23 BP 130/80 09/16/23 09:23 BMI result Body Mass Index 34.3 Const General: cooperative, healthy appearing, comfortable, no acute distress, well developed, alert and awake Nutritional Appearance: obese Orientation/consciousness: patient oriented x3 HEENT Head: Yes normal to inspection, Yes normocephalic and Yes atraumatic Eyes General: appearance normal, both eyes and all related structures Neck Neck: Yes full ROM, Yes trachea midline, Yes supple and Yes no JVD Carotids: other ( No carotid bruit) Chest Chest palpation & inspection: other (Pacer pocket is benign with well healing wound with no fluctuation or redne) Resp Effort & Inspection: normal respiratory effort Auscultation: clear to auscultation bilaterally Cardio Jugular venous distension: no JVD Palpation: normal PMI Rate: regular rate Rhythm: regular rhythm Heart sounds: S1 normal heart sound present, S2 normal heart sound present and Other heart sounds present ( soft S4) Peripheral pulses: Peripheral pulses 2+ throughout GI Inspection: Yes normal to inspection Auscultation: normal bowel sounds Skin General skin exam: elasticity normal and turgor normal Neuro General: patient oriented x3 and no focal motor deficits Extrem General: Yes no clubbing, cyanosis or edema Psych Appearance: grossly normal Office Procedures Cardiac Device Check Cardiac Device Check Details: Patient has dual-chamber Medtronic pacemaker in place programmed in MVP mode with rate response. Atrial pacing 60% of the time. No clear arrhythmias noted. Atrial sensing is excellent. Ventricular sensing is stable on the lower side. Atrial pacing thresholds excellent and reprogrammed to enhance battery life. Ventricular pacing thresholds are adequate and reprogrammed to provide enhance battery life. Pacing lead impedance is stable. Battery life is at about 15 years [id number] Cardiac Device Check, pacemaker dual lead Procedure code (CPT) selection complete Assessment & Plan Assessment & Plan (1) Cardiac pacemaker in situ: Comment: Medtronic dual-chamber pacemaker placed, 07/30/2023 for syncope and sinus pauses Code(s): Z95.0 - Presence of cardiac pacemaker Category: Medical Plan: Cardiac pacemaker in-situ for syncope and sinus pauses suggestive of sinus node dysfunction. Pacemaker is working well. Will follow remotely in 3 months follow up in the clinic in 6 months time. (2) CAD (coronary artery disease): Comment: drug-eluting stent to proximal -mid LAD in January 2011 for ACS, 3 by 15 mm Code(s): I25.10 - Atherosclerotic heart disease of [place] coronary artery without angina pectoris Category: Medical Qualifiers: Coronary Disease-Associated Artery/Lesion type: [place] artery [place] vs. transplanted heart: [place] heart Associated angina: without angina Qualified Code(s): I25.10 - Atherosclerotic heart disease of [place] coronary artery without angina pectoris Plan: CAD with remote drug-eluting stent to LAD. Doing well currently. Continue aggressive medical therapy. Continue low-dose aspirin therapy for life. Continue aggressive blood pressure control which is currently well optimized see below. Continue rosuvastatin therapy with target goal LDL closer to 60 mg/dL. Advised to maintain activity level as tolerated. Advised to call me with any new exertional symptoms or any symptoms suggestive of angina. He understands and agrees. (3) PVC (premature ventricular contraction): Code(s): I49.3 - Ventricular premature depolarization Category: Medical Plan: Prior history of symptomatic PVCs. Will resume metoprolol therapy as before both as an antihypertensive, antianginal as well as to reduce symptoms related to PVCs. Will follow up in the clinic in 6 months time, sooner p.r.n.. Thank you for allowing me to partake in his care Coding Level of Care Code Est Pt Level 4 (28276) Diagnoses Cardiac pacemaker in situ Z95.0 Coronary artery disease involving [place] coronary artery of [place] heart without angina pectoris I25.10 Coronary Disease-Associated Artery/Lesion type: [place] artery [place] vs. transplanted heart: [place] heart Associated angina: without angina PVC (premature ventricular contraction) I49.3 CPT Codes Cardiac Device Check - Cardiac Device 2: [id number] Cardiac Device Check, pacemaker dual lead ([id number])
== END 2023-09-16 09:38 | disposition home or self-care (01) ==
PROVIDERS: PCP Internal Medicine; Visit Provider Internal Medicine Cardiovascular Disease
DX: I25.10 Atherosclerotic heart disease of native coronary artery without angina pectoris (principal); I49.3 Ventricular premature depolarization; Z95.0 Presence of cardiac pacemaker
CPT/HCPCS: 93280; 99214

== ENCOUNTER → 2023-09-16 09:08 | Outpatient (BNVA) | payer OTHER, SELFPAY | PROVIDERS: PCP Internal Medicine; Visit Provider Internal Medicine Cardiovascular Disease | DX: I25.10 Atherosclerotic heart disease of native coronary artery without angina pectoris (principal); I49.3 Ventricular premature depolarization; Z79.82 Long term (current) use of aspirin; Z79.899 Other long term (current) drug therapy; Z45.018 Encounter for adjustment and management of other part of cardiac pacemaker | CPT/HCPCS: 93280; 99212 ==

== ENCOUNTER → 2023-11-21 23:59 | Outpatient (BNV) | payer OTHER, SELFPAY ==
--- NOTE | 2023-12-03 09:58 | A.OFFVIS_ITS ---
Intake Visit Reasons: Remote device check- Medtronic Allergies propoxyphene [From Darvon] Allergy (Severe, Verified 07/31/23 19:44) vomiting/dizziness atorvastatin [Lipitor] Allergy (Intermediate, Verified 07/31/23 19:44) decreased renal function lisinopril [From Zestril] Allergy (Intermediate, Verified 07/31/23 19:44) TROUBLE BREATHING PFSH Medical History CAD (coronary artery disease) Implantable loop recorder present Cardiac pacemaker in situ Seizures Mood swings COVID-19 vaccine series completed Impaired glucose tolerance Diverticular disease GERD (gastroesophageal reflux disease) BPH (benign prostatic hyperplasia) Insomnia Anxiety and depression Asbestos exposure Peripheral vascular disease Obesity (BMI 30-39.9) Tubular adenoma of colon Hyperlipidemia HTN (hypertension) Surgical History H/O umbilical hernia repair Hx of blepharoplasty H/O colonoscopy Hx of heart artery stent History of tumor History of right knee surgery Hx of thumb surgery Family History Father CVD (cardiovascular disease) Melanoma Mother CVD (cardiovascular disease) Pancreatic cancer Hypertension Diabetes Brother No problems noted. Sister No problems noted. Son No problems noted. Daughter No problems noted. Social History Household Members: [facility] and [facility] Are you a primary healthcare management to a significant other at home: No Do you presently have visiting nurse or other home services: No Alcohol intake: current Alcohol intake frequency: holidays/special occasions only Patient Tobacco Use Status: Former Tobacco user Tobacco use type: Cigarette e-Cigarette/Vaping Use: Never Used Second Hand Smoke Exposure: No service: Yes Current occupational status: retired Cognitive needs: No Hearing needs: No Vision needs: Yes Office Procedures Cardiac Device Check Cardiac Device Check Details: Remote pacemaker report generated 11/21/2023. Pacemaker function is adequate [id number] Cardiac Device Interrogation, pacemaker Procedure code (CPT) selection complete Assessment & Plan Assessment & Plan (1) Cardiac pacemaker in situ: Comment: Medtronic dual-chamber pacemaker placed, 07/30/2023 for syncope and sinus pauses Code(s): Z95.0 - Presence of cardiac pacemaker Category: Medical Plan: See above Coding Level of Care Code Procedure Only Diagnoses Cardiac pacemaker in situ Z95.0 CPT Codes Cardiac Device Check - Cardiac Device 12: [id number] Cardiac Device Interrogation, pacemaker ([id number])
== END ==
PROVIDERS: PCP Internal Medicine; Visit Provider Internal Medicine Cardiovascular Disease
DX: I45.89 Other specified conduction disorders (principal); Z95.0 Presence of cardiac pacemaker
CPT/HCPCS: 93294

== ENCOUNTER → 2023-11-27 20:36 | Outpatient (REF) | payer OTHER, SELFPAY | LOC: HO.SL 20:36 | PROVIDERS: PCP Internal Medicine; Visit Provider Internal Medicine Cardiovascular Disease | DX: R55 Syncope and collapse (principal); R61 Generalized hyperhidrosis; I45.5 Other specified heart block; R07.9 Chest pain, unspecified; R06.83 Snoring | CPT/HCPCS: 95810 ==

== ENCOUNTER → 2023-11-27 23:25 | Outpatient (BNV) | payer OTHER, SELFPAY | PROVIDERS: PCP Internal Medicine; Visit Provider Psychiatry & Neurology Neurology | DX: G47.33 Obstructive sleep apnea (adult) (pediatric) (principal) | CPT/HCPCS: 95810 ==

== ENCOUNTER 2023-12-16 10:10 | Outpatient (REF) | payer OTHER, SELFPAY ==
[2023-12-16 10:38] LABS: MANUAL DIFF FLAG NO
[2023-12-16 11:20] LABS: Basophils Percent Auto 0.7 % (0-2); Eosinophils Absolute Auto 0.2 X10*3/uL (0.0-0.4); Eosinophils Percent Auto 3.4 % (0-4); Hematocrit 45.7 % (42.0-52.0); Hemoglobin 15.7 g/dl (14.0-18.0); Lymphocytes Absolute Auto 1.7 X10*3/uL (1.2-4.9); Lymphocytes Percent Auto 30.9 % (20-40); Mean Corpuscular HGB Conc 34.4 g/dl (31.0-36.0); Mean Corpuscular Hemoglobin 31.2 pg (27.0-33.0); Mean Corpuscular Volume 90.9 fL (80.0-98.0); Mean Platelet Volume 11.5 fL (9.4-12.4); Monocytes Absolute Auto 0.5 X10*3/uL (0.1-1.2); Monocytes Percent Auto 9.8 % (2-11); Neutrophils Absolute Auto 3.1 x10*3/uL (2.0-8.3); Neutrophils Percent Auto 55.2 % (45-73); Platelet Count 132 X10*3/uL (160-400); Red Blood Count 5.03 X10*6/uL (4.60-5.80); Red Cell Distribution Width 12.4 % (11.0-16.0); White Blood Count 5.5 X10*3/uL (4.8-10.8)
[2023-12-16 11:23] LABS: Estimated Average Glucose 120 mg/dL; Hemoglobin A1C 154.2417 umol/L; Hemoglobin A1c % 5.8 % (<6.0); Total Hemoglobin (HGBA1C) 3847.3325 umol/L
[2023-12-16 11:57] LABS: Alanine Aminotransferase 32 U/L (0-40); Albumin Level 4.3 g/dL (3.5-5.0); Alkaline Phosphatase 62 U/L (39-117); Anion Gap 13 (12-20); Aspartate Amino Transferase 25 U/L (5-37); Bilirubin Total 0.5 mg/dL (0.0-1.0); Blood Urea Nitrogen 25 mg/dL (9-16); Calcium 9.4 mg/dL (8.4-10.2); Carbon Dioxide 23 mmol/L (22-29); Chloride 110 mmol/L (96-108); Cholesterol 127 mg/dL (<200); Estimated Glomerular Filt Rate > 60; Glucose Random 120 mg/dL (60-115); HDL Cholesterol 43 mg/dL (>40); LDL Cholesterol Calculated 64 mg/dL (<100); Potassium 4.3 mmol/L (3.3-5.1); Sodium 142 mmol/L (135-145); Total Protein 7.3 g/dL (6.5-8.0); Triglycerides 100 mg/dL (<150)
[2023-12-16 12:05] LABS: Free T4 (Free Thyroxine) 0.75 ng/dL (0.71-1.85); Thyroid Stimulating Hormone 1.19 uIU/mL (0.32-4.0)
[2023-12-16 12:16] LABS: Folate 15.2 ng/mL (> or = 4.0); Vitamin B12 610 pg/mL (200-900)
== END 2023-12-16 10:11 | disposition home or self-care (01) ==
LOC: HO.LAB 10:10
PROVIDERS: Internal Medicine; PCP Internal Medicine; Visit Provider Internal Medicine
DX: R73.02 Impaired glucose tolerance (oral) (principal); I25.10 Atherosclerotic heart disease of native coronary artery without angina pectoris; E78.00 Pure hypercholesterolemia, unspecified
CPT/HCPCS: 36415; 80053; 80061; 82607; 82746; 83036; 84439; 84443; 85025

== ENCOUNTER 2024-01-04 09:18 | Outpatient (AMB) | payer OTHER, SELFPAY ==
--- NOTE | 2024-01-04 09:21 | MHC.PC.OV ---
Vital Signs 01/04/24 09:22 Height 5 ft 8 in Weight 234 lb 2 oz BMI 35.6 BP 110/72 Blood Pressure Location Lt brachial Position Sitting Pulse 87 Pulse Source Pulse Oximeter Pulse Oximetry (%) 95 Oxygen Delivery Method Room Air Intake Visit Reasons: HTN cholesterol PE Intake Note: Patient is here to follow up on HTN, Cholesterol and lab results. Stock Controller Required: No Refrigeration Mechanic: Present Accompanied by: Spouse Allergies propoxyphene [From Darvon] Allergy (Severe, Verified 01/04/24 09:22) vomiting/dizziness atorvastatin [Lipitor] Allergy (Intermediate, Verified 01/04/24 09:22) decreased renal function lisinopril [From Zestril] Allergy (Intermediate, Verified 01/04/24 09:22) TROUBLE BREATHING Tobacco use date assessed: 01/04/24 Fall risk assessment: No Falls in past year Last assessed Fall Risk: 01/04/24 Dental Screening Dental Screen Date: 06/30/23 HPI HTN cholesterol PE HPI Details 73-year-old obese male(9 lb weight gain) with hypertension coronary artery disease hypercholesterolemia GERD BPH impaired glucose tolerance and generalized anxiety disorder last seen in June 2023. Patient's colonoscopy is up-to-date March 2022. Review of the notes had a sleep study in [id number] with results showing very mild degree of sleep apnea with an AHI of 5 per hour frequent periodic limb movement. Patient also has followed up with Cardiology in 09/16/2023 for the device check. 07/31/2023 ER visit has a history of seizures and discontinued medication patient had a seizure at that time where the pacemaker was discharged in also. Patient started back on Keppra 500 mg twice a day. Patient had a pacemaker placed in Jul 30 2023. Patient also had meeting in July 10 2023 from the electrophysiology lab due to the syncope and collapse . family has been concern due to anger issues for the paitnet. Patient on citalopram and asking for additional help. [facility] Medical History CAD (coronary artery disease) Implantable loop recorder present Cardiac pacemaker in situ Seizures Mood swings COVID-19 vaccine series completed Impaired glucose tolerance Diverticular disease GERD (gastroesophageal reflux disease) BPH (benign prostatic hyperplasia) Insomnia Anxiety and depression Asbestos exposure Peripheral vascular disease Obesity (BMI 30-39.9) Tubular adenoma of colon Hyperlipidemia HTN (hypertension) Surgical History H/O umbilical hernia repair Hx of blepharoplasty H/O colonoscopy Hx of heart artery stent History of tumor History of right knee surgery Hx of thumb surgery Family History Father CVD (cardiovascular disease) Melanoma Mother CVD (cardiovascular disease) Pancreatic cancer Hypertension Diabetes Brother No problems noted. Sister No problems noted. Son No problems noted. Daughter No problems noted. Social History Household Members: Spouse and Family Housing: Condominium Are you a primary medicare nurse to a significant other at home: No Do you presently have visiting nurse or other home services: No Alcohol intake: current Alcohol intake frequency: holidays/special occasions only Patient Tobacco Use Status: Former Tobacco user Tobacco use type: Cigarette e-Cigarette/Vaping Use: Never Used Second Hand Smoke Exposure: Yes service: Yes Current occupational status: retired Cognitive needs: No Hearing needs: No Vision needs: Yes Questionnaire Thrive Questionnaire Date Thrive assessed: 07/31/23 Are you currently unemployed and looking for a job?: No AUDIT C Alcohol Use Questionnaire (AUDIT-C) 2. How many drinks containing alcohol do you have on a typical day when you are drinking?: 1 or 2 3. How often do you have six or more drinks on one occasion?: Never Total Score: 0 SERVANDO-7 AMB Questionnaire SERVANDO-7 Date SERVANDO - 7 assessed: 06/30/23 Source: Developed by Drs. Dani Rebolledo, Carol Lainez, Roberto Carlos Alejo and colleagues, with an educational donnell from [employer]. Physical exam (Primary Care) Vital Signs: Last Vital Signs Pulse 87 01/04/24 09:22 BP 110/72 01/04/24 09:22 Pulse Ox 95 01/04/24 09:22 Oxygen Delivery Method Room Air 01/04/24 09:22 BMI result Body Mass Index 35.6 Tobacco/Smoking Status: Tobacco use Status Tobacco use date assessed 01/04/24 01/04/24 09:25 Patient Tobacco Use Status Former Tobacco user 01/04/24 09:25 Tobacco use type Cigarette 01/04/24 09:25 e-Cigarette/Vaping Use Never Used 01/04/24 09:25 Thrive Assessment: Date of Thrive Assessment Date Thrive assessed 07/31/23 01/04/24 09:25 Const General: alert; No acute distress Eyes Conjunctivae: conjunctivae normal Resp Auscultation: clear to auscultation bilaterally Cardio Rate: regular rate Rhythm: regular rhythm GI Inspection: Yes normal to inspection Extrem General: Yes normal to inspection and No edema Coding Level of Care Code Est Pt Level 4 (83308) Complex EM visit Add On G2211 Diagnoses Coronary artery disease involving [place] coronary artery of [place] heart without angina pectoris I25.10 Coronary Disease-Associated Artery/Lesion type: [place] artery [place] vs. transplanted heart: [place] heart Associated angina: without angina Cardiac pacemaker in situ Z95.0 Seizure R56.9 Essential hypertension I10 Hypertension type: essential hypertension Pure hypercholesterolemia E78.00 Hyperlipidemia type: pure hypercholesterolemia Obesity (BMI 30-39.9) E66.9 Gastroesophageal reflux disease without esophagitis K21.9 Esophagitis presence: without esophagitis Impaired glucose tolerance R73.02 Generalized anxiety disorder F41.1 Restless leg syndrome G25.81 Assessment & Plan Assessment & Plan (1) CAD (coronary artery disease): Comment: drug-eluting stent to proximal -mid LAD in January 2011 for ACS, 3 by 15 mm Code(s): I25.10 - Atherosclerotic heart disease of [place] coronary artery without angina pectoris Category: Medical Qualifiers: Coronary Disease-Associated Artery/Lesion type: [place] artery [place] vs. transplanted heart: [place] heart Associated angina: without angina Qualified Code(s): I25.10 - Atherosclerotic heart disease of [place] coronary artery without angina pectoris Plan: Control the cholesterol, weight, blood pressure, diabetes continue with aspirin 81 mg once a day (2) Cardiac pacemaker in situ: Comment: Medtronic dual-chamber pacemaker placed, 07/30/2023 for syncope and sinus pauses Code(s): Z95.0 - Presence of cardiac pacemaker Category: Medical Plan: Patient had sinus pauses and syncope and dual-chamber pacemaker placed July 2023 (3) Seizure: Code(s): R56.9 - Unspecified convulsions Category: Medical Plan: Patient has been started on Keppra. Reminded patient to follow-up with Neurology (4) HTN (hypertension): Code(s): I10 - Essential (primary) hypertension Category: Medical Qualifiers: Hypertension type: essential hypertension Qualified Code(s): I10 - Essential (primary) hypertension Plan: Continue with blood pressure medication. Decrease salt intake and exercise patient is on amlodipine 5 mg once a day metoprolol 25 mg once a day (5) Hyperlipidemia: Code(s): E78.5 - Hyperlipidemia, unspecified Category: Medical Qualifiers: Hyperlipidemia type: pure hypercholesterolemia Qualified Code(s): E78.00 - Pure hypercholesterolemia, unspecified Plan: Avoid fried foods, chicken skin, eggs, butter margarine, pastries and meat. Be it pork or beef they have a lot of cholesterol rosuvastatin 10 mg once a day LDL goal near 60 and triglyceride of less than 150 (6) Obesity (BMI 30-39.9): Code(s): E66.9 - Obesity, unspecified Category: Medical Plan: Diet and exercise (7) GERD (gastroesophageal reflux disease): Code(s): K21.9 - Gastro-esophageal reflux disease without esophagitis Category: Medical Qualifiers: Esophagitis presence: without esophagitis Qualified Code(s): K21.9 - Gastro-esophageal reflux disease without esophagitis Plan: Avoid the foods that causes that usually spicy foods, tomato products, juices, coffee, soda and foods that your sensitive to. After eating do not lie down, allow 3-4 hours before in lie down. And keep the head of bed above 30 degrees to avoid the acid from going up. (8) Impaired glucose tolerance: Code(s): R73.02 - Impaired glucose tolerance (oral) Category: Medical Plan: Decrease the amount of carbohydrate intake, pasta, bread, rice and potatoes are all sugar and that is aside from all the sweet stuff, remember that fruits are good but they are Sweet also. (9) Generalized anxiety disorder: Code(s): F41.1 - Generalized anxiety disorder Category: Medical Plan: Continue with therapy. Will add oxcarbazepine for help with anger issues. (10) Restless leg syndrome: Code(s): G25.81 - Restless legs syndrome Category: Medical Plan: Discussed the results of the sleep apnea test and will add ropinirole to help with restless leg. Orders: Referrals Neurology Referral R56.9 - Unspecified convulsions Medications: New oxcarbazepine 150 mg PO DAILY 30 tabs 2RF F41.1 - Generalized anxiety disorder ropinirole administer 1-3 hours before bedtime 0.25 mg PO BEDTIME 30 tabs 1RF G25.81 - Restless legs syndrome ropinirole administer 1-3 hours before bedtime 0.25 mg PO BEDTIME 30 tabs 1RF G25.81 - Restless legs syndrome
[2024-01-04 09:22] VITALS: BP 110/72; PULSE 87; O2SAT 95; BMI 35.6
== END 2024-01-04 10:03 | disposition home or self-care (01) ==
PROVIDERS: PCP Internal Medicine; Visit Provider Internal Medicine
DX: I25.10 Atherosclerotic heart disease of native coronary artery without angina pectoris (principal); R56.9 Unspecified convulsions; E66.811 Obesity, class 1; Z68.31 Body mass index [BMI] 31.0-31.9, adult; Z95.0 Presence of cardiac pacemaker; I10 Essential (primary) hypertension; E78.00 Pure hypercholesterolemia, unspecified; K21.9 Gastro-esophageal reflux disease without esophagitis; R73.02 Impaired glucose tolerance (oral); F41.1 Generalized anxiety disorder; G25.81 Restless legs syndrome

== ENCOUNTER → 2024-01-04 09:18 | Outpatient (BNVA) | payer OTHER, SELFPAY | PROVIDERS: PCP Internal Medicine; Visit Provider Internal Medicine | DX: I25.10 Atherosclerotic heart disease of native coronary artery without angina pectoris (principal); R56.9 Unspecified convulsions; I10 Essential (primary) hypertension; E78.00 Pure hypercholesterolemia, unspecified; E66.9 Obesity, unspecified; K21.9 Gastro-esophageal reflux disease without esophagitis; R73.02 Impaired glucose tolerance (oral); F41.1 Generalized anxiety disorder; G25.81 Restless legs syndrome; Z79.82 Long term (current) use of aspirin; Z79.899 Other long term (current) drug therapy; Z95.0 Presence of cardiac pacemaker | CPT/HCPCS: 99212 ==

== ENCOUNTER → 2024-02-18 23:59 | Outpatient (BNV) | payer OTHER, SELFPAY ==
--- NOTE | 2024-02-24 15:28 | MHC.OFFVIS ---
Intake Visit Reasons: Remote device check- Medtronic Allergies propoxyphene [From Darvon] Allergy (Severe, Verified 01/04/24 09:22) vomiting/dizziness atorvastatin [Lipitor] Allergy (Intermediate, Verified 01/04/24 09:22) decreased renal function lisinopril [From Zestril] Allergy (Intermediate, Verified 01/04/24 09:22) TROUBLE BREATHING PFSH Medical History CAD (coronary artery disease) Implantable loop recorder present Cardiac pacemaker in situ Seizures Mood swings COVID-19 vaccine series completed Impaired glucose tolerance Diverticular disease GERD (gastroesophageal reflux disease) BPH (benign prostatic hyperplasia) Insomnia Anxiety and depression Asbestos exposure Peripheral vascular disease Obesity (BMI 30-39.9) Tubular adenoma of colon Hyperlipidemia HTN (hypertension) Surgical History H/O umbilical hernia repair Hx of blepharoplasty H/O colonoscopy Hx of heart artery stent History of tumor History of right knee surgery Hx of thumb surgery Family History Father CVD (cardiovascular disease) Melanoma Mother CVD (cardiovascular disease) Pancreatic cancer Hypertension Diabetes Brother No problems noted. Sister No problems noted. Son No problems noted. Daughter No problems noted. Social History Household Members: Spouse and Family [facility] Are you a primary hemodialysis patient care specialist to a significant other at home: No Do you presently have visiting nurse or other home services: No Alcohol intake: current Alcohol intake frequency: holidays/special occasions only Patient Tobacco Use Status: Former Tobacco user Tobacco use type: Cigarette e-Cigarette/Vaping Use: Never Used Second Hand Smoke Exposure: Yes service: Yes Current occupational status: retired Cognitive needs: No Hearing needs: No Vision needs: Yes Office Procedures Cardiac Device Check Cardiac Device Check Details: Remote pacemaker report generated 02/18/2024. Pacemaker function is adequate. Atrial pacing about 92% of the time. No episodes of atrial fibrillation [id number] Cardiac Device Interrogation, pacemaker Procedure code (CPT) selection complete Assessment & Plan Assessment & Plan (1) Cardiac pacemaker in situ: Comment: Medtronic dual-chamber pacemaker placed, 07/30/2023 for syncope and sinus pauses Code(s): Z95.0 - Presence of cardiac pacemaker Category: Medical Plan: See above Coding Level of Care Code Procedure Only Diagnoses Cardiac pacemaker in situ Z95.0 CPT Codes Cardiac Device Check - Cardiac Device 12: [id number] Cardiac Device Interrogation, pacemaker ([id number])
== END ==
PROVIDERS: PCP Internal Medicine; Visit Provider Internal Medicine Cardiovascular Disease
DX: R55 Syncope and collapse (principal); Z95.0 Presence of cardiac pacemaker
CPT/HCPCS: 93294

== ENCOUNTER 2024-03-02 10:08 | Outpatient (REF) | payer OTHER, SELFPAY ==
--- OUTSIDE RECORDS SUMMARY | 2024-03-02 10:17 | XMS_ITS | Continuity of Care Document ---
Author Name [facility] Organization [facility] Care Team Providers Care Oil Separator Name Role Phone [facility] Unavailable Unavailable Allergies, Adverse Reactions, Alerts Combined list of allergies from Department of Defense and Veterans Affairs facilities. It does not include entries that were removed or entered in error. Substance Category Reaction Severity Reaction type Status Date Reported Comments Source No Known Allergies Drug allergy (disorder) active 06/24/2007 [facility] [place] Immunizations Combined list of available immunizations from the Department of Defense and Veterans Affairs facilities. Immunization Series Date Given Administered By Site Reaction Lot Number CVX Code Drug Director Of Instruction Status Comments Source COVID-19 (MODERNA), MRNA, LNP-S, PF, 100 MCG/0.5 ML DOSE 2 2020 207 complet ed MOD; [id number]; 1 [facility] COVID-19 (MODERNA), MRNA, LNP-S, PF, 100 MCG/0.5 ML DOSE 1 2020 207 complet ed MOD; [id number]; 1 [facility] INFLUENZA, INJECTABLE, MDCK, PRESERVATIVE FREE, QUADRIVALENT 2018 171 complet ed Partner: [facility]. Administe red by: [facility] Clinician (NPI=Not Provided) . Partner 1 Lot#: [id number] Mfr: [facility] influenza virus vaccine, split virus (incl. purified surface antigen)-reti red CODE 1 2007 Unknown, Provider [id number] 15 [employer] (SKB) complet ed influenza virus vaccine, split virus (incl. purified surface antigen)- retired CODE DoD typhoid Vi capsular polysaccharid e vaccine 1 2007 Unknown, Provider [id number] Sanofi Pasteur ([facility]) complet ed typhoid Vi capsular polysacch aride vaccine DoD influenza virus vaccine, split virus (incl. purified surface antigen)-reti red CODE 1 2006 Unknown, Provider [id number] 15 [facility] (SKB) complet ed influenza virus vaccine, split virus (incl. purified surface antigen)- retired CODE DoD influenza virus vaccine, split virus (incl. purified surface antigen)-reti red CODE 1 2005 Unknown, Provider [id number] Other (OT) complet ed influenza virus vaccine, split virus (incl. purified surface antigen)- retired CODE DoD typhoid vaccine, parenteral, other than acetone-kille d, dried 1 2005 Unknown, Provider [id number] Sanofi Pasteur ([facility]) complet ed typhoid vaccine, parentera l, other than acetone-k illed, dried DoD influenza virus vaccine, split virus (incl. purified surface antigen)-reti red CODE 1 2004 Unknown, Provider [id number] Sanofi Pasteur ([facility]) complet ed influenza virus vaccine, split virus (incl. purified surface antigen)- retired CODE DoD influenza virus vaccine, whole virus 1 2004 Unknown, Provider [id number] 16 [place]ci ([facility]) complet ed influenza virus vaccine, whole virus DoD typhoid vaccine, parenteral, other than acetone-kille d, dried 1 2003 Unknown, Provider [id number] Sanofi Pasteur ([facility]) complet ed typhoid vaccine, parentera l, other than acetone-k illed, dried DoD influenza virus vaccine, whole virus 1 2002 Unknown, Provider [id number] 16 Sanofi Pasteur ([facility]) complet ed influenza virus vaccine, whole virus DoD tuberculin skin test; purified protein derivative solution, intradermal 1 2002 Unknown, Provider [id number] 96 Sanofi Pasteur ([facility]) complet ed tuberculi n skin test; purified protein derivativ e solution, intraderm al DoD influenza virus vaccine, whole virus 1 2001 Unknown, Provider [id number] 16 Sanofi Pasteur ([facility]) complet ed influenza virus vaccine, whole virus DoD tuberculin skin test; purified protein derivative solution, intradermal 1 2001 Unknown, Provider [id number] 96 Sanofi Pasteur ([facility]) complet ed tuberculi n skin test; purified protein derivativ e solution, intraderm al DoD influenza virus vaccine, whole virus 1 2000 Unknown, Provider [id number] 16 Sanofi Pasteur ([facility]) complet ed influenza virus vaccine, whole virus DoD tuberculin skin test; purified protein derivative solution, intradermal 1 2000 Unknown, Provider [id number] 96 Sanofi Pasteur ([facility]) complet ed tuberculi n skin test; purified protein derivativ e solution, intraderm al DoD tetanus and diphtheria toxoids, adsorbed, preservative free, for adult use (2 Lf of tetanus toxoid and 2 Lf of diphtheria toxoid) 2 2000 Unknown, Provider 09 Transcribed (TRS) complet ed tetanus and diphtheri a toxoids, adsorbed, preservat jese free, for adult use (2 Lf of tetanus toxoid and 2 Lf of diphtheri a toxoid) DoD influenza virus vaccine, whole virus 1 2000 Unknown, Provider [id number] 16 Marci ([facility]) complet ed influenza virus vaccine, whole virus DoD hepatitis A vaccine, adult dosage 2 1999 Unknown, Provider [id number] Merck (MSD) complet ed hepatitis A vaccine, adult dosage DoD tuberculin skin test; purified protein derivative solution, intradermal 1 1999 Unknown, Provider [id number] Sameeradamian (CON) complet ed tuberculi n skin test; purified protein derivativ e solution, intraderm al DoD influenza virus vaccine, whole virus 1 1998 Unknown, Provider [id number] 16 Marci ([facility]) complet ed influenza virus vaccine, whole virus DoD measles, mumps and rubella virus vaccine 2 1997 Unknown, Provider [id number] [place] ([place]) complet ed measles, mumps and rubella virus vaccine DoD influenza virus vaccine, whole virus 2 1997 Unknown, Provider [id number] 16 Mino (CON) complet ed influenza virus vaccine, whole virus DoD typhoid vaccine, live, oral 3 1997 Unknown, Provider [id number] 25 Jazmyne (BP) complet ed typhoid vaccine, live, oral DoD meningococcal polysaccharid e vaccine (MPSV4) 1 1997 Unknown, Provider [id number] Mino (CON) complet ed meningoco ccal polysacch aride vaccine (MPSV4) DoD yellow fever vaccine 2 1997 Unknown, Provider [id number] 37 Mino (CON) complet ed yellow fever vaccine [facility] hepatitis A vaccine, adult dosage 1 1997 Unknown, Provider [id number] [facility] (SKB) complet ed hepatitis A vaccine, adult dosage DoD influenza virus vaccine, whole virus 1 1996 Unknown, Provider 16 () complet ed influenza virus vaccine, whole virus [facility] tuberculin skin test; purified protein derivative solution, intradermal 1 1996 Unknown, Provider [id number] Mino (CON) complet ed tuberculi n skin test; purified protein derivativ e solution, intraderm al DoD tetanus and diphtheria toxoids, adsorbed, preservative free, for adult use (2 Lf of tetanus toxoid and 2 Lf of diphtheria toxoid) 1 1993 Unknown, Provider 09 () complet ed tetanus and diphtheri a toxoids, adsorbed, preservat jese free, for adult use (2 Lf of tetanus toxoid and 2 Lf of diphtheri a toxoid) [facility] typhoid vaccine, parenteral, acetone-kille d, dried ([place] ) 1 1984 Unknown, Provider 53 () complet ed typhoid vaccine, parentera l, acetone-k illed, dried ([place] ) DoD yellow fever vaccine 1 1981 Unknown, Provider 37 () complet yellow fever vaccine [facility] cholera vaccine, unspecified formulation 1 1970 Unknown, Provider 26 () complet ed cholera vaccine, unspecifi ed formulati on DoD trivalent poliovirus vaccine, live, oral 1 1967 Unknown, Provider 02 () complet ed trivalent polioviru s vaccine, live, oral [facility] Procedures Combined list of: 1) Procedures from Department of Veterans Affairs facilities going back up to thelast 18 months, not all VA non-surgical procedures are included; 2) All procedures from the Department of Defense facilities. Procedure Procedure Type Code Date Perfomer Comments Sourc e KNEE ORTHOSIS (KO), ELASTIC OR OTHER ELASTIC TYPE MATERIAL WITH CONDYLAR PAD(S), PREFABRICATED, INCLUDES FITTING AND ADJUSTMENT 01/05/2002 [facility] Social History Combined list of available smoking, tobacco, and other social history from Department of Defense and Veterans Affairs facilities. Social History Type Response Date Comment Sourc e This section is an empty social history section. [facility]
--- OUTSIDE RECORDS SUMMARY | 2024-03-02 10:17 | XMS_ITS | Patient Health Record ---
Author Organization [facility] Address [address] [place] [address] Care Team Providers Care Patch Press Operator Name Role Phone Po Skip PERSON Primary Care Provider Shawn Rivas Unavailable [phone] ALLERGIES Allergen (clinical drug ingredient) Drug/Non Drug Allergy documented on EMR Reaction Allergy Type Onset Date Status lisinopril Zestril Unknown Drug Allergy Active atorvastatin Lipitor Unknown Drug Allergy Acti ve REASON FOR REFERRAL No Information MEDICATIONS Medication SIG (Take, Route, Frequency, Duration) Notes Start Date End Date Status Tamsulosin HCl 0.4 MG 1 capsule Orally O nce a day Active amLODIPine Besylate 5 MG 1 tablet Orally Once a day Active Metoprolol Succinate 25 MG 1 capsule Ora lly Once a day Active Famotidine 20 MG 1 tablet at bedtime as needed Orally Twice a day Active Centrum Adults - as directed Orally Active Rosuvastatin Calcium 10 MG 1 tablet Oral ly Once a day for 30 day(s) Active Citalopram Hydrobromide 40 MG 0.5 tablet Orally Once a day for 30 day(s) Active Multi Vitamin/Minerals Active Aspir-81 81 MG 1 tablet Orally twic e a day Active Fish Oil 1200 MG 1 capsule Orally Onc e a day Active IMMUNIZATIONS Vaccine Route Administration Date Status Comme nts Influenza Unknown 12/14/2017 Administered Influenza Unknown 01/14/2022 Administered SOCIAL HISTORY Sex Assigned At : Social History Observation Description Sex Assigned At Unknown PROBLEMS Problem Type ICD Code Onset Dates Problem Status W/U Status Risk SNOMED Code Notes Problem Encounter for screening for malignant neoplasm of colon (Z12.11) Active confirmed 466322998 Problem Diverticulosis of large intestine without perforation or abscess without bleeding (K57.30) Active confirmed Diverticul ar disease of colon (676274514) Problem Gastroesophageal reflux disease, esophagitis presence not specified (K21.9) Active confirmed 115808199 Problem Long-term use of aspirin therapy (Z79.82) Active confirmed 074677563 Problem Hx of adenomatous colonic polyps (Z86.010) Active confirmed 843314432 Problem Pre-procedural examination (Z01.818) Active confirmed [id number] PLAN OF TREATMENT Pending Test Test Name Order Date Pathology 03/19/2022 Future Test Test Name Order Date COLONOSCOPY 07/31/2011 COLONOSCOPY 07/13/2018 COLONOSCOPY 01/29/2022 Insurance Providers Payer Name Payer Address Payer Phone Subscriber Number Group Number Insured Name Patient Relationship to Insured Coverage Start Date Coverage End Date [employer] [facility] (REFERRA L NEEDED) [address] [place] [phone] [id number] SHAWN ORTIZ Self - patient is the insured MEDICAL (GENERAL) HISTORY Medical History History ICD Code Colonoscopy 03/18/2004 with a tubular adenoma removed; negative colonoscopy in 02/2012 Hypertension CAD with stent placed in 01/2011-no ID-f ine since-followed by Dr. Hamlin Denies ID,DM,CVA,Lung disease,renal dise ase Hyperlipidemia BPH Anxiety/depression Migraines Colonoscopy 07/2018 1 polyp removed but p rep was suboptimal Surgical History Surgery Date(Month/Year) Breast surgery as a teenager-benign Knee surgery Right thumb repair from trauma Trigger finger
== END 2024-03-02 10:09 | disposition home or self-care (01) ==
LOC: HO.HMGCX 10:08
PROVIDERS: PCP Internal Medicine; Visit Provider Urology
DX: N40.0 Benign prostatic hyperplasia without lower urinary tract symptoms (principal); N50.82 Scrotal pain
CPT/HCPCS: 76870

== ENCOUNTER → 2024-03-02 10:32 | Outpatient (BNV) | payer OTHER, SELFPAY | PROVIDERS: PCP Internal Medicine; Visit Provider Radiology Diagnostic Radiology | DX: N50.3 Cyst of epididymis (principal) | CPT/HCPCS: 76870 ==

== ENCOUNTER 2024-03-22 09:27 | Outpatient (AMB) | payer OTHER, SELFPAY ==
--- OUTSIDE RECORDS SUMMARY | 2024-03-22 09:40 | XMS_ITS | Patient Health Record ---
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 Name Role Phone Po Skip PERSON Primary Care Provider Shawn Rivas Unavailable [phone] ALLERGIES Allergen (clinical drug ingredient) Drug/Non Drug [...] malignant neoplasm of colon (Z12.11) Active confirmed 896459952 Problem Diverticulosis of large intestine without perforation or abscess without bleeding (K57.30) Active confirmed Diverticul ar disease of colon (316827172) Problem Gastroesophageal reflux disease, esophagitis presence not specified (K21.9) Active confirmed 336634454 Problem Long-term use of aspirin therapy (Z79.82) Active confirmed 251528148 Problem Hx of adenomatous colonic polyps (Z86.010) Active confirmed 400172766 Problem Pre-procedural examination (Z01.818) Active confirmed [id number] PLAN OF TREATMENT Pending Test Test Name Order Date Pathology 03/19/2022 Future Test Test Name Order Date COLONOSCOPY 07/31/2011 COLONOSCOPY 07/13/2018 COLONOSCOPY 01/29/2022 Insurance Providers Payer Name Payer Address Payer Phone Subscriber Number Group Number Insured Name Patient Relationship to Insured Coverage Start Date Coverage End Date [facility] PL[facility] (REFERRA L NEEDED) [address] [place] [phone] [id number] SHAWN ORTIZ Self - patient is the insured MEDICAL (GENERAL) HISTORY Medical History History ICD Code Colonoscopy 03/18/2004 with a tubular adenoma removed; negative colonoscopy in 02/2012 Hypertension CAD with stent placed in 01/2011-no AK-f ine since-followed by Dr. Hamlin Denies AK,DM,CVA,Lung disease,renal dise ase Hyperlipidemia BPH Anxiety/depression Migraines Colonoscopy 07/2018 1 polyp removed but p rep was suboptimal Surgical History Surgery Date(Month/Year) Breast surgery as a teenager-benign Knee surgery Right thumb repair from trauma Trigger finger
--- OUTSIDE RECORDS SUMMARY | 2024-03-22 09:40 | XMS_ITS | Continuity of Care Document ---
Author Name [facility] Organization [facility] Care Team Providers Care Engineering Documentation Specialist Name Role Phone [facility] Unavailable Unavailable Allergies, Adverse Reactions, Alerts Combined list of allergies from Department of Defense and Veterans Affairs facilities. It does not include entries that were removed or entered in error. Substance Category Reaction Severity Reaction type Status Date Reported Comments Source No Known Allergies Drug allergy (disorder) active 06/24/2007 [facility] Immunizations Combined list of available immunizations from the Department of Defense and Veterans Affairs facilities. Immunization Series Date Given Administered By Site Reaction Lot Number CVX Code Drug Nursing Coordinator Status Comments Source COVID-19 (MODERNA), MRNA, LNP-S, PF, 100 MCG/0.5 ML DOSE 2 2020 207 complet ed MOD; [id number]; 1 [facility] COVID-19 (MODERNA), MRNA, LNP-S, PF, 100 MCG/0.5 ML DOSE 1 2020 207 complet ed MOD; [id number]; 1 [facility] INFLUENZA, INJECTABLE, MDCK, PRESERVATIVE FREE, QUADRIVALENT 2018 171 complet ed Partner: [facility]. Administe red by: [facility] Clinician (NPI=Not Provided) . Partner 1 Lot#: [id number] Mfr: [facility] influenza virus vaccine, split virus (incl. purified surface antigen)-reti red CODE 1 2007 Unknown, Provider [id number] 15 [employer] (SKB) complet ed influenza virus vaccine, split virus (incl. purified surface antigen)- retired CODE DoD typhoid Vi capsular polysaccharid e vaccine 1 2007 Unknown, Provider [id number] Sanofi Pasteur ([facility]) complet ed typhoid Vi capsular polysacch aride vaccine DoD influenza virus vaccine, split virus (incl. purified surface antigen)-reti red CODE 1 2006 Unknown, Provider [id number] 15 [facility] (SKB) complet ed influenza virus vaccine, split virus (incl. purified surface antigen)- retired CODE DoD influenza virus vaccine, split virus (incl. purified surface antigen)-reti red CODE 1 2005 Unknown, Provider [id number] Other (OT) complet ed influenza virus vaccine, split virus (incl. purified surface antigen)- retired CODE DoD typhoid vaccine, parenteral, other than acetone-kille d, dried 1 2005 Unknown, Provider [id number] Sanofi Pasteur ([facility]) complet ed typhoid vaccine, parentera l, other than acetone-k illed, dried DoD influenza virus vaccine, split virus (incl. purified surface antigen)-reti red CODE 1 2004 Unknown, Provider [id number] 15 Sanofi Pasteur ([facility]) complet ed influenza virus vaccine, split virus (incl. purified surface antigen)- retired CODE DoD influenza virus vaccine, whole virus 1 2004 Unknown, Provider [id number] Marci ([facility]) complet ed influenza virus vaccine, whole virus DoD typhoid vaccine, parenteral, other than acetone-kille d, dried 1 2003 Unknown, Provider [id number] Sanofi Pasteur ([facility]) complet ed typhoid vaccine, parentera l, other than acetone-k illed, dried DoD influenza virus vaccine, whole virus 1 2002 Unknown, Provider [id number] 16 Sanofi Pasteur ([facility]) complet ed influenza virus vaccine, whole virus DoD tuberculin skin test; purified protein derivative solution, intradermal 1 2002 Unknown, Provider [id number] 96 Sanofi Pasteur ([facility]) complet ed tuberculi n skin test; purified protein derivativ e solution, intraderm al DoD influenza virus vaccine, whole virus 1 2001 Unknown, Provider [id number] 16 Sanofi Pasteur ([facility]) complet ed influenza virus vaccine, whole virus DoD tuberculin skin test; purified protein derivative solution, intradermal 1 2001 Unknown, Provider [id number] 96 Sanofi Pasteur ([facility]) complet ed tuberculi n skin test; purified protein derivativ e solution, intraderm al DoD influenza virus vaccine, whole virus 1 2000 Unknown, Provider [id number] 16 Sanofi Pasteur ([facility]) complet ed influenza virus vaccine, whole virus DoD tuberculin skin test; purified protein derivative solution, intradermal 1 2000 Unknown, Provider [id number] 96 Sanofi Pasteur ([facility]) complet ed tuberculi n skin test; purified [...] vaccine, whole virus 1 2000 Unknown, Provider [id number] 16 Marci ([facility]) complet ed influenza virus vaccine, whole virus DoD hepatitis A vaccine, adult dosage 2 1999 Unknown, Provider [id number] Merck (MSD) complet ed hepatitis A vaccine, adult dosage DoD tuberculin skin test; purified protein derivative solution, intradermal 1 1999 Unknown, Provider [id number] Sameeradamian (CON) complet ed tuberculi n skin test; purified protein derivativ e solution, intraderm al DoD influenza virus vaccine, whole virus 1 1998 Unknown, Provider [id number] 16 Marci ([facility]) complet ed influenza virus vaccine, whole virus DoD measles, mumps and rubella virus vaccine 2 1997 Unknown, Provider [id number] [place] ([place]) complet ed measles, mumps and rubella virus vaccine DoD influenza virus vaccine, whole virus 2 1997 Unknown, Provider [id number] 16 Mino (CON) complet ed influenza virus vaccine, whole virus DoD typhoid vaccine, live, oral 3 1997 Unknown, Provider [id number] 25 Jazmyne (BP) complet ed typhoid vaccine, live, oral DoD meningococcal polysaccharid e vaccine (MPSV4) 1 1997 Unknown, Provider [id number] Mino (CON) complet ed meningoco ccal polysacch aride vaccine (MPSV4) DoD yellow fever vaccine 2 1997 Unknown, Provider [id number] 37 Mino (CON) complet ed yellow fever vaccine [facility] hepatitis A vaccine, adult dosage 1 1997 Unknown, Provider [id number] [facility] (SKB) complet ed hepatitis A vaccine, adult dosage DoD influenza virus vaccine, whole virus 1 1996 Unknown, Provider 16 () complet ed influenza virus vaccine, whole virus [facility] tuberculin skin test; purified protein derivative solution, [...] and 2 Lf of diphtheri a toxoid) [facility] typhoid vaccine, parenteral, acetone-kille d, dried ([place] ) 1 1984 Unknown, Provider 53 () complet ed typhoid vaccine, parentera l, acetone-k illed, dried ([place] ) DoD yellow fever vaccine 1 1981 Unknown, Provider 37 () complet yellow fever vaccine [facility] cholera vaccine, unspecified formulation 1 1970 Unknown, Provider 26 () complet ed cholera vaccine, unspecifi ed formulati on DoD trivalent poliovirus vaccine, live, oral 1 1967 Unknown, Provider 02 () complet ed trivalent polioviru s vaccine, live, oral [facility] Procedures Combined list of: 1) Procedures from Department of Veterans Affairs facilities going back up to thelast 18 months, not all VA non-surgical procedures are included; 2) All procedures from the Department of Defense facilities. Procedure Procedure Type Code Date Perfomer Comments Sourc e KNEE ORTHOSIS (KO), ELASTIC OR OTHER ELASTIC TYPE MATERIAL WITH CONDYLAR PAD(S), PREFABRICATED, INCLUDES FITTING AND ADJUSTMENT 01/05/2002 [facility] Social History Combined list of available smoking, tobacco, and other social history from Department of Defense and Veterans Affairs facilities. Social History Type Response Date Comment Sourc e This section is an empty social history section. [facility]
--- NOTE | 2024-03-22 09:56 | MHC.OFFVIS ---
Vital Signs 03/22/24 09:57 Height 5 ft 8 in Weight 235 lb 14.314 oz BMI 35.9 BP 116/70 Blood Pressure Location Lt brachial Position Sitting Pulse 85 Intake Visit Reasons: 6 mth f/up w/ medtronic ck Intake Note: 6 month follow-up with Medtronic check feeling good Geoscience Laboratory Technician Required: No Allergies propoxyphene [From Darvon] Allergy (Severe, Verified 01/04/24 09:22) vomiting/dizziness atorvastatin [Lipitor] Allergy (Intermediate, Verified 01/04/24 09:22) decreased renal function lisinopril [From Zestril] Allergy (Intermediate, Verified 01/04/24 09:22) TROUBLE BREATHING Medication List - Last Reconciled 03/22/24 by Curt Hamlin MD albuterol sulfate 90 mcg/actuation 2 puffs inhalation Q6H PRN amlodipine 5 mg PO DAILY aspirin (Adult Low Dose Aspirin) 81 mg PO BID citalopram 40 mg PO DAILY epinephrine (EpiPen 2-James) 0.3 mg (0.3 mL) IM Q4H PRN famotidine 20 mg PO BID 90 days ibuprofen (Advil) 400 mg PO Q6H PRN levetiracetam (Keppra) 500 mg PO BID 90 days metoprolol succinate ER (Toprol XL) 25 mg PO DAILY multivitamin 1 tab PO BEDTIME omega-3 fatty acids (Fish Oil Concentrate) 1,000 mg PO BEDTIME oxcarbazepine 150 mg PO DAILY 90 days ropinirole 0.25 mg PO BEDTIME 90 days rosuvastatin 10 mg PO DAILY tamsulosin 0.4 mg PO BEDTIME HPI Comments Details: Dani comes for follow-up. He has been doing well from cardiac perspective. He said after the pacemaker placement and fall when he went for golf he was feeling a little fatigued with exercise and could only play for holes. Otherwise he has not had any symptoms of chest pain. He is walking 2-3 miles with his dog every day. Denies any heart failure symptoms. Denies any prolonged palpitation irregular heartbeat. No lightheadedness, syncope. [facility] Medical History CAD (coronary artery disease) Implantable loop recorder present Cardiac pacemaker in situ Seizures Mood swings COVID-19 vaccine series completed Impaired glucose tolerance Diverticular disease GERD (gastroesophageal reflux disease) BPH (benign prostatic hyperplasia) Insomnia Anxiety and depression Asbestos exposure Peripheral vascular disease Obesity (BMI 30-39.9) Tubular adenoma of colon Hyperlipidemia HTN (hypertension) Surgical History H/O umbilical hernia repair Hx of blepharoplasty H/O colonoscopy Hx of heart artery stent History of tumor History of right knee surgery Hx of thumb surgery Family History Father CVD (cardiovascular disease) Melanoma Mother CVD (cardiovascular disease) Pancreatic cancer Hypertension Diabetes Brother No problems noted. Sister No problems noted. Son No problems noted. Daughter No problems noted. Social History Household Members: Spouse and Family [facility] Are you a primary auto care center manager to a significant other at home: No Do you presently have visiting nurse or other home services: No Alcohol intake: current Alcohol intake frequency: holidays/special occasions only Patient Tobacco Use Status: Former Tobacco user Tobacco use type: Cigarette e-Cigarette/Vaping Use: Never Used Second Hand Smoke Exposure: Yes service: Yes Current occupational status: retired Cognitive needs: No Hearing needs: No Vision needs: Yes Review of Systems Const Denies chills, Denies fatigue, Denies fever(s), Denies frequent falls, Denies weakness, Denies weight gain and Denies weight loss ENT Denies dizziness Card Denies chest pain, Denies leg edema, Denies lightheadedness, Denies palpitations, Denies dyspnea, Denies dyspnea on exertion, Denies orthopnea and Denies other (loss of consciousness) Resp Denies cough, Denies dyspnea and Denies dyspnea on exertion GI Denies hematochezia and Denies change in stool character Musc Denies abnormal gait, Denies muscle weakness, Denies numbness, Denies radiating pain into limb and Denies tingling Neuro Denies abnormal gait, Denies dizziness, Denies frequent falls, Denies numbness, Denies tingling and Denies weakness Endo Denies fatigue and Denies palpitations Physical Exam Vital Signs: Last Vital Signs Pulse 85 03/22/24 09:57 BP 116/70 03/22/24 09:57 BMI result Body Mass Index 35.9 Const General: cooperative, healthy appearing, comfortable, no acute distress, well developed, alert and awake Nutritional Appearance: obese Orientation/consciousness: patient oriented x3 HEENT Head: Yes normal to inspection, Yes normocephalic and Yes atraumatic Eyes General: appearance normal, both eyes and all related structures Neck Neck: Yes full ROM, Yes trachea midline, Yes supple and Yes no JVD Carotids: other ( No carotid bruit) Chest Chest palpation & inspection: other (Pacer pocket is benign with well healing wound with no fluctuation or redne) Resp Effort & Inspection: normal respiratory effort Auscultation: clear to auscultation bilaterally Cardio Jugular venous distension: no JVD Palpation: normal PMI Rate: regular rate Rhythm: regular rhythm Heart sounds: S1 normal heart sound present, S2 normal heart sound present and Other heart sounds present ( soft S4) Peripheral pulses: Peripheral pulses 2+ throughout GI Inspection: Yes normal to inspection Auscultation: normal bowel sounds Skin General skin exam: elasticity normal and turgor normal Neuro General: patient oriented x3 and no focal motor deficits Extrem General: Yes no clubbing, cyanosis or edema Psych Appearance: grossly normal Office Procedures Cardiac Device Check Cardiac Device Check Details: Dual-chamber Medtronic pacemaker in place. Atrial pacing 91% of time. Programmed in MVP mode with rate response at 60 beats per minute. Lower rate was reprogrammed to 50 beats per minute. Rate response threshold was made more aggressive. Atrial pacing thresholds adequate and reprogrammed to enhance battery life. Ventricular pacing thresholds excellent and reprogrammed to enhance battery life. Atrial sensing was adequate and sensitivity was increased due to far field ventricular sensing noted. Ventricular sensing was also reprogrammed. No arrhythmias noted. Pacing lead impedance is stable. Battery life is at 13.2 years [id number] Cardiac Device Check, pacemaker dual lead Procedure code (CPT) selection complete Assessment & Plan Assessment & Plan (1) Cardiac pacemaker in situ: Comment: Medtronic dual-chamber pacemaker placed, 07/30/2023 for syncope and sinus pauses Code(s): Z95.0 - Presence of cardiac pacemaker Category: Medical Plan: Cardiac pacemaker in-situ for syncope as well as pauses and suggestive of sick sinus syndrome. Pacemaker is working well. Reprogrammed for adequate functioning to provide him adequate support as well as to improve his chronotropic competence. Follow-up remotely. Follow up in the clinic in 6 months time. (2) CAD (coronary artery disease): Comment: drug-eluting stent to proximal -mid LAD in January 2011 for ACS, 3 by 15 mm Code(s): I25.10 - Atherosclerotic heart disease of [place] coronary artery without angina pectoris Category: Medical Qualifiers: Coronary Disease-Associated Artery/Lesion type: [place] artery [place] vs. transplanted heart: [place] heart Associated angina: without angina Qualified Code(s): I25.10 - Atherosclerotic heart disease of [place] coronary artery without angina pectoris Plan: CAD with remote stenting to the LAD for acute coronary syndrome. Currently doing well without any symptoms of angina. Continue low-dose aspirin therapy. Continue current therapy with metoprolol and amlodipine. Continue statin therapy. Target goal LDL closer to 55 mg/dL. Advised lipid panel in 6 months. (3) PVC (premature ventricular contraction): Code(s): I49.3 - Ventricular premature depolarization Category: Medical Plan: PVCs which has suppressed on metoprolol therapy. Currently without any symptoms. Continue the same. Avoidance of stimulants was discussed. Will follow up in the clinic in 6 months time, sooner p.r.n.. Thank you for allowing me to partake in his care Coding Level of Care Code Est Pt Level 4 (51649) Complex EM visit Add On G2211 Diagnoses Cardiac pacemaker in situ Z95.0 Coronary artery disease involving [place] coronary artery of [place] heart without angina pectoris I25.10 Coronary Disease-Associated Artery/Lesion type: [place] artery [place] vs. transplanted heart: [place] heart Associated angina: without angina PVC (premature ventricular contraction) I49.3 CPT Codes Cardiac Device Check - Cardiac Device 2: 10294-ED Cardiac Device Check, pacemaker dual lead ([id number])
[2024-03-22 09:57] VITALS: BP 116/70; PULSE 85; BMI 35.9
== END 2024-03-22 10:55 | disposition home or self-care (01) ==
PROVIDERS: PCP Internal Medicine; Visit Provider Internal Medicine Cardiovascular Disease
DX: I25.10 Atherosclerotic heart disease of native coronary artery without angina pectoris (principal); I49.3 Ventricular premature depolarization; Z95.0 Presence of cardiac pacemaker
CPT/HCPCS: 93280; 99214

== ENCOUNTER → 2024-03-22 09:27 | Outpatient (BNVA) | payer OTHER, SELFPAY | PROVIDERS: PCP Internal Medicine; Visit Provider Internal Medicine Cardiovascular Disease | DX: Z45.018 Encounter for adjustment and management of other part of cardiac pacemaker (principal); I25.10 Atherosclerotic heart disease of native coronary artery without angina pectoris; I49.3 Ventricular premature depolarization | CPT/HCPCS: 93280; 99212 ==

== ENCOUNTER 2024-04-06 08:33 | Outpatient (AMB) | payer OTHER, SELFPAY ==
--- NOTE | 2024-04-06 08:44 | A.OFFVIS_ITS ---
Intake Visit Reasons: Scrotum Ultrasound(set) Intake Note: Patient is present for SCROTUM ULTRASOUND Urology Medication:TAMSULOSIN Antibiotic Allergy:ATORVASTATIN Blood Thinner:ASPIRIN [employer] Required: No Allergies propoxyphene [From Darvon] Allergy (Severe, Verified 04/06/24 08:45) vomiting/dizziness atorvastatin [Lipitor] Allergy (Intermediate, Verified 04/06/24 08:45) decreased renal function lisinopril [From Zestril] Allergy (Intermediate, Verified 04/06/24 08:45) TROUBLE BREATHING HPI Comments Details: Dani Xiong is a very pleasant male. He is a patient of Dr. Chen. He is seen in the office today for the following urologic conditions. 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 Current visit is for?further evaluation of, lower urinary tract symptoms, predominate obstructive symptoms ?- discussed PSA result. ?- effective urination with minimal issues on Flomax ?- continue with generic Viagra.? Current treatment includes?medication, alpha sravanthi, tamsulosin.? Prostate Symptom Score?Mild (0-8), Bother 2.? Symptoms include?incomplete emptying, weak stream, nocturia (>2), and are stable.? Prior Prostate Score?unknown.? PSA?Followed with PCP ?12/02 2.3 ?12/03 1.9, 12/04 2.5, 05/07 2.2 T 288 ? Prostate volume?30-50gm.? Associated conditions? CAD ?No ? CVA ?No ? diabetes ?No ? elevated PSA ?No ? erectile dysfunction ?Yes Response to low-dose medication ? hematuria ?No ? renal insufficiency ?No ? urge incontinence ?No ? urinary retention ?No ? urinary tract infection ?No ? psychiatric diagnosis ?No ? Testing at next visit will include?Prostate Symptom Score, bladder scan, uroflow.? Treatment plan?continue with current medications.? PFSH Medical History CAD (coronary artery disease) Implantable loop recorder present Cardiac pacemaker in situ Seizures Mood swings COVID-19 vaccine series completed Impaired glucose tolerance Diverticular disease GERD (gastroesophageal reflux disease) BPH (benign prostatic hyperplasia) Insomnia Anxiety and depression Asbestos exposure Peripheral vascular disease Obesity (BMI 30-39.9) Tubular adenoma of colon Hyperlipidemia HTN (hypertension) Surgical History H/O umbilical hernia repair Hx of blepharoplasty H/O colonoscopy Hx of heart artery stent History of tumor History of right knee surgery Hx of thumb surgery Family History Father CVD (cardiovascular disease) Melanoma Mother CVD (cardiovascular disease) Pancreatic cancer Hypertension Diabetes Brother No problems noted. Sister No problems noted. Son No problems noted. Daughter No problems noted. Social History Household Members: Spouse and Family Housing: [facility] Are you a primary congregational care pastor to a significant other at home: No Do you presently have visiting nurse or other home services: No Alcohol intake: current Alcohol intake frequency: holidays/special occasions only Patient Tobacco Use Status: Former Tobacco user Tobacco use type: Cigarette e-Cigarette/Vaping Use: Never Used Second Hand Smoke Exposure: Yes service: Yes Current occupational status: retired Cognitive needs: No Hearing needs: No Vision needs: Yes Review of Systems Const Denies chills and Denies fever(s) Card Reports no additional complaints and Denies syncope Resp Denies cough GI Denies abdominal pain and Denies heartburn Reports as per HPI and Denies change in libido Neuro Denies syncope Psych Denies change in libido Endo Denies change in libido Physical Exam Const General: cooperative, healthy appearing, comfortable and no acute distress Orientation/consciousness: patient oriented x3 HEENT Face and sinus: Yes normal facial exam Mouth: moist mucous membranes Neck Neck: Yes normal visual inspection, Yes full ROM and Yes trachea midline Chest Chest palpation & inspection: normal inspection of the chest Resp Effort & Inspection: normal respiratory effort, able to speak in complete sentences and no respiratory distress GI Inspection: Yes normal to inspection Back/Spine/Pelvis Cervical Spine: normal cervical lordosis Thoracic/Lumbar Spine: thoracic and lumbar spine normal to inspection Skin General skin exam: no rashes or lesions noted Neuro General: patient oriented x3, gait normal, tone normal and moves all extremities Extrem General: Yes normal to inspection and Yes capillary refill normal Assessment & Plan Assessment & Plan Patient Instructions: Imaging studies, laboratory and physical exam results were discussed and reviewed in detail. No major barriers to patient understanding were identified. An opportunity to ask questions regarding the treatment plan was provided. All questions were answered. The patient expressed understanding and agreement with the above treatment plan. The patient is aware they should contact our office by phone for worsening of their current condition or the appearance of new urologic symptoms. Compliance is encouraged with any medications and followup testing that is ordered. It is a privilege to participate in the urologic care of your patient. If you have any questions or concerns regarding treatment for the above conditions, or other urologic issues, please do not hesitate to contact me. The office telephone contact is [phone]. This note is constructed using voice recognition software. While every effort has been made to ensure accuracy table attendant errors may have been included. Yours sincerely, Dr Timoteo Marc MD, [facility] - Urology Providers of Expert, Compassionate Care for the Genitourinary System Coding
== END 2024-04-06 09:30 | disposition home or self-care (01) ==
PROVIDERS: PCP Internal Medicine; Visit Provider Urology
DX: Z13.9 Encounter for screening, unspecified (principal)

== ENCOUNTER → 2024-04-06 08:33 | Outpatient (BNVA) | payer OTHER, SELFPAY | PROVIDERS: PCP Internal Medicine; Visit Provider Urology | DX: N52.9 Male erectile dysfunction, unspecified (principal); N40.0 Benign prostatic hyperplasia without lower urinary tract symptoms; N50.3 Cyst of epididymis | CPT/HCPCS: 81003; 99212 ==

== ENCOUNTER 2024-04-18 10:21 | Outpatient (AMB) | payer OTHER, SELFPAY ==
[2024-04-18 10:39] VITALS: BP 114/68; PULSE 92; O2SAT 95; BMI 36.2
--- NOTE | 2024-04-18 10:39 | A.OFFPC_ITS ---
Vital Signs 04/18/24 10:39 Height 5 ft 8 in Weight 238 lb BMI 36.2 BP 114/68 Blood Pressure Location Lt brachial Position Sitting Pulse 92 Pulse Source Pulse Oximeter Pulse Oximetry (%) 95 Oxygen Delivery Method Room Air Intake Visit Reasons: SERVANDO, CAD Allergies propoxyphene [From Darvon] Allergy (Severe, Verified 04/18/24 10:39) vomiting/dizziness atorvastatin [Lipitor] Allergy (Intermediate, Verified 04/18/24 10:39) decreased renal function lisinopril [From Zestril] Allergy (Intermediate, Verified 04/18/24 10:39) TROUBLE BREATHING Tobacco use date assessed: 04/18/24 Fall risk assessment: No Falls in past year Last assessed Fall Risk: 04/18/24 Dental Screening Dental Screen Date: 04/18/24 Did you have a dental visit in the last 12 months?: Yes Did you have a dental problem in the last 6 months where you did not have access to dental care?: No Was dental information given to patient?: Patient has dentist HPI VANESSA AL HPI Details The patient is a 74-year-old male presenting for a primary care and wellness check-up. The patient reports being in generally good health but is concerned about weight gain and borderline hyperglycemia. Last blood work conducted in December showed elevated sugar levels, necessitating ongoing monitoring. The patient has been advised to reduce sugar intake, particularly from iced teas and sodas. Despite regular physical activity, increased weight remains a concern, currently documented at 238 pounds. The patient walks three miles daily with his dog and acknowledges the need for greater water intake but reports a preference for iced tea and tea with creamer. The patient has a history of post-vasectomy pain, which has been attributed to the procedure done in 1974. While the pain persists when touched, no active treatment is reported. Cardiovascular monitoring includes a cardiac pacemaker, with no recent arrhythmias since device checks show normal function. The patient also has been actively monitoring respiratory health, with no current symptoms of infection or exacerbation of known respiratory conditions. Preventative care includes vaccination for pneumonia, shingles, and tetanus, and recent RSV vaccination compliance. The patient has seasonal advice regarding influenza and norovirus prevention. There is a noted need for vigilant hand hygiene and symptom avoidance given the current flu season and norovirus risk. The patient's ocular health is regularly monitored and no new visual complaints are indicated. PFSH Medical History CAD (coronary artery disease) Implantable loop recorder present Cardiac pacemaker in situ Seizures Mood swings COVID-19 vaccine series completed Impaired glucose tolerance Diverticular disease GERD (gastroesophageal reflux disease) BPH (benign prostatic hyperplasia) Insomnia Anxiety and depression Asbestos exposure Peripheral vascular disease Obesity (BMI 30-39.9) Tubular adenoma of colon Hyperlipidemia HTN (hypertension) Surgical History H/O umbilical hernia repair Hx of blepharoplasty H/O colonoscopy Hx of heart artery stent History of tumor History of right knee surgery Hx of thumb surgery Family History Father CVD (cardiovascular disease) Melanoma Mother CVD (cardiovascular disease) Pancreatic cancer Hypertension Diabetes Brother No problems noted. Sister No problems noted. Son No problems noted. Daughter No problems noted. Social History Household Members: Sp[facility] and Family [facility] Are you a primary child day care provider to a significant other at home: No Do you presently have visiting nurse or other home services: No Alcohol intake: current Alcohol intake frequency: holidays/special occasions only Patient Tobacco Use Status: Former Tobacco user Tobacco use type: Cigarette e-Cigarette/Vaping Use: Never Used Second Hand Smoke Exposure: Yes service: Yes Current occupational status: retired Cognitive needs: No Hearing needs: No Vision needs: Yes Questionnaire PHQ-9 Over the last 2 weeks, how often have you been bothered by any of the following problems? 1. Little interest or pleasure in doing things: not at all 2. Feeling down, depressed, or hopeless: more than half the days 3. Trouble falling or staying asleep, or sleeping too much: not at all 4. Feeling tired or having little energy: not at all 5. Poor appetite or overeating: not at all 6. Feeling bad about yourself - or that you are a failure or have let yourself or your family down: not at all 7. Trouble concentrating on things, such as reading the newspaper or watching television: not at all 8. Moving or speaking so slowly that other people could have noticed. Or the opposite - being so fidgety or restless that you have been moving around a lot more than usual: not at all 9. Thoughts that you would be better off or of hurting yourself in some way: not at all Total score: 2 Depression Screening Interpretation: Negative Depression Screening Done: Yes Source: Developed by Drs. Dani Rebolledo, Carol Lainez, Roberto Carlos Alejo and colleagues, with an educational donnell from [employer] Thrive Questionnaire Date Thrive assessed: 04/18/24 I am a: Patient What is your living situation today?: I have a steady place to live Within the past 12 months, did the food you bought not last and you didn't have the money to get more?: Never true Within the past 12 months, did you worry whether your food would run out before you got money to buy more?: Never true Do you have trouble paying for medicines?: No Do you have trouble getting transportation to medical appointments?: No Do you have trouble paying your heating and electricity bill?: No Do you have trouble taking care of your child, family member or friend?: No Do you have trouble with day-to-day activities such as bathing, preparing meals, shopping, managing finances, etc.?: No Are you currently unemployed and looking for a job?: No Are you interested in more education?: No Currently or been in a relationship where the following occur: No concerns reported THRIVE Score: 0 AUDIT C Alcohol Use Questionnaire (AUDIT-C) 2. How many drinks containing alcohol do you have on a typical day when you are drinking?: 1 or 2 3. How often do you have six or more drinks on one occasion?: Never Total Score: 0 SERVANDO-7 AMB Questionnaire SERVANDO-7 Date SERVANDO - 7 assessed: 04/18/24 Feeling nervous, anxious, or on edge: 0 = Not at all Not being able to stop or control worryin = Not at all Worrying too much about different things: 0 = Not at all Trouble relaxin = Not at all Being so restless that it is hard to sit still: 0 = Not at all Becoming easily annoyed or irritable: 0 = Not at all Feeling afraid as if something awful might happen: 0 = Not at all Total SERVANDO-7 score (0-4 normal; 5-9 mild; 10-14 moderate; 15-21 severe): 0 Source: Developed by Drs. Dani Rebolledo, Carol Lainez, Roberto Carlos Alejo and colleagues, with an educational donnell from [employer] Physical exam (Primary Care) Vital Signs: Last Vital Signs Pulse 92 04/18/24 10:39 BP 114/68 04/18/24 10:39 Pulse Ox 95 04/18/24 10:39 Oxygen Delivery Method Room Air 04/18/24 10:39 BMI result Body Mass Index 36.2 Tobacco/Smoking Status: Tobacco use Status Tobacco use date assessed 04/18/24 04/18/24 10:44 Patient Tobacco Use Status Former Tobacco user 04/18/24 10:44 Tobacco use type Cigarette 04/18/24 10:44 e-Cigarette/Vaping Use Never Used 04/18/24 10:44 PHQ-9: PHQ-9 Score PHQ-9: Total score 2 04/18/24 11:04 Depression Screening Interpretation: Negative Thrive Assessment: Date of Thrive Assessment Date Thrive assessed 04/18/24 04/18/24 10:44 Currently or been in a relationship where the following occur: No concerns reported Const General: alert; No acute distress Eyes Conjunctivae: conjunctivae normal Resp Auscultation: clear to auscultation bilaterally Cardio Rate: regular rate Rhythm: regular rhythm GI Inspection: Yes normal to inspection Extrem General: Yes normal to inspection and No edema Coding Level of Care Code Est Pt Level 4 (88325) Complex EM visit Add On G2211 Diagnoses Essential hypertension I10 Hypertension type: essential hypertension Pure hypercholesterolemia E78.00 Hyperlipidemia type: pure hypercholesterolemia Obesity (BMI 30-39.9) E66.9 Gastroesophageal reflux disease without esophagitis K21.9 Esophagitis presence: without esophagitis BPH (benign prostatic hyperplasia) N40.0 Impaired glucose tolerance R73.02 Coronary artery disease involving [place] coronary artery of [place] heart without angina pectoris I25.10 Associated angina: without angina Coronary Disease-Associated Artery/Lesion type: upper [place] artery [place] vs. transplanted heart: upper [place] heart Sick sinus syndrome I49.5 Assessment & Plan Assessment & Plan (1) HTN (hypertension): Code(s): I10 - Essential (primary) hypertension Category: Medical Qualifiers: Hypertension type: essential hypertension Qualified Code(s): I10 - Essential (primary) hypertension (2) Hyperlipidemia: Code(s): E78.5 - Hyperlipidemia, unspecified Category: Medical Qualifiers: Hyperlipidemia type: pure hypercholesterolemia Qualified Code(s): E78.00 - Pure hypercholesterolemia, unspecified (3) Obesity (BMI 30-39.9): Code(s): E66.9 - Obesity, unspecified Category: Medical (4) GERD (gastroesophageal reflux disease): Code(s): K21.9 - Gastro-esophageal reflux disease without esophagitis Category: Medical Qualifiers: Esophagitis presence: without esophagitis Qualified Code(s): K21.9 - Gastro-esophageal reflux disease without esophagitis (5) BPH (benign prostatic hyperplasia): Code(s): N40.0 - Benign prostatic hyperplasia without lower urinary tract symptoms Category: Medical (6) Impaired glucose tolerance: Code(s): R73.02 - Impaired glucose tolerance (oral) Category: Medical (7) CAD (coronary artery disease): Comment: drug-eluting stent to proximal -mid LAD in January 2011 for ACS, 3 by 15 mm Code(s): I25.10 - Atherosclerotic heart disease of [place] coronary artery without angina pectoris Category: Medical Qualifiers: Associated angina: without angina Coronary Disease-Associated Artery/Lesion type: [place] artery [place] vs. transplanted heart: [place] heart Qualified Code(s): I25.10 - Atherosclerotic heart disease of [place] coronary artery without angina pectoris (8) Sick sinus syndrome: Comment: pacemaker placed Code(s): I49.5 - Sick sinus syndrome Category: Medical Plan - Continue dietary modifications focusing on reducing sugar intake, with emphasis on eliminating sugary iced tea and soda. - Reinforce the importance of adequate hydration with water rather than alternative sugary beverages. - Schedule follow-up blood work in three months to monitor glucose levels. - Encourage ongoing regular physical activity, consider increasing level if feasible. - Monitor weight closely with a goal to reduce body mass index, aiming for sub- 200 pounds if possible. - Reinforce importance of preventative hygiene practices during flu and norovirus season. - No current intervention required for post-vasectomy pain, reassessment if symptoms exacerbate. - Continue monitoring cardiac pacemaker functioning with cardiology as scheduled. - Maintain up-to-date vaccination status with ongoing health maintenance visits.
== END 2024-04-18 11:19 | disposition home or self-care (01) ==
PROVIDERS: PCP Internal Medicine; Visit Provider Internal Medicine
DX: I10 Essential (primary) hypertension (principal); I49.5 Sick sinus syndrome; E66.9 Obesity, unspecified; Z68.36 Body mass index [BMI] 36.0-36.9, adult; E78.00 Pure hypercholesterolemia, unspecified; K21.9 Gastro-esophageal reflux disease without esophagitis; N40.0 Benign prostatic hyperplasia without lower urinary tract symptoms; R73.02 Impaired glucose tolerance (oral); I25.10 Atherosclerotic heart disease of native coronary artery without angina pectoris

== ENCOUNTER → 2024-04-18 10:21 | Outpatient (BNVA) | payer OTHER, SELFPAY | PROVIDERS: PCP Internal Medicine; Visit Provider Internal Medicine | DX: I10 Essential (primary) hypertension (principal); E78.00 Pure hypercholesterolemia, unspecified; E66.9 Obesity, unspecified; K21.9 Gastro-esophageal reflux disease without esophagitis; N40.0 Benign prostatic hyperplasia without lower urinary tract symptoms; R73.02 Impaired glucose tolerance (oral); I25.10 Atherosclerotic heart disease of native coronary artery without angina pectoris; I49.5 Sick sinus syndrome | CPT/HCPCS: 99212 ==

== ENCOUNTER → 2024-05-17 23:59 | Outpatient (BNV) | payer OTHER, SELFPAY ==
--- NOTE | 2024-05-18 17:46 | MHC.OFFVIS ---
Intake Visit Reasons: Remote device check- Medtronic Allergies propoxyphene [From Darvon] Allergy (Severe, Verified 04/18/24 10:39) vomiting/dizziness atorvastatin [Lipitor] Allergy (Intermediate, Verified 04/18/24 10:39) decreased renal function lisinopril [From Zestril] Allergy (Intermediate, Verified 04/18/24 10:39) TROUBLE BREATHING PFSH Medical History CAD (coronary artery disease) Implantable loop recorder present Cardiac pacemaker in situ Seizures Mood swings COVID-19 vaccine series completed Impaired glucose tolerance Diverticular disease GERD (gastroesophageal reflux disease) BPH (benign prostatic hyperplasia) Insomnia Anxiety and depression Asbestos exposure Peripheral vascular disease Obesity (BMI 30-39.9) Tubular adenoma of colon Hyperlipidemia HTN (hypertension) Surgical History H/O umbilical hernia repair Hx of blepharoplasty H/O colonoscopy Hx of heart artery stent History of tumor History of right knee surgery Hx of thumb surgery Family History Father CVD (cardiovascular disease) Melanoma Mother CVD (cardiovascular disease) Pancreatic cancer Hypertension Diabetes Brother No problems noted. Sister No problems noted. Son No problems noted. Daughter No problems noted. Social History Household Members: [facility] and [facility] Are you a primary acute care registered nurse to a significant other at home: No Do you presently have visiting nurse or other home services: No Alcohol intake: current Alcohol intake frequency: holidays/special occasions only Patient Tobacco Use Status: Former Tobacco user Tobacco use type: Cigarette e-Cigarette/Vaping Use: Never Used Second Hand Smoke Exposure: Yes service: Yes Current occupational status: retired Cognitive needs: No Hearing needs: No Vision needs: Yes Office Procedures Cardiac Device Check Cardiac Device Check Details: Remote pacemaker report generated 05/17/2024. Pacemaker function is adequate [id number] Cardiac Device Interrogation, pacemaker Procedure code (CPT) selection complete Assessment & Plan Assessment & Plan (1) Cardiac pacemaker in situ: Comment: Medtronic dual-chamber pacemaker placed, 07/30/2023 for syncope and sinus pauses Code(s): Z95.0 - Presence of cardiac pacemaker Category: Medical Plan: See above Coding Level of Care Code Procedure Only Diagnoses Cardiac pacemaker in situ Z95.0 CPT Codes Cardiac Device Check - Cardiac Device 12: [id number] Cardiac Device Interrogation, pacemaker ([id number])
== END ==
PROVIDERS: PCP Internal Medicine; Visit Provider Internal Medicine Cardiovascular Disease
DX: R55 Syncope and collapse (principal); Z95.0 Presence of cardiac pacemaker
CPT/HCPCS: 93294

== ENCOUNTER 2024-06-29 09:22 | Outpatient (REF) | payer OTHER, SELFPAY ==
[2024-06-29 09:56] LABS: MANUAL DIFF FLAG NO
[2024-06-29 10:43] LABS: Estimated Average Glucose 120 mg/dL; Hemoglobin A1c % 5.8 % (<6.0); Total Hemoglobin (HGBA1C) 4113.7734 umol/L
[2024-06-29 10:50] LABS: Basophils Percent Auto 0.9 % (0-2); Eosinophils Absolute Auto 0.2 X10*3/uL (0.0-0.4); Eosinophils Percent Auto 3.3 % (0-4); Hematocrit 45.1 % (42.0-52.0); Hemoglobin 15.7 g/dl (14.0-18.0); Imm Gran Abs Auto 0.01 X10*3/uL (0.00-0.03); Imm Gran Pct Auto 0.2 % (0.0-0.4); Lymphocytes Absolute Auto 1.4 X10*3/uL (1.2-4.9); Lymphocytes Percent Auto 31.3 % (20-40); Mean Corpuscular HGB Conc 34.8 g/dl (31.0-36.0); Mean Corpuscular Hemoglobin 31.6 pg (27.0-33.0); Mean Corpuscular Volume 90.7 fL (80.0-98.0); Mean Platelet Volume 11.5 fL (9.4-12.4); Monocytes Absolute Auto 0.4 X10*3/uL (0.1-1.2); Monocytes Percent Auto 8.5 % (2-11); Neutrophils Absolute Auto 2.6 x10*3/uL (2.0-8.3); Neutrophils Percent Auto 55.8 % (45-73); Platelet Count 120 X10*3/uL (160-400); Red Blood Count 4.97 X10*6/uL (4.60-5.80); White Blood Count 4.6 X10*3/uL (4.8-10.8)
[2024-06-29 11:25] LABS: Alanine Aminotransferase 41 U/L (0-40); Albumin Level 4.2 g/dL (3.5-5.0); Alkaline Phosphatase 54 U/L (39-117); Anion Gap 11 (12-20); Aspartate Amino Transferase 37 U/L (5-37); Bilirubin Total 0.9 mg/dL (0.0-1.0); Blood Urea Nitrogen 27 mg/dL (9-16); Calcium 9.3 mg/dL (8.4-10.2); Carbon Dioxide 24 mmol/L (22-29); Chloride 111 mmol/L (96-108); Cholesterol 125 mg/dL (<200); Estimated Glomerular Filt Rate > 60; Glucose Random 113 mg/dL (60-115); HDL Cholesterol 39 mg/dL (>40); LDL Cholesterol Calculated 59 mg/dL (<100); Potassium 4.1 mmol/L (3.3-5.1); Sodium 142 mmol/L (135-145); Total Protein 6.9 g/dL (6.5-8.0); Triglycerides 137 mg/dL (<150)
[2024-06-29 11:29] LABS: Free T4 (Free Thyroxine) 0.79 ng/dL (0.71-1.85); Thyroid Stimulating Hormone 1.19 uIU/mL (0.32-4.0)
[2024-06-29 11:39] LABS: Folate 14.3 ng/mL (> or = 4.0); Vitamin B12 572 pg/mL (200-900)
== END 2024-06-29 09:23 | disposition home or self-care (01) ==
LOC: HO.LAB 09:22
PROVIDERS: PCP Internal Medicine; Visit Provider Internal Medicine
DX: I25.10 Atherosclerotic heart disease of native coronary artery without angina pectoris (principal); R73.02 Impaired glucose tolerance (oral); E78.00 Pure hypercholesterolemia, unspecified
CPT/HCPCS: 36415; 80053; 80061; 82607; 82746; 83036; 84439; 84443; 85025

== ENCOUNTER 2024-07-18 12:57 | Outpatient (REF) | payer OTHER, SELFPAY ==
[2024-07-18 14:59] LABS: Alanine Aminotransferase 39 U/L (0-40); Albumin Level 4.2 g/dL (3.5-5.0); Alkaline Phosphatase 56 U/L (39-117); Aspartate Amino Transferase 37 U/L (5-37); Bilirubin Direct 0.2 mg/dL (0.0-0.5); Bilirubin Total 0.7 mg/dL (0.0-1.0); Blood Urea Nitrogen 22 mg/dL (9-16); Estimated Glomerular Filt Rate > 60
--- OUTSIDE RECORDS SUMMARY | 2024-07-18 15:50 | XMS_ITS | Continuity of Care Document ---
Author Name [facility] Organization [facility] Care Team Providers Care Software Technician Name Role Phone [facility] Unavailable Unavailable Allergies, Adverse Reactions, Alerts Combined list of allergies from Department of Defense and Veterans Affairs facilities. It does not include entries that were removed or entered in error. Substance Category Reaction Severity Reaction type Status Date Reported Comments Source No Known Allergies Drug allergy (disorder) active 06/24/2007 [facility] Immunizations Combined list of available immunizations from the Department of Defense and Veterans Affairs facilities. Immunization Series Date Given Administered By Site Reaction Lot Number CVX Code Drug Feeder Operator Status Comments Source COVID-19 (MODERNA), MRNA, LNP-S, PF, 100 MCG/0.5 ML DOSE 2 2020 207 complet ed MOD; [id number]; 1 [facility] COVID-19 (MODERNA), MRNA, LNP-S, PF, 100 MCG/0.5 ML DOSE 1 2020 207 complet ed MOD; [id number]; 1 [facility] INFLUENZA, INJECTABLE, MDCK, PRESERVATIVE FREE, QUADRIVALENT 2018 171 complet ed 02, Partner: [facility]. Administe red by: [facility] Clinician (NPI=Not Provided) . Partner 1 Lot#: [id number] Mfr: SEQIRUS [facility] influenza virus vaccine, split virus (incl. purified surface antigen)-reti red CODE 1 2007 Unknown, Provider [id number] 15 [employer] (SKB) complet ed influenza virus vaccine, split virus (incl. purified surface antigen)- retired CODE DoD typhoid Vi capsular polysaccharid e vaccine 1 2007 Unknown, Provider [id number] Sanofi Pasteur (PMC) complet ed typhoid Vi capsular polysacch aride vaccine DoD influenza virus vaccine, split virus (incl. purified surface antigen)-reti red CODE 1 2006 Unknown, Provider [id number] 15 [facility] (SKB) complet ed influenza virus vaccine, split virus (incl. purified surface antigen)- retired CODE DoD influenza virus vaccine, split virus (incl. purified surface antigen)-reti red CODE 1 2005 Unknown, Provider [id number] Other (OT) complet ed influenza virus vaccine, split virus (incl. purified surface antigen)- retired CODE DoD typhoid vaccine, parenteral, other than acetone-kille d, dried 1 2005 Unknown, Provider [id number] Sanofi Pasteur ([facility]) complet ed typhoid vaccine, parentera l, other than acetone-k illed, dried DoD influenza virus vaccine, split virus (incl. purified surface antigen)-reti red CODE 1 2004 Unknown, Provider [id number] 15 Sanofi Pasteur ([facility]) complet ed influenza virus vaccine, split virus (incl. purified surface antigen)- retired CODE DoD influenza virus vaccine, whole virus 1 2004 Unknown, Provider [id number] 16 Marci ([facility]) complet ed influenza virus vaccine, whole virus DoD typhoid vaccine, parenteral, other than acetone-kille d, dried 1 2003 Unknown, Provider [id number] 41 Sanofi Pasteur ([facility]) complet ed typhoid vaccine, parentera l, other than acetone-k illed, dried DoD influenza virus vaccine, whole virus 1 2002 Unknown, Provider [id number] 16 Sanofi Pasteur ([facility]) complet ed influenza virus vaccine, whole virus DoD tuberculin skin test; purified protein derivative solution, intradermal 1 2002 Unknown, Provider [id number] 96 Sanofi Pasteur ([facility]) complet ed tuberculi n skin test; purified protein derivativ e solution, intraderm al DoD influenza virus vaccine, whole virus 1 2001 Unknown, Provider [id number] 16 Sanofi Pasteur ([facility]) complet ed influenza virus vaccine, whole virus DoD tuberculin skin test; purified protein derivative solution, intradermal 1 2001 Unknown, Provider [id number] 96 Sanofi Pasteur ([facility]) complet ed tuberculi n skin test; purified protein derivativ e solution, intraderm al DoD influenza virus vaccine, whole virus 1 2000 Unknown, Provider [id number] 16 Sanofi Pasteur ([facility]) complet ed influenza virus vaccine, whole virus DoD tuberculin skin test; purified protein derivative solution, intradermal 1 2000 Unknown, Provider [id number] 96 Sanofi Pasteur ([facility]) complet ed tuberculi n skin test; [...] vaccine, whole virus 1 2000 Unknown, Provider [id number] 16 [place] ([facility]) complet ed influenza virus vaccine, whole virus DoD hepatitis A vaccine, adult dosage 2 1999 Unknown, Provider [id number] Merck (MSD) complet ed hepatitis A vaccine, adult dosage DoD tuberculin skin test; purified protein derivative solution, intradermal 1 1999 Unknown, Provider [id number] Sameeradamian (CON) complet ed tuberculi n skin test; purified protein derivativ e solution, intraderm al DoD influenza virus vaccine, whole virus 1 1998 Unknown, Provider [id number] 16 [place] ([facility]) complet ed influenza virus vaccine, whole virus DoD measles, mumps and rubella virus vaccine 2 1997 Unknown, Provider [id number] [place] ([place]) complet ed measles, mumps and rubella virus vaccine DoD influenza virus vaccine, whole virus 2 1997 Unknown, Provider [id number] 16 Mino (CON) complet ed influenza virus vaccine, whole virus DoD typhoid vaccine, live, oral 3 1997 Unknown, Provider [id number] 25 Jazmyne (BP) complet ed typhoid vaccine, live, oral DoD meningococcal polysaccharid e vaccine (MPSV4) 1 1997 Unknown, Provider [id number] Mino (CON) complet ed meningoco ccal polysacch aride vaccine (MPSV4) DoD yellow fever vaccine 2 1997 Unknown, Provider [id number] 37 Mino (CON) complet ed yellow fever vaccine [facility] hepatitis A vaccine, adult dosage 1 1997 Unknown, Provider [id number] [address] [place] [address] (SKB) complet ed hepatitis A vaccine, adult [...] and 2 Lf of diphtheri a toxoid) [facility] typhoid vaccine, parenteral, acetone-kille d, dried ([place] ) 1 1984 Unknown, Provider 53 () complet typhoid vaccine, parentera l, acetone-k illed, dried ([place]S. ) DoD yellow fever vaccine 1 1981 Unknown, Provider 37 () complet yellow fever vaccine [facility] cholera vaccine, unspecified formulation 1 1970 Unknown, Provider 26 () complet ed cholera vaccine, unspecifi ed formulati on DoD trivalent poliovirus vaccine, live, oral 1 1967 Unknown, Provider 02 () complet ed trivalent polioviru s vaccine, live, oral [facility] Procedures Combined list of: 1) Procedures from Department of Veterans Affairs facilities going back up to thelast 18 months, not all VA non-surgical procedures are included; 2) All procedures from the Department of Defense facilities. Procedure Procedure Type Code Date Perfomer Comments Kostas e KNEE ORTHOSIS (KO), ELASTIC OR OTHER ELASTIC TYPE MATERIAL WITH CONDYLAR PAD(S), PREFABRICATED, INCLUDES FITTING AND ADJUSTMENT 01/05/2002 [facility] Social History Combined list of available smoking, tobacco, and other social history from Department of Defense and Veterans Affairs facilities. Social History Type Response Date Comment Kostas quach This section is an empty social history section. DoD
[2024-07-19 04:03] LABS: HBS Num1 0.08 mIU/mL (0-7.99); HBc Num1 0.12 S/CO (0.00-0.79); HBsAGNum1 0.29 S/CO (0.00-0.99); Hepatitis B Core Antibody Nonreactive (Nonreactive); Hepatitis B Surface Antigen Negative (Negative); ~Hepatitis B Surface Antibody NONREACTIVE (Nonreactive); ~Hepatitis C Antibody Nonreactive (Nonreactive)
== END 2024-07-18 12:58 | disposition home or self-care (01) ==
LOC: HO.LAB 12:57
PROVIDERS: PCP Internal Medicine; Visit Provider Internal Medicine
DX: I25.10 Atherosclerotic heart disease of native coronary artery without angina pectoris (principal); R79.89 Other specified abnormal findings of blood chemistry; I10 Essential (primary) hypertension; E78.00 Pure hypercholesterolemia, unspecified; E66.9 Obesity, unspecified; K21.9 Gastro-esophageal reflux disease without esophagitis; R73.02 Impaired glucose tolerance (oral); N40.0 Benign prostatic hyperplasia without lower urinary tract symptoms; Z79.899 Other long term (current) drug therapy; R91.1 Solitary pulmonary nodule
CPT/HCPCS: 36415; 80076; 82565; 84520; 86704; 86706; 86803; 87340; 99212

== ENCOUNTER 2024-07-18 12:57 | Outpatient (AMB) | payer OTHER, SELFPAY ==
[2024-07-18 13:19] VITALS: BP 134/70; PULSE 80; O2SAT 96; BMI 36.5
--- NOTE | 2024-07-18 13:19 | A.OFFPC_ITS ---
Vital Signs 07/18/24 13:19 Height 5 ft 8 in Weight 240 lb BMI 36.5 BP 134/70 Blood Pressure Location Lt brachial Position Sitting Pulse 80 Pulse Source Pulse Oximeter Pulse Oximetry (%) 96 Oxygen Delivery Method Room Air Intake Visit Reasons: IGT, CAD Allergies propoxyphene [From Darvon] Allergy (Severe, Verified 07/18/24 13:19) vomiting/dizziness atorvastatin [Lipitor] Allergy (Intermediate, Verified 07/18/24 13:19) decreased renal function lisinopril [From Zestril] Allergy (Intermediate, Verified 07/18/24 13:19) TROUBLE BREATHING Medication List - Last Reconciled 07/18/24 by Skip Chen MD albuterol sulfate 90 mcg/actuation 2 puffs inhalation Q6H PRN amlodipine 5 mg PO DAILY aspirin (Adult Low Dose Aspirin) 81 mg PO BID citalopram 40 mg PO DAILY epinephrine (EpiPen 2-James) 0.3 mg (0.3 mL) IM Q4H PRN famotidine 20 mg PO BID 90 days ibuprofen (Advil) 400 mg PO Q6H PRN levetiracetam (Keppra) 500 mg PO BID 90 days metoprolol succinate ER 25 mg PO DAILY multivitamin 1 tab PO BEDTIME omega-3 fatty acids (Fish Oil Concentrate) 1,000 mg PO BEDTIME oxcarbazepine 150 mg PO DAILY 90 days ropinirole 0.25 mg PO BEDTIME 90 days rosuvastatin 10 mg PO DAILY tamsulosin 0.4 mg PO BEDTIME Tobacco use date assessed: 04/18/24 Fall risk assessment: No Falls in past year Last assessed Fall Risk: 07/18/24 Dental Screening Dental Screen Date: 04/18/24 [facility] Medical History (Updated 07/18/24 @ 13:41 by Skip Chen MD) Anxiety and depression CAD (coronary artery disease) Implantable loop recorder present Cardiac pacemaker in situ Seizures Mood swings COVID-19 vaccine series completed Impaired glucose tolerance Diverticular disease GERD (gastroesophageal reflux disease) BPH (benign prostatic hyperplasia) Insomnia Asbestos exposure Peripheral vascular disease Obesity (BMI 30-39.9) Tubular adenoma of colon Hyperlipidemia HTN (hypertension) Surgical History H/O umbilical hernia repair Hx of blepharoplasty H/O colonoscopy Hx of heart artery stent History of tumor History of right knee surgery Hx of thumb surgery Family History Father CVD (cardiovascular disease) Melanoma Mother CVD (cardiovascular disease) Pancreatic cancer Hypertension Diabetes Brother No problems noted. Sister No problems noted. Son No problems noted. Daughter No problems noted. Social History Household Members: Spouse and Family [facility] Are you a primary livestock caretaker to a significant other at home: No Do you presently have visiting nurse or other home services: No Alcohol intake: current Alcohol intake frequency: holidays/special occasions only Patient Tobacco Use Status: Former Tobacco user Tobacco use type: Cigarette e-Cigarette/Vaping Use: Never Used Second Hand Smoke Exposure: Yes service: Yes Current occupational status: retired Cognitive needs: No Hearing needs: No Vision needs: Yes Questionnaire PHQ-9 Over the last 2 weeks, how often have you been bothered by any of the following problems? 1. Little interest or pleasure in doing things: not at all 2. Feeling down, depressed, or hopeless: not at all 3. Trouble falling or staying asleep, or sleeping too much: not at all 4. Feeling tired or having little energy: not at all 5. Poor appetite or overeating: not at all 6. Feeling bad about yourself - or that you are a failure or have let yourself or your family down: not at all 7. Trouble concentrating on things, such as reading the newspaper or watching television: not at all 8. Moving or speaking so slowly that other people could have noticed. Or the opposite - being so fidgety or restless that you have been moving around a lot more than usual: not at all 9. Thoughts that you would be better off or of hurting yourself in some way: not at all Total score: 0 Depression Screening Interpretation: Negative Depression Screening Done: Yes Source: Developed by Drs. Dani Rebolledo, Carol Lainez, RobertoC arlos Alejo and colleagues, with an educational donnell from [employer]. Thrive Questionnaire Date Thrive assessed: 04/18/24 I am a: Patient What is your living situation today?: I have a steady place to live Within the past 12 months, did the food you bought not last and you didn't have the money to get more?: Never true Within the past 12 months, did you worry whether your food would run out before you got money to buy more?: Never true Do you have trouble paying for medicines?: Yes Do you have trouble getting transportation to medical appointments?: No Do you have trouble paying your heating and electricity bill?: No Do you have trouble taking care of your child, family member or friend?: No Do you have trouble with day-to-day activities such as bathing, preparing meals, shopping, managing finances, etc.?: No Are you currently unemployed and looking for a job?: No Are you interested in more education?: No Please select the resources that you would like help with: None Currently or been in a relationship where the following occur: No concerns reported THRIVE Score: 0 AUDIT C Alcohol Use Questionnaire (AUDIT-C) 1. How often do you have a drink containing alcohol?: 2-4 times a month 2. How many drinks containing alcohol do you have on a typical day when you are drinking?: 1 or 2 3. How often do you have six or more drinks on one occasion?: Never Total Score: 2 SERVANDO-7 AMB Questionnaire SERVANDO-7 Date SERVANDO - 7 assessed: 04/18/24 Feeling nervous, anxious, or on edge: 0 = Not at all Not being able to stop or control worryin = Not at all Worrying too much about different things: 0 = Not at all Trouble relaxin = Not at all Being so restless that it is hard to sit still: 0 = Not at all Becoming easily annoyed or irritable: 0 = Not at all Feeling afraid as if something awful might happen: 0 = Not at all Total SERVANDO-7 score (0-4 normal; 5-9 mild; 10-14 moderate; 15-21 severe): 0 Source: Developed by Drs. Dani Rebolledo, Carlo Lainez, Roberto Carlos Alejo and colleagues, with an educational donnell from [employer]. Physical exam (Primary Care) Vital Signs: Last Vital Signs Pulse 80 07/18/24 13:19 BP 134/70 07/18/24 13:19 Pulse Ox 96 07/18/24 13:19 Oxygen Delivery Method Room Air 05/05/25 13:19 BMI result Body Mass Index 36.5 Tobacco/Smoking Status: Tobacco use Status Tobacco use date assessed 04/18/24 07/18/24 13:20 Patient Tobacco Use Status Former Tobacco user 07/18/24 13:20 Tobacco use type Cigarette 07/18/24 13:20 e-Cigarette/Vaping Use Never Used 07/18/24 13:20 PHQ-9: PHQ-9 Score PHQ-9: Total score 0 07/18/24 13:56 Depression Screening Interpretation: Negative Thrive Assessment: Date of Thrive Assessment Date Thrive assessed 04/18/24 07/18/24 13:20 Currently or been in a relationship where the following occur: No concerns reported Const General: alert; No acute distress Eyes Conjunctivae: conjunctivae normal Resp Auscultation: clear to auscultation bilaterally Cardio Rate: regular rate Rhythm: regular rhythm GI Inspection: Yes normal to inspection Extrem General: Yes normal to inspection and No edema Coding Level of Care Code Est Pt Level 4 (12391) Complex EM visit Add On G2211 Diagnoses Coronary artery disease involving [place] coronary artery of [place] heart without angina pectoris I25.10 Associated angina: without angina Coronary Disease-Associated Artery/Lesion type: [place] artery [place] vs. transplanted heart: [place] heart LFT elevation R79.89 Essential hypertension I10 Hypertension type: essential hypertension Pure hypercholesterolemia E78.00 Hyperlipidemia type: pure hypercholesterolemia Obesity (BMI 30-39.9) E66.9 Gastroesophageal reflux disease without esophagitis K21.9 Esophagitis presence: without esophagitis Impaired glucose tolerance R73.02 BPH (benign prostatic hyperplasia) N40.0 Assessment & Plan Assessment & Plan (1) CAD (coronary artery disease): Comment: drug-eluting stent to proximal -mid LAD in January 2011 for ACS, 3 by 15 mm Code(s): I25.10 - Atherosclerotic heart disease of [place] coronary artery without angina pectoris Category: Medical Qualifiers: Associated angina: without angina Coronary Disease-Associated Artery/Lesion type: [place] artery [place] vs. transplanted heart: [place] heart Qualified Code(s): I25.10 - Atherosclerotic heart disease of [place] coronary artery without angina pectoris Plan: Control the cholesterol, weight, blood pressure, diabetes (2) LFT elevation: Code(s): R79.89 - Other specified abnormal findings of blood chemistry Category: Medical Plan: Discussed with the elevated LFT to do an ultrasound of the abdomen as well as repeat LFT and check for hepatitis profile (3) HTN (hypertension): Code(s): I10 - Essential (primary) hypertension Category: Medical Qualifiers: Hypertension type: essential hypertension Qualified Code(s): I10 - Essential (primary) hypertension Plan: Continue with blood pressure medication. Decrease salt intake and exercise on amlodipine 5 mg once a day metoprolol 25 mg once a day (4) Hyperlipidemia: Code(s): E78.5 - Hyperlipidemia, unspecified Category: Medical Qualifiers: Hyperlipidemia type: pure hypercholesterolemia Qualified Code(s): E78.00 - Pure hypercholesterolemia, unspecified Plan: Avoid fried foods, chicken skin, eggs, butter margarine, pastries and meat. Be it pork or beef they have a lot of cholesterol on rosuvastatin 10 mg once a day (5) Obesity (BMI 30-39.9): Code(s): E66.9 - Obesity, unspecified Category: Medical Plan: Diet and exercise (6) GERD (gastroesophageal reflux disease): Code(s): K21.9 - Gastro-esophageal reflux disease without esophagitis Category: Medical Qualifiers: Esophagitis presence: without esophagitis Qualified Code(s): K21.9 - Gastro-esophageal reflux disease without esophagitis Plan: Avoid the foods that causes that usually spicy foods, tomato products, juices, coffee, soda and foods that your sensitive to. After eating do not lie down, allow 3-4 hours before in lie down. And keep the head of bed above 30 degrees to avoid the acid from going up. (7) Impaired glucose tolerance: Code(s): R73.02 - Impaired glucose tolerance (oral) Category: Medical Plan: Decrease the amount of carbohydrate intake, pasta, bread, rice and potatoes are all sugar and that is aside from all the sweet stuff, remember that fruits are good but they are Sweet also. (8) BPH (benign prostatic hyperplasia): Code(s): N40.0 - Benign prostatic hyperplasia without lower urinary tract symptoms Category: Medical Plan: Continue with tamsulosin Plan History of Present Illness The patient is a 74-year-old male presenting for a follow-up visit due to an elevated liver function test and impaired glucose tolerance. He has a significant medical history of essential hypertension, hypercholesterolemia, GERD, major depressive disorder, anxiety disorder, benign prostatic hyperplasia, and impaired glucose tolerance. Furthermore, his health is compounded by a history of seizures, coronary artery disease, and sick sinus syndrome managed by a pacemaker. The recent lab work revealed thrombocytopenia and mild glucopenia alongside a liver enzyme elevation necessitating an ultrasound and hepatitis profile check. The lifestyle discussions revealed a pattern of high intake of animal protein and processed foods, which may contribute to his liver and glucose issues. Health Maintenance - Managing essential hypertension with amlodipine 5 mg daily and metoprolol 25 mg daily. - Cholesterol management with rosuvastatin 10 mg daily, diet, and physical activity. - Monitoring impaired glucose tolerance through dietary adjustments and regular follow-ups. - A preventive approach to fatty liver progression through diet modifications. - Cardiovascular health support with low LDL levels and controlled triglycerides through medication adherence. - Routine cardiology assessments for pacemaker functionality. - Regular follow-ups and adjustments required for anxiety and depressive disorder management. Social History - The patient is active, engaging in three miles of walking daily and golfing weekly. - Dietary habits include high consumption of animal proteins and processed foods, with recent increases in water intake. - The patient recently returned from a cruise, reporting dietary indulgence during the trip. - Lifestyle consists of substantial physical activities and a desire to manage weight effectively. Review of Systems - Cardiovascular: Reports elevated LDL management effectiveness. - Endocrine: Reports impaired glucose tolerance. - Gastrointestinal: Reports elevated liver enzyme; denies significant alcohol consumption. - Hematologic: Reports thrombocytopenia. Physical Exam - Vitals- Blood pressure 134/70 mmHg - General- Patient appeared well, active, and participating in conversation. Results - Labs: Normal blood count with thrombocytopenia and mild glucopenia; fasting blood sugar at 113 mg/dL, hemoglobin A1c at 5.8%; elevated liver enzyme at 41 U/L. - Cholesterol: LDL 59 mg/dL, Triglycerides 137 mg/dL. Plan Ultrasound of the abdomen and checking hepatitis profile will evaluate the cause of elevated liver enzymes, potentially managing a non-alcoholic fatty liver disease through diet and lifestyle changes. Continue rosuvastatin to manage cholesterol levels effectively, coupled with dietary and exercise recommendations. Regular monitoring of blood pressure levels on amlodipine and metoprolol. Address impaired glucose tolerance with dietary modifications and physical activity enhancements. Regular cardiology follow-ups for pacemaker management are crucial. Mental health interventions for depression and anxiety will continue with a holistic approach. Patient was informed and verbally consented to the use of an ambient scribe for clinic note documentation during this visit. Discussion Notes During the visit, I discussed with the patient the concern about elevated liver enzyme levels, planning to perform an ultrasound and hepatitis profile. I highlighted the primary causes as possibly related to dietary factors and stressed the importance of changes in dietary habits and exercise to reduce potential risks like fatty liver. We reviewed the blood pressure and cholesterol levels, emphasizing adherence to rosuvastatin and blood pressure medications. I addressed the diagnosis of impaired glucose tolerance, focusing on recommended lifestyle changes. The patient was informed of the need to continue current cardiology monitoring for his pacemaker. We also discussed ways to manage his anxiety and depression through ongoing treatment and lifestyle adaptations. Consistent follow-up and adjustment are crucial for successful management. Patient Instructions - Schedule an abdominal ultrasound and hepatitis profile as directed. - Continue taking all prescribed medications as discussed. - Focus on a balanced diet with reduced animal protein and increased plant-based foods. - Maintain regular physical activity, such as walking and golfing. - Monitor blood pressure and blood sugar regularly as advised. - Follow up with cardiology for routine pacemaker checks. - Stay hydrated and avoid prolonged exposure to heat. - Replace sugary snacks and drinks with healthier options wherever possible. - Schedule the next medical follow-up within three months to reassess condition.
--- OUTSIDE RECORDS SUMMARY | 2024-07-18 14:20 | XMS_ITS | Continuity of Care Document ---
Author Name [facility] Organization [facility] Care Team Providers Care Sports Lawyer Name Role Phone [facility] Unavailable Unavailable Allergies, Adverse Reactions, Alerts Combined list of allergies from Department of Defense and Veterans Affairs facilities. It does not include entries that were removed or entered in error. Substance Category Reaction Severity Reaction type Status Date Reported Comments Source No Known Allergies Drug allergy (disorder) active 06/24/2007 [facility] [place] Immunizations Combined list of available immunizations from the Department of Defense and Veterans Affairs facilities. Immunization Series Date Given Administered By Site Reaction Lot Number CVX Code Drug Dirt Bike Mechanic Status Comments Source influenza virus vaccine, split virus (incl. purified surface antigen)-reti red CODE 1 2007 Unknown, Provider [id number] 15 [facility] ([facility]) complet ed influenza virus vaccine, split virus (incl. purified surface antigen)- retired CODE DoD typhoid Vi capsular polysaccharid e vaccine 1 2007 Unknown, Provider [id number] San[employer]i Pasteur ([facility]) complet ed typhoid Vi capsular polysacch aride vaccine DoD influenza virus vaccine, split virus (incl. purified surface antigen)-reti red CODE 1 2006 Unknown, Provider [id number] 15 [employer] [place] [employer] ([facility]) complet ed influenza virus vaccine, split virus (incl. purified surface antigen)- retired CODE DoD influenza virus vaccine, split virus (incl. purified surface antigen)-reti red CODE 1 2005 Unknown, Provider [id number] Other ([facility]) complet ed influenza virus vaccine, split virus (incl. purified surface antigen)- retired CODE DoD typhoid vaccine, parenteral, other than acetone-kille d, dried 1 2005 Unknown, Provider [id number] 41 San[employer]i Pasteur ([facility]) complet ed typhoid vaccine, parentera l, other than acetone-k illed, dried DoD influenza virus vaccine, split virus (incl. purified surface antigen)-reti red CODE 1 2004 Unknown, Provider [id number] 15 [employer]i Pasteur ([facility]) complet ed influenza virus vaccine, split virus (incl. purified surface antigen)- retired CODE [facility] influenza virus vaccine, whole virus 1 2004 Unknown, Provider [id number] 16 [place] ([facility]) complet ed influenza virus vaccine, whole virus DoD typhoid vaccine, parenteral, other than acetone-kille d, dried 1 2003 Unknown, Provider [id number] [facility] ([facility]) complet ed typhoid vaccine, parentera l, other than acetone-k illed, dried DoD influenza virus vaccine, whole virus 1 2002 Unknown, Provider [id number] 16 [facility] P[facility]ur ([facility]) complet ed influenza virus vaccine, whole virus DoD tuberculin skin test; purified protein derivative solution, intradermal 1 2002 Unknown, Provider [id number] 96 [facility] ([facility]) complet ed tuberculi n skin test; purified protein derivativ e solution, intraderm al DoD influenza virus vaccine, whole virus 1 2001 Unknown, Provider [id number] 16 [facility] ([facility]) complet ed influenza virus vaccine, whole virus DoD tuberculin skin test; purified protein derivative solution, intradermal 1 2001 Unknown, Provider [id number] 96 [facility] ([facility]) complet ed tuberculi n skin test; purified protein derivativ e solution, intraderm al DoD influenza virus vaccine, whole virus 1 2000 Unknown, Provider [id number] 16 [facility] ([facility]) complet ed influenza virus vaccine, whole virus DoD tuberculin skin test; purified protein derivative solution, intradermal 1 2000 Unknown, Provider [id number] 96 [facility] ([facility]) complet ed tuberculi n skin test; purified protein derivativ e solution, intraderm al DoD tetanus and diphtheria toxoids, adsorbed, preservative free, for adult use (2 Lf of tetanus toxoid and 2 Lf of diphtheria toxoid) 2 2000 Unknown, Provider 09 Transcribed ([facility]) complet ed tetanus and diphtheri a toxoids, adsorbed, preservat jese free, for adult use (2 Lf of tetanus toxoid and 2 Lf of diphtheri a toxoid) DoD influenza virus vaccine, whole virus 1 2000 Unknown, Provider [id number] 16 [place] (EDI) complet ed influenza virus vaccine, whole virus [facility] hepatitis A vaccine, adult dosage 2 1999 Unknown, Provider [id number] [employer] (MSD) complet ed hepatitis A vaccine, adult dosage DoD tuberculin skin test; purified protein derivative solution, intradermal 1 1999 Unknown, Provider [id number] 96 [place] (CON) complet ed tuberculi n skin test; purified protein derivativ e solution, intraderm al DoD influenza virus vaccine, whole virus 1 1998 Unknown, Provider [id number] 16 [place] ([place]) complet ed influenza virus vaccine, whole virus DoD measles, mumps and rubella virus vaccine 2 1997 Unknown, Provider [id number] [place] ([place]) complet ed measles, mumps and rubella virus vaccine DoD influenza virus vaccine, whole virus 2 1997 Unknown, Provider [id number] 16 [place] (CON) complet ed influenza virus vaccine, whole virus DoD typhoid vaccine, live, oral 3 1997 Unknown, Provider [id number] [employer] ([place]) complet ed typhoid vaccine, live, oral DoD meningococcal polysaccharid e vaccine (MPSV4) 1 1997 Unknown, Provider [id number] 32 [place] (CON) complet ed meningoco ccal polysacch aride vaccine (MPSV4) DoD yellow fever vaccine 2 1997 Unknown, Provider [id number] 37 [place] (CON) complet ed yellow fever vaccine DoD hepatitis A vaccine, adult dosage 1 1997 Unknown, Provider [id number] [place] [address] ([facility]) complet ed hepatitis A vaccine, adult [...] 2 Lf of diphtheri a toxoid) DoD typhoid vaccine, parenteral, acetone-kille d, dried ([place] ) 1 1984 Unknown, Provider 53 () complet ed typhoid vaccine, parentera l, acetone-k illed, dried ([place] ) DoD yellow fever vaccine 1 1981 Unknown, Provider 37 () complet ed yellow fever vaccine DoD cholera vaccine, unspecified formulation 1 1970 Unknown, Provider 26 () complet ed cholera vaccine, unspecifi ed formulati on DoD trivalent poliovirus vaccine, live, oral 1 1967 Unknown, Provider 02 () complet ed trivalent polioviru s vaccine, live, oral [facility] Procedures Combined list of: 1) Procedures from Department of Veterans Affairs facilities going back up to thelast 18 months, not all [place] non-surgical procedures are included; 2) All procedures from the Department of Defense facilities. Procedure Procedure Type Code Date Perfomer Comments Kostas quach KNEE ORTHOSIS (KO), ELASTIC OR OTHER ELASTIC TYPE MATERIAL WITH CONDYLAR PAD(S), PREFABRICATED, INCLUDES FITTING AND ADJUSTMENT 01/05/2002 [facility] Social History Combined list of available smoking, tobacco, and other social history from Department of Defense and Veterans Affairs facilities. Social History Type Response Date Comment Kostas quach This section is an empty social history section. [facility]
== END 2024-07-18 14:04 | disposition home or self-care (01) ==
LOC: HO.HMCH 12:58
PROVIDERS: PCP Internal Medicine; Visit Provider Internal Medicine
DX: I25.10 Atherosclerotic heart disease of native coronary artery without angina pectoris (principal); E66.9 Obesity, unspecified; Z68.36 Body mass index [BMI] 36.0-36.9, adult; R79.89 Other specified abnormal findings of blood chemistry; I10 Essential (primary) hypertension; E78.00 Pure hypercholesterolemia, unspecified; K21.9 Gastro-esophageal reflux disease without esophagitis; R73.02 Impaired glucose tolerance (oral); N40.0 Benign prostatic hyperplasia without lower urinary tract symptoms

== ENCOUNTER → 2024-08-14 23:59 | Outpatient (BNV) | payer OTHER, SELFPAY ==
--- NOTE | 2024-09-12 12:11 | MHC.OFFVIS ---
Intake Visit Reasons: Remote device check- Medtronic Allergies propoxyphene (From Darvon) Allergy (Severe, Verified 07/18/24 13:19) vomiting/dizziness atorvastatin (Lipitor) Allergy (Intermediate, Verified 07/18/24 13:19) decreased renal function lisinopril (From Zestril) Allergy (Intermediate, Verified 07/18/24 13:19) TROUBLE BREATHING PFSH Medical History (Updated 09/02/24 @ 18:25 by Skip Chen MD) Chest pain, unspecified Anxiety and depression CAD (coronary artery disease) Implantable loop recorder present Cardiac pacemaker in situ Seizures Mood swings COVID-19 vaccine series completed Impaired glucose tolerance Diverticular disease GERD (gastroesophageal reflux disease) BPH (benign prostatic hyperplasia) Insomnia Asbestos exposure Peripheral vascular disease Obesity (BMI 30-39.9) Tubular adenoma of colon Hyperlipidemia HTN (hypertension) Surgical History H/O umbilical hernia repair Hx of blepharoplasty H/O colonoscopy Hx of heart artery stent History of tumor History of right knee surgery Hx of thumb surgery Family History Father CVD (cardiovascular disease) Melanoma Mother CVD (cardiovascular disease) Pancreatic cancer Hypertension Diabetes Brother No problems noted. Sister No problems noted. Son No problems noted. Daughter No problems noted. Social History Household Members: Spouse and Family Housing: Condominium Are you a primary professional healthcare representative to a significant other at home: No Do you presently have visiting nurse or other home services: No Alcohol intake: current Alcohol intake frequency: holidays/special occasions only Patient Tobacco Use Status: Former Tobacco user Tobacco use type: Cigarette e-Cigarette/Vaping Use: Never Used Second Hand Smoke Exposure: Yes service: Yes Current occupational status: retired Cognitive needs: No Hearing needs: No Vision needs: Yes Office Procedures Cardiac Device Check Cardiac Device Check Details: Remote pacemaker report generated 08/14/2024. Pacemaker function is adequate. I was requested to read this report today [id number] Cardiac Device Interrogation, pacemaker Procedure code (CPT) selection complete Assessment & Plan Assessment & Plan (1) Cardiac pacemaker in situ: Comment: Medtronic dual-chamber pacemaker placed, 07/30/2023 for syncope and sinus pauses Code(s): Z95.0 - Presence of cardiac pacemaker Category: Medical Plan: See above Coding Level of Care Code Procedure Only Diagnoses Cardiac pacemaker in situ Z95.0 CPT Codes Cardiac Device Check - Cardiac Device 12: [id number] Cardiac Device Interrogation, pacemaker ([id number])
== END ==
PROVIDERS: PCP Internal Medicine; Visit Provider Internal Medicine Cardiovascular Disease
DX: I49.9 Cardiac arrhythmia, unspecified (principal); R55 Syncope and collapse; Z95.0 Presence of cardiac pacemaker
CPT/HCPCS: 93294

== ENCOUNTER 2024-09-02 08:37 | Outpatient (REF) | payer OTHER, SELFPAY ==
--- NOTE | ~2024-09-02 | US_ITS ---
EXAMINATION: US ABDOMEN COMPLETE CLINICAL INFORMATION: Abnormal LFTs. COMPARISON: None available. TECHNIQUE: Real-time ultrasound of the abdomen using grayscale technique. FINDINGS: PANCREAS: No peripancreatic fluid collections. ABDOMINAL AORTA: The proximal, mid, and distal segments are normal in caliber. INFERIOR VENA CAVA: Visualized portions are normal. LIVER: Liver measures 16 cm. Increased echotexture. No nodular surface. No gross solid or cystic lesion detected by the technologist. No intrahepatic biliary ductal dilatation. GALLBLADDER: Fluid-filled. No pericholecystic fluid collection or gallbladder wall thickening. COMMON BILE DUCT: 3 mm. RIGHT KIDNEY: 10 cm. Normal echotexture. Normal renal cortical thickness. No hydronephrosis. No solid or cystic lesion detected. LEFT KIDNEY: 10 cm. Normal echotexture. Normal renal cortical thickness. No hydronephrosis. No solid or cystic lesion detected. . SPLEEN: 10 cm. No solid or cystic lesion identified by the technologist.. FREE FLUID: None. US/US abdomen complete IMPRESSION: Hepatomegaly, mild and likely steatosis. Hepatocellular dysfunction cannot be excluded. No cholelithiasis. No hydronephrosis. No ascites. Electronically signed by: Johan Ramirez MD 09/02/2024 09:29 AM EDT
--- OUTSIDE RECORDS SUMMARY | 2024-09-02 08:37 | XMS_ITS | Continuity of Care Document ---
Author Name [facility] Organization [facility] Care Team Providers Care Puff Iron Operator Name Role Phone [facility] Unavailable Unavailable Allergies, Adverse Reactions, Alerts Combined list of allergies from Department of Defense and Veterans Affairs facilities. It does not include entries that were removed or entered in error. Substance Category Reaction Severity Reaction type Status Date Reported Comments Source No Known Allergies Drug allergy (disorder) active 06/24/2007 [facility] Immunizations Combined list of available immunizations from the Department of Defense and Veterans Affairs facilities. Immunization Series Date Given Administered By Site Reaction Lot Number CVX Code Drug Private Detective Status Comments Source COVID-19 (MODERNA), MRNA, LNP-S, PF, 100 MCG/0.5 ML DOSE 2 2020 207 complet ed MOD; [id number]; 1 [facility] COVID-19 (MODERNA), MRNA, LNP-S, PF, 100 MCG/0.5 ML DOSE 1 2020 207 complet ed MOD; [id number]; 1 [facility] INFLUENZA, INJECTABLE, MDCK, PRESERVATIVE FREE, QUADRIVALENT 2018 171 complet ed 02, Partner: [facility]. Administe red by: [facility] Clinician (NPI=Not Provided) . Partner 1 Lot#: [id number] Mfr: SEQIRUS [facility] influenza virus vaccine, split virus (incl. purified surface antigen)-reti red CODE 1 2007 Unknown, Provider [id number] 15 [employer] (SKB) complet ed influenza virus vaccine, split virus (incl. purified surface antigen)- retired CODE DoD typhoid Vi capsular polysaccharid e vaccine 1 2007 Unknown, Provider [id number] Sanofi Pasteur ([facility]) complet ed typhoid Vi capsular polysacch aride vaccine DoD influenza virus vaccine, split virus (incl. purified surface antigen)-reti red CODE 1 2006 Unknown, Provider [id number] 15 [facility] (SKB) complet ed influenza virus vaccine, split virus (incl. purified surface antigen)- retired CODE DoD influenza virus vaccine, split virus (incl. purified surface antigen)-reti red CODE 1 2005 Unknown, Provider [id number] 15 Other (OT) complet ed influenza virus vaccine, split virus (incl. purified surface antigen)- retired CODE DoD typhoid vaccine, parenteral, other than acetone-kille d, dried 1 2005 Unknown, Provider [id number] Sanofi Pasteur ([facility]) complet ed typhoid vaccine, parentera l, other than acetone-k illed, dried DoD influenza virus vaccine, split virus (incl. purified surface antigen)-reti red CODE 1 2004 Unknown, Provider [id number] 15 Sanofi Pasteur ([facility]) complet ed influenza virus vaccine, split virus (incl. purified surface antigen)- retired CODE DoD influenza virus vaccine, whole virus 1 2004 Unknown, Provider [id number] 16 Marci ([facility]) complet ed influenza virus vaccine, whole virus DoD typhoid vaccine, parenteral, other than acetone-kille d, dried 1 2003 Unknown, Provider [id number] Sanofi Pasteur ([facility]) complet ed typhoid vaccine, parentera l, other than acetone-k illed, dried DoD influenza virus vaccine, whole virus 1 2002 Unknown, Provider [id number] 16 Sanofi Pasteur ([facility]) complet ed influenza virus vaccine, whole virus DoD tuberculin skin test; purified protein derivative solution, intradermal 1 2002 Unknown, Provider [id number] 96 Sanofi Pasteur ([facility]) complet ed tuberculi n skin test; purified protein derivativ e solution, intraderm al DoD influenza virus vaccine, whole virus 1 2001 Unknown, Provider [id number] 16 Sanofi Pasteur ([facility]) complet ed influenza virus vaccine, whole virus DoD tuberculin skin test; purified protein derivative solution, intradermal 1 2001 Unknown, Provider [id number] 96 Sanofi Pasteur ([facility]) complet ed tuberculi n skin test; purified protein derivativ e solution, intraderm al DoD influenza virus vaccine, whole virus 1 2000 Unknown, Provider [id number] 16 Sanofi Pasteur ([facility]) complet ed influenza virus vaccine, whole virus DoD tuberculin skin test; purified protein derivative solution, intradermal 1 2000 Unknown, Provider [id number] 96 Sanofi Pasteur ([facility]) complet ed tuberculi n skin test; [...] vaccine, whole virus 1 2000 Unknown, Provider [id number] 16 [place] ([facility]) complet ed influenza virus vaccine, whole virus DoD hepatitis A vaccine, adult dosage 2 1999 Unknown, Provider [id number] Merck (MSD) complet ed hepatitis A vaccine, adult dosage DoD tuberculin skin test; purified protein derivative solution, intradermal 1 1999 Unknown, Provider [id number] 96 Sameeradamian (CON) complet ed tuberculi n skin test; purified protein derivativ e solution, intraderm al DoD influenza virus vaccine, whole virus 1 1998 Unknown, Provider [id number] 16 [place] ([facility]) complet ed influenza virus vaccine, whole virus DoD measles, mumps and rubella virus vaccine 2 1997 Unknown, Provider [id number] [place] ([place]) complet ed measles, mumps and rubella virus vaccine DoD influenza virus vaccine, whole virus 2 1997 Unknown, Provider [id number] 16 Mino (CON) complet ed influenza virus vaccine, whole virus DoD typhoid vaccine, live, oral 3 1997 Unknown, Provider [id number] 25 Jazmyne (BP) complet ed typhoid vaccine, live, oral DoD meningococcal polysaccharid e vaccine (MPSV4) 1 1997 Unknown, Provider [id number] Mino (CON) complet ed meningoco ccal polysacch aride vaccine (MPSV4) DoD yellow fever vaccine 2 1997 Unknown, Provider [id number] Mino (CON) complet ed yellow fever vaccine [facility] hepatitis A vaccine, adult dosage 1 1997 Unknown, Provider [id number] [address] [place] [address] (SKB) complet ed hepatitis A vaccine, adult [...] and 2 Lf of diphtheri a toxoid) [facility] typhoid vaccine, parenteral, acetone-kille d, dried ([place].S. ) 1 1984 Unknown, Provider 53 () complet typhoid vaccine, parentera l, acetone-k illed, dried ([place]. ) DoD yellow fever vaccine 1 1981 Unknown, Provider 37 () complet yellow fever vaccine [facility] cholera vaccine, unspecified formulation 1 1970 Unknown, Provider 26 () complet ed cholera vaccine, unspecifi ed formulati on DoD trivalent poliovirus vaccine, live, oral 1 1967 Unknown, Provider 02 () complet ed trivalent polioviru s vaccine, live, oral [facility] Procedures Combined list of: 1) [...] PAD(S), PREFABRICATED, INCLUDES FITTING AND ADJUSTMENT 01/05/2002 [facility] Social History Combined list of available smoking, tobacco, and other social history from Department of Defense and Veterans Affairs facilities. Social History Type Response Date Comment Kostas quach This section is an empty social history section. DoD
== END 2024-09-02 08:38 | disposition home or self-care (01) ==
LOC: HO.US 08:37
PROVIDERS: PCP Internal Medicine; Visit Provider Internal Medicine
DX: R79.89 Other specified abnormal findings of blood chemistry (principal)
CPT/HCPCS: 76700

== ENCOUNTER → 2024-09-02 08:39 | Outpatient (BNV) | payer OTHER, SELFPAY | PROVIDERS: PCP Internal Medicine; Visit Provider Radiology Diagnostic Radiology | DX: R16.0 Hepatomegaly, not elsewhere classified (principal) | CPT/HCPCS: 76700 ==

== ENCOUNTER 2024-09-14 09:36 | Outpatient (AMB) | payer OTHER, SELFPAY ==
--- OUTSIDE RECORDS SUMMARY | 2020-06-23 09:00 | XMS_ITS | Continuity of Care Document ---
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 Administe red by: [facility] (NPI=Not Provided) . Partner 1 Lot#: [id number] Mfr: [facility]
--- NOTE | 2024-09-14 09:45 | A.OFFVIS_ITS ---
Intake Visit Reasons: 6 mo Allergies propoxyphene (From Darvon) Allergy (Severe, Verified 07/18/24 13:19) vomiting/dizziness atorvastatin (Lipitor) Allergy (Intermediate, Verified 07/18/24 13:19) decreased renal function lisinopril (From Zestril) Allergy (Intermediate, Verified 07/18/24 13:19) TROUBLE BREATHING HPI Comments Details: 73 yo RH man with HTN, a cardiac pacemaker, and depression was here for passing out. He started having these spells around 2020. The first one occured when he was walking outside. He was taken to [facility] ER and was told that he might have been dehydrated. A year later, another episode happened when he was at home and another similar one a year ago. All were similar and he had no recollection of these events. He did not remember any warning or symptoms before it. It started instantly. After the episodes, he felt very dizzy like having vertigo. He also felt confused, not knowing where he was. He said that he was feeling better after the pacemaker was done in June of 2023. His investigations revealed a polysomnogram done in [facility] in 2023 with total sleep time apnea-hypopnea index of 5 and PLMS arousal index of for. An EEG in 2023 was within normal limits. CTA of brain, CTA of brain and neck, an MRI of brain at [facility] in 2023 revealed minimal microvascular disease but otherwise no significant issue. He has been taking to levetiracetam a day and so far it has been working out with no further symptoms. There was no side effect. [facility] Medical History (Updated 09/14/24 @ 09:50 by Laureen Chicas MD) Periodic limb movement disorder Restless leg syndrome Depression Chest pain, unspecified Anxiety and depression CAD (coronary artery disease) Implantable loop recorder present Cardiac pacemaker in situ Seizures Mood swings COVID-19 vaccine series completed Impaired glucose tolerance Diverticular disease GERD (gastroesophageal reflux disease) BPH (benign prostatic hyperplasia) Insomnia Asbestos exposure Peripheral vascular disease Obesity (BMI 30-39.9) Tubular adenoma of colon Hyperlipidemia HTN (hypertension) Surgical History H/O umbilical hernia repair Hx of blepharoplasty H/O colonoscopy Hx of heart artery stent History of tumor History of right knee surgery Hx of thumb surgery Family History Father CVD (cardiovascular disease) Melanoma Mother CVD (cardiovascular disease) Pancreatic cancer Hypertension Diabetes Brother No problems noted. Sister No problems noted. Son No problems noted. Daughter No problems noted. Social History Household Members: Spouse and Family [facility] Are you a primary pet caregiver to a significant other at home: No Do you presently have visiting nurse or other home services: No Alcohol intake: current Alcohol intake frequency: holidays/special occasions only Patient Tobacco Use Status: Former Tobacco user Tobacco use type: Cigarette e-Cigarette/Vaping Use: Never Used Second Hand Smoke Exposure: Yes service: Yes Current occupational status: retired Cognitive needs: No Hearing needs: No Vision needs: Yes Physical Exam Neuro Other: Mental Status: Alert with normal orientation and attention. Normal spontaneous speech, fluency, and comprehension. No obvious issues with mood and memory. Affect is appropriate. Cranial Nerves: CN II: Visual ralph full to confrontation, visual acuity intact. CN III, IV, : Pupils equal, round, reactive to light and accommodation. Extraocular movements are normal. CN V: Facial sensation is normal. CN VII: Facial movements symmetrical. CN VIII: Hearing intact to bedside conversation is normal. Motor: Bulk and tone normal in all extremities. No significant muscle weakness in arms and legs. No drift. Gait and Station: No obvious gait abnormality. No ataxia or instability. Sensory: Intact to light touch, pinprick, and vibration. Romberg is negative. Extrapyramidal: Full facial expressions and blinking. No rigidity. Movements are appropriate with no tremor or abnormality. Speech: Normal; no dysarthria or tremor. Assessment & Plan Assessment & Plan (1) Seizure disorder: Code(s): G40.909 - Epilepsy, unspecified, not intractable, without status epilepticus Category: Medical (2) Periodic limb movement disorder: Code(s): G47.61 - Periodic limb movement disorder Category: Medical Plan 1.: Seizure disorder, controlled with levetiracetam 500 mg twice a day 2. Periodic limb movement disorder, at this point not that active. Coding Level of Care Code Est Pt Level 4 (88707) Diagnoses Seizure disorder G40.909 Periodic limb movement disorder G47.61
== END 2024-09-14 09:54 | disposition home or self-care (01) ==
LOC: HO.HSM 09:37
PROVIDERS: PCP Internal Medicine; Visit Provider Psychiatry & Neurology Neurology
DX: G40.909 Epilepsy, unspecified, not intractable, without status epilepticus (principal); G47.61 Periodic limb movement disorder
CPT/HCPCS: 99214

== ENCOUNTER → 2024-09-14 09:36 | Outpatient (BNVA) | payer OTHER, SELFPAY | PROVIDERS: PCP Internal Medicine; Visit Provider Psychiatry & Neurology Neurology | DX: G47.61 Periodic limb movement disorder (principal); G40.909 Epilepsy, unspecified, not intractable, without status epilepticus; I10 Essential (primary) hypertension; Z95.0 Presence of cardiac pacemaker | CPT/HCPCS: 99212 ==

== ENCOUNTER 2024-09-29 09:38 | Outpatient (AMB) | payer OTHER, SELFPAY ==
--- NOTE | 2024-09-29 09:48 | A.OFFVIS_ITS ---
Vital Signs 09/29/24 09:50 Height 5 ft 8 in Weight 229 lb 4.492 oz BMI 34.9 BP 120/78 Blood Pressure Location Lt brachial Position Sitting Pulse 61 Intake Visit Reasons: 6m follow up w device ck Intake Note: 6 month follow-up with ekg and Medtronic check c/o dizziness, excessive sweating and urinating Portfolio Consultant Required: No Allergies propoxyphene (From Darvon) Allergy (Severe, Verified 07/18/24 13:19) vomiting/dizziness atorvastatin (Lipitor) Allergy (Intermediate, Verified 07/18/24 13:19) decreased renal function lisinopril (From Zestril) Allergy (Intermediate, Verified 07/18/24 13:19) TROUBLE BREATHING Medication List - Last Reconciled 09/29/24 by Curt Hamlin MD albuterol sulfate 90 mcg/actuation 2 puffs inhalation Q6H PRN amlodipine 5 mg PO DAILY aspirin (Adult Low Dose Aspirin) 81 mg PO BID citalopram 40 mg PO DAILY epinephrine (EpiPen 2-James) 0.3 mg (0.3 mL) IM Q4H PRN famotidine 20 mg PO BID 90 days ibuprofen (Advil) 400 mg PO Q6H PRN levetiracetam (Keppra) 500 mg PO BID 90 days metoprolol succinate ER 25 mg PO DAILY multivitamin 1 tab PO BEDTIME omega-3 fatty acids (Fish Oil Concentrate) 1,000 mg PO BEDTIME oxcarbazepine 150 mg PO DAILY 90 days ropinirole 0.25 mg PO BEDTIME 90 days rosuvastatin 10 mg PO DAILY tamsulosin 0.4 mg PO BEDTIME HPI Comments Details: Neil comes for follow-up. He complains of getting exertional shortness of breath after walking for holes. This is 1 of the new symptoms in the last year or so. He denies any associated chest pain. Denies any orthopnea, PND. No leg edema. He also complains of profuse sweating recently since his pacemaker placement. Denies any syncopal episodes. Taking all his medications. [facility] Medical History Periodic limb movement disorder Restless leg syndrome Depression Chest pain, unspecified Anxiety and depression CAD (coronary artery disease) Implantable loop recorder present Cardiac pacemaker in situ Seizures Mood swings COVID-19 vaccine series completed Impaired glucose tolerance Diverticular disease GERD (gastroesophageal reflux disease) BPH (benign prostatic hyperplasia) Insomnia Asbestos exposure Peripheral vascular disease Obesity (BMI 30-39.9) Tubular adenoma of colon Hyperlipidemia HTN (hypertension) Surgical History H/O umbilical hernia repair Hx of blepharoplasty H/O colonoscopy Hx of heart artery stent History of tumor History of right knee surgery Hx of thumb surgery Family History Father CVD (cardiovascular disease) Melanoma Mother CVD (cardiovascular disease) Pancreatic cancer Hypertension Diabetes Brother No problems noted. Sister No problems noted. Son No problems noted. Daughter No problems noted. Social History Household Members: Spouse and Family Housing: [facility] Are you a primary career advisor to a significant other at home: No Do you presently have visiting nurse or other home services: No Alcohol intake: current Alcohol intake frequency: holidays/special occasions only Patient Tobacco Use Status: Former Tobacco user Tobacco use type: Cigarette e-Cigarette/Vaping Use: Never Used Second Hand Smoke Exposure: Yes service: Yes Current occupational status: retired Cognitive needs: No Hearing needs: No Vision needs: Yes Review of Systems Const Denies chills, Denies fatigue, Denies fever(s), Denies frequent falls, Denies weakness, Denies weight gain and Denies weight loss ENT Denies dizziness Card Denies chest pain, Denies leg edema, Denies lightheadedness, Denies palpitations, Denies dyspnea, Denies dyspnea on exertion, Denies orthopnea and Denies other (loss of consciousness) Resp Denies cough, Denies dyspnea and Denies dyspnea on exertion GI Denies hematochezia and Denies change in stool character Musc Denies abnormal gait, Denies muscle weakness, Denies numbness, Denies radiating pain into limb and Denies tingling Neuro Denies abnormal gait, Denies dizziness, Denies frequent falls, Denies numbness, Denies tingling and Denies weakness Endo Denies fatigue and Denies palpitations Physical Exam Vital Signs: Last Vital Signs Pulse 61 09/29/24 09:50 BP 120/78 09/29/24 09:50 BMI result Body Mass Index 34.9 Const General: cooperative, healthy appearing, comfortable, no acute distress, well developed, alert and awake Nutritional Appearance: obese Orientation/consciousness: patient oriented x3 HEENT Head: Yes normal to inspection, Yes normocephalic and Yes atraumatic Eyes General: appearance normal, both eyes and all related structures Neck Neck: Yes full ROM, Yes trachea midline, Yes supple and Yes no JVD Carotids: other ( No carotid bruit) Chest Chest palpation & inspection: other (Pacer pocket is benign with well healing wound with no fluctuation or redne) Resp Effort & Inspection: normal respiratory effort Auscultation: clear to auscultation bilaterally Cardio Jugular venous distension: no JVD Palpation: normal PMI Rate: regular rate Rhythm: regular rhythm Heart sounds: S1 normal heart sound present, S2 normal heart sound present and Other heart sounds present ( soft S4) Peripheral pulses: Peripheral pulses 2+ throughout GI Inspection: Yes normal to inspection Auscultation: normal bowel sounds Skin General skin exam: elasticity normal and turgor normal Neuro General: patient oriented x3 and no focal motor deficits Extrem General: Yes no clubbing, cyanosis or edema Psych Appearance: grossly normal Office Procedures Cardiac Device Check Cardiac Device Check Details: Dual-chamber Medtronic pacemaker in place was programmed in MVP mode with rate response at 50 beats per minute. Reprogrammed to 60 beats per minute. Atrial pacing 55% of the time. No arrhythmias noted. Atrial ventricular pacing thresholds excellent and reprogrammed to enhance battery life. Pacing lead impedance is stable. Atrial ventricular sensing is adequate. Battery life is excellent 22804-KW Cardiac Device Check, pacemaker dual lead Procedure code (CPT) selection complete EKG Details: EKG shows atrially paced rhythm with ventricularly sensed rhythm with moderate LVH with left axis deviation [id number]-[id number], Complete Assessment & Plan Assessment & Plan (1) CAD (coronary artery disease): Comment: drug-eluting stent to proximal -mid LAD in January 2011 for ACS, 3 by 15 mm Code(s): I25.10 - Atherosclerotic heart disease of [place] coronary artery without angina pectoris Category: Medical Qualifiers: Coronary Disease-Associated Artery/Lesion type: [place] artery [place] vs. transplanted heart: [place] heart Associated angina: without angina Qualified Code(s): I25.10 - Atherosclerotic heart disease of [place] coronary artery without angina pectoris Plan: CAD with prior drug-eluting stent to LAD with recent symptoms of exertional shortness of breath with limited exercise activity playing his routine activity of golf. Need to rule out myocardial ischemia will suggest a exercise myocardial perfusion imaging to assess for the same. Also suggest an echocardiogram to evaluate LV systolic and diastolic function and to evaluate for any valvular abnormalities as well as pulmonary hypertension. Otherwise continue aspirin lifelong. Continue statin therapy with target goal LDL less than 60 mg/dL. Advised lipid panel on annual basis. Continue aggressive blood pressure control. See below. (2) Cardiac pacemaker in situ: Comment: Medtronic dual-chamber pacemaker placed, 07/30/2023 for syncope and sinus pauses Code(s): Z95.0 - Presence of cardiac pacemaker Category: Medical Plan: Cardiac pacemaker in-situ for syncope as well as sinus pauses. Pacemaker is working well. Reprogrammed to improve chronotropic competence. Follow up remotely every 3 months. (3) HTN (hypertension): Code(s): I10 - Essential (primary) hypertension Category: Medical Qualifiers: Hypertension type: essential hypertension Qualified Code(s): I10 - Essential (primary) hypertension Plan: Hypertension which is currently well optimized advised to monitor blood pressure at home maintain a log. Goal blood pressure less than 130/84. Low-salt diet was discussed. Will follow up in the clinic in 6 months time, sooner p.r.n.. Thank you for allowing me to partake in his care Orders: Orders NM cardiolite stress test 2 Weeks R07.9 - Chest pain, unspecified CA echo transthoracic complete Today R06.02 - Shortness of breath CA stress test Today I25.10 - Atherosclerotic heart disease of [place] coronary artery without angina pectoris, R06.02 - Shortness of breath Coding Level of Care Code Est Pt Level 4 (20742) Complex EM visit Add On G2211 Diagnoses Coronary artery disease involving [place] coronary artery of [place] heart without angina pectoris I25.10 Coronary Disease-Associated Artery/Lesion type: [place] artery [place] vs. transplanted heart: [place] heart Associated angina: without angina Cardiac pacemaker in situ Z95.0 Essential hypertension I10 Hypertension type: essential hypertension CPT Codes Cardiac Device Check - Cardiac Device 2: 40935-OT Cardiac Device Check, pacemaker dual lead ([id number]) EKG - CPT: 28067-[id number], Complete ([id number])
[2024-09-29 09:50] VITALS: BP 120/78; PULSE 61; BMI 34.9
--- OUTSIDE RECORDS SUMMARY | 2024-09-29 09:54 | XMS_ITS | Continuity of Care Document ---
Author Name [facility] Organization [facility] Care Team Providers Care Eyewear Consultant Name Role Phone [facility] Unavailable Unavailable Allergies, Adverse Reactions, Alerts Combined list of allergies from Department of Defense and Veterans Affairs facilities. It does not include entries that were removed or entered in error. Substance Category Reaction Severity Reaction type Status Date Reported Comments Source No Known Allergies Drug allergy (disorder) active [place] [facility] [place] Combined list of available immunizations from the Department of Defense and Veterans Affairs facilities. Immunization Series Date Given Administered By Site Reaction Lot Number CVX Code Drug Day Habilitation Specialist Status Comments Source COVID-19 (MODERNA), MRNA, LNP-S, PF, 100 MCG/0.5 ML DOSE 2 2020 207 complet ed MOD; [id number]; 1 [facility] COVID-19 (MODERNA), MRNA, LNP-S, PF, 100 MCG/0.5 ML DOSE 1 2020 207 complet ed MOD; [id number]; 1 [facility] INFLUENZA, INJECTABLE, MDCK, PRESERVATIVE FREE, QUADRIVALENT 2018 171 complet ed 02, Partner: [facility]. Administe red by: [facility] Clinician (NPI=Not Provided) . Partner 1 Lot#: [id number] Mfr: SEQIRUS [facility] influenza virus vaccine, split virus (incl. purified surface antigen)-reti red CODE 1 2007 Unknown, Provider [id number] 15 [employer] (SKB) complet ed influenza virus vaccine, split virus (incl. purified surface antigen)- retired CODE DoD typhoid Vi capsular polysaccharid e vaccine 1 2007 Unknown, Provider [id number] Sanofi Pasteur ([facility]) complet ed typhoid Vi capsular polysacch aride vaccine DoD influenza virus vaccine, split virus (incl. purified surface antigen)-reti red CODE 1 2006 Unknown, Provider [id number] 15 [facility] (SK[facility]) complet ed influenza virus vaccine, split virus (incl. purified surface antigen)- retired CODE DoD influenza virus vaccine, split virus (incl. purified surface antigen)-reti red CODE 1 2005 Unknown, Provider [id number] Other (OT) complet ed influenza virus [...] antigen)-reti red CODE 1 2004 Unknown, Provider [id number] 15 Sanofi Pasteur ([facility]) complet ed influenza virus vaccine, split virus (incl. purified surface antigen)- retired CODE DoD influenza virus vaccine, whole virus 1 2004 Unknown, Provider [id number] 16 Marci ([facility]) complet ed influenza virus vaccine, whole virus DoD typhoid vaccine, parenteral, other than acetone-kille d, dried 1 2003 Unknown, Provider [id number] Sanofi Pasteur ([facility]) complet ed typhoid vaccine, parentera l, other than acetone-k illed, dried DoD influenza virus vaccine, whole virus 1 2002 Unknown, Provider [id number] 16 Sanofi Pasteur ([facility]) complet ed influenza virus vaccine, whole virus DoD tuberculin skin test; purified protein derivative solution, intradermal 1 2002 Unknown, Provider [id number] 96 Sanofi Pasteur ([facility]) complet ed tuberculi n skin test; purified protein derivativ e solution, intraderm al DoD influenza virus vaccine, whole virus 1 2001 Unknown, Provider [id number] 16 Sanofi Pasteur ([facility]) complet ed influenza virus vaccine, whole virus DoD tuberculin skin test; purified protein derivative solution, intradermal 1 2001 Unknown, Provider [id number] 96 Sanofi Pasteur ([facility]) complet ed tuberculi n skin test; purified protein derivativ e solution, intraderm al DoD influenza virus vaccine, whole virus 1 2000 Unknown, Provider [id number] 16 Sanofi Pasteur ([facility]) complet ed influenza virus vaccine, whole virus DoD tuberculin skin test; purified protein derivative solution, intradermal 1 2000 Unknown, Provider [id number] 96 Sanofi Pasteur ([facility]) [...] vaccine, whole virus 1 2000 Unknown, Provider [id number] 16 Marci ([facility]) complet ed influenza virus vaccine, whole virus DoD hepatitis A vaccine, adult dosage 2 1999 Unknown, Provider [id number] Merck (MSD) complet ed hepatitis A vaccine, adult dosage DoD tuberculin skin test; purified protein derivative solution, intradermal 1 1999 Unknown, Provider [id number] 96 Sameeradamian (CON) complet ed tuberculi n skin test; purified protein derivativ e solution, intraderm al DoD influenza virus vaccine, whole virus 1 1998 Unknown, Provider [id number] 16 Marci ([facility]) complet ed influenza virus vaccine, whole virus DoD measles, mumps and rubella virus vaccine 2 1997 Unknown, Provider [id number] [place] ([place]) complet ed measles, mumps and rubella virus vaccine DoD influenza virus vaccine, whole virus 2 1997 Unknown, Provider [id number] 16 Mnio (CON) complet ed influenza virus vaccine, whole virus DoD typhoid vaccine, live, oral 3 1997 Unknown, Provider [id number] 25 Jazmyne (BP) complet ed typhoid vaccine, live, oral DoD meningococcal polysaccharid e vaccine (MPSV4) 1 1997 Unknown, Provider [id number] 32 Mino (CON) complet ed meningoco ccal polysacch aride vaccine (MPSV4) DoD yellow fever vaccine 2 1997 Unknown, Provider [id number] Mino (CON) complet ed yellow fever vaccine [facility] hepatitis A vaccine, adult dosage 1 1997 Unknown, Provider [id number] [address] [place] [address] (SKB) complet ed hepatitis A vaccine, adult [...] and 2 Lf of diphtheri a toxoid) [facility] typhoid vaccine, parenteral, acetone-kille d, dried ([place] ) 1 1984 Unknown, Provider 53 () complet typhoid vaccine, parentera l, acetone-k illed, dried ([place] ) DoD yellow fever vaccine 1 1981 Unknown, Provider 37 () complet yellow fever vaccine [facility] cholera vaccine, unspecified formulation 1 1970 Unknown, Provider 26 () complet ed cholera vaccine, unspecifi ed formulati on DoD trivalent poliovirus vaccine, live, oral 1 1967 Unknown, Provider 02 () complet ed trivalent polioviru s vaccine, live, oral [facility] Procedures Combined list of: 1) Procedures from Department of Veterans Affairs facilities going back up to thelast 18 months, not all VA non-surgical procedures are included; 2) All procedures from the Department of Defense facilities. Procedure Procedure Type Code Date Perfomer Comments Kostas e KNEE ORTHOSIS (KO), ELASTIC OR OTHER ELASTIC TYPE MATERIAL WITH CONDYLAR PAD(S), PREFABRICATED, INCLUDES FITTING AND ADJUSTMENT 01/05/2002 [facility] Social History Combined list of available smoking, tobacco, and other social history from Department of Defense and Veterans Affairs facilities. Social History Type Response Date Comment Kostas quach This section is an empty social history section. DoD
== END 2024-09-29 10:18 | disposition home or self-care (01) ==
LOC: HO.HCS 09:39
PROVIDERS: PCP Internal Medicine; Visit Provider Internal Medicine Cardiovascular Disease
DX: I25.10 Atherosclerotic heart disease of native coronary artery without angina pectoris (principal); Z95.0 Presence of cardiac pacemaker; I10 Essential (primary) hypertension
CPT/HCPCS: 93010; 93280; 99214

== ENCOUNTER → 2024-09-29 09:38 | Outpatient (BNVA) | payer OTHER, SELFPAY | PROVIDERS: PCP Internal Medicine; Visit Provider Internal Medicine Cardiovascular Disease | DX: Z45.010 Encounter for checking and testing of cardiac pacemaker pulse generator [battery] (principal); R06.02 Shortness of breath; I25.10 Atherosclerotic heart disease of native coronary artery without angina pectoris; I10 Essential (primary) hypertension | CPT/HCPCS: 93005; 93280; 99212 ==

== ENCOUNTER 2024-10-26 09:29 | Inpatient (IN) | payer OTHER, SELFPAY ==
--- NOTE | 2024-10-26 | ECG_ITS ---
Test Reason : CP Blood Pressure : */* mmHG Vent. Rate : 65 BPM Atrial Rate : 65 BPM P-R Int : 206 ms QRS Dur : 110 ms QT Int : 398 ms P-R-T Axes : 97 -54 -6 degrees QTcB Int : 413 ms Normal sinus rhythm Pulmonary disease pattern Incomplete right bundle branch block Left anterior fascicular block Minimal voltage criteria for LVH, may be normal variant ( R in aVL ) Abnormal ECG When compared with ECG of 31-Jul-2023 19:49, ST now depressed in Inferior leads T wave inversion now evident in Inferior leads Referred By: Generic ED Physician Electronically Signed By: Sandip Sumner
--- NOTE | ~2024-10-26 | XR_ITS ---
EXAMINATION: XR CHEST 1 VIEW HISTORY: CP COMPARISON: Comparison is made with the prior examination dated 07/31/2023. FINDINGS: A single AP portable view of the chest performed at 9:58 AM is submitted. A left-sided dual-chamber pacemaker is unchanged in position. The lungs are expanded and clear. There is no pleural effusion, pneumothorax, or pulmonary vascular congestion. The heart is normal in size. There is degenerative disc disease of the spine. XR/XR chest 1V IMPRESSION: No acute cardiopulmonary abnormality. Electronically signed by: Dani Yanes MD 10/26/2024 10:13 AM EDT
--- NOTE | 2024-10-26 09:43 | ED.CHESTPAIN ---
HPI - Chest Pain General Chief Complaint: Chest Pain Stated Complaint: CP Time Seen by Provider: 10/26/24 09:39 Source: patient and RN notes reviewed Mode of arrival: ambulatory Limitations: no limitations History of Present Illness ED Provider: Felicity Simmons PA-C HPI narrative: This is a 74-year-old male, with a past medical history of hypertension, CAD with pacemaker placed in July 2023 and stent placement of the left descending artery on January 2011, seizure disorder on , who presents emergency department with concerns of chest pain which started 20 minutes prior to arrival. Patient states that he was sitting in his car when suddenly he felt this sensation. He reports that he has also had some palpitations. He denies any shortness of breath. Chest pain has been constant, describing it as a pressure-like sensation, left-sided. No recent illness, no recent travel, surgery, hospitalizations or surgeries. He was in his usual state of health this morning as well as several days prior. He takes a baby aspirin every day, he is not on anticoagulation. Of note, he did see his vp product marketing, Dr. Hamlin, as he has had increasing issues with shortness for breath, states that he is only able to walk several holes while playing golf, which is atypical of him. He is scheduled to have outpatient cardiac workup next week. No other complaints or concerns at this time. MD complaint: chest pain and chest heaviness Pertinent past history: coronary artery disease Onset (ago): minute(s) Timing of current episode: constant Prior episodes: No Onset: during rest Pain location: substernal Pain radiation: none Quality: aching Risk Factors Coronary artery disease risk factors: hyperlipidemia and hypertension Related Data Home Medications ?Medication ?Instructions ?Recorded ?Confirmed aspirin 81 mg tablet,delayed 81 mg PO BID 01/10/20 10/26/24 release (Adult Low Dose Aspirin) ibuprofen 125 mg-acetaminophen 250 1 tab PO BID 10/26/24 10/26/24 mg tablet (Advil Dual Action) Held on 10/26/24. Instructions: Resume on 11/01/24. fzhkcmdptoei-azxgfkae-vlmuov tablet 1 tab PO BEDTIME 10/26/24 10/26/24 omega 7-wfu-oim-fish oil 1,200 mg 1 cap PO DAILY 10/26/24 10/26/24 (144 mg-216 mg) capsule (Fish Oil) Previous Rx's ?Medication ?Instructions ?Recorded famotidine 20 mg tablet 20 mg PO BID 90 days #180 tabs 11/09/23 levetiracetam 500 mg tablet 500 mg PO BID 90 days #180 tabs 01/16/24 (Keppra) metoprolol succinate 25 mg 25 mg PO DAILY #90 tabs 04/06/24 tablet,extended release 24 hr citalopram 40 mg tablet 40 mg PO DAILY #90 tabs 09/02/24 amlodipine 5 mg tablet 5 mg PO DAILY #90 tabs 10/08/24 rosuvastatin 10 mg tablet 10 mg PO DAILY #90 tabs 10/08/24 tamsulosin 0.4 mg capsule 0.4 mg PO BEDTIME #90 caps 10/08/24 heparin (porcine) 25,000 unit/250 25,000 unit (250 mL) continuous IV 10/26/24 mL in 0.45 % sodium chloride IV infusion .Q0M #1 mL soln nitroglycerin 0.4 mg sublingual 0.4 mg sublingual [id number] PRN Chest 10/26/24 tablet (Nitrostat) Pain #1 tab Allergies Allergy/AdvReac Type Severity Reaction Status Date / Time propoxyphene (From Darvon) Allergy Severe vomiting/di Verified 10/26/24 09:48 zziness atorvastatin (Lipitor) Allergy Intermediate decreased Verified 10/26/24 09:48 renal function lisinopril (From Zestril) Allergy Intermediate TROUBLE Verified 10/26/24 09:48 BREATHING Review of Systems Review of Systems: Yes all other systems are reviewed and are negative Constitutional: Constitutional: Reports as per HPI [facility] Past Medical History Medical History Periodic limb movement disorder Restless leg syndrome Depression Chest pain, unspecified Anxiety and depression CAD (coronary artery disease) Implantable loop recorder present Cardiac pacemaker in situ Seizures Mood swings COVID-19 vaccine series completed Impaired glucose tolerance Diverticular disease GERD (gastroesophageal reflux disease) BPH (benign prostatic hyperplasia) Insomnia Asbestos exposure Peripheral vascular disease Obesity (BMI 30-39.9) Tubular adenoma of colon Hyperlipidemia HTN (hypertension) Surgical History H/O umbilical hernia repair Hx of blepharoplasty H/O colonoscopy Hx of heart artery stent History of tumor History of right knee surgery Hx of thumb surgery Family History Family History Father CVD (cardiovascular disease) Melanoma Mother CVD (cardiovascular disease) Pancreatic cancer Hypertension Diabetes Brother No problems noted. Sister No problems noted. Son No problems noted. Daughter No problems noted. Social History Social History Household Members: Spouse and Family [facility]: [facility] Are you a primary personal care service provider to a significant other at home: No Do you presently have visiting nurse or other home services: No Alcohol intake: current Alcohol intake frequency: holidays/special occasions only Patient Tobacco Use Status: Former Tobacco user Tobacco use type: Cigarette e-Cigarette/Vaping Use: Never Used Second Hand Smoke Exposure: Yes service: Yes Current occupational status: retired Cognitive needs: No Hearing needs: No Vision needs: Yes Physical Exam Vital Signs: Vital Signs: Last Vital Signs Temp 97.8 F 10/26/24 18:01 Pulse 60 10/26/24 18:01 Resp 18 10/26/24 18:01 BP 136/79 10/26/24 18:01 Pulse Ox 94 10/26/24 18:01 O2 Del Method Room Air 10/26/24 18:01 BMI result Body Mass Index 34.5 Const: Other: Appears to be uncomfortable secondary to pain and chest, holding chest General: cooperative and in distress Orientation/consciousness: patient oriented x3 Limitations: no limitations HEENT: Head: Yes normal to inspection, Yes normocephalic and Yes atraumatic Ears: hearing grossly normal bilaterally General nose exam: Normal external nose present Face and sinus: Yes normal facial exam Mouth: Normal oral and palatal mucosa present, oropharynx normal and moist mucous membranes Throat: Yes posterior oropharynx normal Eyes: General: appearance normal, both eyes and all related structures Eyelids: Yes eyelids normal Conjunctivae: conjunctivae normal Sclerae: sclerae normal Pupils: Equal, round and reactive pupils present EOM: EOMs intact bilaterally Neck: Neck: Yes normal visual inspection, Yes full ROM and Yes no lymphadenopathy Lymphatic: no lymphadenopathy noted Chest: Chest palpation & inspection: normal inspection of the chest Resp: Effort & Inspection: normal respiratory effort and able to speak in complete sentences Auscultation: clear to auscultation bilaterally, no crackles, no rales, no rhonchi and no wheezes Cardio: Rate: regular rate Rhythm: regular rhythm Heart sounds: S1 normal heart sound present and S2 normal heart sound present GI: Other: Abdomen is soft, nontender, nondistended Inspection: Yes normal to inspection Skin: General skin exam: no rashes or lesions noted Trauma: no lacerations or abrasions Wounds: no wounds Neuro: General: patient oriented x3 and moves all extremities Cranial nerves: Yes Equal, round and reactive pupils present Extrem: Other: No calf tenderness, no pedal edema General: Yes normal to inspection Right upper extremity: normal to inspection Left upper extremity: normal to inspection Right lower extremity: normal to inspection Left lower extremity: normal to inspection Medications Administered Generic Name Dose Route Start Last Admin Trade Name Freq PRN Reason Stop Dose Admin Heparin Sodium/Sodium Chloride 25,000 unit in 250 mls @ 0 mls/hr 10/26/24 14:00 10/26/24 14:26 Heparin Sodium,Porcine/1/2ns IVCONT 9.75 units/kg/hr .Q0M TIFFANIE 10 mls/hr Protocol Administration Per Protocol Nitroglycerin 0.4 mg 10/26/24 09:48 10/26/24 09:54 Nitroglycerin 0.4 Mg Tab.Subl SUBLINGUAL 0.4 mg Q5MX3 PRN Administration Chest Pain Discontinued Medications Generic Name Dose Route Start Last Admin Trade Name Freq PRN Reason Stop Dose Admin Heparin Sodium (Porcine) 4,000 unit 10/26/24 13:41 10/26/24 14:23 Heparin Sodium,Porcine 5,000 Unit/Ml Vial IVPUSH 10/26/24 13:42 4,000 unit ONCE ONE Administration Medical Decision Making Medical Decision Making [facility] Narrative: This is a 74-year-old male, with a past medical history of hypertension, CAD with pacemaker placed in July 2023 and stent placement of the left descending artery on January 2011, seizure disorder on , who presents emergency department with concerns of chest pain which started 20 minutes prior to arrival. On arrival, blood pressure 147/94, all other vital signs within normal limits. He is speaking full sentences. Patient does appear to be uncomfortable secondary to chest pain. EKG with no STEMI noted. We will repeat EKG. Differential diagnoses ACS, NSTEMI, STEMI, unstable angina, CHF. 1113 - pt re-evaluated, reports the nitroglycerin helped his pain significantly. reporting 03/25 CP. 1333 - 2nd troponin negative. Patient is chest pain-free. Discussed case with Dr. Sumner who will assess patient at bedside. 1344 - Dr. Sumner came and assessed patient. Given concerning story, Dr. Sumner recommends treating as unstable angina and starting heparin drip. 1419 - Dr. Sumner had reached out to [facility], unclear when he will have a bed at [facility] therefore he is recommending hospital admission. Discussed case with Dr. Chan, transfer of care initiated. Differential Diagnosis Differential Diagnoses: The differential diagnosis associated with the presentation includes See MDM, course Consult Healthcare Provider Management of the patient was discussed with: Hospitalist and Relationship Banker Dr. Sumner, cardiology Lab Data MDM Lab Attestation statement: I reviewed the patient's lab results. No leukocytosis, stable H&H, chemistry revealing no evidence of ELISE, slight hyperglycemic at 138. 10/26/24 09:41 10/26/24 09:41 Labs: Lab Results 10/26/24 10/26/24 Range/Units 09:41 12:03 WBC 8.8 (4.8-10.8) X10*3/uL RBC 4.97 (4.60-5.80) X10*6/uL Hgb 15.8 (14.0-18.0) g/dl Hct 44.5 (42.0-52.0) % MCV 89.5 (80.0-98.0) fL MCH 31.8 (27.0-33.0) pg MCHC 35.5 (31.0-36.0) g/dl RDW 11.9 (11.0-16.0) % Plt Count 144 L (160-400) X10*3/uL MPV 11.3 (9.4-12.4) fL Immature Gran % (Auto) 0.1 (0.0-0.4) % Neut % (Auto) 73.7 H (45-73) % Lymph % (Auto) 16.8 L (20-40) % [place] % (Auto) 7.2 (2-11) % Eos % (Auto) 1.7 (0-4) % Baso % (Auto) 0.5 (0-2) % Lymph # (Auto) 1.5 (1.2-4.9) X10*3/uL [place] # (Auto) 0.6 (0.1-1.2) X10*3/uL Eos # (Auto) 0.2 (0.0-0.4) X10*3/uL Baso # (Auto) 0.0 (0.0-0.2) X10*3/uL Abs Immat Gran (auto) 0.01 (0.00-0.03) X10*3/uL Absolute Neuts (auto) 6.5 (2.0-8.3) x10*3/uL Absolute Nucleated RBC 0.000 (0.0-0.012) X10*3/uL Nucleated RBC % (auto) 0.0 (0.0-0.2) /100WBC PT 11.1 (10.9-12.4) SEC INR 1.0 (0.9-1.1) aPTT Heparin Protocol 32.8 L (53-77.9) SEC Hold Blue Top SEE NOTE Sodium 142 (135-145) mmol/L Potassium 4.3 (3.3-5.1) mmol/L Chloride 110 H (96-108) mmol/L Carbon Dioxide 22 (22-29) mmol/L Anion Gap 14 (12-20) BUN 27 H (9-16) mg/dL Creatinine 1.02 (0.5-1.4) mg/dL Estim Creat Clear Calc 71.4 Estimated GFR > 60 Random Glucose 138 H (60-115) mg/dL Calcium 9.6 (8.4-10.2) mg/dL Total Bilirubin 0.7 (0.0-1.0) mg/dL AST 29 (5-37) U/L ALT 34 (0-40) U/L Alkaline Phosphatase 60 (39-117) U/L Troponin I High Sens < 2.7 D < 2.7 (<3.5-35.0) ng/L B-Natriuretic Peptide 22 (<100) pg/mL Total Protein 7.3 (6.5-8.0) g/dL Albumin 4.5 (3.5-5.0) g/dL Independent Interpretation I performed an independent interpretation of an: EKG Interpretation: EKG 09:29AM - NSR at a ventricular rate of 65bpm, KS interval 206, QRS 110, QT QTC 398/413, no STEMI Repeat EKG 9:30AM - normal sinus rhythm at a ventricular rate of 64 beats per minute, KS interval 200, QRS 112, QT QTC 396/408, no STEMI. Repeat EKG - 1016 - sinus rhythm, no STEMI. Radiology Impression Discussion of test interpretation with radiology: I have reviewed the radiologist's reading. Radiologist Impression: EXAMINATION: XR CHEST 1 VIEW HISTORY: CP COMPARISON: Comparison is made with the prior examination dated 07/31/2023. FINDINGS: A single AP portable view of the chest performed at 9:58 AM is submitted. A left-sided dual-chamber pacemaker is unchanged in position. The lungs are expanded and clear. There is no pleural effusion, pneumothorax, or pulmonary vascular congestion. The heart is normal in size. There is degenerative disc disease of the spine. XR/XR chest 1V IMPRESSION: No acute cardiopulmonary abnormality. Electronically signed by: Dani Yanes MD 10/26/2024 10:13 AM EDT Dictated By: Dani Yanes MD Scores Heart Score History: -2- highly suspicious ECG: -0- normal Age: -2- > or = 65 Risk factory: -2- 3 or more risk factors or treated atherosclerosis Troponin: -0- < or = normal limit Score: 6 Risk: 16.6% Critical Care Time Critical Care Time Critical Care Time: Yes Total Critical Care Time: 63 Attestation: I have personally provided critical care time exclusive of time spent on separately billable procedures. Time includes review of lab data, radiology results, discussion with consultants, and monitoring for potential decompensation. Intervention performed as documented. Discharge Plan Discharge Clinical Impression: Unstable angina Patient Disposition: Admitted As Inpatient Interventions: Acute Care Transfer Worksheet (ED) Last Done: 10/26/24 18:01 Print Language: Estonian
[2024-10-26 09:46] VITALS: BP 147/94; PULSE 72; RESP 18; TEMP 36.4; O2SAT 97; BMI 34.4
[2024-10-26 09:48] LABS: MANUAL DIFF FLAG NO
[2024-10-26 09:50] LABS: Hematocrit 44.5 % (42.0-52.0); Hemoglobin 15.8 g/dl (14.0-18.0); Imm Gran Abs Auto 0.01 X10*3/uL (0.00-0.03); Imm Gran Pct Auto 0.1 % (0.0-0.4); Lymphocytes Absolute Auto 1.5 X10*3/uL (1.2-4.9); Mean Corpuscular HGB Conc 35.5 g/dl (31.0-36.0); Mean Corpuscular Hemoglobin 31.8 pg (27.0-33.0); Mean Corpuscular Volume 89.5 fL (80.0-98.0); NRBC Abs Auto 0.000 X10*3/uL (0.0-0.012); NRBC Pct Auto 0.0 /100WBC (0.0-0.2); Platelet Count 144 X10*3/uL (160-400); Red Blood Count 4.97 X10*6/uL (4.60-5.80); White Blood Count 8.8 X10*3/uL (4.8-10.8)
--- NOTE | 2024-10-26 10:05 | ECG_ITS ---
Test Reason : REPEAT EKG Blood Pressure : */* mmHG Vent. Rate : 61 BPM Atrial Rate : 61 BPM P-R Int : 196 ms QRS Dur : 114 ms QT Int : 412 ms P-R-T Axes : 76 -54 -7 degrees QTcB Int : 414 ms Sinus rhythm with occasional atrial-paced complexes Left axis deviation Incomplete right bundle branch block Moderate voltage criteria for LVH, may be normal variant ( R in aVL , [place] product ) Abnormal ECG When compared with ECG of 26-Oct-2024 09:29, Electronic atrial pacemaker has replaced Sinus rhythm Referred By: Felicity Simmons Electronically Signed By: Sandip Sumner
[2024-10-26 10:06] LABS: Alanine Aminotransferase 34 U/L (0-40); Albumin Level 4.5 g/dL (3.5-5.0); Alkaline Phosphatase 60 U/L (39-117); Anion Gap 14 (12-20); Aspartate Amino Transferase 29 U/L (5-37); Blood Urea Nitrogen 27 mg/dL (9-16); Calcium 9.6 mg/dL (8.4-10.2); Carbon Dioxide 22 mmol/L (22-29); Chloride 110 mmol/L (96-108); Creatinine Clr Calc Pharmacy 71.4; Estimated Glomerular Filt Rate > 60; Potassium 4.3 mmol/L (3.3-5.1); Sodium 142 mmol/L (135-145); Total Protein 7.3 g/dL (6.5-8.0)
--- NOTE | 2024-10-26 10:08 | PC.NURSE ---
pt brought back from triage office reporting 06/23 chest pain/pressure. is short of breath and uncomfortable. he states he has a pacemaker and has not had this sensation in his chest before. he took all his regular morning medications at home. Nitro given as ordered for pain 06/23. Paced rhythm on tele.
[2024-10-26 10:16] LABS: Troponin-I High Sensitivity < 2.7 ng/L (<3.5-35.0)
--- OUTSIDE RECORDS SUMMARY | 2024-10-26 10:45 | XMS_ITS | Clinical Summary ---
Author Organization [facility] Address [address] [place] [address] Phone Care Team Providers Care Bindery Operator Name Role Phone Skip Chen MD Primary Care Provider [phone] Allergies Active Allergy Reactions Criticality Noted Date Comments Atorvastatin 07/10/2023 Lisinopril 07/10/2023 Other Reaction(s): heavy cough Meperidine 07/10/2023 Other Reaction(s): headache and vomiting Medications metoprolol succinate (TOPROL-XL) 25 MG 24 hr tablet 06/07/2023 Act jese rosuvastatin (CRESTOR) 10 MG tablet 06/08/2023 Active tamsulosin (FLOMAX) 0.4 mg Cap 06/08/2023 Active meclizine (ANTIVERT) 25 mg tablet Take 25 mg by mouth 3 (three) times a day. 05/07/2023 Active famotidine (PEPCID) 20 MG tablet 06/07/2023 Active citalopram (CELEXA) 40 MG tablet 06/07/2023 Active amLODIPine (NORVASC) 5 MG tablet 06/07/2023 Active aspirin 81 MG EC tablet Take 81 mg by mouth 2 (two) times a day. Active multivitamin-min erals-lutein (CENTRUM SILVER) Tab Take 1 tablet by mouth daily. Active omega-3 fatty acids-fish oil 340-1,000 mg Cap Take by mouth daily. Active Active Problems Problem Noted Date Diagnosed Date Syncope and collapse 07/10/2023 Assessment & Plan (07/10/2023 9:03 AM EDT): Patient has unexplained syncope. We had a detailed discussion with the patient with regards to pacemaker. Risk and benefits of the procedure were discussed in detail. Patient at this point opted proceed with pacemaker. Will remove implantable loop monitor at the same time Essential hypertension 07/10/2023 Assessment & Plan (07/10/2023 9:04 AM EDT): Will asked the patient to stop metoprolol. Continue with other medications Social History Tobacco Use Types Packs/Day Years Used Date Smoking Tobacco: Never Assessed Education Answer Date Recorded Are you interested in more education? Not on alisson e 05/19/2023 Are you concerned about learning? Not on file 05/19/2023 No 05/19/2023 No 05/19/2023 Digital Access Answer Date Recorded No 05/19/2023 No 05/19/2023 Reliable internet access at home? Not on file 05/19/2023 Device with a working camera? Not on file Sex and Gender Information Value Date Recorded Sex Assigned at Not on file Legal Sex Male 11:57 AM EST Gender Identity Not on file Sexual Orientation Not on file Last Filed Vital Signs Vital Sign Reading Time Taken Comments Blood Pressure 118/70 07/10/2023 8:34 AM EDT Pulse 65 07/10/2023 8:34 AM EDT Temperature - - Respiratory Rate - - Oxygen Saturation 97% 07/10/2023 8:34 AM EDT Inhaled Oxygen Concentration - - Weight 101.6 kg (224 lb) 07/10/2023 8:34 AM EDT Height 172.7 cm (5' 8 ) 07/10/2023 8:34 AM EDT Body Mass Index 34.06 07/10/2023 8:34 AM EDT Plan of Treatment Health Maintenance Due Date Last Done Comments Adult Td,Tdap Booster 1948 LIPID PANEL 1948 DEPRESSION SCREENING 1960 SMOKING Hx and SMOKELESS TOB ACCO SCREENING 1961 HEPATITIS C SCREENING 1966 PNEUMOCOCCAL VACCINES (50+ y ears) (1 of 1 - PCV) 1998 ZOSTER VACCINES (1 of 2) 1998 RSV VACCINE (1 - 1-dose 75+ series) 2023 COVID-19 VACCINE ( - 2023-2 5 season) 2023 BLOOD PRESSURE 01/09/2024 07/10/2023 HEPATITIS A VACCINES Aged Out No long er eligible based on patient's age to complete this topic HIB VACCINES Aged Out No longer eligi ble based on patient's age to complete this topic MENINGOCOCCAL VACCINES (ACWY) Aged Out No longer eligible based on patient's age to complete this topic MENINGOCOCCAL VACCINES (B) Aged Out N o longer eligible based on patient's age to complete this topic Medical Devices Not on file Insurance PLAN PLAN PLAN [facility] PLAN [facility] Care Teams Bindery Operator Relationship Specialty Start Date End Date Skip Chen MD [address] [place] [id number] PCP - General 05/13/23 Additional Source Comments The information contained in this document represents components of the legal health record. It is not the complete legal health record.[facility]
[2024-10-26 11:13] VITALS: BP 111/69; PULSE 60; RESP 18; O2SAT 96
--- NOTE | 2024-10-26 11:20 | PC.NURSE ---
after nitro pt reported very minimal chest pain. He states it is about a 1/10. he appears much less anxious and is no longer SOB. plan for repeat troponin
[2024-10-26 11:40] LABS: B Type Natriuretic Peptide 22 pg/mL (<100)
[2024-10-26 12:34] LABS: Troponin-I High Sensitivity < 2.7 ng/L (<3.5-35.0)
--- NOTE | 2024-10-26 13:55 | PM.CNCAR ---
History of Present Illness History of Present Illness Date of Service: 10/26/24 Requesting physician: Bell Au Chief complaint: CP Narrative: [age] year gentleman with known history of coronary artery disease with previous LAD PCI in 2010, permanent pacemaker placement, hypertension and previous asbestos exposure presenting with chest discomfort. He said he was driving the car with his and he had central chest heaviness along with shortness of breath. This lasted approximately 30 minutes and was relieved after nitroglycerin was given to him. His biomarkers on active. He did not have any EKG changes. He is saying he has not experienced any chest discomfort since 2010 when he presented with ACS. Chest discomfort is similar to his presentation in 2011. He was getting some dyspnea with activities and was due to get a stress test and echocardiography as outpatient. No bleeding issues. Taking medications regularly. He is taking aspirin twice a day for some eye disorder. [facility] Past Medical History Medical History Periodic limb movement disorder Restless leg syndrome Depression Chest pain, unspecified Anxiety and depression CAD (coronary artery disease) Implantable loop recorder present Cardiac pacemaker in situ Seizures Mood swings COVID-19 vaccine series completed Impaired glucose tolerance Diverticular disease GERD (gastroesophageal reflux disease) BPH (benign prostatic hyperplasia) Insomnia Asbestos exposure Peripheral vascular disease Obesity (BMI 30-39.9) Tubular adenoma of colon Hyperlipidemia HTN (hypertension) Family History Family History Father CVD (cardiovascular disease) Melanoma Mother CVD (cardiovascular disease) Pancreatic cancer Hypertension Diabetes Brother No problems noted. Sister No problems noted. Son No problems noted. Daughter No problems noted. Surgical History Surgical History H/O umbilical hernia repair Hx of blepharoplasty H/O colonoscopy Hx of heart artery stent History of tumor History of right knee surgery Hx of thumb surgery Social History Social History Household Members: Spouse and Family Housing: Condominium Are you a primary home care aide to a significant other at home: No Do you presently have visiting nurse or other home services: No Alcohol intake: current Alcohol intake frequency: holidays/special occasions only Patient Tobacco Use Status: Former Tobacco user Tobacco use type: Cigarette Smoked in Last 30 Days: No e-Cigarette/Vaping Use: Never Used Second Hand Smoke Exposure: Yes Use of substances other than those prescribed or required for medical reasons: No Advance Directives: No Advance Directives Information Provided: Yes service: Yes Current occupational status: retired Cognitive needs: No Hearing needs: No Vision needs: Yes Meds Allergies Allergy/AdvReac Type Severity Reaction Status Date / Time propoxyphene (From Darvon) Allergy Severe vomiting/di Verified 10/26/24 09:48 zziness atorvastatin (Lipitor) Allergy Intermediate decreased Verified 10/26/24 09:48 renal function lisinopril (From Zestril) Allergy Intermediate TROUBLE Verified 10/26/24 09:48 BREATHING Active Medications: Current Medications Heparin Sodium (Porcine) (Heparin Sodium,Porcine 5,000 Unit/Ml Vial) 4,100 unit 40 unit/kg (4100 unit) IVPUSH PROTOCOL BOLUS PRN; Protocol PRN Reason: 40 unit/kg - Heparin Protocol Heparin Sodium (Porcine) (Heparin Sodium,Porcine 5,000 Unit/Ml Vial) 8,200 unit 80 unit/kg (8200 unit) IVPUSH PROTOCOL BOLUS PRN; Protocol PRN Reason: 80 unit/kg - Heparin Protocol Heparin Sodium/Sodium Chloride (Heparin Sodium,Porcine/1/2ns) 25,000 unit in 250 mls @ 0 mls/hr IVCONT .Q0M TIFFANIE; Protocol Nitroglycerin (Nitroglycerin 0.4 Mg Tab.Subl) 0.4 mg SUBLINGUAL Q5MX3 PRN PRN Reason: Chest Pain Last Admin: 10/26/24 09:54 Dose: 0.4 mg Home Medications ?Medication ?Instructions ?Recorded ?Confirmed ?Last Taken ?Type aspirin 81 mg tablet,delayed 81 mg PO BID 01/10/20 09/29/24 07/29/23 History release (Adult Low Dose Aspirin) multivitamin 1 tab PO BEDTIME 01/10/20 09/29/24 07/29/23 History omega-3 fatty acids 1,000 mg 1,000 mg PO BEDTIME 01/10/20 09/29/24 07/29/23 History capsule (Fish Oil Concentrate) ibuprofen 200 mg tablet (Advil) 400 mg PO Q6H PRN Pain 07/30/23 09/29/24 Unknown History Physical Exam Vital Signs: Vital Signs: Last Vital Signs Temp 97.5 F 10/26/24 09:46 Pulse 60 10/26/24 11:13 Resp 18 10/26/24 11:13 BP 111/69 10/26/24 11:13 Pulse Ox 96 10/26/24 11:13 O2 Del Method Room Air 10/26/24 11:13 BMI result Body Mass Index 34.4 GENERAL APPEARANCE: in no acute distress, pleasant. NECK: no carotid bruit, no jugular venous distention. SKIN: no suspicious lesions, warm and dry. HEART: no murmurs, regular rate and rhythm. LUNGS: clear to auscultation bilaterally. ABDOMEN: soft, nontender. EXTREMITIES: no edema. PERIPHERAL PULSES: equal. NEUROLOGIC: No gross deficits, AAO X 3 Objective Labs and Meds 10/26/24 09:41 10/26/24 09:41 Lab results: Laboratory Results - last 24 hr 10/26/24 10/26/24 09:41 12:03 WBC 8.8 RBC 4.97 Hgb 15.8 Hct 44.5 MCV 89.5 MCH 31.8 MCHC 35.5 RDW 11.9 Plt Count 144 L MPV 11.3 Immature Gran % (Auto) 0.1 Neut % (Auto) 73.7 H Lymph % (Auto) 16.8 L [place] % (Auto) 7.2 Eos % (Auto) 1.7 Baso % (Auto) 0.5 Lymph # (Auto) 1.5 [place] # (Auto) 0.6 Eos # (Auto) 0.2 Baso # (Auto) 0.0 Abs Immat Gran (auto) 0.01 Absolute Neuts (auto) 6.5 Absolute Nucleated RBC 0.000 Nucleated RBC % (auto) 0.0 Hold Blue Top SEE NOTE Sodium 142 Potassium 4.3 Chloride 110 H Carbon Dioxide 22 Anion Gap 14 BUN 27 H Creatinine 1.02 Estim Creat Clear Calc 71.4 Estimated GFR > 60 Random Glucose 138 H Calcium 9.6 Total Bilirubin 0.7 AST 29 ALT 34 Alkaline Phosphatase 60 Troponin I High Sens < 2.7 D < 2.7 B-Natriuretic Peptide 22 Total Protein 7.3 Albumin 4.5 Imaging Radiologist's impression: Impressions Chest X-Ray 10/26/24 08:58 IMPRESSION: No acute cardiopulmonary abnormality. Electronically signed by: Dani Yanes MD 10/26/2024 10:13 AM EDT RP Assessment and Plan (1) Unstable angina: Status: Acute Plan Pleasant 74 year gentleman presenting with sudden onset chest discomfort at rest lasting for approximately 30 minutes. Clinical story is concerning for unstable angina. He has known history of coronary disease with previous LAD PCI in 2010. Currently pain-free. Start heparin drip. Continue aspirin as before. Blood pressure well controlled currently and his home medications can be continued. We will transfer him to [facility] for cardiac catheterization. I have reached out to [facility] and they may have a bed tonight versus tomorrow. I think we admit him to hospitalist service for now. Thank you for allowing me to participate in the care of your patient. Please feel free to contact me if you have any questions. Procedures Date of Service Date of Service: 10/26/24
[2024-10-26 14:04] LABS: INTERNATIONAL NORM RATIO 1.0 (0.9-1.1); Prothrombin Time 11.1 SEC (10.9-12.4)
[2024-10-26 14:07] LABS: PTT Heparin Drip 32.8 SEC (53-77.9)
[2024-10-26 14:09] VITALS: PULSE 64; RESP 18; O2SAT 98; BMI 34.5
--- NOTE | 2024-10-26 14:15 | CA_ITS ---
Transthoracic Echocardiogram Patient (Last, First, Middle): Dani Jenkins R Gender: Male Date of : 1950 Age: 74 Procedure Date: 10/26/2024 Procedure Type: Transthoracic Echocardiogram Location: ER Height: 172.72 cm Weight: 102.51 kg BSA: 2.15 m2 Heart Rate: 82 bpm BP: 141 / 68 mmHg Hand Polisher: SB Referring MD: Sandip Sumner MD Symptoms: unstable angina Study Quality: Adequate w contrast ECG Rhythm: Sinus Conclusions: - Normal left ventricular size and systolic function. There is mildly increased left ventricular wall thickness. The visually estimated ejection fraction is between 60-65%. - There is no evidence of regional wall motion abnormalities. - E/E prime ratio is between 8 and 15 consistent with indeterminate filling pressures. - Normal right ventricular cavity size. There is mildly decreased right ventricular systolic function. Findings Procedure Information Contrast agent, definity, is being given per protocol without apparent complications. The quality of the study was technically difficult. The study quality is limited by patients body habitus and lung artifact. Left Ventricle Normal left ventricular size and systolic function. There is mildly increased left ventricular wall thickness. The visually estimated ejection fraction is between 60-65%. There is no evidence of regional wall motion abnormalities. Abnormal diastolic function is noted. Spectral Doppler is indicative of a pseudonormal filling pattern. E/E prime ratio is between 8 and 15 consistent with indeterminate filling pressures. Right Ventricle Normal right ventricular cavity size. There is mildly decreased right ventricular systolic function. Atria The left atrium is normal in size. The right atrium was not well visualized. Aortic Valve There is mild calcification of the aortic valve. There is no aortic valve stenosis. There is no aortic valve regurgitation. Mitral Valve The mitral valve appears normal. There is no mitral valve regurgitation. There is no mitral valve stenosis. Pulmonic Valve The pulmonic valve is likely normal. Tricuspid Valve Normal tricuspid valve structure. There is trace tricuspid valve regurgitation. Tricuspid regurgitation envelope is inadequate for calculation of right ventricular systolic pressure. Normal right atrial pressure. Great Vessels All visible segments of the aorta are normal in size. Venous The inferior vena cava is normal in size and collapses greater than 50% with inspiration. Pericardium/Pleural There is no evidence of pericardial effusion. Prior Study Comparison Changes noted compared to prior study dated: 06/11/2021. RV function mildly reduced. Measurements 2D Linear Measurements IVSd: 1.27 0.6-0.9/0.6-1.0 cm LVIDd: 4.11 3.9-5.3/4.2-5.9 cm LVIDd Index: 1.91 2.4-3.2/2.2-3.1 cm/m2 LVIDs: 3.26 2.0-3.6 cm LVPWd: 1.18 0.7-1.1 cm LA Diam: 4.10 2.7-3.8/3.0-4.0 cm LAIDs Index: 1.91 1.5-2.3 cm/m2 LV Mass: 221.39 67-162/88-224 g LV Mass Index: 102.97 43-95/49-115 g/m2 LVOT Diam: 2.30 3.0+(-)1.3 cm 2D Systolic Function EF 4C: 69.80 >55% EF 2C: 68.20 >55% EF BiP: 68.10 >55% Mitral Valve MV Pk E: 0.77 MV PK A: 0.78 MV Decel Time: 256.00 E/A: 1.00 E'Lateral: 5.44 E'Medial: 7.40 E/E' Med: 10.40 E/E' Lat: 14.10 PHT: 75.00 MVA PHT: 2.93 Decel [place]: 2.99 Aortic Valve AoV Pk [place]yer: 1.55 AoV Mn Sawyer: 1.02 AoV VTI: 0.31 AoV Pk Grad: 10.00 Aov Mn Grad: 5.00 BRYN Cont.VTI: 2.55 LVOT LVOT Pk [place]: 0.90 LVOT Mn [place]yer: 0.58 LVOT VTI: 0.19 LVOT Pk Grad: 3.00 LVOT Mn Grad: 2.00 LVOT Diam: 2.30 LVOT Area: 4.15 Diastolic Function MV Pk E: 0.77 MV Pk A: 0.78 E/A: 1.00 E'Medial: 7.40 E/E' Med: 10.40 E' Laterial: 5.44 E/E' Lat: 14.10 Right Ventricle TAPSE (mm): 11.20 TVS' Sawyer: 9.68 Great Vessels Aorta Sinus of Valsalva: 3.50 2.0-3.5 cm Ao Asc: 3.40 2.1-3.4 cm Ao Arch: 3.10 Pulmonary Veins Pulm Vein S/D 1.20 Pulmonary Valve PV Pk Sawyer: 0.93 Peak PV Grad: 3.00 Updated in Other Vendor System with Status of Final Sandip Sumner MD electronically signed on 10/26/2024 3:34:43 PM with status of Final
[2024-10-26] MEDS: Heparin Sodium,Porcine/1/2NS 25,000 UNIT/250 ML IV.SOLN 10 UNIT IVCONT (14:26)
--- NOTE | 2024-10-26 15:20 | PM.IMHP ---
History of Present Illness Date of Service: 10/26/24 Chief Complaint: Unstable angina 74-year-old male with a past medical history of CAD, BPH, depression, asbestos exposure, hypertension, hyperlipidemia, GERD, and seizure disorder, status postLAD PCI in 2010, Pacemaker 2023 arrived to the ED via private car due to sudden onset of chest pain and shortness of breath. He reports that he was starting the car and developed sharp heavy pain in his chest that radiated to his shoulder. Patient reports that he also experienced some diaphoresis and lightheadedness at the time. In the ED he received 1 dose of nitro with relief of his chest pain. Initial workup in the ED revealed no leukocytosis, no anemia. Patient has thrombocytosis withplatelet count of 144. Creatinine 1.02, random glucose 138. Troponins negative x2, BNP 22. Chest x-ray with no acute cardiopulmonary abnormality. EKG demonstrates sinus rhythm with a incomplete right bundle branch block, occasional atrial paced complexes, no change from previous. Patient was started on a heparin drip, plan is to transfer him to [facility] for cardiac catheterization, bed available tonight or tomorrow. He is admitted to telemetry floor pending transfer. On exam he is awake and alert, currently pain free. Denies any shortness of breath, headache, visual changes, reporting mild dizziness currently, blood pressure stable 144/80. No tachycardia. Echo pending. Review of Systems Review of Systems: Denies any shortness of breath, chest pain, dizziness, lightheadedness, abdominal pain or discomfort, nausea vomiting or diarrhea PMF Medical History Periodic limb movement disorder Restless leg syndrome Depression Chest pain, unspecified Anxiety and depression CAD (coronary artery disease) Implantable loop recorder present Cardiac pacemaker in situ Seizures Mood swings COVID-19 vaccine series completed Impaired glucose tolerance Diverticular disease GERD (gastroesophageal reflux disease) BPH (benign prostatic hyperplasia) Insomnia Asbestos exposure Peripheral vascular disease Obesity (BMI 30-39.9) Tubular adenoma of colon Hyperlipidemia HTN (hypertension) Family History Father CVD (cardiovascular disease) Melanoma Mother CVD (cardiovascular disease) Pancreatic cancer Hypertension Diabetes Brother No problems noted. Sister No problems noted. Son No problems noted. Daughter No problems noted. Surgical History H/O umbilical hernia repair Hx of blepharoplasty H/O colonoscopy Hx of heart artery stent History of tumor History of right knee surgery Hx of thumb surgery Social History Household Members: Spouse and Family Housing: Condominium Are you a primary care coordination manager to a significant other at home: No Do you presently have visiting nurse or other home services: No Alcohol intake: current Alcohol intake frequency: holidays/special occasions only Patient Tobacco Use Status: Former Tobacco user Tobacco use type: Cigarette Smoked in Last 30 Days: No e-Cigarette/Vaping Use: Never Used Second Hand Smoke Exposure: Yes Use of substances other than those prescribed or required for medical reasons: No Advance Directives: No Advance Directives Information Provided: Yes service: Yes Current occupational status: retired Cognitive needs: No Hearing needs: No Vision needs: Yes Meds Allergies Allergy/AdvReac Type Severity Reaction Status Date / Time propoxyphene (From Darvon) Allergy Severe vomiting/di Verified 10/26/24 09:48 zziness atorvastatin (Lipitor) Allergy Intermediate decreased Verified 10/26/24 09:48 renal function lisinopril (From Zestril) Allergy Intermediate TROUBLE Verified 10/26/24 09:48 BREATHING Active Medications: Current Medications Heparin Sodium (Porcine) (Heparin Sodium,Porcine 5,000 Unit/Ml Vial) 4,100 unit 40 unit/kg (4100 unit) IVPUSH PROTOCOL BOLUS PRN; Protocol PRN Reason: 40 unit/kg - Heparin Protocol Heparin Sodium (Porcine) (Heparin Sodium,Porcine 5,000 Unit/Ml Vial) 8,200 unit 80 unit/kg (8200 unit) IVPUSH PROTOCOL BOLUS PRN; Protocol PRN Reason: 80 unit/kg - Heparin Protocol Heparin Sodium/Sodium Chloride (Heparin Sodium,Porcine/1/2ns) 25,000 unit in 250 mls @ 0 mls/hr IVCONT .Q0M TIFFANIE; Protocol Last Admin: 10/26/24 14:26 Dose: 9.75 units/kg/hr, 10 mls/hr Nitroglycerin (Nitroglycerin 0.4 Mg Tab.Subl) 0.4 mg SUBLINGUAL Q5MX3 PRN PRN Reason: Chest Pain Last Admin: 10/26/24 09:54 Dose: 0.4 mg Home Medications ?Medication ?Instructions ?Recorded ?Confirmed ?Last Taken ?Type aspirin 81 mg tablet,delayed 81 mg PO BID 01/10/20 10/26/24 10/26/24 History release (Adult Low Dose Aspirin) ibuprofen 125 mg-acetaminophen 250 1 tab PO BID 10/26/24 10/26/24 10/26/24 History mg tablet (Advil Dual Action) Held on 10/26/24. Instructions: Resume on 11/01/24. lskafgyinuxg-tzwyixpc-fvlysk tablet 1 tab PO BEDTIME 10/26/24 10/26/24 10/26/24 History omega 9-mnz-mue-fish oil 1,200 mg 1 cap PO DAILY 10/26/24 10/26/24 10/26/24 History (144 mg-216 mg) capsule (Fish Oil) Physical Exam Vital Signs and Narrative: Vital Signs: Last Vital Signs Temp 97.5 F 10/26/24 09:46 Pulse 64 10/26/24 14:09 Resp 18 10/26/24 14:09 BP 111/69 10/26/24 11:13 Pulse Ox 98 10/26/24 14:09 O2 Del Method Room Air 10/26/24 14:09 BMI result Body Mass Index 34.5 CONST: Alert and oriented, in NAD. Well nourished HEENT: Normocephalic, atraumatic, MMM, Eyes clear, Neck supple RESP: Lungs clear, RRR even and regular HEART:,RRR, S1, S2. No murmur, no edema GI:Abdomen Soft NT, ND. + BS times four. :Deferred SKIN: Warm dry and intact, no visible lesions or rashes NEURO:CN II-XII Intact bilaterally, Sensation intact. Speech clear PSYCH: Normal affect Results Labs 10/26/24 09:41 10/26/24 09:41 Labs: Laboratory Results - last 24 hr 10/26/24 09:41 MCV 89.5 MCH 31.8 MCHC 35.5 RDW 11.9 Plt Count 144 L MPV 11.3 Immature Gran % (Auto) 0.1 Neut % (Auto) 73.7 H Lymph % (Auto) 16.8 L [place] % (Auto) 7.2 Eos % (Auto) 1.7 Baso % (Auto) 0.5 Lymph # (Auto) 1.5 [place] # (Auto) 0.6 Eos # (Auto) 0.2 Baso # (Auto) 0.0 Abs Immat Gran (auto) 0.01 Absolute Neuts (auto) 6.5 Absolute Nucleated RBC 0.000 Nucleated RBC % (auto) 0.0 PT 11.1 INR 1.0 aPTT Heparin Protocol 32.8 L Hold Blue Top SEE NOTE Anion Gap 14 Estim Creat Clear Calc 71.4 Estimated GFR > 60 Random Glucose 138 H Calcium 9.6 Total Bilirubin 0.7 AST 29 ALT 34 Alkaline Phosphatase 60 B-Natriuretic Peptide 22 Total Protein 7.3 Albumin 4.5 Imaging Radiologist's Impressions: Impressions Chest X-Ray 10/26/24 08:58 IMPRESSION: No acute cardiopulmonary abnormality. Electronically signed by: Dani Yanes MD 10/26/2024 10:13 AM EDT RP Assessment and Plan (1) Unstable angina: Status: Acute Plan 74-year-old male with a past medical history of coronary artery disease, hypertension, hyperlipidemia, status post LAD PCI in 2010, status post pacemaker placement in 2023 presented to ED after experienced severe sudden midsternal chest pain. Patient with unstable angina will transfer to [facility] when bed available. Patient is admitted for unstable angina, currently on heparin drip. Medication reconciliation not completed at time of dictation. Unstable angina Patient with no ischemic changes in EKG, EKGs consistent with baseline. Chest pain relieved with nitroglycerin x1 dose, currently patient is pain-free. No hypoxia, no tachycardia. Troponins negative, otherwise lab work essentially negative. Plan to transfer to [facility] for cardiac catheterization-awaiting bed CAD/pacemaker/HTN/HLD Status post LAD PCI in 2010 Pacemaker inserted 2023. Continue home medications. Metoprolol succinate 25, Crestor 10 mg, fish oil, aspirin 81 mg b.i.d. amlodipine 5 mg BPH Continue Flomax Depression and anxiety Continue citalopram Seizure disorder Continue Keppra GERD Continue famotidine Code status full code DVT prophylaxis heparin drip Quality Stroke Does the patient have a stroke diagnosis?: No VTE Prior VTE?: No VTE Risk Level:: Medical - moderate - high VTE Device Contraindication: Treatment Not Indicated VTE Drug Contraindication: N/A - Med Ordered
[2024-10-26 15:38] VITALS: BP 136/79; PULSE 60; RESP 18; TEMP 36.6; O2SAT 94
--- NOTE | 2024-10-26 15:39 | PC.NURSE ---
pt denies chest pain, resting quietly, heparin drip infusing as ordered. next PTT HD order placed for 2024 perez
--- NOTE | 2024-10-26 16:47 | PHA.MEDREC ---
Addendum entered by Hector Corona PharmD 10/26/24 16:52: reviewed Original Note: Pharmacy Consult ? Medication Reconciliation Pharmacy has completed the medication reconciliation. Spoke to patient to confirm med list. Patient had a list of medications with him. Patient is o longer taking Oxycarbazepine 150 mg and Ropinirole 0.25 mg . Patient last had his medications today.
--- NOTE | 2024-10-26 17:00 | P.EN_ITS ---
Event Note Date of Service: 10/26/24 Event Note: Date of service and discharge :10/26/2024 Discharge summary: Patient was admitted for unstable angina: Please see HPI for detail information. Hospital course: Patient was admitted for unstable angina started on IV heparin drip, EKG seems fine troponin negative, seen by Cardiology plan is to transfer to [facility] for further cardiac workup and management(possible cardiac catheterization). Patient will go with IV heparin monitor PT PTT for protocol. Please see H&P for further details. Discharge diagnosis: Unstable angina. Time Spent With Patient Time: Total time managing care of this patient today ____ minutes.
[2024-10-26 18:01] VITALS: BP 136/79; PULSE 60; RESP 18; TEMP 36.6; O2SAT 94
--- OUTSIDE RECORDS SUMMARY | 2024-10-28 12:11 | XMS_ITS | Continuity of Care Document ---
Author Name [facility] Organization [facility] Care Team Providers Care Performance Tester Name Role Phone [facility] Unavailable Unavailable Allergies, Adverse Reactions, Alerts Combined list of allergies from Department of Defense and Veterans Affairs facilities. It does not include entries that were removed or entered in error. Substance Category Reaction Severity Reaction type Status Date Reported Comments Source No Known Allergies Drug allergy (disorder) active 06/24/2007 [facility] [place] Immunizations Combined list of available immunizations from the Department of Defense and Veterans Affairs facilities. Immunization Series Date Given Administered By Site Reaction Lot Number CVX Code Drug Lard Mixer Status Comments Source COVID-19 (MODERNA), MRNA, LNP-S, PF, 100 MCG/0.5 ML DOSE 2 2020 207 complet ed MOD; [id number]; 1 [facility] COVID-19 (MODERNA), MRNA, LNP-S, PF, 100 MCG/0.5 ML DOSE 1 2020 207 complet ed MOD; [id number]; 1 [facility] INFLUENZA, INJECTABLE, MDCK, PRESERVATIVE FREE, QUADRIVALENT 2018 171 complet ed 02, Partner: [facility]. Administe red by: [facility] Clinician (NPI=Not Provided) . Partner 1 Lot#: [id number] Mfr: SEQIRUS [facility] influenza virus vaccine, split virus (incl. purified surface antigen)-reti red CODE 1 2007 Unknown, Provider [id number] 15 [employer] (SKB) complet ed influenza virus vaccine, split virus (incl. purified surface antigen)- retired CODE DoD typhoid Vi capsular polysaccharid e vaccine 1 2007 Unknown, Provider [id number] Sanofi Pasteur ([facility]) complet ed typhoid Vi capsular polysacch aride vaccine DoD influenza virus vaccine, split virus (incl. purified surface antigen)-reti red CODE 1 2006 Unknown, Provider [id number] 15 [facility] (SKB) complet ed influenza virus vaccine, split virus (incl. purified surface antigen)- retired CODE DoD influenza virus vaccine, split virus (incl. purified surface antigen)-reti red CODE 1 2005 Unknown, Provider [id number] Other (OT) complet ed influenza virus [...] antigen)-reti red CODE 1 2004 Unknown, Provider [id number] 15 Sanofi Pasteur ([facility]) complet ed influenza virus vaccine, split virus (incl. purified surface antigen)- retired CODE DoD influenza virus vaccine, whole virus 1 2004 Unknown, Provider [id number] 16 Marci ([facility]) complet ed influenza virus vaccine, whole virus DoD typhoid vaccine, parenteral, other than acetone-kille d, dried 1 2003 Unknown, Provider [id number] Sanofi Pasteur ([facility]) complet ed typhoid vaccine, parentera l, other than acetone-k illed, dried DoD influenza virus vaccine, whole virus 1 2002 Unknown, Provider [id number] 16 Sanofi Pasteur ([facility]) complet ed influenza virus vaccine, whole virus DoD tuberculin skin test; purified protein derivative solution, intradermal 1 2002 Unknown, Provider [id number] 96 Sanofi Pasteur ([facility]) complet ed tuberculi n skin test; purified protein derivativ e solution, intraderm al DoD influenza virus vaccine, whole virus 1 2001 Unknown, Provider [id number] 16 Sanofi Pasteur ([facility]) complet ed influenza virus vaccine, whole virus DoD tuberculin skin test; purified protein derivative solution, intradermal 1 2001 Unknown, Provider [id number] 96 Sanofi Pasteur ([facility]) complet ed tuberculi n skin test; purified protein derivativ e solution, intraderm al DoD influenza virus vaccine, whole virus 1 2000 Unknown, Provider [id number] 16 Sanofi Pasteur ([facility]) complet ed influenza virus vaccine, whole virus DoD tuberculin skin test; purified protein derivative solution, intradermal 1 2000 Unknown, Provider [id number] 96 Sanofi Pasteur ([facility]) [...] vaccine, whole virus 1 2000 Unknown, Provider [id number] 16 Marci ([facility]) complet ed influenza virus vaccine, whole virus DoD hepatitis A vaccine, adult dosage 2 1999 Unknown, Provider [id number] Merck (MSD) complet ed hepatitis A vaccine, adult dosage DoD tuberculin skin test; purified protein derivative solution, intradermal 1 1999 Unknown, Provider [id number] 96 Sameeradamian (CON) complet ed tuberculi n skin test; purified protein derivativ e solution, intraderm al DoD influenza virus vaccine, whole virus 1 1998 Unknown, Provider [id number] 16 Marci ([facility]) complet ed influenza virus vaccine, whole virus DoD measles, mumps and rubella virus vaccine 2 1997 Unknown, Provider [id number] [place] ([place]) complet ed measles, mumps and rubella virus vaccine DoD influenza virus vaccine, whole virus 2 1997 Unknown, Provider [id number] 16 Mino (CON) complet ed influenza virus vaccine, whole virus DoD typhoid vaccine, live, oral 3 1997 Unknown, Provider [id number] Jazmyne (BP) complet ed typhoid vaccine, live, oral DoD meningococcal polysaccharid e vaccine (MPSV4) 1 1997 Unknown, Provider [id number] 32 Mino (CON) complet ed meningoco ccal polysacch aride vaccine (MPSV4) DoD yellow fever vaccine 2 1997 Unknown, Provider [id number] 37 Mino (CON) complet ed yellow fever vaccine [facility] hepatitis A vaccine, adult dosage 1 1997 Unknown, Provider [id number] [address] [place] [address] (SKB) complet ed hepatitis A vaccine, adult [...]
--- OUTSIDE RECORDS SUMMARY | 2024-10-28 12:12 | XMS_ITS | Clinical Summary ---
Author Organization [facility] Address [address] [facility] [address] [place] [address] Phone Care Team Providers Care Felt Carbonizer Name Role Phone Skip Chen MD Primary Care Provider [phone] Allergies Active Allergy Reactions Criticality Noted Date Comments Atorvastatin 07/10/2023 Lisinopril 07/10/2023 Other Reaction(s): heavy cough Meperidine 07/10/2023 Other Reaction(s): headache and vomiting Medications metoprolol succinate (TOPROL-XL) 25 MG 24 hr tablet 06/07/2023 Act ejse rosuvastatin (CRESTOR) 10 MG tablet 06/08/2023 Active [...] Not on file Insurance PLAN PLAN PLAN [facility] PLAN [facility] Care Teams Felt Carbonizer Relationship Specialty Start Date End Date Skip Chen MD [address] [place] [address] PCP - General 05/13/23 Additional Source Comments The information contained in this document represents components of the legal health record. It is not the complete legal health record.[facility]
--- NOTE | 2024-11-06 15:52 | PC.NURSE ---
heparin drip started at 14:26 on 10/26/24 at 10mls/hr. Pt left this facility and transferred to [facility] at 18:01. 35ml of heparin infused at time of transfer.
--- OUTSIDE RECORDS SUMMARY | 2024-11-18 15:41 | XMS_ITS | Clinical Summary ---
Author Organization [facility] Address [address] [place] [address] Phone Care Team Providers Care Meat Cutting Block Repairer Name Role Phone Skip Chen MD Primary Care Provider [phone] Allergies Active Allergy Reactions Criticality Noted Date [...] Not on file Insurance PLAN PLAN PLAN [facility] PLAN [facility] Care Teams Meat Cutting Block Repairer Relationship Specialty Start Date End Date Skip Chen MD [address] [place] [id number] PCP - General 05/13/23 Additional Source Comments The information contained in this document represents components of the legal health record. It is not the complete legal health record.[facility]
== END 2024-10-26 18:02 | disposition short-term general hospital (02) | DRG 303 ==
LOC: HO.ED 14:19 → HO.EDOVER 15:07 → HO.ED 18:01 → HO.EDOVER 11-18 15:39
PROVIDERS: Physician Assistant Medical; Admitting Provider Nurse Practitioner Family; Emergency Provider Emergency Medicine; PCP Internal Medicine; Visit Provider Nurse Practitioner Family
DX: I25.110 Atherosclerotic heart disease of native coronary artery with unstable angina pectoris (principal); N40.0 Benign prostatic hyperplasia without lower urinary tract symptoms; F32.A Depression, unspecified; F41.9 Anxiety disorder, unspecified; G40.909 Epilepsy, unspecified, not intractable, without status epilepticus; Z87.891 Personal history of nicotine dependence; Z77.090 Contact with and (suspected) exposure to asbestos; Z95.0 Presence of cardiac pacemaker; Z95.5 Presence of coronary angioplasty implant and graft; Z79.82 Long term (current) use of aspirin; Z79.899 Other long term (current) drug therapy
CPT/HCPCS: 36415; 71045; 80053; 83880; 84484; 85025; 85610; 85730; 93005; 93306; 99285; J1644; Q9957

== ENCOUNTER → 2024-10-26 09:49 | Outpatient (BNV) | payer OTHER, SELFPAY | PROVIDERS: Emergency Provider Emergency Medicine; PCP Internal Medicine; Visit Provider Radiology Diagnostic Radiology | DX: R07.9 Chest pain, unspecified (principal) | CPT/HCPCS: 71045 ==

== ENCOUNTER → 2024-10-26 10:02 | Outpatient (BNV) | payer OTHER, SELFPAY | PROVIDERS: Emergency Provider Emergency Medicine; PCP Internal Medicine; Visit Provider Internal Medicine Cardiovascular Disease | DX: I20.0 Unstable angina (principal) | CPT/HCPCS: 93010; 93306; 99223 ==

== ENCOUNTER → 2024-10-26 14:22 | Outpatient (BNV) | payer OTHER, SELFPAY | PROVIDERS: Admitting Provider Nurse Practitioner Family; Emergency Provider Emergency Medicine; PCP Internal Medicine; Visit Provider Internal Medicine | DX: I20.0 Unstable angina (principal) | CPT/HCPCS: 99223; 99499 ==

== ENCOUNTER → 2024-10-27 23:59 | Outpatient (BNV) | payer OTHER, SELFPAY | PROVIDERS: PCP Internal Medicine; Visit Provider Internal Medicine Cardiovascular Disease | DX: I20.0 Unstable angina (principal) | CPT/HCPCS: 92928; 92978; 92979; 93458; 99152 ==

== ENCOUNTER 2024-11-01 | Outpatient (REF) | payer OTHER, SELFPAY ==
--- OUTSIDE RECORDS SUMMARY | 2024-11-21 11:35 | XMS_ITS | Clinical Summary ---
Author Organization [facility] Address [address] [place] [address] Phone Care Team Providers Care Software Engineering Project Manager Name Role Phone Skip Chen MD Primary Care Provider [phone] Allergies Active Allergy Reactions Criticality Noted Date [...] VACCINE (1 - 1-dose 75+ series) 2023 BLOOD PRESSURE 01/09/2024 07/10/2023 INFLUENZA VACCINE (#1) 2024 COVID-19 VACCINE ( 2023-2 5 season) 2024 HEPATITIS A VACCINES Aged Out No long [...] topic Medical Devices Not on file [place] [place] [address] PLAN HEALTH PLAN Care Teams Software Engineering Project Manager Relationship Specialty Start Date End Date Skip Chen MD [address] [place] [address] PCP - General 05/13/23 Additional Source Comments The information contained in this document represents components of the legal health record. It is not the complete legal health record.[facility]
== END 2024-11-01 00:01 | disposition home or self-care (01) ==
LOC: CF
PROVIDERS: PCP Internal Medicine; Visit Provider Internal Medicine
DX: I25.10 Atherosclerotic heart disease of native coronary artery without angina pectoris (principal); I10 Essential (primary) hypertension; E78.00 Pure hypercholesterolemia, unspecified; R73.02 Impaired glucose tolerance (oral); E66.9 Obesity, unspecified; Z68.34 Body mass index [BMI] 34.0-34.9, adult; K21.9 Gastro-esophageal reflux disease without esophagitis; K76.0 Fatty (change of) liver, not elsewhere classified; G25.81 Restless legs syndrome; Z79.82 Long term (current) use of aspirin; Z79.899 Other long term (current) drug therapy; Z95.0 Presence of cardiac pacemaker; Z13.31 Encounter for screening for depression
CPT/HCPCS: 99212

== ENCOUNTER 2024-11-01 13:46 | Outpatient (AMB) | payer OTHER, SELFPAY ==
--- NOTE | 2024-11-01 13:50 | A.OFFPC_ITS ---
Vital Signs 11/01/24 13:51 Height 5 ft 8 in Weight 225 lb BMI 34.2 BP 134/72 Blood Pressure Location Lt brachial Position Sitting Pulse 72 Pulse Source Pulse Oximeter Pulse Oximetry (%) 98 Oxygen Delivery Method Room Air Intake Visit Reasons: obesity, HTN, cholesterol Allergies propoxyphene (From Darvon) Allergy (Severe, Verified 11/01/24 13:51) vomiting/dizziness atorvastatin (Lipitor) Allergy (Intermediate, Verified 11/01/24 13:51) decreased renal function lisinopril (From Zestril) Allergy (Intermediate, Verified 11/01/24 13:51) TROUBLE BREATHING Medication List - Last Reconciled 11/01/24 by Skip Chen MD amlodipine 5 mg PO DAILY aspirin (Adult Low Dose Aspirin) 81 mg PO BID citalopram 40 mg PO DAILY famotidine 20 mg PO BID 90 days heparin(porcine) in 0.45% NaCl 25,000 unit/250 mL 25,000 units (250 mL) continuous IV infusion .Q0M levetiracetam (Keppra) 500 mg PO BID 90 days metoprolol succinate ER 25 mg PO DAILY ltnqaxeyjwup-hytqwqfh-jicjaf 1 tab PO BEDTIME nitroglycerin (Nitrostat) 0.4 mg sublingual Q5MX3 PRN omega 6-rqo-kvp-fish oil 1,200 (144-216) mg (Fish Oil) 1 cap PO DAILY rosuvastatin 10 mg PO DAILY tamsulosin 0.4 mg PO BEDTIME ticagrelor 90 mg PO BID Tobacco use date assessed: 04/18/24 Fall risk assessment: No Falls in past year Last assessed Fall Risk: 11/01/24 Dental Screening Dental Screen Date: 04/18/24 [facility] Medical History (Updated 11/01/24 @ 14:31 by Skip Chen MD) Periodic limb movement disorder Restless leg syndrome Depression Chest pain, unspecified Anxiety and depression CAD (coronary artery disease) Implantable loop recorder present Cardiac pacemaker in situ Seizures Mood swings COVID-19 vaccine series completed Impaired glucose tolerance Diverticular disease GERD (gastroesophageal reflux disease) BPH (benign prostatic hyperplasia) Insomnia Asbestos exposure Peripheral vascular disease Obesity (BMI 30-39.9) Tubular adenoma of colon Hyperlipidemia HTN (hypertension) Surgical History H/O umbilical hernia repair Hx of blepharoplasty H/O colonoscopy Hx of heart artery stent History of tumor History of right knee surgery Hx of thumb surgery Family History Father CVD (cardiovascular disease) Melanoma Mother CVD (cardiovascular disease) Pancreatic cancer Hypertension Diabetes Brother No problems noted. Sister No problems noted. Son No problems noted. Daughter No problems noted. Social History Household Members: Spouse and Family [facility] Are you a primary school childcare attendant to a significant other at home: No Do you presently have visiting nurse or other home services: No Alcohol intake: current Alcohol intake frequency: holidays/special occasions only Patient Tobacco Use Status: Former Tobacco user Tobacco use type: Cigarette e-Cigarette/Vaping Use: Never Used Second Hand Smoke Exposure: Yes service: Yes Current occupational status: retired Cognitive needs: No Hearing needs: No Vision needs: Yes Questionnaire PHQ-9 Over the last 2 weeks, how often have you been bothered by any of the following problems? 1. Little interest or pleasure in doing things: not at all 2. Feeling down, depressed, or hopeless: not at all 3. Trouble falling or staying asleep, or sleeping too much: not at all 4. Feeling tired or having little energy: not at all 5. Poor appetite or overeating: not at all 6. Feeling bad about yourself - or that you are a failure or have let yourself or your family down: not at all 7. Trouble concentrating on things, such as reading the newspaper or watching television: not at all 8. Moving or speaking so slowly that other people could have noticed. Or the opposite - being so fidgety or restless that you have been moving around a lot more than usual: not at all 9. Thoughts that you would be better off or of hurting yourself in some way: not at all Total score: 0 Depression Screening Interpretation: Negative Depression Screening Done: Yes Source: Developed by Drs. Dani Rebolledo, Carol Lainez, Roberto Carlos Alejo and colleagues, with an educational donnell from [employer]. Thrive Questionnaire Date Thrive assessed: 07/18/24 I am a: Patient What is your living situation today?: I have a steady place to live Within the past 12 months, did the food you bought not last and you didn't have the money to get more?: Never true Within the past 12 months, did you worry whether your food would run out before you got money to buy more?: Never true Do you have trouble paying for medicines?: Yes Do you have trouble getting transportation to medical appointments?: No Do you have trouble paying your heating and electricity bill?: No Do you have trouble taking care of your child, family member or friend?: No Do you have trouble with day-to-day activities such as bathing, preparing meals, shopping, managing finances, etc.?: No Are you currently unemployed and looking for a job?: No Are you interested in more education?: No Please select the resources that you would like help with: None Currently or been in a relationship where the following occur: No concerns reported THRIVE Score: 0 AUDIT C Alcohol Use Questionnaire (AUDIT-C) 1. How often do you have a drink containing alcohol?: 2-4 times a month 2. How many drinks containing alcohol do you have on a typical day when you are drinking?: 1 or 2 3. How often do you have six or more drinks on one occasion?: Never Total Score: 2 SERVANDO-7 AMB Questionnaire SERVANDO-7 Date SERVANDO - 7 assessed: 04/18/24 Source: Developed by Drs. Dani Rebolledo, Carol Lainez, Roberto Carlos Alejo and colleagues, with an educational donnell from [employer]. Physical exam (Primary Care) Vital Signs: Last Vital Signs Pulse 72 11/01/24 13:51 BP 134/72 11/01/24 13:51 Pulse Ox 98 11/01/24 13:51 Oxygen Delivery Method Room Air 11/01/24 13:51 BMI result Body Mass Index 34.2 Tobacco/Smoking Status: Tobacco use Status Tobacco use date assessed 04/18/24 11/01/24 13:56 Patient Tobacco Use Status Former Tobacco user 11/01/24 13:56 Tobacco use type Cigarette 11/01/24 13:56 e-Cigarette/Vaping Use Never Used 11/01/24 13:56 PHQ-9: PHQ-9 Score PHQ-9: Total score 0 11/01/24 14:32 Depression Screening Interpretation: Negative Thrive Assessment: Date of Thrive Assessment Date Thrive assessed 07/18/24 11/01/24 13:56 Currently or been in a relationship where the following occur: No concerns reported Const General: alert; No acute distress Eyes Conjunctivae: conjunctivae normal Resp Auscultation: clear to auscultation bilaterally Cardio Rate: regular rate Rhythm: regular rhythm GI Inspection: Yes normal to inspection Extrem General: Yes normal to inspection and No edema Coding Level of Care Code Est Pt Level 4 (96569) Complex EM visit Add On G2211 Diagnoses Coronary artery disease involving [place] coronary artery of [place] heart without angina pectoris I25.10 Associated angina: without angina Coronary Disease-Associated Artery/Lesion type: [place] artery [place] vs. transplanted heart: [place] heart Essential hypertension I10 Hypertension type: essential hypertension Cardiac pacemaker in situ Z95.0 Pure hypercholesterolemia E78.00 Hyperlipidemia type: pure hypercholesterolemia Impaired glucose tolerance R73.02 Obesity (BMI 30-39.9) E66.9 Gastroesophageal reflux disease without esophagitis K21.9 Esophagitis presence: without esophagitis Hepatic steatosis K76.0 Restless leg syndrome G25.81 Assessment & Plan Assessment & Plan (1) CAD (coronary artery disease): Comment: drug-eluting stent to proximal -mid LAD in January 2011 for ACS, 3 by 15 mm 10/2024 PCI to LAD Brilinta Code(s): I25.10 - Atherosclerotic heart disease of [place] coronary artery without angina pectoris Category: Medical Qualifiers: Associated angina: without angina Coronary Disease-Associated Artery/Lesion type: [place] artery [place] vs. transplanted heart: [place] heart Qualified Code(s): I25.10 - Atherosclerotic heart disease of [place] coronary artery without angina pectoris Plan: Control the cholesterol, weight, blood pressure, continue with aspirin. Patient just had a PCI October 2024 started on Brilinta 90 mg twice a day for 1 year (2) HTN (hypertension): Code(s): I10 - Essential (primary) hypertension Category: Medical Qualifiers: Hypertension type: essential hypertension Qualified Code(s): I10 - Essential (primary) hypertension Plan: Continue with blood pressure medication. Decrease salt intake and exercise continue with amlodipine metoprolol (3) Cardiac pacemaker in situ: Comment: Medtronic dual-chamber pacemaker placed, 07/30/2023 for syncope and sinus pauses Code(s): Z95.0 - Presence of cardiac pacemaker Category: Medical Plan: Continue to follow up with Cardiology with device checks (4) Hyperlipidemia: Code(s): E78.5 - Hyperlipidemia, unspecified Category: Medical Qualifiers: Hyperlipidemia type: pure hypercholesterolemia Qualified Code(s): E78.00 - Pure hypercholesterolemia, unspecified Plan: Avoid fried foods, chicken skin, eggs, butter margarine, pastries and meat. Be it pork or beef they have a lot of cholesterol LDL goal of less than 60 on rosuvastatin 10 mg once a day (5) Impaired glucose tolerance: Code(s): R73.02 - Impaired glucose tolerance (oral) Category: Medical Plan: Decrease the amount of carbohydrate intake, pasta, bread, rice and potatoes are all sugar and that is aside from all the sweet stuff, remember that fruits are good but they are Sweet also. (6) Obesity (BMI 30-39.9): Code(s): E66.9 - Obesity, unspecified Category: Medical Plan: Diet and exercise (7) GERD (gastroesophageal reflux disease): Code(s): K21.9 - Gastro-esophageal reflux disease without esophagitis Category: Medical Qualifiers: Esophagitis presence: without esophagitis Qualified Code(s): K21.9 - Gastro-esophageal reflux disease without esophagitis Plan: Avoid the foods that causes that usually spicy foods, tomato products, juices, coffee, soda and foods that your sensitive to. After eating do not lie down, allow 3-4 hours before in lie down. And keep the head of bed above 30 degrees to avoid the acid from going up. (8) Hepatic steatosis: Code(s): K76.0 - Fatty (change of) liver, not elsewhere classified Category: Medical Plan: Low-fat diet and exercise (9) Restless leg syndrome: Code(s): G25.81 - Restless legs syndrome Category: Medical Plan: Placed on Keppra citalopram. Follow-up with Neurology. Plan History of Present Illness The patient is a 74-year-old male presenting for a follow-up visit after recent cardiac procedures and ongoing management of multiple chronic conditions. The patient has a history of coronary artery disease and underwent a successful intravascular ultrasound-guided percutaneous coronary intervention (PCI) to the proximal left anterior descending artery (LAD) in October 2024. There was no significant stenosis noted, and the patient continues on aspirin 81 mg and ticagrelor 90 mg twice daily for 12 months post-PCI as part of aggressive secondary risk modification. The patient has a history of sick sinus syndrome and has a pacemaker in place. He also has a history of seizures and is currently on Keppra for management. The patient has been diagnosed with hypercholesterolemia, hypertension, gastroesophageal reflux disease (GERD), benign prostatic hyperplasia (BPH), and generalized anxiety disorder. He is on rosuvastatin 10 mg daily for cholesterol management, amlodipine and metoprolol for blood pressure control, and citalopram for anxiety. The patient has impaired glucose tolerance with a recent blood sugar level of 136 mg/dL and a hemoglobin A1c of 5.8%. He is advised to manage this through diet and exercise. The patient has hepatic steatosis as revealed by an abdominal ultrasound in August 2024. He also has mild thrombocytopenia noted in his last blood work in October 2024. The patient reports engaging in regular physical activity, including walking three miles a day or golfing, and follows a diet focused on weight management. He has been advised to maintain a low-fat diet and avoid snacking on unhealthy foods to manage his weight and glucose levels. Health Maintenance - Colonoscopy last performed in March 2022 - Abdominal ultrasound in August 2024 showing hepatic steatosis - Blood work in October 2024 showing mild thrombocytopenia and normal renal function - Cholesterol management with rosuvastatin, LDL goal of less than 60 mg/dL - Regular physical activity including walking and golfing - Diet focused on weight management and low-fat intake Social History - Exercise: Engages in regular physical activity, including walking three miles a day or golfing. - Nutrition: Follows a diet focused on weight management, avoiding unhealthy snacks and maintaining a low-fat intake. Review of Systems - Cardiovascular: Reports chest pain prior to PCI, denies current chest pain. - Neurological: Reports history of seizures, denies current episodes. - Gastrointestinal: Reports history of GERD, denies current symptoms. - Musculoskeletal: Reports engaging in regular physical activity, denies joint pain. Physical Exam Results - Labs: Blood work in October 2024 showing mild thrombocytopenia, normal renal function, blood sugar of 136 mg/dL, hemoglobin A1c of 5.8%. - Imaging: Abdominal ultrasound in August 2024 showing hepatic steatosis. - Cardiac: Successful PCI to proximal LAD in October 2024, no significant stenosis noted. Plan The patient will continue with aspirin 81 mg and ticagrelor 90 mg twice daily for 12 months post-PCI as part of aggressive secondary risk modification for coronary artery disease. He is advised to maintain a low-fat diet and engage in regular physical activity to manage his weight and glucose levels, with a focus on reducing snacking on unhealthy foods. For hypercholesterolemia, the patient will continue on rosuvastatin 10 mg daily with an LDL goal of less than 60 mg/dL. Blood pressure management will continue with amlodipine and metoprolol. The patient is advised to follow up with cardiology for device checks and continue monitoring his seizure disorder with neurology. He will also follow up with hematology for thrombocytopenia. Patient was informed and verbally consented to the use of an ambient scribe for clinic note documentation during this visit. Discussion Notes During the visit, I discussed with the patient the importance of continuing his current medication regimen, including aspirin and ticagrelor, to manage his coronary artery disease and prevent further cardiac events. We reviewed his dietary habits and emphasized the need for a low-fat diet and regular exercise to manage his weight and glucose levels. I advised him to continue his current medications for hypercholesterolemia and hypertension, and to follow up with cardiology and neurology for ongoing management of his cardiac and seizure conditions. We also discussed the need for follow-up with hematology for his thrombocytopenia. Patient Instructions - Continue taking aspirin 81 mg and ticagrelor 90 mg twice daily as prescribed. - Follow a low-fat diet and engage in regular physical activity. - Avoid snacking on unhealthy foods. - Continue taking rosuvastatin 10 mg daily and monitor cholesterol levels. - Continue taking amlodipine and metoprolol for blood pressure management. - Follow up with cardiology for device checks and neurology for seizure management. - Follow up with hematology for thrombocytopenia. Orders: Orders Complete Blood Count Auto Diff 3 Months I25.10 - Atherosclerotic heart disease of [place] coronary artery without angina pectoris Comprehensive Met. Panel 3 Months I25.10 - Atherosclerotic heart disease of [place] coronary artery without angina pectoris Free T4 (Free Thyroxine) 3 Months I25.10 - Atherosclerotic heart disease of [place] coronary artery without angina pectoris Thyroid Stimulating Hormone 3 Months I25.10 - Atherosclerotic heart disease of [place] coronary artery without angina pectoris Lipid Panel 3 Months E78.00 - Pure hypercholesterolemia, unspecified, I25.10 - Atherosclerotic heart disease of [place] coronary artery without angina pectoris Vitamin B12 and Folate 3 Months I25.10 - Atherosclerotic heart disease of [place] coronary artery without angina pectoris Hemoglobin A1c 3 Months I25.10 - Atherosclerotic heart disease of [place] coronary artery without angina pectoris Magnesium 3 Months I25.10 - Atherosclerotic heart disease of [place] coronary artery without angina pectoris Medications: New ticagrelor 10/2024 90 mg PO BID 60 tabs 0RF
[2024-11-01 13:51] VITALS: BP 134/72; PULSE 72; O2SAT 98; BMI 34.2
--- OUTSIDE RECORDS SUMMARY | 2024-11-01 15:04 | XMS_ITS | Clinical Summary ---
Author Organization [facility] Address [address] [facility] [address] [place] [address] Phone Care Team Providers Care Supervisor Dried Yeast Name Role Phone Skip Chen MD Primary Care Provider Allergies Active Allergy Reactions Criticality Noted Date [...] Not on file Insurance PLAN PLAN PLAN [facility] Care Teams Supervisor Dried Yeast Relationship Specialty Start Date End Date Skip Chen MD [address] [place] [id number] PCP - General 05/13/23 Additional Source Comments The information contained in this document represents components of the legal health record. It is not the complete legal health record.[facility]
== END 2024-11-01 14:52 | disposition home or self-care (01) ==
LOC: HO.HMCH 13:47
PROVIDERS: PCP Internal Medicine; Visit Provider Internal Medicine
DX: I25.10 Atherosclerotic heart disease of native coronary artery without angina pectoris (principal); I10 Essential (primary) hypertension; E66.9 Obesity, unspecified; Z68.34 Body mass index [BMI] 34.0-34.9, adult; Z95.0 Presence of cardiac pacemaker; E78.00 Pure hypercholesterolemia, unspecified; R73.02 Impaired glucose tolerance (oral); K21.9 Gastro-esophageal reflux disease without esophagitis; K76.0 Fatty (change of) liver, not elsewhere classified; G25.81 Restless legs syndrome

== ENCOUNTER 2024-11-10 12:20 | Outpatient (AMB) | payer OTHER, SELFPAY ==
--- NOTE | 2024-11-10 12:34 | A.OFFVIS_ITS ---
Vital Signs 11/10/24 12:35 Height 5 ft 8 in Weight 222 lb 10.67 oz BMI 33.9 BP 132/80 Blood Pressure Location Lt brachial Position Sitting Pulse 77 Intake Visit Reasons: [id number] Attack/Stent Intake Note: Follow-up after [facility] dc stent and medtronic check Children'S Literature Professor Required: No Allergies propoxyphene (From Darvon) Allergy (Severe, Verified 11/01/24 13:51) vomiting/dizziness atorvastatin (Lipitor) Allergy (Intermediate, Verified 11/01/24 13:51) decreased renal function lisinopril (From Zestril) Allergy (Intermediate, Verified 11/01/24 13:51) TROUBLE BREATHING Medication List - Last Reviewed 11/10/24 by EMELY Edwards amlodipine 5 mg PO DAILY aspirin (Adult Low Dose Aspirin) 81 mg PO BID citalopram 40 mg PO DAILY famotidine 20 mg PO BID 90 days levetiracetam (Keppra) 500 mg PO BID 90 days metoprolol succinate ER 25 mg PO DAILY icpxpoziczxt-ixbkwgly-cuzclo 1 tab PO BEDTIME omega 5-dhq-ckx-fish oil 1,200 (144-216) mg (Fish Oil) 1 cap PO DAILY rosuvastatin 10 mg PO DAILY tamsulosin 0.4 mg PO BEDTIME ticagrelor 90 mg PO BID HPI Comments Details: Hugh comes for follow-up after recent hospitalization with unstable angina. He was driving his car in his sudden developed acute chest pain with shortness of breath and came to the emergency room. His EKGs and troponins were normal however given his symptoms in his prior CAD was transferred for cardiac catheterization for unstable angina and was noted to have 80% paroxysmal LAD stenosis which was reduced to 0% with a drug-eluting stent. Patient since then says feels better. He is not having that shortness of breath that he was complaining last time I saw him in the clinic. He has had no recurrent chest pain. Although he is taking extreme caution while he is playing golf and is riding a cart. He takes his medications. His LDL in June was extremely well optimized at 59 on current statin dose. He is currently on dual antiplatelet therapy. Denies any palpitations. No heart failure symptoms. His echocardiogram post PCI showed normal LV ejection fraction with no major valvular abnormalities. [facility] Medical History (Updated 11/10/24 @ 13:01 by Curt Hamlin MD) Unstable angina Periodic limb movement disorder Restless leg syndrome Depression Chest pain, unspecified Anxiety and depression CAD (coronary artery disease) Implantable loop recorder present Cardiac pacemaker in situ Seizures Mood swings COVID-19 vaccine series completed Impaired glucose tolerance Diverticular disease GERD (gastroesophageal reflux disease) BPH (benign prostatic hyperplasia) Insomnia Asbestos exposure Peripheral vascular disease Obesity (BMI 30-39.9) Tubular adenoma of colon Hyperlipidemia HTN (hypertension) Surgical History H/O umbilical hernia repair Hx of blepharoplasty H/O colonoscopy Hx of heart artery stent History of tumor History of right knee surgery Hx of thumb surgery Family History Father CVD (cardiovascular disease) Melanoma Mother CVD (cardiovascular disease) Pancreatic cancer Hypertension Diabetes Brother No problems noted. Sister No problems noted. Son No problems noted. Daughter No problems noted. Social History Household Members: Spouse and Family [facility] Are you a primary manager career to a significant other at home: No Do you presently have visiting nurse or other home services: No Alcohol intake: current Alcohol intake frequency: holidays/special occasions only Patient Tobacco Use Status: Former Tobacco user Tobacco use type: Cigarette e-Cigarette/Vaping Use: Never Used Second Hand Smoke Exposure: Yes service: Yes Current occupational status: retired Cognitive needs: No Hearing needs: No Vision needs: Yes Review of Systems Const Denies chills, Denies fatigue, Denies fever(s), Denies frequent falls, Denies w eakness, Denies weight gain and Denies weight loss ENT Denies dizziness Card Denies chest pain, Denies leg edema, Denies lightheadedness, Denies palpi tations, Denies dyspnea, Denies dyspnea on exertion, Denies orthopnea and Denies other (loss of consciousness) Resp Denies cough, Denies dyspnea and Denies dyspnea on exertion GI Denies hematochezia and Denies change in stool character Musc Denies abnormal gait, Denies muscle weakness, Denies numbness, Denies radiating pain into limb and Denies tingling Neuro Denies abnormal gait, Denies dizziness, Denies frequent falls, Denies numbness, Denies tingling and Denies weakness Endo Denies fatigue and Denies palpitations Physical Exam Vital Signs: Last Vital Signs Pulse 77 11/10/24 12:35 BP 132/80 11/10/24 12:35 BMI result Body Mass Index 33.9 Office Procedures Cardiac Device Check Cardiac Device Check Details: Dual-chamber Medtronic pacemaker in place. Programmed in MVP mode with rate response at 60 beats per minute. Atrial pacing 98% of the time. No arrhythmias noted. Atrial and ventricular pacing thresholds are stable and reprogrammed to provide adequate safety as well as enhance battery life respectively. Atrial ventricular sensing is adequate. Pacing lead impedance is stable. Battery life is excellent [id number] Cardiac Device Check, pacemaker dual lead Procedure code (CPT) selection complete Assessment & Plan Assessment & Plan (1) CAD (coronary artery disease): Comment: drug-eluting stent to proximal -mid LAD in January 2011 for ACS, 3 by 15 mm 10/2024 PCI to LAD Brilinta Code(s): I25.10 - Atherosclerotic heart disease of [place] coronary artery without angina pectoris Category: Medical Qualifiers: Coronary Disease-Associated Artery/Lesion type: [place] artery [place] vs. transplanted heart: [place] heart Associated angina: without angina Qualified Code(s): I25.10 - Atherosclerotic heart disease of [place] coronary artery without angina pectoris Plan: CAD with recurrent symptoms suggestive of unstable angina with symptoms at rest status post PCI to the proximal LAD. Doing very well at current point time. I have advised him strongly to continue dual antiplatelet therapy uninterrupted for at least 1 year. Will refer him to phase 2 cardiac rehabilitation to improve his exercise capacity and confidence. Will repeat lipid panel in 6 weeks time and will most likely need further intensification of lipid therapy to target goal LDL less than 50 mg/dL. Will discussed with him. Encouraged to continue to participate in regular exercise activity and weight loss program. He is very motivated about the same. (2) Cardiac pacemaker in situ: Comment: Medtronic dual-chamber pacemaker placed, 07/30/2023 for syncope and sinus pauses Code(s): Z95.0 - Presence of cardiac pacemaker Category: Medical Plan: Cardiac pacemaker in-situ for sick sinus syndrome. Pacemaker is working well. Reprogrammed for adequate functioning. Will follow up in 3 months. (3) HTN (hypertension): Code(s): I10 - Essential (primary) hypertension Category: Medical Qualifiers: Hypertension type: essential hypertension Qualified Code(s): I10 - Essential (primary) hypertension Plan: Hypertension which is currently well optimized advised to monitor blood pressure at home maintain a log. Continue current therapy with amlodipine and metoprolol. Importance of good medical therapy and aggressive blood pressure control was discussed. Target goal blood pressure less than 130/84. Low-salt diet was discussed. Will follow up in the clinic in 3 months time, sooner PRN. Thank you for allo wing me to partake in his care Orders: Orders Cardiac Rehab Today I20.0 - Unstable angina Lipid Panel 6 Weeks I25.10 - Atherosclerotic heart disease of [place] coronary artery without angina pectoris Medications: Refilled ticagrelor 10/2024 90 mg PO BID 180 tabs 3RF I25.10 - Atherosclerotic heart disease of [place] coronary artery without angina pectoris Coding Level of Care Code Est Pt Level 4 (67917) Complex EM visit Add On G2211 Diagnoses Coronary artery disease involving [place] coronary artery of [place] heart without angina pectoris I25.10 Coronary Disease-Associated Artery/Lesion type: [place] artery [place] vs. transplanted heart: [place] heart Associated angina: without angina Cardiac pacemaker in situ Z95.0 Essential hypertension I10 Hypertension type: essential hypertension CPT Codes Cardiac Device Check - Cardiac Device 2: [id number] Cardiac Device Check, pacemaker dual lead ([id number])
[2024-11-10 12:35] VITALS: BP 132/80; PULSE 77; BMI 33.9
--- OUTSIDE RECORDS SUMMARY | 2024-11-10 13:09 | XMS_ITS | Continuity of Care Document ---
Author Name [facility] Organization [facility] Care Team Providers Care Toll Transmission Worker Name Role Phone [facility] Unavailable Unavailable Allergies, Adverse Reactions, Alerts Combined list of allergies from Department of Defense and Veterans Affairs facilities. It does not include entries that were removed or entered in error. Substance Category Reaction Severity Reaction type Status Date Reported Comments Source No Known Allergies Drug allergy (disorder) active 06/24/2007 [facility] [place] Immun[place] Combined list of available immunizations from the Department of Defense and Veterans Affairs facilities. Immunization Series Date Given Administered By Site Reaction Lot Number CVX Code Drug Telecommunications Repairer Status Comments Source COVID-19 (MODERNA), MRNA, LNP-S, PF, 100 MCG/0.5 ML DOSE 2 2020 207 complet ed MOD; [id number]; 1 [facility] COVID-19 (MODERNA), MRNA, LNP-S, PF, 100 MCG/0.5 ML DOSE 1 2020 207 complet ed MOD; [id number]; 1 [facility] INFLUENZA, INJECTABLE, MDCK, PRESERVATIVE FREE, QUADRIVALENT 2018 171 complet ed 02, Partner: [facility]. Administe red by: [facility] Clinician (NPI=Not Provided) . Partner 1 Lot#: [id number] Mfr: SEQIRUS [facility] influenza virus vaccine, split virus (incl. purified surface antigen)-reti red CODE 1 2007 Unknown, Provider [id number] 15 [employer] (SKB) complet ed influenza virus vaccine, split virus (incl. purified surface antigen)- retired CODE DoD typhoid Vi capsular polysaccharid e vaccine 1 2007 Unknown, Provider [id number] Sanofi Pasteur ([facility]) complet ed typhoid Vi capsular polysacch aride vaccine DoD influenza virus vaccine, split virus (incl. purified surface antigen)-reti red CODE 1 2006 Unknown, Provider [id number] [address] [facility] (SKB) complet ed influenza virus vaccine, split virus (incl. purified surface antigen)- retired CODE DoD influenza virus vaccine, split virus (incl. purified surface antigen)-reti red CODE 1 2005 Unknown, Provider [id number] 15 Other (OT) complet ed influenza virus vaccine, split virus (incl. purified surface antigen)- retired CODE DoD typhoid vaccine, parenteral, other than acetone-kille d, dried 1 2005 Unknown, Provider [id number] Sanofi Pasteur ([facility]) complet ed typhoid vaccine, parentera l, other than acetone-k illed, dried DoD influenza virus vaccine, split virus (incl. purified surface antigen)-reti red CODE 1 2004 Unknown, Provider [id number] 15 Sanofi Pasteur ([facility]) complet ed influenza virus vaccine, split virus (incl. purified surface antigen)- retired CODE DoD influenza virus vaccine, whole virus 1 2004 Unknown, Provider [id number] 16 Marci ([facility]) complet ed influenza virus vaccine, whole virus DoD typhoid vaccine, parenteral, other than acetone-kille d, dried 1 2003 Unknown, Provider [id number] Sanofi Pasteur ([facility]) complet ed typhoid vaccine, parentera l, other than acetone-k illed, dried DoD influenza virus vaccine, whole virus 1 2002 Unknown, Provider [id number] 16 Sanofi Pasteur ([facility]) complet ed influenza virus vaccine, whole virus DoD tuberculin skin test; purified protein derivative solution, intradermal 1 2002 Unknown, Provider [id number] 96 Sanofi Pasteur ([facility]) complet ed tuberculi n skin test; purified protein derivativ e solution, intraderm al DoD influenza virus vaccine, whole virus 1 2001 Unknown, Provider [id number] 16 Sanofi Pasteur ([facility]) complet ed influenza virus vaccine, whole virus DoD tuberculin skin test; purified protein derivative solution, intradermal 1 2001 Unknown, Provider [id number] 96 Sanofi Pasteur ([facility]) complet ed tuberculi n skin test; purified protein derivativ e solution, intraderm al DoD influenza virus vaccine, whole virus 1 2000 Unknown, Provider [id number] 16 Sanofi Pasteur ([facility]) complet ed influenza virus vaccine, whole virus DoD tuberculin skin test; purified protein derivative solution, intradermal 1 2000 Unknown, Provider [id number] 96 Sanofi Pasteur ([facility]) complet ed tuberculi n skin test; [...] vaccine, whole virus 1 2000 Unknown, Provider [id number] 16 Marci ([facility]) complet ed influenza virus vaccine, whole virus DoD hepatitis A vaccine, adult dosage 2 1999 Unknown, Provider [id number] Merck (MSD) complet ed hepatitis A vaccine, adult dosage DoD tuberculin skin test; purified protein derivative solution, intradermal 1 1999 Unknown, Provider [id number] 96 Sameeradamian (CON) complet ed tuberculi n skin test; purified protein derivativ e solution, intraderm al DoD influenza virus vaccine, whole virus 1 1998 Unknown, Provider [id number] 16 Marci ([facility]) complet ed influenza virus vaccine, whole virus DoD measles, mumps and rubella virus vaccine 2 1997 Unknown, Provider [id number] [place] ([place]) complet ed measles, mumps and rubella virus vaccine DoD influenza virus vaccine, whole virus 2 1997 Unknown, Provider [id number] 16 Mino (CON) complet ed influenza virus vaccine, whole virus DoD typhoid vaccine, live, oral 3 1997 Unknown, Provider [id number] 25 Jazmyne (BP) complet ed typhoid vaccine, live, oral DoD meningococcal polysaccharid e vaccine (MPSV4) 1 1997 Unknown, Provider [id number] 32 Mino (CON) complet ed meningoco ccal polysacch aride vaccine (MPSV4) DoD yellow fever vaccine 2 1997 Unknown, Provider [id number] 37 Mino (CON) complet ed yellow fever vaccine [facility] hepatitis A vaccine, adult dosage 1 1997 Unknown, Provider [id number] [address] [place] [address] (SKB) complet ed hepatitis A vaccine, adult [...] and 2 Lf of diphtheri a toxoid) [facility] typhoid vaccine, parenteral, acetone-kille d, dried ([place] ) 1 1984 Unknown, Provider 53 () complet typhoid vaccine, parentera l, acetone-k illed, dried ([place] ) DoD yellow fever vaccine 1 1981 Unknown, Provider 37 () complet yellow fever vaccine [facility] cholera vaccine, unspecified formulation 1 1970 Unknown, Provider 26 () complet ed cholera vaccine, unspecifi ed formulati on DoD trivalent poliovirus vaccine, live, oral 1 1967 Unknown, Provider 02 () complet ed trivalent polioviru s vaccine, live, oral [facility] Procedures Combined list of: 1) Procedures from Department of Veterans Affairs facilities going back up to thelast 18 months, not all VA non-surgical procedures are included; 2) All procedures from the Department of Defense facilities. Procedure Procedure Type Code Date Perfomer Comments Kostas e KNEE ORTHOSIS (KO), ELASTIC OR OTHER ELASTIC TYPE MATERIAL WITH CONDYLAR PAD(S), PREFABRICATED, INCLUDES FITTING AND ADJUSTMENT 01/05/2002 [facility] Social History Combined list of available smoking, tobacco, and other social history from Department of Defense and Veterans Affairs facilities. Social History Type Response Date Comment Kostas quach This section is an empty social history section. DoD
--- OUTSIDE RECORDS SUMMARY | 2024-11-10 13:13 | XMS_ITS | Clinical Summary ---
Author Organization [facility] Address [address] [place] [address] Phone Care Team Providers Care Soil Conservation Aide Name Role Phone Skip Chen MD Primary Care Provider [phone] Allergies Active Allergy Reactions Criticality Noted Date [...] Not on file Insurance PLAN PLAN PLAN [facility] PLAN [facility] Care Teams Soil Conservation Aide Relationship Specialty Start Date End Date Skip Chen MD [address] [place] [id number] PCP - General 05/13/23 Additional Source Comments The information contained in this document represents components of the legal health record. It is not the complete legal health record.[facility]
== END 2024-11-10 12:58 | disposition home or self-care (01) ==
LOC: HO.HCS 12:21
PROVIDERS: PCP Internal Medicine; Visit Provider Internal Medicine Cardiovascular Disease
DX: I25.10 Atherosclerotic heart disease of native coronary artery without angina pectoris (principal); Z95.0 Presence of cardiac pacemaker; I10 Essential (primary) hypertension
CPT/HCPCS: 93280; 99214

== ENCOUNTER → 2024-11-10 12:20 | Outpatient (BNVA) | payer OTHER, SELFPAY | PROVIDERS: PCP Internal Medicine; Visit Provider Internal Medicine Cardiovascular Disease | DX: Z45.010 Encounter for checking and testing of cardiac pacemaker pulse generator [battery] (principal); I25.10 Atherosclerotic heart disease of native coronary artery without angina pectoris; I10 Essential (primary) hypertension | CPT/HCPCS: 93280; 99212 ==

== ENCOUNTER → 2024-11-14 23:59 | Outpatient (BNV) | payer OTHER, SELFPAY ==
--- NOTE | 2024-11-16 15:03 | MHC.OFFVIS ---
Intake Visit Reasons: Remote device check- Medtronic Allergies propoxyphene (From Darvon) Allergy (Severe, Verified 11/01/24 13:51) vomiting/dizziness atorvastatin (Lipitor) Allergy (Intermediate, Verified 11/01/24 13:51) decreased renal function lisinopril (From Zestril) Allergy (Intermediate, Verified 11/01/24 13:51) TROUBLE BREATHING PFSH Medical History (Updated 11/10/24 @ 13:01 by Curt Hamlin MD) Unstable angina Periodic limb movement disorder Restless leg syndrome Depression Chest pain, unspecified Anxiety and depression CAD (coronary artery disease) Implantable loop recorder present Cardiac pacemaker in situ Seizures Mood swings COVID-19 vaccine series completed Impaired glucose tolerance Diverticular disease GERD (gastroesophageal reflux disease) BPH (benign prostatic hyperplasia) Insomnia Asbestos exposure Peripheral vascular disease Obesity (BMI 30-39.9) Tubular adenoma of colon Hyperlipidemia HTN (hypertension) Surgical History H/O umbilical hernia repair Hx of blepharoplasty H/O colonoscopy Hx of heart artery stent History of tumor History of right knee surgery Hx of thumb surgery Family History Father CVD (cardiovascular disease) Melanoma Mother CVD (cardiovascular disease) Pancreatic cancer Hypertension Diabetes Brother No problems noted. Sister No problems noted. Son No problems noted. Daughter No problems noted. Social History Household Members: Spouse and Family Housing: Condominium Are you a primary acute care registered nurse to a significant other at home: No Do you presently have visiting nurse or other home services: No Alcohol intake: current Alcohol intake frequency: holidays/special occasions only Patient Tobacco Use Status: Former Tobacco user Tobacco use type: Cigarette e-Cigarette/Vaping Use: Never Used Second Hand Smoke Exposure: Yes service: Yes Current occupational status: retired Cognitive needs: No Hearing needs: No Vision needs: Yes Office Procedures Cardiac Device Check Cardiac Device Check Details: Remote pacemaker report generated 11/14/2024. Pacemaker function is adequate [id number] Cardiac Device Interrogation, pacemaker Procedure code (CPT) selection complete Assessment & Plan Assessment & Plan (1) Cardiac pacemaker in situ: Comment: Medtronic dual-chamber pacemaker placed, 07/30/2023 for syncope and sinus pauses Code(s): Z95.0 - Presence of cardiac pacemaker Category: Medical Plan: See above Coding Level of Care Code Procedure Only Diagnoses Cardiac pacemaker in situ Z95.0 CPT Codes Cardiac Device Check - Cardiac Device 12: [id number] Cardiac Device Interrogation, pacemaker ([id number])
== END ==
PROVIDERS: PCP Internal Medicine; Visit Provider Internal Medicine Cardiovascular Disease
DX: I49.9 Cardiac arrhythmia, unspecified (principal); Z95.0 Presence of cardiac pacemaker; R55 Syncope and collapse
CPT/HCPCS: 93294

== ENCOUNTER 2025-01-31 13:24 | Outpatient (AMB) | payer OTHER, SELFPAY ==
--- NOTE | 2025-01-31 13:28 | MHC.OFFVISPS ---
Intake Intake Visit Reasons: consultation Health Services Manager Required: No Allergies propoxyphene (From Darvon) Allergy (Severe, Verified 02/21/25 11:19) vomiting/dizziness atorvastatin (Lipitor) Allergy (Intermediate, Verified 02/21/25 11:19) decreased renal function lisinopril (From Zestril) Allergy (Intermediate, Verified 02/21/25 11:19) TROUBLE BREATHING Medication List - Last Reconciled 01/31/25 by Mary Baca APRN amlodipine 5 mg PO DAILY aspirin (Adult Low Dose Aspirin) 81 mg PO BID citalopram 40 mg PO DAILY famotidine 20 mg PO BID 90 days levetiracetam (Keppra) 500 mg PO BID 90 days metoprolol succinate ER 25 mg PO DAILY lbxgafsatntb-rpebfnft-yoqpro 1 tab PO BEDTIME omega 7-fdp-hcl-fish oil 1,200 (144-216) mg (Fish Oil) 1 cap PO DAILY rosuvastatin 10 mg PO DAILY tamsulosin 0.4 mg PO BEDTIME ticagrelor 90 mg PO BID HPI- Psychiatric Chief Complaint: consultation HPI Narrative: Pt referred by PCP for evaluation and medication optimization. pt with depression, currently on citalopram 40mg. Pt had an elevated PHQ-9 at cardiac rehab, and reported ongoing symptoms of depression despite taking medications. Pt reports years of depression and anger since joining the [employer]. He describes difficulty being from family as the biggest trigger for his depression and anger. he also reports years of reactivity to percieved stupidity. He gets very angry when he thinks others are doing stupid things or doing things incorrectly. He feels that he may have PTSD. 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 He experienced high stress when his parents became ill while he was deployed and when he was away from his tonio. he often had to seek out the blood donor unit assistant to get help and contact his who was also unhappy with the distance. He caretakes his who has many medical problems and his adult daughter who has a drug addiction. he has has 12 yr old grandson who lives with him, his and his newly sober 52 yr old daughter. He reports feeling anxious, edgy, agitated, irritable every day. He says he is mad at the world. He says everything seems to make him mad. Past Psychiatric History: outpt celexa, no other meds tried. No IPLOC Subjective Subjective Medication Compliance: Yes Side effects from medications: No Review of Systems Medical Review of Systems: unchanged Mental Status Exam Mental Status Exam Patient Appearance: Well Grooomed and Appropriate Patient Orientation: Person, Place, Time and Situation Level of Consciousness: Awake, Appropriate and Alert Patient Behavior: Appropriate, Cooperative and Anxious Mood Description: Depressed, Anxious and Sad Affect Description: Depressed, Anxious and Nervous Patient Cognition Impaired: No Ability to Follow Directions: Good Speech Pattern: Clear and Appropriate Memory Description: Intact Hallucinations: None Delusions: Not Present Thought Process: Intact, Rumination and Goal Oriented Thought Content: positive for Intact, positive for Goal Oriented and positive for Preoccupation Judgement: Good Assessment and Plan Assessment & Plan (1) Generalized anxiety disorder: Status: Acute Code(s): F41.1 - Generalized anxiety disorder (2) Major depression: Status: Acute Qualifiers: Major depression recurrence: recurrent Major depression episode severity: moderate Code(s): F32.9 - Major depressive disorder, single episode, unspecified Plan taper celexa consier zoloft or lamictal Counseling and coordination of Care Pt. Self Management counseling: General coping skills Medication management counseling: Effectiveness, Side effects, Dosing range, Duration, Drug interaction and Adherence Diagnosis and Prognosis Counseling: Accuracy of diagnosis, Prognosis over time, Impact of diagnosis on life functions, Impact of family relationship, Problematic behaviors secondary to diagnosis and Adequacy of current interventions Details: I spent [] minutes reviewing the record, seeing the patient and documenting in the medical record. Counseling provided to the patient/caregiver as outlined below. Addressed patient/caregiver concerns regarding current medication regime including effective adherence. Addressed patient/caregiver concerns regarding diagnosis and prognosis including accuracy of diagnosis, prognosis over time, impact of diagnosis. Addressed patient/caregiver concerns regarding impact of recent stressors. [facility] Medical History (Updated 02/21/25 @ 13:02 by Mary Baca APRN) Unstable angina Periodic limb movement disorder Restless leg syndrome Depression Chest pain, unspecified Anxiety and depression CAD (coronary artery disease) Implantable loop recorder present Cardiac pacemaker in situ Seizures Mood swings COVID-19 vaccine series completed Impaired glucose tolerance Diverticular disease GERD (gastroesophageal reflux disease) BPH (benign prostatic hyperplasia) Insomnia Asbestos exposure Peripheral vascular disease Obesity (BMI 30-39.9) Tubular adenoma of colon Hyperlipidemia HTN (hypertension) Surgical History H/O umbilical hernia repair Hx of blepharoplasty H/O colonoscopy Hx of heart artery stent History of tumor History of right knee surgery Hx of thumb surgery Family History Father CVD (cardiovascular disease) Melanoma Mother CVD (cardiovascular disease) Pancreatic cancer Hypertension Diabetes Brother No problems noted. Sister No problems noted. Son No problems noted. Daughter No problems noted. Social History Household Members: Spouse and Family Housing: Condominium Are you a primary home health aide caregiver to a significant other at home: No Do you presently have visiting nurse or other home services: No Alcohol intake: current Alcohol intake frequency: holidays/special occasions only Patient Tobacco Use Status: Former Tobacco user Tobacco use type: Cigarette e-Cigarette/Vaping Use: Never Used Second Hand Smoke Exposure: Yes service: Yes Current occupational status: retired Cognitive needs: No Hearing needs: No Vision needs: Yes Social History: lives with , adult daughter and 21 yr old grandson Substance History: wine 2-3 times a month; no other drug use. Trauma History: loss of parents age 18 while away in Coding Level of Care Code Psych Diag Eval w/Med (27792) Diagnoses Generalized anxiety disorder F41.1 Major depression F32.9 Major depression recurrence: recurrent Major depression episode severity: moderate
--- OUTSIDE RECORDS SUMMARY | 2025-02-01 06:17 | XMS_ITS | Clinical Summary ---
Author Organization [facility] Address [address] [place] [address] Phone Care Team Providers Care Log Sorting Supervisor Name Role Phone Skip Chen MD Primary Care Provider [phone] Allergies Active Allergy Reactions Criticality Noted Date [...] INFLUENZA VACCINE (#1) 2024 COVID-19 VACCINE ( 2024-2 6 season) 2024 HEPATITIS A VACCINES Aged Out No long er eligible based on patient's age to complete this topic HIB VACCINES Aged Out No longer eligi ble based on patient's age to complete this topic IPV VACCINES Aged Out No longer eligi ble based on patient's age to complete this topic MENINGOCOCCAL VACCINES (ACWY) Aged Out No longer eligible based on patient's age to complete this topic MENINGOCOCCAL VACCINES (B) Aged Out N o longer eligible based on patient's age to complete this topic Medical Devices Not on file Insurance PLAN PLAN PLAN Care Teams Log Sorting Supervisor Relationship Specialty Start Date End Date Skip Chen MD [address] [place] [address] PCP - General 05/13/23 Additional Source Comments The information contained in this document represents components of the legal health record. It is not the complete legal health record.[facility]
== END 2025-01-31 15:12 | disposition home or self-care (01) ==
LOC: HO.HOP 13:24
PROVIDERS: PCP Internal Medicine; Visit Provider Clinical Nurse Specialist Psychiatric/Mental Health
DX: F41.1 Generalized anxiety disorder (principal); F32.9 Major depressive disorder, single episode, unspecified
CPT/HCPCS: 90792

== ENCOUNTER → 2025-01-31 13:24 | Outpatient (BNVA) | payer OTHER, SELFPAY | PROVIDERS: PCP Internal Medicine; Visit Provider Clinical Nurse Specialist Psychiatric/Mental Health | DX: F41.1 Generalized anxiety disorder (principal); F32.9 Major depressive disorder, single episode, unspecified | CPT/HCPCS: 90792 ==

== ENCOUNTER 2025-02-13 08:08 | Outpatient (REF) | payer OTHER, SELFPAY ==
--- OUTSIDE RECORDS SUMMARY | 2025-02-13 08:19 | XMS_ITS | Clinical Summary ---
Author Organization [facility] Address [address] [place] [address] Phone Care Team Providers Care Liquor Bridge Operator Name Role Phone Skip Chen MD Primary Care Provider [phone] Allergies Active Allergy Reactions Criticality Noted Date [...] topic Medical Devices Not on file [place] [place] [id number] PL[employer] PLAN Care Teams Liquor Bridge Operator Relationship Specialty Start Date End Date Skip Chen MD [address] [place] [address] PCP - General 05/13/23 Additional Source Comments The information contained in this document represents components of the legal health record. It is not the complete legal health record.[facility]
[2025-02-13 08:23] LABS: MANUAL DIFF FLAG NO
[2025-02-13 08:42] LABS: Hematocrit 44.7 % (42.0-52.0); Hemoglobin 15.3 g/dl (14.0-18.0); Imm Gran Abs Auto 0.05 X10*3/uL (0.00-0.03); Imm Gran Pct Auto 0.9 % (0.0-0.4); Lymphocytes Absolute Auto 1.4 X10*3/uL (1.2-4.9); Mean Corpuscular HGB Conc 34.2 g/dl (31.0-36.0); Mean Corpuscular Hemoglobin 31.8 pg (27.0-33.0); Mean Corpuscular Volume 92.9 fL (80.0-98.0); NRBC Abs Auto 0.000 X10*3/uL (0.0-0.012); NRBC Pct Auto 0.0 /100WBC (0.0-0.2); Platelet Count 154 X10*3/uL (160-400); Red Blood Count 4.81 X10*6/uL (4.60-5.80); White Blood Count 5.3 X10*3/uL (4.8-10.8)
[2025-02-13 09:28] LABS: Alanine Aminotransferase 77 U/L (0-40); Albumin Level 4.6 g/dL (3.5-5.0); Alkaline Phosphatase 70 U/L (39-117); Anion Gap 14 (12-20); Aspartate Amino Transferase 38 U/L (5-37); Blood Urea Nitrogen 19 mg/dL (9-16); Calcium 9.4 mg/dL (8.4-10.2); Carbon Dioxide 21 mmol/L (22-29); Chloride 112 mmol/L (96-108); Cholesterol 118 mg/dL (<200); Estimated Glomerular Filt Rate > 60; HDL Cholesterol 42 mg/dL (>40); Magnesium 1.9 mg/dL (1.6-2.6); Potassium 3.8 mmol/L (3.3-5.1); Sodium 143 mmol/L (135-145); Total Protein 7.2 g/dL (6.5-8.0); Triglycerides 189 mg/dL (<150)
[2025-02-13 09:45] LABS: Free T4 (Free Thyroxine) 0.78 ng/dL (0.71-1.85); Thyroid Stimulating Hormone 3.69 uIU/mL (0.32-4.0)
[2025-02-13 09:49] LABS: Folate 15.0 ng/mL (> or = 4.0); Vitamin B12 724 pg/mL (200-900)
== END 2025-02-13 08:09 | disposition home or self-care (01) ==
LOC: HO.LAB 08:08
PROVIDERS: PCP Internal Medicine; Visit Provider Internal Medicine
DX: I25.10 Atherosclerotic heart disease of native coronary artery without angina pectoris (principal); E78.00 Pure hypercholesterolemia, unspecified; Z13.1 Encounter for screening for diabetes mellitus
CPT/HCPCS: 36415; 80053; 80061; 82607; 82746; 83036; 83735; 84439; 84443; 85025

== ENCOUNTER 2025-02-21 10:34 | Outpatient (AMB) | payer OTHER, SELFPAY ==
--- NOTE | 2025-02-21 11:19 | A.OFFPC_ITS ---
Vital Signs 02/21/25 11:20 Height 5 ft 8 in Weight 220 lb BMI 33.4 BP 124/76 Blood Pressure Location Lt brachial Position Sitting Respiration 20 Pulse 97 Pulse Source Pulse Oximeter Temp 97.9 F Temp Source Temporal Artery Scan Pulse Oximetry (%) 98 Oxygen Delivery Method Room Air Intake Visit Reasons: 3 mo follow up cad Final Inspector And Tester Required: No Accompanied by: Self / Same As Patient Allergies propoxyphene (From Darvon) Allergy (Severe, Verified 02/21/25 11:19) vomiting/dizziness atorvastatin (Lipitor) Allergy (Intermediate, Verified 02/21/25 11:19) decreased renal function lisinopril (From Zestril) Allergy (Intermediate, Verified 02/21/25 11:19) TROUBLE BREATHING Medication List - Last Reconciled 02/21/25 by Miriam Olsen MD amlodipine 5 mg PO DAILY aspirin (Adult Low Dose Aspirin) 81 mg PO BID citalopram 20 mg PO DAILY famotidine 20 mg PO BID 90 days levetiracetam (Keppra) 500 mg PO BID 90 days metoprolol succinate ER 25 mg PO DAILY lllcjowvqssm-kaqznhit-wlxnwi 1 tab PO BEDTIME omega 8-jyk-rch-fish oil 1,200 (144-216) mg (Fish Oil) 1 cap PO DAILY rosuvastatin 10 mg PO DAILY tamsulosin 0.4 mg PO BEDTIME ticagrelor 90 mg PO BID Tobacco use date assessed: 04/18/24 Fall risk assessment: No Falls in past year Last assessed Fall Risk: 02/21/25 Dental Screening Dental Screen Date: 04/18/24 HPI HPI Comments History of Present Illness Details Patient is a 74-year-old male with past medical history remarkable for CAD s/p drug-eluting stent in 2010 and recent PCI to LAD in October 2024, pacemaker in place, hypertension, hyperlipidemia, impaired glucose intolerance, GERD, and anxiety Patient reports that he is following with a psychiatrist for anxiety, recently decreased his citalopram from 40 mg to 20 mg. He is following up with them today. In regards to his cardiac history, patient with history of CAD, underwent PCI to LAD in October 2024, for which he is on aspirin 81 mg and Brilinta 90 mg twice daily. He is following with Cardiology and currently participating in cardiac rehabilitation. Echocardiogram from 10/26/2024 showed normal left ventricular size and systolic function with EF at% without evidence of regional wall motion abnormalities. He feels well, without symptoms of chest pain, trouble breathing, or palpitations or lower extremity swelling. Also reports making dietary changes to healthier options, and continue to steadily lose weight Recent blood work from 02/13/2025 showed normal blood counts, electrolytes, kidney function, thyroid levels, normal cholesterol with well-controlled LDL at goal of 39. His LFTs though was noted to be slightly elevated. Patient denies regular alcohol intake, maybe twice a month. [facility] Medical History (Updated 02/21/25 @ 13:02 by Mary Baca APRN) Unstable angina Periodic limb movement disorder Restless leg syndrome Depression Chest pain, unspecified Anxiety and depression CAD (coronary artery disease) Implantable loop recorder present Cardiac pacemaker in situ Seizures Mood swings COVID-19 vaccine series completed Impaired glucose tolerance Diverticular disease GERD (gastroesophageal reflux disease) BPH (benign prostatic hyperplasia) Insomnia Asbestos exposure Peripheral vascular disease Obesity (BMI 30-39.9) Tubular adenoma of colon Hyperlipidemia HTN (hypertension) Surgical History H/O umbilical hernia repair Hx of blepharoplasty H/O colonoscopy Hx of heart artery stent History of tumor History of right knee surgery Hx of thumb surgery Family History Father CVD (cardiovascular disease) Melanoma Mother CVD (cardiovascular disease) Pancreatic cancer Hypertension Diabetes Brother No problems noted. Sister No problems noted. Son No problems noted. Daughter No problems noted. Social History Household Members: Spouse and Family Housing: Condominium Are you a primary child caregiver private home to a significant other at home: No Do you presently have visiting nurse or other home services: No Alcohol intake: current Alcohol intake frequency: holidays/special occasions only Patient Tobacco Use Status: Former Tobacco user Tobacco use type: Cigarette e-Cigarette/Vaping Use: Never Used Second Hand Smoke Exposure: Yes service: Yes Current occupational status: retired Cognitive needs: No Hearing needs: No Vision needs: Yes Questionnaire Thrive Questionnaire Date Thrive assessed: 07/18/24 I am a: Patient What is your living situation today?: I have a steady place to live Within the past 12 months, did the food you bought not last and you didn't have the money to get more?: Never true Within the past 12 months, did you worry whether your food would run out before you got money to buy more?: Never true Do you have trouble paying for medicines?: Yes Do you have trouble getting transportation to medical appointments?: No Do you have trouble paying your heating and electricity bill?: No Do you have trouble taking care of your child, family member or friend?: No Do you have trouble with day-to-day activities such as bathing, preparing meals, shopping, managing finances, etc.?: No Are you currently unemployed and looking for a job?: No Are you interested in more education?: No Please select the resources that you would like help with: None Currently or been in a relationship where the following occur: No concerns reported THRIVE Score: 0 SERVANDO-7 AMB Questionnaire SERVANDO-7 Date SERVANDO - 7 assessed: 04/18/24 Source: Developed by Drs. Dani Rebolledo, Carol Lainez, Roberto Carlos Alejo and colleagues, with an educational donnell from [employer]. Physical exam (Primary Care) Vital Signs: Last Vital Signs Temp 97.9 F 02/21/25 11:20 Pulse 97 02/21/25 11:20 Resp 20 02/21/25 11:20 BP 124/76 02/21/25 11:20 Pulse Ox 98 02/21/25 11:20 Oxygen Delivery Method Room Air 02/21/25 11:20 General: Well-appearing, alert, oriented ?3, in no acute distress. Cardiovascular: RRR, S1-S2 appreciated, no murmurs, rubs or gallops. Respiratory: Lungs clear to auscultation bilaterally, no wheezes, rales or rhonchi. Abdomen: Soft, nontender, nondistended. Normoactive bowel sounds. BMI result Body Mass Index 33.4 Tobacco/Smoking Status: Tobacco use Status Tobacco use date assessed 04/18/24 02/21/25 11:21 Patient Tobacco Use Status Former Tobacco user 02/21/25 11:21 Tobacco use type Cigarette 02/21/25 11:21 e-Cigarette/Vaping Use Never Used 02/21/25 11:21 Thrive Assessment: Date of Thrive Assessment Date Thrive assessed 07/18/24 02/21/25 11:21 Currently or been in a relationship where the following occur: No concerns reported Coding Level of Care Code Est Pt Level 4 (92468) Diagnoses Coronary artery disease involving seneca coronary artery of seneca heart without angina pectoris I25.10 Coronary Disease-Associated Artery/Lesion type: seneca artery [place] vs. transplanted heart: seneca heart Associated angina: without angina Essential hypertension I10 Hypertension type: essential hypertension Cardiac pacemaker in situ Z95.0 Pure hypercholesterolemia E78.00 Hyperlipidemia type: pure hypercholesterolemia Impaired glucose tolerance R73.02 Obesity (BMI 30-39.9) E66.9 Gastroesophageal reflux disease without esophagitis K21.9 Esophagitis presence: without esophagitis Transaminitis R74.01 Assessment & Plan Assessment & Plan (1) CAD (coronary artery disease): Comment: drug-eluting stent to proximal -mid LAD in January 2011 for ACS, 3 by 15 mm 10/2024 PCI to LAD Brilinta Code(s): I25.10 - Atherosclerotic heart disease of seneca coronary artery without angina pectoris Category: Medical Qualifiers: Coronary Disease-Associated Artery/Lesion type: seneca artery [place] vs. transplanted heart: seneca heart Associated angina: without angina Qualified Code(s): I25.10 - Atherosclerotic heart disease of sen[place] coronary artery without angina pectoris Plan: on aspirin 81 mg and Brilinta 90 mg twice daily, to continue on for a year. He is following with Cardiology and currently participating in cardiac rehabilitation. Echocardiogram from 10/26/2024 showed normal left ventricular size and systolic function with EF at% without evidence of regional wall motion abnormalities. He feels well, without symptoms of chest pain, trouble breathing, or palpitations or lower extremity swelling. Also reports making dietary changes to healthier options, and continue to steadily lose weight. Recent blood work revealed normal cholesterol and LDL of 39 at goal. Continue current medication regimen (2) HTN (hypertension): Code(s): I10 - Essential (primary) hypertension Category: Medical Qualifiers: Hypertension type: essential hypertension Qualified Code(s): I10 - Essential (primary) hypertension Plan: Continue with amlodipine and metoprolol. Decrease salt intake and exercise (3) Cardiac pacemaker in situ: Comment: Medtronic dual-chamber pacemaker placed, 07/30/2023 for syncope and sinus pauses Code(s): Z95.0 - Presence of cardiac pacemaker Category: Medical Plan: Continue to follow up with Cardiology with device checks (4) Hyperlipidemia: Code(s): E78.5 - Hyperlipidemia, unspecified Category: Medical Qualifiers: Hyperlipidemia type: pure hypercholesterolemia Qualified Code(s): E78. 00 - Pure hypercholesterolemia, unspecified Plan: Avoid fried foods and high fat food especially saturated fats and trans fats like in margarine. Lipid panel from 02/13/2025 showed normal cholesterol and LDL at goal. on rosuvastatin 10 mg once a day (5) Impaired glucose tolerance: Code(s): R73.02 - Impaired glucose tolerance (oral) Category: Medical Plan: Decrease the amount of carbohydrate intake, pasta, bread, rice and potatoes are all sugar and that is aside from all the sweet stuff, remember that fruits are good but they are Sweet also. (6) Obesity (BMI 30-39.9): Code(s): E66.9 - Obesity, unspecified Category: Medical Plan: Diet and exercise (7) GERD (gastroesophageal reflux disease): Code(s): K21.9 - Gastro-esophageal reflux disease without esophagitis Category: Medical Qualifiers: Esophagitis presence: without esophagitis Qualified Code(s): K21.9 - Gastro-esophageal reflux disease without esophagitis Plan: Continue on famotidine 20 mg b.i.d., anti-reflux precautions and dietary modification (8) Transaminitis: Code(s): R74.01 - Elevation of levels of liver transaminase levels Plan: Recent blood work revealed elevated LFTs with AST/ALT at 38/77. Repeat blood work in 8 weeks to monitor Orders: Orders Comprehensive Met. Panel 8 Weeks R74.01 - Elevation of levels of liver transaminase levels
[2025-02-21 11:20] VITALS: BP 124/76; PULSE 97; RESP 20; TEMP 36.6; O2SAT 98; BMI 33.4
== END 2025-02-21 12:02 | disposition home or self-care (01) ==
LOC: HO.HMCH 10:35
PROVIDERS: PCP Internal Medicine; Visit Provider Student in an Organized Health Care Education/Training Program
DX: I25.10 Atherosclerotic heart disease of native coronary artery without angina pectoris (principal); I10 Essential (primary) hypertension; E66.9 Obesity, unspecified; Z68.33 Body mass index [BMI] 33.0-33.9, adult; Z95.0 Presence of cardiac pacemaker; E78.00 Pure hypercholesterolemia, unspecified; R73.02 Impaired glucose tolerance (oral); K21.9 Gastro-esophageal reflux disease without esophagitis; R74.01 Elevation of levels of liver transaminase levels

== ENCOUNTER → 2025-02-21 10:34 | Outpatient (BNVA) | payer OTHER, SELFPAY | PROVIDERS: PCP Internal Medicine; Visit Provider Student in an Organized Health Care Education/Training Program | DX: I10 Essential (primary) hypertension (principal); E78.00 Pure hypercholesterolemia, unspecified; R73.02 Impaired glucose tolerance (oral); K21.9 Gastro-esophageal reflux disease without esophagitis; E66.9 Obesity, unspecified; R74.01 Elevation of levels of liver transaminase levels; Z95.0 Presence of cardiac pacemaker | CPT/HCPCS: 99212 ==

== ENCOUNTER 2025-02-21 12:13 | Outpatient (AMB) | payer OTHER, SELFPAY ==
--- NOTE | 2025-02-21 17:04 | A.OFFPSYCH_ITS ---
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: No Allergies propoxyphene (From Darvon) Allergy (Severe, Verified 02/21/25 11:19) vomiting/dizziness atorvastatin (Lipitor) Allergy (Intermediate, Verified 02/21/25 11:19) decreased renal function lisinopril (From Zestril) Allergy (Intermediate, Verified 02/21/25 11:19) TROUBLE BREATHING Medication List - Last Reconciled 02/21/25 by Mary Baca APRN amlodipine 5 mg PO DAILY aspirin (Adult Low Dose Aspirin) 81 mg PO BID famotidine 20 mg PO BID 90 days levetiracetam (Keppra) 500 mg PO BID 90 days metoprolol succinate ER 25 mg PO DAILY [id number]-kfmiobab-hfgknk 1 tab PO BEDTIME omega 6-wlr-paa-fish oil 1,200 (144-216) mg (Fish Oil) 1 cap PO DAILY rosuvastatin 10 mg PO DAILY sertraline (Zoloft) 50 mg PO DAILY tamsulosin 0.4 mg PO BEDTIME ticagrelor 90 mg PO BID HPI- Psychiatric Chief Complaint: f/u consultation HPI Narrative: pt here for follow up re: PTSD and depression. Pt reports continued depression and anxiety . In interim, pt tapered down to celexa 20mg daily. He is teary eyed and irritable. His PHQ9=12 and GAD7=13. He is willing to start the zoloft. HX:Pt referred by PCP for evaluation and medication optimization. pt with depression, currently on citalopram 40mg. Pt had an elevated PHQ-9 at [facility] rehab, and reported ongoing symptoms of depression despite taking medications. Pt reports years of depression and anger since joining the [employer]. He describes difficulty being from family as the biggest trigger for his depression and anger. he also reports years of reactivity to percieved stupidity. He gets very angry when he thinks others are doing stupid things or doing things incorrectly. He feels that he may have PTSD. 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 He experienced high stress when his parents became ill while he was deployed and when he was away from his tonio. he often had to seek out the quality auditor to get help and contact his who was also unhappy with the distance. He caretakes his who has many medical problems and his adult daughter who has a drug addiction. he has has 12 yr old grandson who lives with him, his and his newly sober 52 yr old daughter. He reports feeling anxious, edgy, agitated, irritable every day. He says he is mad at the world. He says everything seems to make him mad. Past Psychiatric History: outpt celexa, no other meds tried. No IPLO Past Psychiatric History: outpt celexa, no other meds tried. No IPLOC Subjective Subjective Medication Compliance: Yes Side effects from medications: No Review of Systems Medical Review of Systems: unchanged Mental Status Exam Mental Status Exam Patient Appearance: Well Grooomed and Appropriate Patient Orientation: Person, Place, Time and Situation Level of Consciousness: Awake, Appropriate and Alert Patient Behavior: Appropriate, Cooperative and Anxious Mood Description: Depressed, Anxious and Sad Affect Description: Depressed, Anxious and Nervous Patient Cognition Impaired: No Ability to Follow Directions: Good Speech Pattern: Clear and Appropriate Memory Description: Intact Hallucinations: None Delusions: Not Present Thought Process: Intact, Rumination and Goal Oriented Thought Content: positive for Intact, positive for Goal Oriented and positive for Preoccupation Judgement: Good Assessment and Plan Assessment & Plan (1) Chronic post-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 Self Management counseling: Maintenance-social rhythm, Sleep hygiene, General coping skills and Problem solving Medication management counseling: Effectiveness, Side effects, Dosing range and Duration Diagnosis and Prognosis Counseling: Accuracy of diagnosis, Prognosis over time, Impact of family relationship and Adequacy of current interventions Details: I spent 36 minutes reviewing the record, seeing the patient and documenting in the medical record. Counseling provided to the patient/caregiver as outlined below. Addressed patient/caregiver concerns regarding current medication regime including effective adherence. Addressed patient/caregiver concerns regarding diagnosis and prognosis including accuracy of diagnosis, prognosis over time, impact of diagnosis. Addressed patient/caregiver concerns regarding impact of recent stressors. [facility] Medical History Unstable angina Periodic limb movement disorder Restless leg syndrome Depression Chest pain, unspecified Anxiety and depression CAD (coronary artery disease) Implantable loop recorder present Cardiac pacemaker in situ Seizures Mood swings COVID-19 vaccine series completed Impaired glucose tolerance Diverticular disease GERD (gastroesophageal reflux disease) BPH (benign prostatic hyperplasia) Insomnia Asbestos exposure Peripheral vascular disease Obesity (BMI 30-39.9) Tubular adenoma of colon Hyperlipidemia HTN (hypertension) Surgical History H/O umbilical hernia repair Hx of blepharoplasty H/O colonoscopy Hx of heart artery stent History of tumor History of right knee surgery Hx of thumb surgery Family History Father CVD (cardiovascular disease) Melanoma Mother CVD (cardiovascular disease) Pancreatic cancer Hypertension Diabetes Brother No problems noted. Sister No problems noted. Son No problems noted. Daughter No problems noted. Social History Household Members: Spouse and Family [facility] Are you a primary child care coordinator to a significant other at home: No Do you presently have visiting nurse or other home services: No Alcohol intake: current Alcohol intake frequency: holidays/special occasions only Patient Tobacco Use Status: Former Tobacco user Tobacco use type: Cigarette e-Cigarette/Vaping Use: Never Used Second Hand Smoke Exposure: Yes service: Yes Current occupational status: retired Cognitive needs: No Hearing needs: No Vision needs: Yes Social History: lives with , adult daughter and 21 yr old grandson Substance History: wine 2-3 times a month; no other drug use. 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
== END 2025-02-21 14:12 | disposition home or self-care (01) ==
LOC: HO.HOP 12:13
PROVIDERS: PCP Internal Medicine; Visit Provider Clinical Nurse Specialist Psychiatric/Mental Health
DX: F43.12 Post-traumatic stress disorder, chronic (principal); Z91.82 Personal history of military deployment; F41.1 Generalized anxiety disorder; F32.9 Major depressive disorder, single episode, unspecified
CPT/HCPCS: 99214

== ENCOUNTER 2025-03-01 07:00 | Outpatient (RCR) | payer OTHER, SELFPAY | END 2025-03-03 06:47 | disposition home or self-care (01) | LOC: HO.CR 07:00 | PROVIDERS: PCP Internal Medicine; Visit Provider Internal Medicine Cardiovascular Disease | DX: I20.0 Unstable angina (principal); Z98.61 Coronary angioplasty status | CPT/HCPCS: 93797; 93798 ==

== ENCOUNTER → 2025-03-01 14:56 | Outpatient (BNV) | payer OTHER, SELFPAY | PROVIDERS: PCP Internal Medicine; Visit Provider Internal Medicine Cardiovascular Disease | DX: I49.9 Cardiac arrhythmia, unspecified (principal) | CPT/HCPCS: 93294 ==